=== PATIENT | male | born 1960 | race Caucasian/White ===

== ENCOUNTER 2018-09-12 11:56 | Outpatient (CLI) | payer MEDICAID, SELFPAY ==
[2018-09-12 13:13] LABS: Anion Gap 8.3 mmol/L (3-11); BUN 18 mg/dL (7-18); CO2 29.7 mmol/L (21.0-32.0); CREATININE 1.31 mg/dL (0.70-1.30); Chloride 105 mmol/L (98-107); Estimated GFR 56.81 (mL/min/1.73m2); Glucose 126 mg/dL (70-100); Sodium 143 mmol/L (136-145)
== END 2018-09-12 12:16 ==
PROVIDERS: PCP Family Medicine; Visit Provider Otolaryngology Otolaryngology/Facial Plastic Surgery
DX: H91.90 Unspecified hearing loss, unspecified ear (principal); H93.13 Tinnitus, bilateral; Z86.61 Personal history of infections of the central nervous system; R42 Dizziness and giddiness
CPT/HCPCS: 36415; 80048

== ENCOUNTER 2018-09-17 00:44 | Outpatient (CLI) | payer MEDICAID, SELFPAY ==
[2018-09-17] MEDS: Gadoterate meglumine 20 ML VIAL 19 ML IVP (15:01)
--- NOTE | 2018-09-17 15:15 | DI.MRI_ITS ---
SYMPTOM/DIAGNOSIS: UNILATERAL HEARING LOSS, I91.90, DIZZINESS, R42, TINNITUS OF BOTH EARS, H93, H/O NEUROSYPHILIS,Z86.61 IAC/BRAIN MRI: The study was carried out according to the usual protocol. There is no evidence of an intra/extra-axial hemorrhage, mass, edema or significant white matter disease. There is nothing to suggest an acoustic neuroma. The ventricles are normal. The bony structures and joints are intact. The soft tissues are normal. The sinuses are normal. The mastoid air cells are well visualized and appear unremarkable. The orbits are intact. IMPRESSION: No acute abnormality is demonstrated.
--- NOTE | 2018-09-18 17:47 | DI.VRAD_ITS ---
EXAM: MR Head Without and With Contrast EXAM DATE/TIME: 09/17/2018 3:14 PM CLINICAL HISTORY: 57 years old, male; Signs and symptoms; Other: Unilateral hearing loss, dizziness, tinnitus of both ears, h/o neurosyphillis TECHNIQUE: MR of the head without and with intravenous contrast. CONTRAST: 19 ml of Dotarem administered intravenously. COMPARISON: MRI - BRAIN WO CONTRAST 09/20/2017 4:38 PM FINDINGS: Brain: Normal. No hemorrhage. No significant white matter disease. No edema. No mass. No abnormal enhancement. No acoustic neuroma. Ventricles: Normal. No ventriculomegaly. Bones/joints: Unremarkable. Soft tissues: Normal. Sinuses: Normal as visualized. No acute sinusitis. Mastoid air cells: Normal as visualized. No mastoid effusion. Orbits: Unremarkable. IMPRESSION: No acute findings. Dictated and Authenticated by: Anson Dillon MD. Ordering:RANDY Soto MD
== END 2018-09-17 01:04 ==
PROVIDERS: PCP Family Medicine; Visit Provider Physician Assistant
DX: H93.13 Tinnitus, bilateral (principal); R42 Dizziness and giddiness; H93.01 Transient ischemic deafness; Z86.61 Personal history of infections of the central nervous system
CPT/HCPCS: 70553

== ENCOUNTER 2019-05-31 14:26 | Emergency (ER) | payer MEDICAID, SELFPAY ==
[2019-05-31 14:29] VITALS: BP 146/75; PULSE 92; RESP 16; TEMP 36.4; O2SAT 93
--- NOTE | 2019-05-31 14:58 | ED.GENADUL_ITS ---
Discharge Plan Disposition Patient Disposition: HOME Condition: Stable Discharge Details Chief Complaint: Cellulitis Clinical Impression: Cellulitis and abscess of right leg Primary Care Provider: Chele Becker ED Provider: Juan Carlos Avilez Home Meds and New Rx's Prescriptions: New sulfamethoxazole-trimethoprim [Bactrim DS] 800-160 mg tablet 1 tab PO Q12H Qty: 14 RF: 0 Continued Truvada 1 EACH tablet 1 ea PO DAILY RF: 0 ibuprofen 200 MG capsule 800 mg PO PRN RF: 0 Discharge Instructions Instructions: Cellulitis (ED) Additional Instructions: You may apply warm wet compresses 3-4 times daily for the next 3 days to aid in healing. Otherwise keep wound clean and dry. Return immediately to ED for any significant worsening of symptoms or if no improvement is seen in the next 48 hours otherwise follow-up with your primary care provider as needed for reassessment. Referrals: Chele Becker DO [Primary Care Provider] - Discharge Data Discharge Date/Time-TO BE ENTERED AT DEPARTURE: 05/31/19 17:47 Medical Decision Making <YUE Wise - Last Filed: 06/01/19 06:33> Patient is a 58-year-old male with c/c of erythema and pain to the right medial knee. States that this started proxy 4 days ago and is progressive and increasing. He denies any fevers or chills. Did note a small amount of discharge from it today. No known trauma. No inciting incident. On exam, patient has a 6 cm in circumference indurated area with erythema and a very small white area that appears to have some serosanguineous fluid draining from it centrally. Findings are most concerning for cellulitis and possible abscess. I evaluated this with an ultrasound and see scant amount of fluid. No large drainable collection. However, given patient's presentation I do feel that tryi ng to aspirate with an 18-gauge is appropriate. We will apply let and attempt aspiration. Plan to treat patient with antibiotics. At the end of my shift, care was transitioned to Juan Carlos Avilez NP. Patient is currently keeping left over the area. <Juan Carlos Avilez NP - Last Filed: 06/01/19 16:20> Patient signed out to me by YUE Wise. After topical anesthetic had set long enough for patient's area of concerning abscess wound area was assessed. Patient still felt significant amount of discomfort. Verbal consent was obtained from patient for further topical pain ease spray and needle aspiration. Needle aspiration was performed with 18-gauge needle after sterilization of field and minimal drainage was noted. Patient still had quite a bit of pressure remaining so discussed with patient incision. Patient agreed to this. 3 mL's of 1% lidocaine was injected locally and 1 appropriate level of anesthetic was achieved less than 1 cm incision was made into the central area. Small amount of purulent drainage and blood was expressed from the wound. Patient placed upon Bactrim. Return precautions discussed. After discussion of diagnosis and plan of care patient has no further needs, questions, or concerns and states clear understanding to return to the emergency department for any worsening symptoms. HPI <YUE Wise - Last Filed: 06/01/19 06:33> General Mode of arrival: ambulatory . Date/Time Provider Initiated Documentation: 05/31/19 14:57 . Limitations to Documentation: no limitations . Information obtained by: patient, family and RN notes reviewed . History of Present Illness 58 year old M presents to the emergency department with the chief complaint of right knee pain and redness, described as moderate, with intensity rated at 7. Quality is described as burning, and is localized to the right and lower extremity. Patient reports no radiation. Patient started experiencing this day(s) (4) and it has been constant. other things that improve symptom(s), (sitting with knee bent) Movement worsens symptoms (worse with ambulation) . Patient notes denies fever/chills, nausea/vomiting and weakness. Patient did receive the following treatments prior to arrival, none Related Data Home Medications Medication Instructions Recorded Confirmed Truvada 1 ea PO DAILY 02/01/16 05/31/19 ibuprofen 800 mg PO PRN tab-cap 02/05/17 05/31/19 sulfamethoxazole-trimethoprim 1 tab PO Q12H #14 tab 05/31/19 [Bactrim DS] Previous Rx's Medication Instructions Recorded sulfamethoxazole-trimethoprim 1 tab PO Q12H #14 tab 05/31/19 [Bactrim DS] Allergies Allergy/AdvReac Type Severity Reaction Status Date / Time No Known Allergies Allergy Unverified 05/31/19 14:32 General Stated Complaint: Cellulitis JOHNATHON: 4 Review of Systems <YUE Wise - Last Filed: 06/01/19 06:33> Constitutional Constitutional: Reports as per HPI, Denies chills and Denies fever(s) Musculoskeletal Musculoskeletal: Reports as per HPI Integumentary/Breasts Skin/Breast: Reports as per HPI Neurologic Neurologic: Reports as per HPI, Denies sensory deficit and Denies paresthesias PFSH <YUE Wise - Last Filed: 06/01/19 06:33> Medical History Arrhythmia (Acute) Depression (Chronic) Gout (Chronic) Surgical History Adenoidectomy Family History Mother Essential hypertension Father , [place] at age 50. Myocardial infarction Sister Heart disease Myocardial infarction Sister Heart disease Myocardial infarction Sister No problems noted. Brother Suicide Social History Smoking/Tobacco Use Status: Never Alcohol Intake: current Alcohol Intake frequency: 3 or more drinks per day Drug use: Occasionally Substance use type: does not use Adopted: No Housing: house current occupation: self employed realtor What type of physical activity do you participate in: walking and other Details: snoeshowing Frequency: 3-4 times per week Do you feel safe at home: Yes Do you feel safe in your relationship?: Yes Exam <YUE Wise - Last Filed: 06/01/19 06:33> Const General: cooperative, healthy appearing, comfortable, no acute distress and well developed Nutritional Appearance: average body habitus and well nourished Orientation: alert and awake Resp Effort & Inspection: normal respiratory effort, able to speak in complete sentences and no respiratory distress Cardio Rate: regular rate Rhythm: regular rhythm Skin General skin exam: erythema, no fluctuance and hypertrophy Neuro General: alert and awake Cognition: normal cognition Speech: speech normal Gait: normal gait Sensory Exam: no sensory deficits noted Extrem General: full ROM, normal capillary refill, no joint enlargement, no pedal edema, no calf tenderness and normal gait Psych Appearance: grossly normal and well kempt Mental Status: mental status grossly normal Speech and Movement: speech and movement normal Course <YUE Wise - Last Filed: 06/01/19 06:33> Vital Signs Vital signs: Vital Signs Temperature 36.4 C L 05/31/19 14:29 Pulse 92 H 05/31/19 14:29 Respiratory Rate 16 05/31/19 14:29 Blood Pressure 146/75 H 05/31/19 14:29 Pulse Oximetry 93 L 05/31/19 14:29 Temperature 36.4 C L 05/31/19 14:29 Pulse 92 H 05/31/19 14:29 Respiratory Rate 16 05/31/19 14:29 Respiratory Effort Non-Labored 05/31/19 14:33 Blood Pressure 146/75 H 05/31/19 14:29 Pulse Oximetry 93 L 05/31/19 14:29 Pain Level 7 05/31/19 14:29 Sign Out <YUE Wise - Last Filed: 06/01/19 06:33> Sign Out Data: Sign Out Comment: Care transitioned to Marshal Avilez NP. Patient has LET on, will need drainage of a small area of fluid collection of abscess right medial knee with surrounding cellulitis. Will need abx after. Last updated by Bessie Lopez PA at 05/31/19 16:59
[2019-05-31] MEDS: Acetaminophen 500 MG TAB (17:50)
[2019-05-31] MEDS: Sulfameth/Trimeth DS TAB 1 TAB PO (17:50)
[2019-05-31] MEDS: Lidocaine/Epinephri/Tetracaine Topical Gel 3 ML TP (17:50)
== END 2019-05-31 17:47 | disposition home or self-care (01) ==
PROVIDERS: Emergency Provider Nurse Practitioner Family; PCP Family Medicine
DX: L02.415 Cutaneous abscess of right lower limb (principal)
CPT/HCPCS: 10160; 99283

== ENCOUNTER 2019-06-03 09:54 | Outpatient (CLI) | payer MEDICAID, SELFPAY ==
--- NOTE | 2019-06-03 16:12 | DI.RAD_ITS ---
EXAM: XR KNEE RT 3V AP,LAT,JUAN ANTONIO INDICATION: Evaluate for septic joint, rt knee skin infection, L08.9. COMPARISON: LEFT KNEE LIMITED 1 OR 2 VIEWS from 07/04/2016 TECHNIQUE: 2D digital imaging was performed. FINDINGS: The bony structures are normally mineralized. Joint spaces intact. I could not entirely exclude a sm all joint effusion.
== END 2019-06-03 10:14 ==
PROVIDERS: PCP Family Medicine; Visit Provider Family Medicine
DX: L08.9 Local infection of the skin and subcutaneous tissue, unspecified (principal); M25.561 Pain in right knee
CPT/HCPCS: 73562

== ENCOUNTER 2019-06-03 16:05 | Outpatient (REF) | payer MEDICAID, SELFPAY | END 2019-06-03 16:25 | LOC: LBO 16:05 | PROVIDERS: PCP Family Medicine; Visit Provider Family Medicine | DX: L02.91 Cutaneous abscess, unspecified (principal) | CPT/HCPCS: 87077; 87070; 87186; 87205 ==

== ENCOUNTER 2019-06-09 02:09 | Outpatient (RCR) | payer MEDICAID, SELFPAY ==
[2019-06-06 09:03] LABS: BUN 18 mg/dL (7-18); CREATININE 1.58 mg/dL (0.70-1.30); Estimated GFR 45.59 (mL/min/1.73m2)
[2019-06-06] MEDS: Normal Saline Flush 10 ML SYR 20 ML IVP (10:18)
[2019-06-07] MEDS: Normal Saline Flush 10 ML SYR IVP ×4 (08:31→21:33)
[2019-06-08 08:27] LABS: Vancomycin, Trough 9.6 ug/mL (10.0-20.0)
[2019-06-08] MEDS: Normal Saline Flush 10 ML SYR IVP ×2 (09:31→22:18)
[2019-06-09] MEDS: Normal Saline Flush 10 ML SYR 20 ML IVP ×2 (08:19→20:14)
[2019-06-09 20:17] VITALS: RESP 16; TEMP 36.7; O2SAT 92
== END 2019-06-26 23:59 | disposition home or self-care (01) ==
LOC: INF 02:09
PROVIDERS: PCP Family Medicine; Visit Provider Family Medicine
DX: L02.415 Cutaneous abscess of right lower limb (principal); A49.02 Methicillin resistant Staphylococcus aureus infection, unspecified site
CPT/HCPCS: 36415; 84520; 96365; 96366; 80202; 82565; J3370

== ENCOUNTER 2019-06-09 11:12 | Outpatient (REF) | payer MEDICAID, SELFPAY | END 2019-06-09 11:32 | LOC: LBN 11:12 | PROVIDERS: PCP Family Medicine; Visit Provider Family Medicine | DX: Z22.322 Carrier or suspected carrier of Methicillin resistant Staphylococcus aureus (principal) | CPT/HCPCS: 87077; 87070; 87186; 87205 ==

== ENCOUNTER 2019-08-06 08:48 | Outpatient (CLI) | payer MEDICAID, SELFPAY ==
[2019-08-06 09:20] LABS: Abs Immature Grans 0.02 k/cumm (0.0-0.09); Absolute Basophil Count 0.04 k/cumm (0.0-0.2); Absolute Eosinophil Count 0.05 k/cumm (0.0-0.7); Absolute Lymphocyte Count 1.35 k/cumm (1.2-3.4); Absolute Monocyte Count 0.43 k/cumm (0.11-0.7); Absolute Neutrophil Count 2.85 k/cumm (1.2-6.7); Basophils % 0.8; Eosinophils % 1.1; HCT 38.3 % (40.0-50.0); HGB 12.5 g/dL (13.5-17.5); Immature Grans % 0.4; Lymphocytes % 28.5; Mean Corp. HGB Concentration 32.6 g/dL (32.0-36.0); Mean Corpuscular Hemoglobin 21.1 pg (27.0-33.0); Mean Corpuscular Volume 64.7 fL (80-95); Mean Platelet Volume 11.3 fL (8.0-11.0); Monocytes % 9.1; Neutrophils % 60.1; Platelet Count 198 x1000/uL (130-400); RBC 5.92 m/cumm (4.50-6.00); RBC Distribution Width 16.5 % (11.8-14.1); White Blood Cell Count 4.74 k/cumm (4.4-10.8)
[2019-08-06 10:06] LABS: ALT 48 U/L (16-63); AST 38 U/L (15-37); Albumin 4.2 g/dL (3.4-5.0); Alkaline Phosphatase 81 U/L (46-116); Anion Gap 11.3 mmol/L (3-11); BUN 14 mg/dL (7-18); CO2 25.7 mmol/L (21.0-32.0); CREATININE 1.33 mg/dL (0.70-1.30); Calcium 9.1 mg/dL (8.5-10.1); Calculated LDL 67 mg/dL; Chloride 105 mmol/L (98-107); Cholesterol 118 mg/dL (<200); Estimated GFR 55.62 (mL/min/1.73m2); Glucose 103 mg/dL (74-106); HDL Cholesterol 35 mg/dL (40-60); Potassium 4.4 mmol/L (3.5-5.1); Sodium 142 mmol/L (136-145); Total Protein 6.8 g/dL (6.4-8.2); Triglyceride 80 mg/dL (<150)
== END 2019-08-06 09:08 ==
PROVIDERS: PCP Family Medicine; Visit Provider Family Medicine
DX: D56.3 Thalassemia minor (principal); Z13.220 Encounter for screening for lipoid disorders
CPT/HCPCS: 36415; 80053; 80061; 85025

== ENCOUNTER → 2022-05-12 00:55 | Outpatient (CLI) | payer MEDICAID, SELFPAY ==
--- OUTSIDE RECORDS SUMMARY | 2022-05-12 00:56 | XMS_ITS | Encounter Summary ---
:1960 Author Organization [facility] [address] Care Team Providers Name Role Phone Chele Becker DO Primary Care Provider Encounter Details Date Type Department Care Team Description 11/29/2018 Office Visit [place]ology at [facility] [place] (aisha Reis MD keratosis) [address] Gabriel B DERMATOLOGY [place], [place] [id number] [phone] Social History Tobacco Use Types Packs/Day Years Used Date Never Smoker Smokeless Tobacco: Never Used Sex Assigned at Date Recorded Not on file documented as of this encounter Progress Notes [facility] MD - 11/29/2018 4:45 PM EDT Problem: 1. Follow-up status post 2-week course of facial 5-FU application Beth follows up and has had a brisk reaction to his 2-week course of 5-FU, excessively so in the central face. The scalp is responded only mildly to moderately, in contrast. Physical examination reveals a pleasant 58-year-old gentleman who has confluent erythema with edema of the central face over the entire bridge of the nose and medial cheeks with just erythematous macules of of reactive areas on the balding parietal scalp. Assessment plan: Actinic keratoses diffuse damage status post 2-week course of facial 5-FU application with excessively vigorous response and central face 1. Discontinue 5-FU; the patient did not apply it this morning 2. Continue triamcinolone 0.1% cream applying a thin layer twice daily for another 10 days to 2 weeks as necessary to help healing/deal with residual erythema 3. Recommend that I see the patient again in August 28, 2019 for his regular yearly skin checkup. CC: Chele Meredith DO documented in this encounter Plan of Treatment Not on filedocumented as of this encounter Visit Diagnoses Diagnosis [place] (actinic keratosis) Actinic keratosis documented in this encounter Care Teams Crane Service Technician Relationship Specialty Start Date End Date Chele Becker DO PCP - General Family Medicine 09/12/[address] [place] [address] documented as of this encounter
--- OUTSIDE RECORDS SUMMARY | 2022-05-12 00:56 | XMS_ITS | Encounter Summary ---
:1960 Author Organization [facility] [place] [address] Care Team Providers Name Role Phone Chele Kessler MD Primary Care Provider [phone] Reason for Visit Reason Comments Follow-up Encounter Details Date Type Department Care Team Description [facility]10[facility] [address] Gabriel B DERMATOLOGY [place], [place] [id number] [phone] Social History Tobacco Use Types Packs/Day Years Used Date Never Smoker Sex Assigned at Date Recorded Not on file documented as of this encounter Patient Instructions Patient InstructionsJuliana Guardado LPN - 06/10/2015 4:54 PM EDT [facility] Actinic Keratosis: After Your Visit Your Care Instructions Actinic keratosis is a skin growth caused by sun damage. It can turn into skin cancer, but this isn't common. Actinic keratoses, also called solar keratoses, are small red, brown, or skin-colored scalypatches. They are most common on the face, neck, hands, and forearms. Your doctor can remove these growths by freezing or scraping them off or by putting medicines on them. Follow-up care is a ortiz part of your treatment and safety. Be sure to make and go to all appointments, and call your doctor if you are having problems. It's also a good idea to know your test results and keep a list of the medicines you take. How can you care for yourself at home? ?? If your doctor removes the growth, clean the area with soap and water 2 times a day unless your doctor gives you different instructions. Don't use hydrogen peroxide or alcohol, which can slow healing. ?? You may cover the wound with a thin layer of petroleum jelly, such as Vaseline, and a nonstick bandage. To prevent actinic keratosis ?? Always wear sunscreen on exposed skin. Make sure the sunscreen blocks ultraviolet rays (both UVA and UVB) and has a sun protection factor (SPF) of at least 15. Use it every day, even when it is cloudy. Some doctors may recommend a higher SPF, such as 30. ?? Wear long sleeves, a hat, and pants if you are going to be outdoors for a long time. ?? Avoid the sun between 10 a.m. and 4 p.m., the peak time for UV rays. ?? Do not use tanning booths or sunlamps. When should you call for help? Watch closely for changes in your health, and be sure to contact your doctor if: ?? The areas that were treated are red, drain pus, or have red streaks leading from them. ?? You see other growths that do not go away. ?? You do not get better as expected. Where can you learn more? Visit our health information library at [email or web address] You can also view health information on [employer], your personal patient account. Log in or sign up today. Enter L364 in the search box to learn more about Actinic Keratosis: After Your Visit. ?? [id number] [employer]. Care instructions adapted under license by [facility]. This care instruction is for use with your licensed healthcare professional. If you have questionsabout a medical condition or this instruction, always ask your healthcare professional. [employer] disclaims any warranty or liability for your use of this information. Content Version: 10.4.188702; Current as of: March 26, 2014 documented in this encounter Progress Notes [facility] MD - 06/10/2015 5:02 PM EDT Problem: Followup status post two weeks of imiquimod cream application. Beth follows up and is doing well. He has been applying the imiquimod cream on Mondays, Wednesdays, and Fridays only, three nights a week. He uses two packets, one to the forehead area and one to the more frontal parietal scalp, for each application. Physical examination reveals a mild erythematous papule development at the treated site of the balding parietal scalp and upper forehead. There is no excessive reaction. They are only mildly sore. Assessment and Plan: Actinic keratoses, scalp. a. Continue therapy with imiquimod cream 5%, applying three days a week, Mondays, Wednesdays, and Fridays, for another six weeks, for a total of an eight-week course. b. Answered patient questions regarding expected erythema and irritation. Patient still has eight packets and three refills left. Return to clinic in another year for repeat check. COPY: Issa Temple M.D. documented in this encounter Plan of Treatment Not on filedocumented as of this encounter Visit Diagnoses Diagnosis AK (actinic keratosis) Actinic keratosis documented in this encounter Care Teams Boat Tester Relationship Specialty Start Date End Date Chele Kessler MD PCP - General 07/19/10 09/11/[address] [place] [address] documented as of this encounter
--- OUTSIDE RECORDS SUMMARY | 2022-05-12 00:56 | XMS_ITS | Encounter Summary ---
:1960 Author Organization [facility] Address [address] [place] [id number] Care Team Providers Name Role Phone LatiaChele da silva DO Primary Care Provider [phone] Reason for Visit Reason Onset Date Comments Medications Refill 12/21/2021 Encounter Details Date Type Department Care Team Description 12/21/2021 Refill [facility] Silvana Phelps MD Medications Refill Infectious Disease - [address] [place] [id number] [place] [phone] (Wo rk) Social History Tobacco Use Types Packs/Day Years Used Date Never Smoker Smokeless Tobacco: Never Used Alcohol Use Standard Drinks/Week Comments Yes 14 (1 standard drink = 0.6 oz pure alcoh ol) Sex Assigned at Date Recorded Not on file documented as of this encounter Ordered Prescriptions Prescription Sig Dispensed Refills Start Date End Date emtricitabine-tenofovir, Take 1 Tablet by 30 Tablet 2 12/2102/02/2022 TDF, (TRUVADA) 200-300 mg mouth daily. per tablet documented in this encounter Plan of Treatment Upcoming Encounters Date Type Specialty Care Team Description 05/30/2022 Nurse Only Infectious Disease Nurse, Id, RN 08/10/2022 Office Visit Infectious Disease Silvana Phelps MD [address] [phone] (Wo rk) documented as of this encounter Visit Diagnoses Not on filedocumented in this encounter Discontinued Medications Medication Sig Discontinue Reason Start Date End Date emtricitabine-tenofovir, Take 1 Tablet by Reorder 10/27/2021 12/21/2021 TDF, (TRUVADA) 200-300 mouth daily. mg per tablet emtricitabine-tenofovir, Take 1 Tablet by Reorder 09/14/2021 12/21/2021 TDF, (TRUVADA) 200-300 mouth daily. mg per tablet documented as of this encounter Care Teams Photo Producer Relationship Specialty Start Date End Date Chele Becker DO PCP - General 04/27/[address] [place] [id number] documented as of this encounter
--- OUTSIDE RECORDS SUMMARY | 2022-05-12 00:56 | XMS_ITS | Encounter Summary ---
:1960 Author Organization [facility] [place] [address] Care Team Providers Name Role Phone Chele Becker DO Primary Care Provider Encounter Details Date Type Department Care Team Description 09/07/2020 Refill Dermatology at [facility] Marivel Mccormick, DIRECTOR OF STRATEGIC COMMUNICATIONS [address] [place] [phone] Social History Tobacco Use Types Packs/Day Years Used Date Never Smoker Smokeless Tobacco: Never Used Sex Assigned at Date Recorded Not on file documented as of this encounter Plan of Treatment Not on filedocumented as of this encounter Visit Diagnoses Not on filedocumented in this encounter Care Teams Blast Furnace Supervisor Relationship Specialty Start Date End Date Chele Becker DO PCP - General Family Medicine 09/12/18 [address] [place] [address] documented as of this encounter
--- OUTSIDE RECORDS SUMMARY | 2022-05-12 00:56 | XMS_ITS | Clinical Summary ---
:1960 Author Organization [facility] Address [address] [place] [address] Care Team Providers Name Role Phone Chele Becker DO Primary Care Provider [phone] Allergies No known active allergies Medications Medication Sig Dispensed Refills Start Date End Date Status ALLOPURINOL ORAL Take by mouth. 0 Active Beginning in the next week emtricitabine-ten Take 1 Tablet 30 Tablet 2 05/11/2022 Active ofovir, TDF, by mouth (TRUVADA) 200-300 daily. mg per tablet emtricitabine-ten Take 1 Tablet 30 Tablet 2 02/02/2022 02 Discontinued ofovir, TDF, by mouth 2 (Reorde r) (TRUVADA) 200-300 daily. 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 Encounters Date Type Specialty Care Team Description 05/11/2022 Phlebotomy Only Clinical Laboratory Supervisor Dry Cleaning, Acc On p re-exposure prophylaxis for HIV; Phlebotomy History of syph ilis; Routine screeni ng for STI (sexually transmitted infection) 05/11/2022 Office Visit Infectious Disease Silvana Phelps, On pre-exposure prophylaxis for HIV (Primary Dx); MD History of syph ilis; Routine screeni ng for STI (sexually transmitted infection) 05/10/2022 Telephone Infectious Disease Silvana Phelps Imm unizations MD from Last 3 Months Immunizations Name Administration Dates Next Due Covid-19 mRNA Vaccine (PFIZER COVID-19) PF 0.3 ml IM 021, 11/16/2020 (12 yrs+) Tdap (BOOSTRIX) Vaccine =>7YO IM 04/25/2017 Medical History Medical History Date Comments Gout Social History Tobacco Use Types Packs/Day Years Used Date Never Smoker Smokeless Tobacco: Never Used Alcohol Use Standard Drinks/Week Comments Yes 14 (1 standard drink = 0.6 oz pure alcoh ol) Sex Assigned at Date Recorded Not on file Last Filed Vital Signs Vital Sign Reading Time Taken Comments Blood Pressure 141/90 02/02/2022 1025 EDT Pulse 61 02/02/2022 1025 EDT Temperature 36.6 ??C (97.8 ??F) 02/02/2022 1025 EDT Respiratory Rate 16 10/06/2016 0551 EST Oxygen Saturation 95% 10/06/2016 1037 EST Inhaled Oxygen Concentration - - Weight 93 kg (205 lb) 06/16/2021 1031 EDT pt reported Height 170.2 cm (5' 7.01) 05/21/2018 0848 EDT Body Mass Index 32.1 05/21/2018 0848 EDT Plan of Treatment Upcoming Encounters Date Type Specialty Care Team Description 05/30/2022 Nurse Only Infectious Disease Nurse, Id, RN 08/10/2022 Office Visit Infectious Disease Silvana Phelps MD [address] [facility], [address] [place], [place] [address] (Wo rk) Health Maintenance Due Date Last Done Comments COVID-19 Vaccine (3 - Booster for 05/11/2021 12/09/2020, Pfizer series) Hepatitis C Screen Completed 11/21/2019, 09/10/2019, 03/20/2019, Additional history exists Procedures Procedure Name Priority Date/Time Associated Comments Diagnosis RAPID HIV 1/2 ANTIGEN STAT 05/11/2022 10:46 On pre-exposure Results for this AND ANTIBODY, 4TH EDT prophylaxis fo r HIV procedure are in GENERATION History of syphi lis the results Routine screening section. for STI (sexually transmitted infection) COMPLETE BLOOD COUNT Routine 05/11/2022 10:46 On pre-exposure Results for this AND DIFFERENTIAL EDT prophylaxis for HIV proc edure are in the results section. COMPREHENSIVE Routine 05/11/2022 10:46 On pre-exposure Results for this METABOLIC PANEL (CMP) EDT prophylaxis for HIV procedure are in the results section. from Last 3 Months Results RAPID HIV 1/2 ANTIGEN AND ANTIBODY, 4TH GENERATION (05/11/2022 10:46 EDT) Rapid HIV 1 and 2 NegativeComment: If Negative [facility] ER Antibody/P24 acute HIV-1 LABORATORY Antigen, 4th infection is SERVICES Generation suspected in a high risk patient, submit plasma specimen for HIV-1 RNA quantitation test. Specimen Blood - Venous blood (substance) Narrative [facility] - 05/11/2022 12:07 EDT Fourth Generation assay performed on the Siemens Centaur XPT. Performing Organization Address City/State/ZIP Code Phon e Number [facility] [address] [place] [address] SERVICES (ABNORMAL) COMPLETE BLOOD COUNT AND DIFFERENTIAL (05/11/2022 10:46 EDT) WBC 6.44 4.00 - 10.40 [facility] LABORATORY SERVICES RBC 6.03 (H) 4.36 - 5.78 [facility] LABORATORY SERVICES Hemoglobin 12.8 (L) 13.8 - 17.3 [facility] gm/dL LABORATORY SERVICES HCT 41.2 39.5 - 50.2 % [facility] MCV 68 (L) 81 - 95 fl [facility] MCH 21.2 (L) 27.6 - 33.0 pg [facility] SERVICES Hypochromia 2+ [facility] MCHC 31.1 (L) 32.8 - 36.4 [facility] gm/dL LABORATORY SERVICES RDW-CV 16.3 (H) <14.2 % [facility] SERVICES RDW-SD 37.2 <46.0 fl [facility] SERVICES Anisocytosis [facility] PLT 196 141 - 377 K/[facility] LABORATORY SERVICES MPV 11.1 9.5 - 12.7 fl [facility] SERVICES Neutrophils 74.5 % [facility] Lymphocytes 17.2 % [facility] Monocytes 6.7 % [facility] Eosinophils 0.3 % [facility] Basophils 0.8 % [facility] Immature Grans 0.5 % [facility] Absolute Neutrophils 4.80 2.20 - 8.85 [facility] LABORATORY SERVICES Absolute Lymphocytes 1.11 1.09 - 3.30 [facility] K[facility] LABORATORY SERVICES Absolute Monocytes 0.43 0.10 - 0.80 [facility] LABORATORY SERVICES Absolute Eosinophils 0.02 (L) 0.03 - 0.61 [facility] LABORATORY SERVICES Absolute Basophils 0.05 0.01 - 0.11 [facility] LABORATORY SERVICES Absolute Immature 0.03 0.00 - 0.06 [facility] [place] [facility] LABORATORY SERVICES Type of Differential: Auto [facility] Specimen Blood - Venous blood (substance) Performing Organization Address City/[facility]/ZIP Code Phon e Number [facility] [address] [place] [address] SERVICES (ABNORMAL) COMPREHENSIVE METABOLIC PANEL (CMP) (05/11/2022 10:46 EDT) Pathologist Sig nature Sodium 145 136 - 145 [facility] mmol/L LABORATORY SERVICES Potassium 4.4 3.5 - 5.0 [facility] mmol/L LABORATORY SERVICES Chloride 104 96 - 110 mmol/L [facility] CO2 Total 27 22 - 32 mmol/L [facility] Glucose 113 (H) 70 - 100 mg/dL [facility] BUN 10 10 - 26 mg/dL [facility] Creatinine 1.15 0.66 - 1.25 [facility] mg/dL LABORATORY SERVICES eGFR 73 >60 [facility] mL/min/1.73m2 LABORATORY SERVICES Total Protein 6.8 6.3 - 8.2 g/dL [facility] SERVICES Albumin 4.6 3.4 - 4.9 g/dL [facility] Alkaline Phosphatase 70 38 - 126 U/L [facility] AST 32 15 - 46 U/L [facility] ALT 32 <50 U/L [facility] Bilirubin, Total 0.7 <1.4 mg/dL [facility] Calcium 9.4 8.5 - 10.5 [facility] mg/dL LABORATORY SERVICES Albumin/Globulin 2.1 1.0 - 2.5 [facility] Ratio LABORATORY SERVICES Anion Gap 14 5 - 14 [facility] SERVICES Specimen Blood - Venous blood (substance) Performing Organization Address City/State/ZIP Code Phon e Number [facility] [address] [place] [address] SERVICES from Last 3 Months Insurance Payer Benefit Plan Subscriber ID Effective Phone Address Typ e / Group Dates MEDICAID ACO MEDICAID ACO [id number] 2018-Pres [phone] [address] [place] [address], [facility] [address] Beth Hughes Personal/Family Self 1960 [address] (Home) [place] [address] Beth Hughes Personal/Family Self 1960 [address] (Home) [place] [address] Advance Directives For more information, please contact: [phone] Latest Code Status on File Code Status Date Activated Date Inactivated Comments Full Code 10/04/2016 23:58 10/06/2016 16:37 Reason for decision includes: Full code consistent with over all plan of care Who participated in the discussion? Not Discussed Care Teams Credit Analyst Relationship Specialty Start Date End Date Chele Becker DO PCP - General 04/27/[address] [place] [id number]
--- OUTSIDE RECORDS SUMMARY | 2022-05-12 00:56 | XMS_ITS | Encounter Summary ---
:1960 Author Organization [facility] [place] [address] Care Team Providers Name Role Phone Chele Becker DO Primary Care Provider Encounter Details Date Type Department Care Team Description 09/12/2018 Refill Dermatology at [facility] Marivel Mccormick, SPOT MAN [address] [place] [address] Social History Tobacco Use Types Packs/Day Years Used Date Never Smoker Smokeless Tobacco: Never Used Sex Assigned at Date Recorded Not on file documented as of this encounter Plan of Treatment Not on filedocumented as of this encounter Visit Diagnoses Not on filedocumented in this encounter Care Teams Overlock Elastic Attacher Relationship Specialty Start Date End Date Chele Becker DO PCP - General Family Medicine 09/12/18 [address] [place] [address] documented as of this encounter
--- OUTSIDE RECORDS SUMMARY | 2022-05-12 00:56 | XMS_ITS | Encounter Summary ---
:1960 Author Organization [facility] [address] Care Team Providers Name Role Phone Chele Kessler MD Primary Care Provider [phone] Encounter Details Date Type Department Care Team Description 09/06/2017 Office Visit Dermatology at [facility] [place] (aisha Reis MD keratosis) [address] [facility] Gabriel B DERMATOLOGY [place], [place] [id number] [phone] Social History Tobacco Use Types Packs/Day Years Used Date Never Smoker Smokeless Tobacco: Never Used Sex Assigned at Date Recorded Not on file documented as of this encounter Progress Notes [facility] Hernandez MD - 09/06/2017 2:15 PM EST PROBLEM: 1. Followup status post 10-1/2 days of Efudex cream applications. 2. Status post 2-month course of imiquimod cream to scalp 05/2015. 3. History of verruca vulgaris. Beth follows up and has done beautifully. He has been applying the 5-FU cream on a b.i.d. basis for the last 10-1/2 days and is pleased with his response. It has not been painful, not been sore. He has not even been using the triamcinolone cream that I gave him. Physical examination reveals a pleasant 56-year-old gentleman who has diffuse actinic keratosis lining up across his forehead, his cheeks, and bald parietal scalp. A/P: Actinic keratoses, diffuse damage. a. Apply the 5-FU once more tonight, then d/c. b. Then wait for 10-14 days for the erythema to fade and the skin to dry and peel and heal. c. Expect that he should have good response to therapy with prolonged resolution of his actinics. Recommend that I see him again in another year for a repeat check. cc: Chele Kessler MD documented in this encounter Plan of Treatment Not on filedocumented as of this encounter Visit Diagnoses Diagnosis AK (actinic keratosis) Actinic keratosis documented in this encounter Care Teams Medical Pathology Teacher Relationship Specialty Start Date End Date Chele Kessler MD PCP - General 07/19/10 09/11/[address] [place] [address] documented as of this encounter
--- OUTSIDE RECORDS SUMMARY | 2022-05-12 00:56 | XMS_ITS | Encounter Summary ---
:1960 Author Organization [facility] Address [address] [place] [address] Care Team Providers Name Role Phone Eugenio Chele Israel Primary Care Provider [phone] Encounter Details Date Type Department Care Team Description 10/27/2021 Phlebotomy Only [facility] 2 Math And Science Instructor, Acc Medica tion monitoring encounter; Phlebotomy Phlebotomy Routine screening for STI (s exually transmitted infection); [address] [facility] [place] [address] Social History Tobacco Use Types Packs/Day Years Used Date Never Smoker Smokeless Tobacco: Never Used Alcohol Use Standard Drinks/Week Comments Yes 14 (1 standard drink = 0.6 oz pure alcoh ol) Sex Assigned at Date Recorded Not on file documented as of this encounter Plan of Treatment Upcoming Encounters Date Type Specialty Care Team Description 05/30/2022 Nurse Only Infectious Disease Nurse, Elsa, RN 08/10/2022 Office Visit Infectious Disease Silvana Phelps MD [address] [facility], [address] [place], [place] [address] (Wo rk) documented as of this encounter Procedures Procedure Name Priority Date/Time Associated Comments Diagnosis MISCELLANEOUS TEST, Routine 10/27/2021 10:55 Medication Resu lts for this RAMAN EST monitoring procedure are i n encounter the results Routine screening section. for STI (sexually transmitted infection) History of syphilis COMPLETE BLOOD COUNT Routine 10/27/2021 10:55 Medication Res ults for this AND DIFFERENTIAL EST monitoring procedure a re in encounter the results Routine screening section. for STI (sexually transmitted infection) RAPID HIV 1/2 ANTIGEN STAT 10/27/2021 10:54 Medication Re sults for this AND ANTIBODY, 4TH EST monitoring procedure are in GENERATION encounter the results Routine screening section. for STI (sexually transmitted infection) COMPREHENSIVE Routine 10/27/2021 10:54 Medication Results fo r this METABOLIC PANEL (CMP) EST monitoring proced ure are in encounter the results Routine screening section. for STI (sexually transmitted infection) documented in this encounter Results MISCELLANEOUS TEST, [place] (10/27/2021 10:55 EST) [facility] Miscellaneous Test, SEE NOTE [facility] Comment: LABORATORIES Test ?Result ?Flag ??Unit ??RefValue RPR Screen w/ Reflex to Tite r,S ? TNP ?RPR Screen w/ Reflex to Titer,S was cancelled on 10/31/2021 ?at 15:22; Duplicate test request. ?Test Performed by: ?[facility] [address] [place] [address] ?Glue Mill Operator: Juan Daniel Tolentino M.D. Ph.D.; CLIA # [id number] Specimen Blood - Venous blood (substance) Narrative This result has an attachment that is no t available. Performing Organization Address City/State/ZIP Code Phon e Number [facility] [address] [place] [address] (ABNORMAL) COMPLETE BLOOD COUNT AND DIFFERENTIAL (10/27/2021 10:55 EST) [facility] WBC 5.96 4.00 - 10.40 [facility] K/cmm LABORATORY SERVICES RBC 6.04 (H) 4.36 - 5.78 [facility] LABORATORY SERVICES Hemoglobin 12.9 (L) 13.8 - 17.3 [facility] gm/dL LABORATORY SERVICES HCT 40.8 39.5 - 50.2 % [facility] SERVICES MCV 68 (L) 81 - 95 fl [facility] SERVICES MCH 21.4 (L) 27.6 - 33.0 pg [facility] SERVICES Hypochromia 2+ [facility] SERVICES MCHC 31.6 (L) 32.8 - 36.4 [facility] gm/dL LABORATORY SERVICES RDW-CV 16.5 (H) <14.2 % [facility]OR[facility] SERVICES RDW-SD 35.6 <46.0 fl [facility] SERVICES Anisocytosis 1+ [facility] SERVICES PLT 188 141 - 377 K/[facility] LABORATORY SERVICES MPV 10.5 9.5 - 12.7 fl [facility] SERVICES Neutrophils 66.7 % [facility] SERVICES Lymphocytes 23.5 % [facility] SERVICES Monocytes 8.1 % [facility] SERVICES Eosinophils 0.5 % [facility] SERVICES Basophils 0.7 % [facility] SERVICES Immature Grans 0.5 % [facility] SERVICES Absolute Neutrophils 3.98 2.20 - 8.85 [facility] LABORATORY SERVICES Absolute Lymphocytes 1.40 1.09 - 3.30 [facility] LABORATORY SERVICES Absolute Monocytes 0.48 0.10 - 0.80 [facility] LABORATORY SERVICES Absolute Eosinophils 0.03 0.03 - 0.61 [facility] LABORATORY SERVICES Absolute Basophils 0.04 0.01 - 0.11 [facility] LABORATORY SERVICES Absolute Immature 0.03 0.00 - 0.06 [facility] LABORATORY SERVICES Type of Differential: Auto [facility] SERVICES Specimen Blood - Venous blood (substance) Performing Organization Address City/State/ZIP Code Phon e Number [facility] [address] [place] [address] SERVICES (ABNORMAL) COMPREHENSIVE METABOLIC PANEL (CMP) (10/27/2021 10:54 EST) Pathologist Sig nature Sodium 139 136 - 145 [facility] mmol/L LABORATORY SERVICES Potassium 4.5 3.5 - 5.0 [facility] mmol/L LABORATORY SERVICES Chloride 103 96 - 110 mmol/L [facility] SERVICES CO2 Total 29 22 - 32 mmol/L [facility] SERVICES Glucose 121 (H) 70 - 100 mg/dL [facility] SERVICES BUN 18 10 - 26 mg/dL [facility] SERVICES Creatinine 1.18 0.66 - 1.25 [facility] mg/dL LABORATORY SERVICES eGFR 67 >60 [facility] mL/min/1.73m2 LABORATORY SERVICES Total Protein 7.0 6.3 - 8.2 g/dL [facility] SERVICES Albumin 4.8 3.4 - 4.9 g/dL [facility] SERVICES Alkaline Phosphatase 78 38 - 126 U/L [facility] SERVICES AST 35 15 - 46 U/L [facility] SERVICES ALT 37 <50 U/L [facility] SERVICES Bilirubin, Total 0.9 <1.4 mg/dL [facility] SERVICES Calcium 9.2 8.5 - 10.5 [facility] mg/dL LABORATORY SERVICES Albumin/Globulin 2.2 1.0 - 2.5 [facility] Ratio LABORATORY SERVICES Anion Gap 7 5 - 14 [facility]ORY SERVICES Specimen Blood - Venous blood (substance) Performing Organization Address City/State/ZIP Code Phon e Number [facility] [address] [place] [address] SERVICES RAPID HIV 1/2 ANTIGEN AND ANTIBODY, 4TH GENERATION (10/27/2021 10:54 EST) Pathologist [facility] Rapid HIV 1 and 2 NegativeComment: If Negative [facility] ER Antibody/P24 acute HIV-1 LABORATORY Antigen, 4th infection is SERVICES Generation suspected in a high risk patient, submit plasma specimen for HIV-1 RNA quantitation test. Specimen Blood - Venous blood (substance) Narrative [facility] SERVICES - 10/27/2021 12:37 EST Fourth Generation assay performed on the Siemens Anipipoaur XPT. Performing Organization Address City/State/ZIP Code Phon e Number [facility] [address] [place] [address] SERVICES documented in this encounter Visit Diagnoses Diagnosis Medication monitoring encounter Encounter for therapeutic drug monitorin g Routine screening for STI (sexually shaikh smitted infection) Screening examination for venereal disea se History of syphilis Personal history of other infectious and parasitic disease documented in this encounter Care Teams Traffic I Manager Relationship Specialty Start Date End Date Chele Becker DO PCP - General 04/27/[address] [place] [id number] documented as of this encounter
--- OUTSIDE RECORDS SUMMARY | 2022-05-12 00:56 | XMS_ITS | Encounter Summary ---
:1960 Author Organization [facility] [place] [address] Care Team Providers Name Role Phone Chele Kessler MD Primary Care Provider [phone] Reason for Visit Reason Comments Follow-up Encounter Details Date Type Department Care Team Description 02/20/2013 Office Visit Dermatology [facility], Verruca vulgaris [address] [facility] (Primary Dx) [address] [place], [place] DERMATOLOGY [address] [place] [address] [phone] (Wo rk) Social History Tobacco Use Types Packs/Day Years Used Date Never Smoker Sex Assigned at Date Recorded Not on file documented as of this encounter Plan of Treatment Not on filedocumented as of this encounter Visit Diagnoses Diagnosis Verruca vulgaris - Primary Viral warts, unspecified documented in this encounter Care Teams Printing Machine Operator Relationship Specialty Start Date End Date Chele Kessler MD PCP - General 07/19/10 09/11/18 [address] [place], [place] [address] documented as of this encounter
--- OUTSIDE RECORDS SUMMARY | 2022-05-12 00:56 | XMS_ITS | Clinical Summary ---
:1960 Author Organization [place] [address] Care Team Providers Name Role Phone LatiaChele da silva DO Primary Care Provider Allergies No known active allergies Medications Medication Sig Dispensed Refills Start Date End Date Status zolpidem (AMBIEN) 10 10mg, PO, QPM, prn 0 06/29/2006 Active mg tablet emtricitabine-tenofov Take 1 tablet by 0 08/29/2018 Active ir, TDF, (TRUVADA) mouth Daily. 200-300 mg Tablet allopurinol take 1 tablet by 0 08/07/2019 Active (ZYLOPRIM) 100 mg mouth once daily Tablet LORazepam (ATIVAN) take 1 tablet by 0 08/07/2019 Active 0.5 mg Tablet mouth every 6 hours if needed for anxiety fluorouraciL (EFUDEX) Apply twice daily 30 g 0 09/07/2020 Active 5 % Cream to scalp for 10-14 days as tolerated then D/C triamcinolone Apply twice daily 30 g 1 09/07/2020 Active (KENALOG) 0.1 % Cream 30 minutes after each 5-FU application for 10-14 days then use by Itself twice daily thereafter till redness resolves Active Problems Problem Noted Date AK (actinic keratosis) 05/17/2015 Dermatofibroma 05/17/2015 Verruca vulgaris 05/10/2011 Immunizations Name Administration Dates Next Due Enhanced Inactivated Polio 06/29/2006 Hepatitis A Vaccine, unspecified formulation 06/29/2006 Influenza Vaccine, Whole 06/29/2006 MMR Vaccine, Live 06/29/2006 Td, adult 06/29/2006 Typhoid Live, Oral 07/03/2006 Social History Tobacco Use Types Packs/Day Years Used Date Never Smoker Smokeless Tobacco: Never Used Sex Assigned at Date Recorded Not on file Plan of Treatment Health Maintenance Due Date Last Done Comments Covid-19 Vaccine (#1) 1967 HIV screen 1980 Hepatitis C Screening 1980 Lipid Screening 1980 Tdap adult 1981 Colonoscopy 2007 Zoster vaccine (1 of 2) 2012 Tetanus vaccine 06/29/2016 06/29/2006 Advance Directive 2017 Influenza (Flu) vaccine (1 of 1 - Influenza standard 04/27/2022 06/29/2006 series) Insurance Payer Benefit Plan / Subscriber ID Effective Dates Phone Addre ss Type Group [place] [id number] 2016-Jose [phone] [address] [facility] nt [address] [place], [place]US [address] Care Teams Sandblaster Stone Relationship Specialty Start Date End Date Chele Becker DO PCP - General Family Medicine 09/12/[address] [place], [place] [id number]
--- OUTSIDE RECORDS SUMMARY | 2022-05-12 00:56 | XMS_ITS | Encounter Summary ---
:1960 Author Organization [facility] [place] [address] Care Team Providers Name Role Phone Chele Kessler MD Primary Care Provider [phone] Reason for Visit Reason Comments Skin Check Encounter Details Date Type Department Care Team Description 08/06/2017 Office Visit Dermatology at [facility] [place] (aisha Reis MD keratosis) [address] [facility] Gabriel B DERMATOLOGY [place], [place] [id number] [phone] Social History Tobacco Use Types Packs/Day Years Used Date Never Smoker Smokeless Tobacco: Never Used Sex Assigned at Date Recorded Not on file documented as of this encounter Progress Notes Anson Hernandez MD - 08/06/2017 3:30 PM EST PROBLEM: 1. Followup 1-year skin checkup. 2. Status post 2-month course of imiquimod cream scalp, 05/2015. 3. History of verruca vulgaris. Beth follows up and has noted numerous new actinics again. These are present diffusely over the bald parietal scalp. He is wondering what else can be done for this. Physical examination reveals a pleasant 56-year-old gentleman who has diffuse actinic damage, early stage, small actinics evenly spaced over the bald parietal scalp. He has some on his forehead and down to the upper worship areas as well. He has one on the left frontal helical rim. There is no evidence of any malignant lesions. Examination of the chest and back, hands and forearms is otherwise benign. A/P: Actinic keratoses, diffuse damage. a. Really minimal response to imiquimod cream. b. Recommend that we instead begin a trial of 5-fluorouracil cream. Recommend that this be applied on a b.i.d. basis for 10 days and then return to clinic. Thirty minutes later after each b.i.d. of 5-FU application, apply triamcinolone 0.1% cream. He is given 40 gm of the former, 30 gm of the latter, zero refills of the 5-FU, 1 refill on the triamcinolone. He will start on August 27. Return to clinic to see me on September 05. c. Discussed at length expectations, reaction to expect with the 5-FU. d. Discussed the logic of doing a field therapy approach for better expected results. Return to clinic September 05 for repeat check. Note, could also consider if need be in the future PDT therapy (photodynamic) at [facility]. cc: Chele Kessler MD documented in this encounter Plan of Treatment Not on filedocumented as of this encounter Visit Diagnoses Diagnosis AK (actinic keratosis) Actinic keratosis documented in this encounter Care Teams Deckhand Maintenance Relationship Specialty Start Date End Date Chele Kessler MD PCP - General 07/19/10 09/11/[address] [place] [address] documented as of this encounter
--- OUTSIDE RECORDS SUMMARY | 2022-05-12 00:56 | XMS_ITS | Encounter Summary ---
:1960 Author Organization [facility] Address [address] [place] [address] Care Team Providers Name Role Phone EugenioChele DO Primary Care Provider [phone] Reason for Visit Reason Onset Date Comments Immunizations 05/10/2022 Encounter Details Date Type Department Care Team Description 05/10/2022 Telephone [facility] Silvana Phelps MD Immunizations Infectious Disease - [address], [address] [place] [address] [place] [address] (Wo rk) Social History Tobacco Use Types Packs/Day Years Used Date Never Smoker Smokeless Tobacco: Never Used Alcohol Use Standard Drinks/Week Comments Yes 14 (1 standard drink = 0.6 oz pure alcoh ol) Sex Assigned at Date Recorded Not on file documented as of this encounter Miscellaneous Notes Telephone Encounter - Roxanne Isidro RN - 05/10/2022 0819 EDT Added patient to our list of individuals to receive monkeypox vaccine. Will reach out to patient as soon as we are able to schedule him. ROXANNE ISIDRO RN elephone Encounter - Gloria Montejo - 05/10/2022 0810 EDT Patient would like to have the monkeypox vaccine. He received the first vaccination in [place] on March 20. documented in this encounter Plan of Treatment Upcoming Encounters Date Type Specialty Care Team Description 05/30/2022 Nurse Only Infectious Disease Nurse, Elsa, RN 08/10/2022 Office Visit Infectious Disease Silvana Phelps MD [address] [facility] [place], [place] [phone] (Wo rk) documented as of this encounter Visit Diagnoses Not on filedocumented in this encounter Care Teams Clinical Education Specialist Relationship Specialty Start Date End Date Chele Becker DO PCP - General 04/27/[address] [place] [id number] documented as of this encounter
--- OUTSIDE RECORDS SUMMARY | 2022-05-12 00:56 | XMS_ITS | Encounter Summary ---
:1960 Author Organization [facility] [place] [address] Care Team Providers Name Role Phone Chele Kessler MD Primary Care Provider [phone] Reason for Visit Reason Comments Follow-up Encounter Details Date Type Department Care Team Description 01/23/2013 Office Visit Dermatology [facility], Verruca vulgaris [address] [facility] (Primary Dx) [address] [place], [place] DERMATOLOGY [address] [place] [address] [phone] (Wo rk) Social History Tobacco Use Types Packs/Day Years Used Date Never Smoker Sex Assigned at Date Recorded Not on file documented as of this encounter Progress Notes Anson Hernandez MD - 01/23/2013 11:42 AM EDT Problem is followup verruca vulgaris. Beth follows up and still has a little bit of wart left, one on the right jawline and one on the right lateral neck. Physical examination confirms this. Assessment and Plan: Verruca vulgaris. a. LN2 times three applied to each of the remaining sites. b. Return to clinic in a month for repeat check. May cancel if doing well. documented in this encounter Plan of Treatment Not on filedocumented as of this encounter Visit Diagnoses Diagnosis Verruca vulgaris - Primary Viral warts, unspecified documented in this encounter Care Teams Business Solutions Analyst Relationship Specialty Start Date End Date Chele Kessler MD PCP - General 07/19/10 09/11/18 [address] [place], [place] [id number] documented as of this encounter
--- OUTSIDE RECORDS SUMMARY | 2022-05-12 00:56 | XMS_ITS | Encounter Summary ---
:1960 Author Organization [facility] [address] Care Team Providers Name Role Phone Chele Kessler MD Primary Care Provider [phone] Reason for Visit Reason Comments Skin Check Encounter Details Date Type Department Care Team Description 11/28/2012 Office Visit Dermatology Anson Hernandez, Verruca vulgaris [address] [facility] (Primary Dx) [address] [place], [place] DERMATOLOGY [address] [place] [address] (Wo rk) Social History Tobacco Use Types Packs/Day Years Used Date Never Smoker Sex Assigned at Date Recorded Not on file documented as of this encounter Progress Notes Anson Hernandez MD - 11/28/2012 5:21 PM EDT Problem: Followup verrucae vulgaris. Beth follows up and now has six verrucae that are present. They are new sites. Physical examination reveals three verrucae on the right jawline and right submandibular chin, one above the left angle of the mouth, and one on either dorsal hand. Assessment and Plan: Verruca vulgaris. a. LN2 times three applied aggressively to sites. b. I recommended return to the clinic in two weeks if these have not resolved, otherwise p.r.n. Note: The patient asks about the necessity of Efudex or LN2 therapy for early actinic damage on the balding parietal scalp. Physical examination today does not really support that aggressive an approach yet, but I did reinforce sun avoidance precautions with the patient who is indeed already following them. documented in this encounter Plan of Treatment Not on filedocumented as of this encounter Visit Diagnoses Diagnosis Verruca vulgaris - Primary Viral warts, unspecified documented in this encounter Care Teams Senior Applications Analyst Relationship Specialty Start Date End Date Chele Kessler MD PCP - General 07/19/10 09/11/[address] [place] [address] documented as of this encounter
--- OUTSIDE RECORDS SUMMARY | 2022-05-12 00:56 | XMS_ITS | Encounter Summary ---
:1960 Author Organization [facility] [address] Care Team Providers Name Role Phone Chele Kessler MD Primary Care Provider [phone] Reason for Visit Reason Comments Skin Lesion Encounter Details Date Type Department Care Team Description 05/09/2011 Office Visit Dermatology Anson Hernandez, Verruca vulgaris [address] [facility] (Primary Dx) [address] [place], [place] DERMATOLOGY [address] [place] [address] [phone] (Wo rk) Social History Tobacco Use Types Packs/Day Years Used Date Never Smoker Sex Assigned at Date Recorded Not on file documented as of this encounter Progress Notes Anson Hernandez MD - 05/09/2011 11:03 AM EDT Problem: Followup verruca vulgaris. Beth follows up and has new warts. It is on the left upper cutaneous lip. He also has one behind his right malleolus on his right ankle. There are of relatively recent new onset. Physical examination reveals a fairly classic verruca vulgaris on the left upper lip with a flat dome shaped appearance measuring some 4mm in diameter. On the right posterior malleolus he has a 1mm verrucous papule consistent with a verruca vulgaris versus stucco keratosis. Assessment & Plan: Verruca vulgaris, two sites. a. LN2 x3 applied to both sites. b. RTC in three weeks for repeat check. c. No evidence of recurrence at previously treated sites. documented in this encounter Plan of Treatment Not on filedocumented as of this encounter Visit Diagnoses Diagnosis Verruca vulgaris - Primary Viral warts, unspecified documented in this encounter Care Teams Hospital Admitting Clerk Relationship Specialty Start Date End Date Chele Kessler MD PCP - General 07/19/10 09/11/[address] [place] [address] documented as of this encounter
--- OUTSIDE RECORDS SUMMARY | 2022-05-12 00:56 | XMS_ITS | Encounter Summary ---
:1960 Author Organization [facility] Address [address] [address] Care Team Providers Name Role Phone Chele Kessler MD Primary Care Provider [phone] Reason for Visit Reason Comments Follow-up Encounter Details Date Type Department Care Team Description 12/17/2012 Office Visit Dermatology Anson Hernandez, Verruca vulgaris [address] [facility] (Primary Dx) [address] [place], [place] DERMATOLOGY [address] [place], [place] [phone] (Wo rk) Social History Tobacco Use Types Packs/Day Years Used Date Never Smoker Sex Assigned at Date Recorded Not on file documented as of this encounter Progress Notes Anson Hernandez MD - 12/17/2012 11:08 AM EDT Problem is followup verruca vulgaris. Beth follows up and still has some warts left, two on the right submandibular jaw line, one on the right lateral neck, and one just above the left angle of the jaw. However, he is heading on a trip leaving Sunday for about two weeks in [place], and they are going to be hiking up to 15,000 feet. He wonders whether he should actually go ahead and have these treated today or not. Physical examination confirms verruca present at the above-noted sites and as indicated on the accompanying flow sheet. Assessment and Plan: Verruca vulgaris. a. Would hold off on the LN2 today but return to clinic after his return from [place] after January 03, and at that time would then likely need to use liquid nitrogen for any remaining sites at that time. b. Encouraged sun avoidance precautions, as he will be getting lots of exposure. c. Return to clinic after January 03. documented in this encounter Plan of Treatment Not on filedocumented as of this encounter Visit Diagnoses Diagnosis Verruca vulgaris - Primary Viral warts, unspecified documented in this encounter Care Teams Ic Designer Standard Cells Relationship Specialty Start Date End Date Chele Kessler MD PCP - General 07/19/10 09/11/[address] [place] [address] documented as of this encounter
--- OUTSIDE RECORDS SUMMARY | 2022-05-12 00:56 | XMS_ITS | Encounter Summary ---
:1960 Author Organization [facility] Address [address] [place] [address] Care Team Providers Name Role Phone Chele Becker Primary Care Provider [phone] Encounter Details Date Type Department Care Team Description 02/02/2022 Phlebotomy Only [facility] ED Center 2 Oncology Radiation Physician, Acc Medica tion monitoring encounter; Phlebotomy Phlebotomy Routine screening for STI (s exually transmitted infection); [address] [facility] [place] [address] Social History Tobacco Use Types Packs/Day Years [...] Visit Infectious Disease Silvana Phelps MD [address] [facility], [address] [place], [place] [phone] (Wo rk) documented as of this encounter Procedures Procedure Name Priority Date/Time Associated Diagnosis Comme nts RPR SCREEN W/REFLEX Routine 02/02/2022 11:18 History of syphil is Results for this TO TITER, S EDT procedure are i n the results section. RAPID HIV 1/2 STAT 02/02/2022 11:18 Routine screening Resul ts for this ANTIGEN AND EDT for STI (sexually procedure are in ANTIBODY, 4TH transmitted the results GENERATION infection) section. BASIC METABOLIC Routine 02/02/2022 11:18 Medication Results for this PANEL (BMP) EDT monitoring encounter procedu re are in the results section. documented in this encounter Results RPR SCREEN W/REFLEX TO TITER, S (02/02/2022 11:18 EDT) Pathologist [facility] RPR SCREEN Negative Negative [facility] W/REFLEX TO Comment: LABORATORIES TITER, S Non-treponemal antibodies not detected. ? For additional information on interpretation of the syphilis reverse algorithm and results, see: [email or web address] Test Performed by: [facility] [address] [place] [address] Gate Manager: Juan Daniel Tolentino M.D. Ph.D.; CLIA# [id number] Specimen Blood - Venous blood (substance) Performing Organization Address City/[facility]/ZIP Code Phon e Number [facility] [address] [place] [address] RAPID HIV 1/2 ANTIGEN AND ANTIBODY, 4TH GENERATION (02/02/2022 11:18 EDT) [facility] Rapid HIV 1 and 2 NegativeComment: If Negative [facility] ER Antibody/P24 acute HIV-1 LABORATORY Antigen, 4th infection is SERVICES Generation suspected in a high risk patient, submit plasma specimen for HIV-1 RNA quantitation test. Specimen Blood - Venous blood (substance) Narrative [facility] - 02/02/2022 12:59 EDT Fourth Generation assay performed on the Siemens Centaur XPT. Performing Organization Address City/State/ZIP Code Phon e Number [facility] [address] [place] [address] SERVICES (ABNORMAL) BASIC METABOLIC PANEL (BMP) (02/02/2022 11:18 EDT) Pathologist Sig nature Sodium 142 136 - 145 mmol/L [facility] Potassium 4.2 3.5 - 5.0 mmol/L [facility] Chloride 105 96 - 110 mmol/L [facility] CO2 Total 26 22 - 32 mmol/L [facility] Anion Gap 11 5 - 14 [facility] Glucose 106 (H) 70 - 100 mg/dL [facility] Calcium 8.8 8.5 - 10.5 mg/dL [facility] BUN 13 10 - 26 mg/dL [facility] Creatinine 1.15 0.66 - 1.25 mg/dL [facility] eGFR 73 >60 mL/min/1.73m2 [facility] Specimen Blood - Venous blood (substance) Performing Organization Address City/State/ZIP Code Phon e Number [facility] [address] [place] [address] SERVICES documented in this encounter Visit Diagnoses Diagnosis Medication monitoring encounter Encounter for therapeutic drug monitorin g Routine screening for STI (sexually shaikh smitted infection) Screening examination for venereal disea se History of syphilis Personal history of other infectious and parasitic disease documented in this encounter Care Teams Director Of Events Relationship Specialty Start Date End Date Chele Becker DO PCP - General 04/27/[address] [place] [phone] documented as of this encounter
--- OUTSIDE RECORDS SUMMARY | 2022-05-12 00:56 | XMS_ITS | Encounter Summary ---
:1960 Author Organization [facility] Address [address] [place] [address] Care Team Providers Name Role Phone Eugenio Chele Israel DO Primary Care Provider [phone] Reason for Visit Reason Comments Pre-exposure Prophylaxis Follow-up Encounter Details Date Type Department Care Team Description 05/11/2022 Office Visit [facility] Silvana Phelps, On pre-exposure prophylaxis for HIV (Primary Dx); Infectious Disease - MD History of syphilis; [address] Routine screening for STI (s exually transmitted infection) [address] [place], [place] [id number] [place] [address] [place], [address] [place] [id number] (Wo rk) Social History Tobacco Use Types [...] Take 1 Tablet by 30 Tablet 2 05/11 TDF, (TRUVADA) 200-300 mg mouth daily. per tablet documented in this encounter Progress Notes Silvana Phelps MD - 05/11/2022 0932 EDT Division of Infectious Disease Follow up/Progress Note Date: 05/11/22 Chief Complaint: Occular syphilis, HIV prevention, unprotected sex History of present illness: 61 y/o male presents today for interval evaluation following episode of occular syphilis and ongoingmonitoring related to use of PrEP. Mr. Hughes is feeling well. Continues to take his Truvada without missing doses. Was seen in the post COVID clinic in his home area and found to be hypoxic. Is undergoing additional evaluation for this. No other illnesses. No dysuria. No rectal pain. Has had episodes of unprotected oral and genital intercourse. Had a partner tell him he was diagnosed with chlamydia, thus is eager for screening today. Received first MPX vaccine this summer (03/24/22). Would like to gethis second. PMHx: 1. Gout. 2. Occular syphilis. Panuveitis, retinitis. Dx'd 10/04/16. CSF eval negative. Treated with PCN G 4 mu Q 4 X 14 days. 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 HBV surf ab indeterminate; surface antigen and core ab negative. Sep 08, 2015 PSHx: has no past surgical history on file. Social History: Single. Lives alone. Works as a realtor. MSM. One consistent partner who is HIV positive though undetectable on ART. Has other partners intermittently outside of that relationship. Medications: Medications reconciled via PRISM. Current antimicrobials: Truvada, 1 PO daily. ROS: Vision seems stable, no ophtho appt in the last year. Remainder of 10 point ROS is negative. Objective: There were no vitals taken for this visit. In review of past oximetry from admission in 2016, he ranged from 90-95%. Pulse ox today ranged 93-94%. Gen: Alert, oriented. NAD. Looks well. HEENT: Anicteric. Oral mucosa moist. No thrush. No ulcerations. Neck: supple. Reg. No obvious murmer. Lungs are CTA. LABS: Due for labs today. Last labs from 02/02/22 RPR negativee HIV ab negative. Oropharyngeal GC and chlamydia negative Urine GC and chlamydia negative Cr 1.15 Prior labs: 10/02/16: Syphilis ab positive, RPR 1:256. HIV ab negative Lyme ab negative 10/05: CSF WBC 3, RBC 0, gluc 69, prot 46; VDRL negative 09/08/15 ([facility]) HIV ab negative Syphilis ab negative HAV ab positive. HBV ab indeterminate, surface antigen negative, core ab negative HCV ab negative Radiology: No interval imaging. Impression: 1. 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 No evidence of meningitis via LP though retinal disease required treatment for neurosyphilis. Had a subsequent exposure, though without increase in RPR to suggest re-inf ection and received 1 dose of IM PCN. Most recently with negative RPRs. No evidence today to suggestrelapse or new infection though given unprotected sex, plan to repeat RPR today to assure remains stable. Recommended resuming f/u with optometry. 2. High risk for HIV acquisition. Agree with continuing PrEP to minimize risk for acquisition. No interval signs or symptoms to suggest acute seroconversion. Due for Cr, HIV ab today. Site specific chlamydia and gonorrhea testing also performed, if positive will treat. Adherence reviewed. Rx renewed today forTruvada 1 PO daily X 3 months. 3. Elevated Cr. Though CrCl> 60. Will continue to monitor closely. 4. Vision changes. Stable at this time. No evidence to suggest new or relapsed occular syphilis. Would continue to monitor. Needs to re-establish with optometry. 5. Syphilis exposure. Treated X 1 07/26/17 and again 11/21/19. 6. Unprotected sex--OP and penile exposure. Screening performed today. Will treat if positive. 7. Recent MRSA infection. Treated. 8. HME. Up to date with vaccines. Could consider menactra. Will discuss at next visit. 9. Mild hypoxia, SOB. Could represent lung injury from COVID, though had low normal O2 sat in 2017. No tobacco or toxic exposures. Pulm eval ongoing. Plan: 1. Continue Truvada--1 PO daily--I re-ordered 3 months. 2. Labs today--HIV ab, HIV RNA quant, BMP, urine GC/chlam, OP GC and chlam; RPR. I will call him with results. 3. Continue to consider transition to Descovy--will hold for now. 4. If all stable, plan for f/u in 3 months. Silvana Phelps MD 05/11/2022 9:54 documented in this encounter Plan of Treatment Upcoming Encounters Date Type Specialty Care Team Description 05/30/2022 Nurse Only Infectious Disease Nurse, Id, RN 08/10/2022 Office Visit Infectious Disease Silvana Phelps MD [address] [facility], [facility], [address] [place], [place] [address] (Wo rk) Pending Results Name Type Priority Associated Diagnoses Date/Ti me HIV 1 RNA QUANTITATION Lab Routine On pre-exposure 10:46 prophylaxis for HIV EDT RESPONSE TO THERAPY RPR Lab Routine History of syphil is 05/11/2022 10:46 SCREEN W/REFLEX TO EDT TITER, S CHLAMYDIA/N. Microbiology Routine On pre-exposure 05/11/2022 1 0:06 GONORRHOEAE AMPLIFIED prophylaxi s for HIV EDT RNA History of syphi lis Routine screening for STI (sexually transmitted infection) CHLAMYDIA/N. Microbiology Routine On pre-exposure 05/11/2022 1 0:05 GONORRHOEAE AMPLIFIED prophylaxi s for HIV EDT RNA History of syphi lis Routine screening for STI (sexually transmitted infection) Scheduled Orders Name Type Priority Associated Diagnoses Order S chedule HIV 1 RNA QUANTITATION Lab Routine On pre-exposure Ex pected: 05/11/2022 prophylaxis for HIV (Approxi mate), Expires: 2022 RESPONSE TO THERAPY RPR Lab Routine History of syphil is Expected: 05/11/2022 SCREEN W/REFLEX TO TITER, (A pproximate), S Expires: 2022 documented as of this encounter Results RAPID HIV 1/2 ANTIGEN AND ANTIBODY, 4TH GENERATION (05/11/2022 10:46 EDT) [facility] Rapid HIV 1 and 2 NegativeComment: If Negative [facility] ER Antibody/P24 acute HIV-1 LABORATORY Antigen, 4th infection is SERVICES Generation suspected in a high risk patient, submit plasma specimen for HIV-1 RNA quantitation test. Specimen Blood - Venous blood (substance) Narrative [facility] SERVICES - 05/11/2022 12:07 EDT Fourth Generation assay performed on the Siemens Primedicaur XPT. Performing Organization Address City/State/ZIP Code Phon e Number [facility] [address] [place] [address] SERVICES (ABNORMAL) COMPLETE BLOOD COUNT AND DIFFERENTIAL (05/11/2022 10:46 EDT) WBC 6.44 4.00 - 10.40 [facility] LABORATORY SERVICES RBC 6.03 (H) 4.36 - 5.78 [facility] LABORATORY SERVICES Hemoglobin 12.8 (L) 13.8 - 17.3 [facility] gm/dL LABORATORY SERVICES HCT 41.2 39.5 - 50.2 % [facility] SERVICES MCV 68 (L) 81 - 95 fl [facility] SERVICES MCH 21.2 (L) 27.6 - 33.0 pg [facility] SERVICES Hypochromia 2+ [facility] SERVICES MCHC 31.1 (L) 32.8 - 36.4 [facility] gm/dL LABORATORY SERVICES RDW-CV 16.3 (H) <14.2 % [facility] SERVICES RDW-SD 37.2 <46.0 fl [facility] SERVICES Anisocytosis [facility] SERVICES PLT 196 141 - 377 K/[facility] LABORATORY SERVICES MPV 11.1 9.5 - 12.7 fl [facility] SERVICES Neutrophils 74.5 % [facility] SERVICES Lymphocytes 17.2 % [facility] SERVICES Monocytes 6.7 % [facility] SERVICES Eosinophils 0.3 % [facility] SERVICES Basophils 0.8 % [facility] SERVICES Immature Grans 0.5 % [facility] SERVICES Absolute Neutrophils 4.80 2.20 - 8.85 [facility] LABORATORY SERVICES Absolute Lymphocytes 1.11 1.09 - 3.30 [facility] LABORATORY SERVICES Absolute Monocytes 0.43 0.10 - 0.80 [facility] LABORATORY SERVICES Absolute Eosinophils 0.02 (L) 0.03 - 0.61 [facility] LABORATORY SERVICES Absolute Basophils 0.05 0.01 - 0.11 [facility] LABORATORY SERVICES Absolute Immature 0.03 0.00 - 0.06 [facility] LABORATORY SERVICES Type of Differential: Auto [facility] SERVICES Specimen Blood - Venous blood (substance) Performing Organization Address City/State/ZIP Code Phon e Number [facility] [address] [place] [address] SERVICES (ABNORMAL) COMPREHENSIVE METABOLIC PANEL (CMP) (05/11/2022 10:46 EDT) Pathologist Sig nature Sodium 145 136 - 145 [facility] mmol/L LABORATORY SERVICES Potassium 4.4 3.5 - 5.0 [facility] mmol/L LABORATORY SERVICES Chloride 104 96 - 110 mmol/L [facility] SERVICES CO2 Total 27 22 - 32 mmol/L [facility] SERVICES Glucose 113 (H) 70 - 100 mg/dL [facility] SERVICES BUN 10 10 - 26 mg/dL [facility] SERVICES Creatinine 1.15 0.66 - 1.25 [facility] mg/dL LABORATORY SERVICES eGFR 73 >60 [facility] mL/min/1.73m2 LABORATORY SERVICES Total Protein 6.8 6.3 - 8.2 g/dL [facility]ORATORY SERVICES Albumin 4.6 3.4 - 4.9 g/dL [facility] SERVICES Alkaline Phosphatase 70 38 - 126 U/L [facility] SERVICES AST 32 15 - 46 U/L [facility] SERVICES ALT 32 <50 U/L [facility] SERVICES Bilirubin, Total 0.7 <1.4 mg/dL [facility] SERVICES Calcium 9.4 8.5 - 10.5 [facility] mg/dL LABORATORY SERVICES Albumin/Globulin 2.1 1.0 - 2.5 [facility] Ratio LABORATORY SERVICES Anion Gap 14 5 - 14 [facility] SERVICES Specimen Blood - Venous blood (substance) Performing Organization Address City/State/ZIP Code Phon e Number [facility] [address] [place] [address] SERVICES documented in this encounter Visit Diagnoses Diagnosis On pre-exposure prophylaxis for HIV - Pr imary History of syphilis Personal history of other infectious and parasitic disease Routine screening for STI (sexually shaikh smitted infection) Screening examination for venereal disea se documented in this encounter Discontinued Medications Medication Sig Discontinue Reason Start Date End Date emtricitabine-tenofovir, Take 1 Tablet by Reorder 02/02/2022 05/11/2022 TDF, (TRUVADA) 200-300 mouth daily. mg per tablet documented as of this encounter Care Teams Material Mixer Relationship Specialty Start Date End Date Chele Becker DO PCP - General 04/27/[address] [place] [id number] documented as of this encounter
--- OUTSIDE RECORDS SUMMARY | 2022-05-12 00:56 | XMS_ITS | Encounter Summary ---
:1960 Author Organization [facility] [place] [address] Care Team Providers Name Role Phone Chele Becker DO Primary Care Provider Reason for Visit Reason Comments Skin Check Encounter Details Date Type Department Care Team Description 09/02/2019 Office Visit Dermatology at [facility] [place] (aisha Reis MD keratosis) [address] Gabriel B DERMATOLOGY [place], [place] [id number] [phone] Social History Tobacco Use Types Packs/Day Years Used Date Never Smoker Smokeless Tobacco: Never Used Sex Assigned at Date Recorded Not on file documented as of this encounter Progress Notes [facility] Hernandez MD - 09/02/2019 3:30 PM EST Problem: 1. 1 year follow-up, skin checkup 2. Status post 10-1/2-day course of Efudex cream JuneAugust 2017, 2-week course November 2018 3. Status post 2-month course of imiquimod cream therapy to scalp, May 2015 4. History of verruca vulgaris Beth follows up after his last visit in November 2018 at which time he was completing a two-week course of 5-FU. He had a very brisk reaction central face less of the scalp. He is here for general skin checkup. He shows me that he has some of both creams left over from that visit and that treatment course for his actinic keratoses. He wonders whether or not he should be using it now for his scalp whichhas some new actinic's. Physical examination reveals a pleasant 58-year-old gentleman who has diffuse actinic damage of the bald parietal scalp really nothing on the forehead nose ears or face. That he remains entirely clear.Examination of the chest the back the hands the arms forearms thighs and calves is otherwise benign.Patient has some stucco keratoses on his arms and legs. He has no warts present on hand examination today. Assessment and plan: Actinic keratoses diffusely bald parietal scalp 1. Recommend that we begin another course of 5-FU and triamcinolone cream applying twice daily for 2weeks together, then triamcinolone by itself twice daily until parietal scalp erythema resolves. 2. He has plenty of 5-FU left but I gave him today prescription for more of the triamcinolone 0.1% cream 15 g tube with 1 refill to fill if he needs it. He took a handwritten paper prescription with him. 3. Return to clinic in a year for repeat check. Seborrheic keratoses/stucco keratoses benign skin examination 1. Patient reassured 2. No treatment necessary Cc: Chele Becker DO documented in this encounter Plan of Treatment Not on filedocumented as of this encounter Visit Diagnoses Diagnosis AK (actinic keratosis) Actinic keratosis documented in this encounter Care Teams Parts Product Analyst Relationship Specialty Start Date End Date Chele Becker DO PCP - General Family Medicine 09/12/[address] [place] [address] documented as of this encounter
--- OUTSIDE RECORDS SUMMARY | 2022-05-12 00:56 | XMS_ITS | Encounter Summary ---
:1960 Author Organization [facility] [place] [address] Care Team Providers Name Role Phone Chele Kessler MD Primary Care Provider [phone] Reason for Visit Reason Comments Follow-up Encounter Details Date Type Department Care Team Description 05/29/2016 Office Visit Dermatology at [facility] [place] (act misha Reis MD keratosis) [address] [facility] Gabriel B DERMATOLOGY [place], [place] [id number] [phone] Social History Tobacco Use Types Packs/Day Years Used Date Never Smoker Sex Assigned at Date Recorded Not on file documented as of this encounter Progress Notes [facility] Hernandez MD - 05/29/2016 10:45 AM EDT PROBLEMS: 1. Followup one year skin checkup. 2. Status post 2 month course of imiquimod cream, scalp, 05/2015. 3. History of verruca vulgaris. Beth follows up today and points out that he still has rough spots on his scalp. Things have not totally cleared after the imiquimod as he might have hoped. PHYSICAL EXAMINATION: Reveals a pleasant 55-year-old who has mild diffuse actinic damage throughout the bald parietal scalp. He has an abrasion on the frontal part of the scalp from the block of wood that dropped on his head. There is no evidence of any malignant lesions. Examination of the hands and forearms is also benign. He has a single wart on his right second finger. ASSESSMENT AND PLAN: 1. Verruca vulgaris. A. LN times 3 applied to single wart right second finger. 2. Actinic keratoses of the scalp. A. Patient has been through LN2 and through imiquimod cream, with I think a reasonable response, but of course not a complete response. B. Explained this to patient. Explained the reasons why. C. I think he is improved enough at this point that we can just keep an eye on things for another year, but consider the option of PDT therapy, (photodynamic), at [facility] in a year's time if need be. Return in one year. CC: Issa Temple MD documented in this encounter Plan of Treatment Not on filedocumented as of this encounter Visit Diagnoses Diagnosis AK (actinic keratosis) Actinic keratosis documented in this encounter Care Teams Bartender Helper Relationship Specialty Start Date End Date Chele Kessler MD PCP - General 07/19/10 09/11/[address] [place] [address] documented as of this encounter
--- OUTSIDE RECORDS SUMMARY | 2022-05-12 00:56 | XMS_ITS | Encounter Summary ---
:[address] [facility] Address [address] [place] [address] Care Team Providers Name Role Phone Chele Becker Primary Care Provider [phone] Encounter Details Date Type Department Care Team Description 05/11/2022 Phlebotomy Only [facility] 2 Tar Pot Worker, Acc On pre -exposure prophylaxis for HIV; Phlebotomy Phlebotomy History of syphilis; [address] [facility] Routine screening for STI (s exually transmitted infection) [place], [place] [address] Social History Tobacco Use Types Packs/Day Years [...] Visit Infectious Disease Silvana Phelps MD [address] [facility], [address] [place], [place] [address] (Wo rk) Pending Results Name Type Priority Associated Diagnoses Date/Ti me HIV 1 RNA QUANTITATION Lab Routine On pre-exposure 10:46 EDT prophylaxis for HIV RESPONSE TO THERAPY RPR Lab Routine History of syphil is 05/11/2022 10:46 EDT SCREEN W/REFLEX TO TITER, S documented as of this encounter Procedures Procedure [...] HIV procedure are in the results section. documented in this encounter Results RAPID HIV 1/2 ANTIGEN AND ANTIBODY, 4TH GENERATION (05/11/2022 10:46 EDT) Pathologist [facility] Rapid HIV 1 and 2 NegativeComment: If Negative [facility] ER Antibody/P24 acute HIV-1 LABORATORY Antigen, 4th infection is SERVICES Generation suspected in a high risk patient, submit plasma specimen for HIV-1 RNA quantitation test. Specimen Blood - Venous blood (substance) Narrative [facility] SERVICES - 05/11/2022 12:07 EDT Fourth Generation assay performed on the Siemens bitHoundaur XPT. Performing Organization Address City/State/ZIP Code Phon e Number [facility] [address] [place] [address] SERVICES (ABNORMAL) COMPLETE BLOOD COUNT AND DIFFERENTIAL (05/11/2022 10:46 EDT) WBC 6.44 4.00 - 10.40 [facility]community health LABORATORY SERVICES RBC 6.03 (H) 4.36 - 5.78 [facility]community health LABORATORY SERVICES Hemoglobin 12.8 (L) 13.8 - 17.3 [facility] gm/dL LABORATORY SERVICES HCT 41.2 39.5 - 50.2 % [facility] SERVICES MCV 68 (L) 81 - 95 fl [facility] SERVICES MCH 21.2 (L) 27.6 - 33.0 pg [facility] SERVICES Hypochromia 2+ [facility] MCHC 31.1 (L) 32.8 - 36.4 [facility] gm/dL LABORATORY SERVICES RDW-CV 16.3 (H) <14.2 % [facility] SERVICES RDW-SD 37.2 <46.0 fl [facility] SERVICES Anisocytosis [facility] PLT 196 141 - 377 K/m [facility] MPV 11.1 9.5 - 12.7 fl [facility] SERVICES Neutrophils 74.5 % [facility] Lymphocytes 17.2 % [facility] Monocytes 6.7 % [facility] Eosinophils 0.3 % [facility] Basophils 0.8 % [facility] Immature Grans 0.5 % [facility] SERVICES Absolute Neutrophils 4.80 2.20 - 8.85 [facility] LABORATORY SERVICES Absolute Lymphocytes 1.11 1.09 - 3.30 [facility] LABORATORY SERVICES Absolute Monocytes 0.43 0.10 - 0.80 [facility] LABORATORY SERVICES Absolute Eosinophils 0.02 (L) 0.03 - 0.61 [facility] LABORATORY SERVICES Absolute Basophils 0.05 0.01 - 0.11 [facility] LABORATORY SERVICES Absolute Immature 0.03 0.00 - 0.06 [facility] LABORATORY SERVICES Type of Differential: Auto [facility] SERVICES Specimen Blood - Venous blood (substance) Performing Organization Address City/State/ZIP Code Phon e Number [facility] [address] [place] [address] SERVICES (ABNORMAL) COMPREHENSIVE METABOLIC PANEL (CMP) (05/11/2022 10:46 EDT) Pathologist Sig nature Sodium 145 136 - 145 [facility] mmol/L LABORATORY SERVICES Potassium 4.4 3.5 - 5.0 [facility] mmol/L LABORATORY SERVICES Chloride 104 96 - 110 mmol/L [facility] SERVICES CO2 Total 27 22 - 32 mmol/L [facility] SERVICES Glucose 113 (H) 70 - 100 mg/dL [facility] SERVICES BUN 10 10 - 26 mg/dL [facility] SERVICES Creatinine 1.15 0.66 - 1.25 [facility] mg/dL LABORATORY SERVICES eGFR 73 >60 [facility] mL/min/1.73m2 LABORATORY SERVICES Total Protein 6.8 6.3 - 8.2 g/dL [facility] SERVICES Albumin 4.6 3.4 - 4.9 g/dL [facility] SERVICES Alkaline Phosphatase 70 38 - 126 U/L [facility] SERVICES AST 32 15 - 46 U/L [facility] SERVICES ALT 32 <50 U/L [facility] SERVICES Bilirubin, Total 0.7 <1.4 mg/dL [facility] SERVICES Calcium 9.4 8.5 - 10.5 [facility] mg/dL LABORATORY SERVICES Albumin/Globulin 2.1 1.0 - 2.5 [facility] Ratio LABORATORY SERVICES Anion Gap 14 5 - 14 [facility] SERVICES Specimen Blood - Venous blood (substance) Performing Organization Address City/State/ZIP Code Phon e Number [facility] [address] [place] [address] SERVICES documented in this encounter Visit Diagnoses Diagnosis On pre-exposure prophylaxis for HIV History of syphilis Personal history of other infectious and parasitic disease Routine screening for STI (sexually shaikh smitted infection) Screening examination for venereal disea se documented in this encounter Care Teams Home Care Administrator Relationship Specialty Start Date End Date Chele Becker DO PCP - General 04/27/[address] [place] [id number] documented as of this encounter
--- OUTSIDE RECORDS SUMMARY | 2022-05-12 00:56 | XMS_ITS | Encounter Summary ---
:1960 Author Organization [facility] [place] [address] Care Team Providers Name Role Phone Chele Kessler MD Primary Care Provider [phone] Reason for Visit Reason Comments Verrucous Vulgaris Encounter Details Date Type Department Care Team Description 06/01/2011 Office Visit Dermatology Anson Hernandez, Verruca vulgaris [address] [facility] (Primary Dx) [address] [place], [place] DERMATOLOGY [address] [place] [address] [phone] (Wo rk) Social History Tobacco Use Types Packs/Day Years Used Date Never Smoker Sex Assigned at Date Recorded Not on file documented as of this encounter Progress Notes Anson Hernandez MD - 06/01/2011 9:55 AM EDT Problem: Followup verruca vulgaris. Beth follows up and the warts seem to have resolved. Physical examination confirms that the verruca vulgaris on the left upper lip has entirely cleared, as has the 1mm verrucous papule on the right posterior lateral malleolus. Assessment & Plan: Verruca vulgaris, two sites, resolved. a. Patient reassured. b. No treatment necessary. c. RTC p.r.n. documented in this encounter Plan of Treatment Not on filedocumented as of this encounter Visit Diagnoses Diagnosis Verruca vulgaris - Primary Viral warts, unspecified documented in this encounter Care Teams Rehabilitation Aide/Scheduler Relationship Specialty Start Date End Date Chele Kessler MD PCP - General 07/19/10 09/11/18 [address] [place] [place] [address] documented as of this encounter
--- OUTSIDE RECORDS SUMMARY | 2022-05-12 00:56 | XMS_ITS | Encounter Summary ---
:1960 Author Organization [facility] Address [address] [place] [address] Care Team Providers Name Role Phone Eugenio Chele Israel Primary Care Provider [phone] Reason for Visit Reason Comments Follow-up Encounter Details Date Type Department Care Team Description 02/02/2022 Office Visit [facility] Silvana Phelps Rou tine screening for STI (sexually transmitted infection) (Primary Dx); Infectious Disease - MD History of syphilis; [address] Medication monitoring encoun ter [address] [place] [id number] [place] [address] [facility] [address] [place] [phone] (Wo rk) Social History Tobacco Use Types Packs/Day Years Used Date Never Smoker Smokeless Tobacco: Never Used Alcohol Use Standard Drinks/Week Comments Yes 14 (1 standard drink = 0.6 oz pure alcoh ol) Sex Assigned at Date Recorded Not on file documented as of this encounter Last Filed Vital Signs Vital Sign Reading Time Taken Comments Blood Pressure 141/90 02/02/2022 1025 EDT Pulse 61 02/02/2022 1025 EDT Temperature 36.6 ??C (97.8 ??F) 02/02/2022 1025 EDT Respiratory Rate - - Oxygen Saturation - - Inhaled Oxygen Concentration - - Weight - - Height - - Body Mass Index - - documented in this encounter Ordered Prescriptions Prescription Sig Dispensed Refills Start Date End Date emtricitabine-tenofovir, Take 1 Tablet by 30 Tablet 2 02/0205/11/2022 TDF, (TRUVADA) 200-300 mg mouth daily. per tablet documented in this encounter Progress Notes Silvana Phelps MD - 02/02/2022 1030 EDT Division of Infectious Disease Follow up/Progress Note Date:02/02/22 Chief Complaint: Occular syphilis, HIV prevention, unprotected sex History of present illness: 61 y/o male presents today for interval evaluation following episode of occular syphilis and ongoingmonitoring related to use of PrEP. Mr. Hughes is feeling well. Continues to take his Truvada without missing doses. Did develop COVID in June. Had mild symptoms at the time. Still feels more SOB thanusual since the fall, not sure if related to COVID or some weight gain and inactivity. Has had the opportunity to try a pulse oximeter which usually measures approx 90- 91%. Was referred by PCP to pulmonary medicine for evaluation, this is scheduled for Apr. No other illnesses. No dysuria. No rectal pain. Has had episodes of unprotected oral and genital intercourse. PMHx: 1. Gout. 2. Occular syphilis. Panuveitis, [...] of 10 point ROS is negative. Objective: BP 141/90 (BP Cuff Location: Right arm, BP Patient Position: Sitting, BP Cuff Sizes: Adult, regular) Pulse 61 Temp 36.6 ??C (97.8 ??F) In review of past oximetry from admission in 2017, he ranged from 90-95%. Pulse ox today ranged 93-94%. Gen: Alert, oriented. NAD. Looks well. HEENT: Anicteric. Oral mucosa moist. No thrush. No ulcerations. Neck: supple. Reg. No obvious murmer. Lungs are CTA. ABd soft, NT, ND. No LE edema. No rash. LABS: Due for labs today. Last labs from 10/27/21 RPR unable to be performed HIV ab negative. Oropharyngeal GC and chlamydia negative Urine GC and chlamydia negative Cr 1.18 Prior labs: 10/02/16: Syphilis ab positive, RPR 1:256. HIV ab negative Lyme ab negative 10/05: CSF WBC 3, RBC 0, gluc 69, prot 46; VDRL negative 09/08/15 ([facility]) HIV ab negative Syphilis ab negative HAV [...] in 2017. No tobacco or toxic exposures. Agree with plan for pulm eval. Plan: 1. Continue Truvada--1 PO daily--I re-ordered 3 months. 2. Labs today--HIV ab, BMP, urine GC/chlam, OP GC and chlam; RPR. I will call him with results. 3. Continue to consider transition to Descovy--will hold for now. 4. If all stable, plan for f/u in 3 months. Silvana Phelps MD 02/02/2022 10:48 documented in this encounter Plan of Treatment Upcoming Encounters Date Type Specialty Care Team Description 05/30/2022 Nurse Only Infectious Disease Nurse, Id, RN 08/10/2022 Office Visit Infectious Disease Silvana Phelps MD [address] [facility], [facility] [address] [place], [place] [address] (Wo rk) documented as of this encounter Procedures Procedure Name Priority Date/Time Associated Diagnosis Comme nts CHLAMYDIA/N. Routine 02/02/2022 11:05 Routine screening Result s for this GONORRHOEAE EDT for STI (sexually procedure are in AMPLIFIED RNA transmitted the results infection) section. CHLAMYDIA/N. Routine 02/02/2022 11:05 Routine screening Result s for this GONORRHOEAE EDT for STI (sexually procedure are in AMPLIFIED RNA transmitted the results infection) section. documented in this encounter Results RPR SCREEN W/REFLEX TO TITER, S (02/02/2022 11:18 EDT) RPR SCREEN Negative Negative [facility] W/REFLEX TO Comment: LABORATORIES TITER, S Non-treponemal antibodies not detected. ? For additional information on interpretation of the syphilis reverse algorithm and results, see: [email or web address] Test Performed by: [facility]! - [facility] [address] [place] [address] Laborer Powerhouse: Juan Daniel Tolentino M.D. Ph.D.; CLIA# [id number] Specimen Blood - Venous blood (substance) Performing Organization Address City/State/ZIP Code Phon e Number [facility] beModel [address] [place] [address] RAPID HIV 1/2 ANTIGEN AND ANTIBODY, 4TH GENERATION (02/02/2022 11:18 EDT) Rapid HIV 1 and 2 NegativeComment: If Negative [facility] ER Antibody/P24 acute HIV-1 LABORATORY Antigen, 4th infection is SERVICES Generation suspected in a high risk patient, submit plasma specimen for HIV-1 RNA quantitation test. Specimen Blood - Venous blood (substance) Narrative [facility] SERVICES - 02/02/2022 12:59 EDT Fourth Generation assay performed on the Siemens Centaur XPT. Performing Organization Address City/[facility]/ZIP Code Phon e Number [facility] [address] [place] [address] SERVICES (ABNORMAL) BASIC METABOLIC PANEL (BMP) (02/02/2022 11:18 EDT) Pathologist [facility] rigo Sodium 142 136 - 145 mmol/L [facility] Potassium 4.2 3.5 - 5.0 mmol/L [facility] Chloride 105 96 - 110 mmol/L [facility] CO2 Total 26 22 - 32 mmol/L [facility] Anion Gap 11 5 - 14 [facility] Glucose 106 (H) 70 - 100 mg/dL [facility] Calcium 8.8 8.5 - 10.5 mg/dL [facility] BUN 13 10 - 26 mg/dL [facility] Creatinine 1.15 0.66 - 1.25 mg/dL [facility] eGFR 73 >60 mL/min/1.73m2 [facility] Specimen Blood - Venous blood (substance) Performing Organization Address City/[facility]/ZIP Code Phon e Number [facility] [address] [place] [address] SERVICES CHLAMYDIA/N. GONORRHOEAE AMPLIFIED RNA (02/02/2022 11:05 EDT) Pathologist Sig nature Gonococcus Result Negative Negative [facility] Chlamydia Result Negative Negative [facility] Specimen Swab - Oral/Throat (pharynx or pharyngea l) Performing Organization Address City/[facility]/ZIP Code Phon e Number [facility] [address] [place] [address] SERVICES CHLAMYDIA/N. GONORRHOEAE AMPLIFIED RNA (02/02/2022 11:05 EDT) Pathologist Sig nature Gonococcus Result Negative Negative [facility] Chlamydia Result Negative Negative [facility] Specimen Urine - Urine, Initial Void Performing Organization Address City/State/ZIP Code Phon e Number [facility] [address] [place] [address] SERVICES documented in this encounter Visit Diagnoses Diagnosis Routine screening for STI (sexually shaikh smitted infection) - Primary Screening examination for venereal disea se History of syphilis Personal history of other infectious and parasitic disease Medication monitoring encounter Encounter for therapeutic drug monitorin g documented in this encounter Discontinued Medications Medication Sig Discontinue Reason Start Date End Date emtricitabine-tenofovir, Take 1 Tablet by Reorder 12/21/2021 02/02/2022 TDF, (TRUVADA) 200-300 mouth daily. mg per tablet documented as of this encounter Care Teams Box Toe Stitcher Relationship Specialty Start Date End Date Chele Becker DO PCP - General 04/27/[address] [place] [phone] documented as of this encounter
--- OUTSIDE RECORDS SUMMARY | 2022-05-12 00:57 | XMS_ITS | Encounter Summary ---
:1960 Author Organization [facility] Address [address] [place] [address] Care Team Providers Name Role Phone Chele Becker DO Primary Care Provider [phone] Reason for Visit Reason Onset Date Comments Medications Refill 11/08/2020 Encounter Details Date Type Department Care Team Description 11/08/2020 Refill [facility] Silvana Phelps MD Medications Refill Infectious Disease - [address] [place] [address], [address], [address] [place], [place] [phone] [place] [phone] (Wo rk) Social History Tobacco Use Types Packs/Day Years Used Date Never Smoker Smokeless Tobacco: Never Used Alcohol Use Standard Drinks/Week Comments Yes 14 (1 standard drink = 0.6 oz pure alcoh ol) Sex Assigned at Date Recorded Not on file documented as of this encounter Ordered Prescriptions Prescription Sig Dispensed Refills Start Date End Date emtricitabine-tenofovir, Take 1 Tab by mouth 30 Tab 2 11/25/2020 TDF, (TRUVADA) 200-300 mg daily. per tablet documented in this encounter Miscellaneous Notes Telephone Encounter - Alena Sesay RN - 11/09/2020 1256 EDT Sent in refill of Truvada to [facility] in [place] for his PrEp. Follow up with Dr. Phelps 11/25. ALENA SESAY RN elephone Encounter - Lindsay Sanchez - 11/08/2020 0814 EDT Donnell rescheduled appt with Dr Phelps to 11/25 as he was in contact with person who has COVID. He will be out of Truvada on 11/23. Pharmacy is [facility] in [place]. documented in this encounter Plan of Treatment Upcoming Encounters Date Type Specialty Care Team Description 05/30/2022 Nurse Only Infectious Disease Nurse, Id, RN 08/10/2022 Office Visit Infectious Disease Silvana Phelps MD [address] [facility], [address] [place], [place] [phone] (Wo rk) documented as of this encounter Visit Diagnoses Not on filedocumented in this encounter Discontinued Medications Medication Sig Discontinue Reason Start Date End Date emtricitabine-tenofovir, Take 1 Tab by mouth Reorder 0 11/08/2020 TDF, (TRUVADA) 200-300 mg daily. per tablet documented as of this encounter Care Teams Oyster Bed Worker Relationship Specialty Start Date End Date Chele Becker DO PCP - General 04/27/[address] [place] [phone] documented as of this encounter
--- OUTSIDE RECORDS SUMMARY | 2022-05-12 00:57 | XMS_ITS | Encounter Summary ---
:1960 Author Organization [facility] Address [address] [place] [address] Care Team Providers Name Role Phone Chele Becker DO Primary Care Provider [phone] Encounter Details Date Type Department Care Team Description 04/28/2020 Phlebotomy Only [facility] - Hist ory of recent travel [facility] (Primary Dx) [address] [place] [address] Social History Tobacco Use Types Packs/Day Years Used Date Never Smoker Smokeless Tobacco: Never Used Alcohol Use Standard Drinks/Week Comments Yes 14 (1 standard drink = 0.6 oz pure alcoh ol) Sex Assigned at Date Recorded Not on file COVID-19 Exposure Response Date Recorded In the last month, have you been in contact with No / Unsure 05/11/2020 10:36 EDT someone who was confirmed or suspected to have Coronavirus / COVID-19? documented as of this encounter Plan of Treatment Upcoming Encounters Date Type Specialty Care Team Description 05/30/2022 Nurse Only Infectious Disease Nurse, Id, RN 08/10/2022 Office Visit Infectious Disease Silvana Phelps MD [address] [facility], [address] [place], [place] [phone] (Wo rk) documented as of this encounter Procedures Procedure Name Priority Date/Time Associated Comments Diagnosis DO NOT ORDER Today 04/28/2020 10:21 History of recent Result s for this STANDALONE - BROAD EDT travel procedure are in COVID TEST the results section. COVID-19 TESTING Routine 04/28/2020 10:21 History of recent Re sults for this EDT travel procedure are i n the results section. documented in this encounter Results DO NOT ORDER STANDALONE - BROAD COVID TEST (04/28/2020 10:21 EDT) COVID-19 rt-PCR NEGATIVE Negative [facility] Result Comment: LABORATORY 2019-novel Coronavirus (2019 -nCoV) not detected by the qRT-PCR assay. Consider testing for other respiratory viruses or re-collecting for 2019-nCoV testing. Note: Optimum timing for peak viral levels du ring infections caused by 20 -nCoV have not been determined. Collection of multiple specimens from the same patient may be necessary to detect the virus. Limitations Positive results are indicat carlin of active infection with SARS-CoV-2 but do not rule out bacterial infection or co-infection with other viruses. The agent detected may not be the definite cause of diseas e. In addition, detection of viral RNA may not indicate the presence of infectious virus or that SARS-CoV-2 is the causative agent for clinical symptoms. Negative results do not prec lude SARS-CoV-2 infection and should not be used as the sole basis for patient management decisions. Negative results must be combined with clinical observations, patient his tory, and epidemiological in formation. False negative results may also occur if amplification inhibitors are present in the specimen or if inadequate numbers of organisms are present in the specimen. Op timum specimen types and shamar ing for peak viral levels during infections caused by SARS-CoV-2 have not been fully determined. Collection of multiple specimens (types and time points) from the same patient may be necessary to detect the virus. The test was validated for [facility] with upper respiratory specimens obtained via nasopharyngeal or oropharyngeal swabs in VTM, UTM, M4, M5, M6, saline, and MTM media. The performance of this test has not be en established for other [facility] cimens. Specimens collected using other FDA recommended Specimen Collection Materials listed in the FDA COVID-19 [employer] communication (November 20, 2019) are pr ocessed with the caveat that they were not all validated for use with this test and the result must be interpreted in this context. Furthermore, a false negative results may occur if a specimen is improperly collected, transported or handled. If the virus mutates in the RT-PCR target region, SARS-CoV-2 may not be detected or may be detected less predictably. Inhibitors or other types of interference may produce a false negative result. An interference study evaluating the effect of common cold medications was not performed. This test is not FDA-cleared but its performance characteristics were established by our CLIA-certified, CAP-accredited, high complexity laboratory in accordance with CLIA regulations, [employer] (CAP) guidel racquel (Nov 13, 2019), and FDA guidance (Oct 25, 2019). This test is only for use un brandie the Food and Drug Administration's Emergency Use Authorization. Specimen Swab - Entire nasopharynx (body structur e) Performing Organization Address City/State/ZIP Code Phon e Number [facility] LAB[place]ATORY [place], [place] COVID-19 TESTING (04/28/2020 10:21 EDT) COVID-19 rt-PCR NEGATIVE Negative [facility] Result Comment: LABORATORY 2019-novel Coronavirus (2019 -nCoV) not detected by the qRT-PCR assay. Consider testing for other respiratory viruses or re-collecting for 2019-nCoV testing. Note: Optimum timing for peak viral levels du ring infections caused by 20 -nCoV have not been determined. Collection of multiple specimens from the same patient may be necessary to detect the virus. Limitations Positive results are indicat carlin of active infection with SARS-CoV-2 but do not rule out bacterial infection or co-infection with other viruses. The agent detected may not be the definite cause of diseas e. In addition, detection of viral RNA may not indicate the presence of infectious virus or that SARS-CoV-2 is the causative agent for clinical symptoms. Negative results do not prec lude SARS-CoV-2 infection and should not be used as the sole basis for patient management decisions. Negative results must be combined with clinical observations, patient his tory, and epidemiological in formation. False negative results may also occur if amplification inhibitors are present in the specimen or if inadequate numbers of organisms are present in the specimen. Op timum specimen types and shamar ing for peak viral levels during infections caused by SARS-CoV-2 have not been fully determined. Collection of multiple specimens (types and time points) from the same patient may be necessary to detect the virus. The test was validated for u se with upper respiratory specimens obtained via nasopharyngeal or oropharyngeal swabs in VTM, UTM, M4, M5, M6, saline, and MTM media. The performance of this test has not be en established for other spe cimens. Specimens collected using other FDA recommended Specimen Collection Materials listed in the FDA COVID-19 [employer] communication (November 20, 2019) are pr ocessed with the caveat that they were not all validated for use with this test and the result must be interpreted in this context. Furthermore, a false negative results may occur if a specimen is improperly collected, transported or handled. If the virus mutates in the RT-PCR target region, SARS-CoV-2 may not be detected or may be detected less predictably. Inhibitors or other types of interference may produce a false negative result. An interference study evaluating the effect of common cold medications was not performed. This test is not FDA-cleared but its performance characteristics were established by our CLIA-certified, CAP-accredited, high complexity laboratory in accordance with CLIA regulations, [employer]ologists (CAP) guidel racquel (Nov 13, 2019), and FDA guidance (Oct 25, 2019). This test is only for use un brandie the Food and Drug Administration's Emergency Use Authorization. Performing Lab [facility] LABORATORY SERVICES Specimen Swab - Entire nasopharynx (body structur e) Performing Organization Address City/State/[facility] Code Phon e Number [facility] LABORATORY [address] [place] [address] SERVICES [facility] LABORATORY [place], [place] documented in this encounter Visit Diagnoses Diagnosis History of recent travel - Primary documented in this encounter Care Teams Top Distribution Executive Relationship Specialty Start Date End Date Chele Becker DO PCP - General 04/27/[address] [place] [phone] documented as of this encounter
--- OUTSIDE RECORDS SUMMARY | 2022-05-12 00:57 | XMS_ITS | Encounter Summary ---
:1960 Author Organization [facility] Address [address] [place] [address] Care Team Providers Name Role Phone Chele Becker DO Primary Care Provider [phone] Encounter Details Date Type Department Care Team Description 11/25/2020 Travel Social History Tobacco Use Types Packs/Day Years Used Date Never Smoker Smokeless Tobacco: Never Used Alcohol Use Standard Drinks/Week Comments Yes 14 (1 standard drink = 0.6 oz pure alcoh ol) Sex Assigned at Date Recorded Not on file COVID-19 Exposure Response Date Recorded In the last month, have you been in contact with someone Yes 11/25/2020 13:28 EDT who was confirmed or suspected to have Coronavirus / COVID-19? documented as of this encounter Plan of Treatment Upcoming Encounters Date Type Specialty Care Team Description 05/30/2022 Nurse Only Infectious Disease Nurse, Elsa, RN 08/10/2022 Office Visit Infectious Disease Silvana Phelps MD 111 [facility], [facility] [address] [place], [place] [phone] (Wo rk) documented as of this encounter Visit Diagnoses Not on filedocumented in this encounter Care Teams Accounting Director Relationship Specialty Start Date End Date Chele Becker DO PCP - General 04/27/[address] [place] [phone] documented as of this encounter
--- OUTSIDE RECORDS SUMMARY | 2022-05-12 00:57 | XMS_ITS | Encounter Summary ---
:1960 Author Organization [facility] Address [address] [place] [address] Care Team Providers Name Role Phone Chele Becker DO Primary Care Provider [phone] Reason for Visit Reason Comments Other Encounter Details Date Type Department Care Team Description 08/10/2020 [facility] Silvana Phelps MD Other Infectious Disease - [id number] [place] [phone] (Wo rk) Social History Tobacco Use Types [...] Visit Infectious Disease Silvana Phelps MD 111 [facility], [facility] [address] [place], [place] [phone] (Wo rk) documented as of this encounter Visit Diagnoses Not on filedocumented in this encounter Care Teams Alteration Workroom Supervisor Relationship Specialty Start Date End Date Chele Becker DO PCP - General 04/27/[address] [place] [address] [phone] documented as of this encounter
--- OUTSIDE RECORDS SUMMARY | 2022-05-12 00:57 | XMS_ITS | Encounter Summary ---
:1960 Author Organization [facility] Address [address] [place] [address] Care Team Providers Name Role Phone EugenioChele Israel Primary Care Provider [phone] Encounter Details Date Type Department Care Team Description 05/11/2020 Phlebotomy Only [facility] ED Center 2 Ice Sculptor, Acc Medica tion monitoring encounter; Phlebotomy Phlebotomy Routine screening for STI (s exually transmitted infection); [address] [facility] History of syphilis [place], [place] [address] Social History Tobacco Use Types Packs/Day Years [...] Visit Infectious Disease Silvana Phelps MD [address] [facility], Level [address] [place], [place] [address] (Wo rk) documented as of this encounter Procedures Procedure Name Priority Date/Time Associated Diagnosis Comme nts RPR SCREEN, RESPONSE Routine 05/11/2020 10:44 History of syphi lis Results for this TO THERAPY, S EDT procedure are in the results section. RAPID HIV 1/2 STAT 05/11/2020 10:44 Routine screening Resul ts for this ANTIGEN AND EDT for STI (sexually procedure are in ANTIBODY, 4TH transmitted the results GENERATION infection) section. CREATININE Routine 05/11/2020 10:44 Medication Results for this EDT monitoring encounter procedu re are in the results section. documented in this encounter Results RPR SCREEN, RESPONSE TO THERAPY, S (05/11/2020 10:44 EDT) RPR RESPONSE Nonreactive Nonreactive [facility] Comment: LABORATORIES Test Performed by: [facility] [address] [place] [address] Community Action Worker: Juan Daniel Tolentino M.D. Ph.D.; CLIA# [id number] Specimen Blood - Venous blood (substance) Performing Organization Address [facility] Code Phon e Number [facility] LABORATORIES [address] [place] [address] RAPID HIV 1/2 ANTIGEN AND ANTIBODY, 4TH GENERATION (05/11/2020 10:44 EDT) Rapid HIV 1 and 2 Negative Negative [facility] Antibody/P24 Comment: LABORATORY Antigen, 4th If acute HIV-1 infection is suspected in a high risk ??patient, submit plasma specimen for HIV-1 RNA quantitation test. SERV ICES Generation Fourth Generation assay performed on the Siemens GlySurea ur Specimen Blood - Venous blood (substance) Performing Organization Address City/[facility] Code Phon e Number [facility]OR[facility]ORY [address] [place] [address] SERVICES CREATININE (05/11/2020 10:44 EDT) Creatinine 1.08 0.66 - 1.25 [facility] mg/dL LABORATORY SERVICES eGFR 76Comment: eGFR >60 [facility] calculated using mL/min/1.73m2 LABORATORY SERVICES CKD-EPI equation for non- Americans. Multiply eGFR by 1.16 for patients. Specimen Blood - Venous blood (substance) Performing Organization Address City/[facility]/ZIP Code Phon e Number [facility] [address] [place] [address] SERVICES documented in this encounter Visit Diagnoses Diagnosis Medication monitoring encounter Encounter for therapeutic drug monitorin g Routine screening for STI (sexually shaikh smitted infection) Screening examination for venereal disea se History of syphilis Personal history of other infectious and parasitic disease documented in this encounter Care Teams Surveying Crew Stake Runner Relationship Specialty Start Date End Date Chele Becker DO PCP - General 04/27/[address] [place] [address] documented as of this encounter
--- OUTSIDE RECORDS SUMMARY | 2022-05-12 00:57 | XMS_ITS | Encounter Summary ---
:1960 Author Organization [facility] Address [address] [place] [address] Care Team Providers Name Role Phone Chele Becker DO Primary Care Provider [phone] Encounter Details Date Type Department Care Team Description 08/12/2020 Travel Social History Tobacco Use Types Packs/Day Years Used Date Never Smoker Smokeless Tobacco: Never Used Alcohol Use Standard Drinks/Week Comments Yes 14 (1 standard drink = 0.6 oz pure alcoh ol) Sex Assigned at Date Recorded Not on file COVID-19 Exposure Response Date Recorded In the last month, have you been in contact with No / Unsure 08/12/2020 12:33 EST someone who was confirmed or suspected to have Coronavirus / COVID-19? documented as of this encounter Plan of Treatment Upcoming Encounters Date Type Specialty Care Team Description 05/30/2022 Nurse Only Infectious Disease Nurse, Id, RN 08/10/2022 Office Visit Infectious Disease Silvana Phelps MD 111 [facility], [facility] [address] [place], [place] [address] (Wo rk) documented as of this encounter Visit Diagnoses Not on filedocumented in this encounter Care Teams Curb Hop Relationship Specialty Start Date End Date Chele Becker DO PCP - General 04/27/[address] [place] [id number] documented as of this encounter
--- OUTSIDE RECORDS SUMMARY | 2022-05-12 00:57 | XMS_ITS | Encounter Summary ---
:1960 Author Organization [facility] Address [address] [place] [address] Care Team Providers Name Role Phone Chele Becker DO Primary Care Provider [phone] Encounter Details Date Type Department Care Team Description 05/11/2020 Travel Social History Tobacco Use Types Packs/Day [...] Visit Infectious Disease Silvana Phelps MD 111 [facility], [facility] 5 [place], [place] [address] (Wo rk) documented as of this encounter Visit Diagnoses Not on filedocumented in this encounter Care Teams Crime Specialist Relationship Specialty Start Date End Date Chele Becker DO PCP - General 04/27/[address] [place] [address] [id number] documented as of this encounter
--- OUTSIDE RECORDS SUMMARY | 2022-05-12 00:57 | XMS_ITS | Encounter Summary ---
:1960 Author Organization [facility] Address [address] [place] [address] Care Team Providers Name Role Phone LatiaChele da silva DO Primary Care Provider [phone] Reason for Visit Reason Comments Follow-up Encounter Details Date Type Department Care Team Description 02/17/2021 Office Visit [facility] Silvana Phelps Med ication monitoring encounter (Primary Dx); Infectious Disease - MD Routine screening for STI (sexually shaikh smitted infection); [address] History of syphilis [address] [place] [address] [facility] [phone] [facility] [address] [place] [phone] (Wo rk) Social History Tobacco Use Types Packs/Day Years Used Date Never Smoker Smokeless Tobacco: Never Used Alcohol Use Standard Drinks/Week Comments Yes 14 (1 standard drink = 0.6 oz pure alcoh ol) Sex Assigned at Date Recorded Not on file documented as of this encounter Last Filed Vital Signs Vital Sign Reading Time Taken Comments Blood Pressure 124/79 02/17/2021 1419 EDT Pulse 88 02/17/2021 1419 EDT Temperature 36.1 ??C (97 ??F) 02/17/2021 1419 EDT Respiratory Rate - - Oxygen Saturation - - Inhaled Oxygen Concentration - - Weight - - Height - - Body Mass Index - - documented in this encounter Ordered Prescriptions Prescription Sig Dispensed Refills Start Date End Date emtricitabine-tenofovir, Take 1 Tablet by 30 Tablet 2 02/1706/09/2021 TDF, (TRUVADA) 200-300 mg mouth daily. per tablet documented in this encounter Progress Notes Silvana Phelps MD - 02/17/2021 1430 EDT Division of Infectious Disease Follow up/Progress Note Date: 02/17/21 Chief Complaint: Occular syphilis, HIV prevention, unprotected sex History of present illness: 60 y/o male presents today for interval evaluation following episode of occular syphilis and ongoingmonitoring related to use of PrEP. Mr. Hughes is feeling well. Continues to take his Truvada without missing doses. Vision has been stable. No intercurrent febrile illnesses. No dysuria. No rectal pain. Had a sore throat about one month ago. ? URI vs allergies. Completely resolved. Has had unprotected oral and genital intercourse. Received first dose of Pfizer vaccine 11/15, second dose on 12/09. PMHx: 1. Gout. 2. Occular syphilis. Panuveitis, [...] Current antimicrobials: Truvada, 1 PO daily. ROS: No intercurrent illnesses. Remainder of 10 point ROS is negative. Objective: BP 124/79 (BP Cuff Location: Left arm, BP Patient Position: Sitting, BP Cuff Sizes: Adult, regular) Pulse 88 Temp 36.1 ??C (97 ??F) (Tympanic) Gen: Alert, oriented. NAD. Looks well. HEENT: Anicteric. Oral mucosa moist. No thrush. No ulcerations. Neck: supple. RRR, nl S1S2. Lungs CTA. LABS: Due for labs today. Labs from 11/25/20 RPR negative (down from peak of 1:256 and stable). HIV ab negative. Oropharyngeal GC and chlamydia negative Urine GC and chlamydia negative. Cr 1.11 Prior labs: 10/02/16: Syphilis ab positive, RPR 1:256. HIV ab negative Lyme ab negative 10/05: CSF WBC 3, RBC 0, gluc 69, prot 46; VDRL negative 09/08/15 ([facility]) HIV ab negative Syphilis ab negative HAV [...] today to suggestrelapse or new infection though plan to repeat RPR today to assure remains stable. 2. High risk for HIV acquisition. Agree [...] relapsed occular syphilis. Would continue to monitor. 5. Syphilis exposure. Treated X 1 07/26/17 and again 11/21/19. 6. Unprotected sex--OP and penile exposure. Screening performed today. Will treat if positive. 7. Recent MRSA infection. Treated. 8. HME. Complete COVID vaccination as planned. Plan: 1. Continue Truvada--1 PO daily--I re-ordered 3 months. 2. Labs today--HIV ab, Cr, urine GC/chlam, OP GC and chlam; RPR. I will call him with results. 3. Continue to consider transition to Descovy. 4. If all stable, plan for f/u in 3 months. Silvana Phelps MD 02/17/2021 14:32 documented in this encounter Plan of Treatment Upcoming Encounters Date Type Specialty Care Team Description 05/30/2022 Nurse Only Infectious Disease Nurse, Id, RN 08/10/2022 Office Visit Infectious Disease Silvana Phelps MD 111 [facility], [facility], [address] [place], [place] [address] (Wo rk) documented as of this encounter Procedures Procedure Name Priority Date/Time Associated Diagnosis Comme nts N. GONORRHOEAE AND Routine 02/17/2021 14:47 Routine screening Results for this CHLAMYDIA EDT for STI (sexually procedure are in TRACHOMATIS, MISC transmitted the result s SITES, AMPLIFIED RNA infection) section . CHLAMYDIA/N. Routine 02/17/2021 14:47 Routine screening Result s for this GONORRHOEAE EDT for STI (sexually procedure are in AMPLIFIED RNA transmitted the results infection) section. documented in this encounter Results RPR SCREEN, RESPONSE TO THERAPY, S (02/17/2021 15:08 EDT) Pathologist [facility] RPR RESPONSE Nonreactive Nonreactive [facility] Comment: LABORATORIES Test Performed by: [facility] [address] [place] [id number] Soils Analyst: Juan Daniel Tolentino M.D. Ph.D.; CLIA# [id number] Specimen Blood - Venous blood (substance) Performing Organization Address City/[facility] Code Phon e Number [facility] LABORATORIES [address] [place] [address] RAPID HIV 1/2 ANTIGEN AND ANTIBODY, 4TH GENERATION (02/17/2021 15:08 EDT) Pathologist [facility] Rapid HIV 1 and 2 Negative Negative [facility] Antibody/P24 Comment: LABORATORY Antigen, 4th If acute HIV-1 infection is suspected in a high risk ??patient, submit plasma specimen for HIV-1 RNA quantitation test. SERV ICES Generation Fourth Generation assay performed on the Siemens ScentAira ur Specimen Blood - Venous blood (substance) Performing Organization Address City/State/ZIP Code Phon e Number [facility] [address] [place] [address] SERVICES (ABNORMAL) CREATININE (02/17/2021 15:08 EDT) Creatinine 1.26 (H) 0.66 - 1.25 [facility] mg/dL LABORATORY SERVICES eGFR 62Comment: eGFR >60 [facility] calculated using mL/min/1.73m2 LABORATORY SERVICES CKD-EPI equation for non- Americans. Multiply eGFR by 1.16 for patients. Specimen Blood - Venous blood (substance) Performing Organization Address [facility]/ZIP Code Phon e Number [facility] [address] [place] [address] SERVICES N. GONORRHOEAE AND CHLAMYDIA TRACHOMATIS, [facility] SITES, AMPLIFIED RNA (02/17/2021 14:47 EDT) Source [id number] Not Reported [facility] LABORATORIES N. Gonorr, Misc TNP [facility] Amplified RNA Comment: LABORATORIES [facility] C trach/N gonor Amplified RNA was cancelled on 02/19/2021 at 14:03; Reason: Test MCTGC was cancelled and replaced with Test CGRNA due to specimen source. Test Performed by: [address] [address] Soils Analyst: Juan Daniel Tolentino M.D. Ph.D.; CLIA# [id number] Source [id number] Not Reported [facility]ORATORIES C. Trach, Misc, TNP [facility] Amplified RNA Comment: LABORATORIES [facility] C trach/N gonor Amplified RNA was cancelled on 02/19/2021 at 14:03; Reason: Test MCTGC was cancelled and replaced with Test CGRNA due to specimen source. Specimen Swab - Oral/Throat (pharynx or pharyngea l) Performing Organization Address [facility] Phon e Number [facility]ORATORIES [address] [place] [id number] CHLAMYDIA/N. GONORRHOEAE AMPLIFIED RNA (02/17/2021 14:47 EDT) Pathologist Sig nature Gonococcus Result Negative Negative [facility] SERVICES Chlamydia Result Negative Negative [facility] SERVICES Specimen Urine - Urine, Initial Void Performing Organization Address City/[facility]/ZIP [facility] Phon e Number [facility] [address] [place] [address] SERVICES documented in this encounter Visit Diagnoses Diagnosis Medication monitoring encounter - Primar y Encounter for therapeutic drug monitorin g Routine screening for STI (sexually shaikh smitted infection) Screening examination for venereal disea se History of syphilis Personal history of other infectious and parasitic disease documented in this encounter Discontinued Medications Medication Sig Discontinue Reason Start Date End Date emtricitabine-tenofovir, Take 1 Tab by mouth Reorder 1 02/17/2021 TDF, (TRUVADA) 200-300 mg daily. per tablet documented as of this encounter Care Teams Retouching Operator Relationship Specialty Start Date End Date Chele Becker DO PCP - General 04/27/[address] [place] [id number] documented as of this encounter
--- OUTSIDE RECORDS SUMMARY | 2022-05-12 00:57 | XMS_ITS | Encounter Summary ---
:1960 Author Organization [facility] Address [address] [place] [address] Care Team Providers Name Role Phone Chele Becker Primary Care Provider [phone] Encounter Details Date Type Department Care Team Description 02/17/2021 Phlebotomy Only [facility] ED Center 2 Manager Transplant, Acc Medica tion monitoring encounter; Phlebotomy Phlebotomy Routine screening for STI (s exually transmitted infection); [address] [facility] History of syphilis [place], [place] [address] Social History Tobacco Use Types Packs/Day Years [...] Visit Infectious Disease Silvana Phelps MD 111 [facility], [address] [place], [place] [address] (Wo rk) documented as of this encounter Procedures Procedure Name Priority Date/Time Associated Diagnosis Comme nts RPR SCREEN, RESPONSE Routine 02/17/2021 15:08 Medication Res ults for this TO THERAPY, S EDT monitoring encou nter procedure are in Routine screening the result s for STI (sexually section. transmitted infection) History of syphilis RAPID HIV 1/2 STAT 02/17/2021 15:08 Medication Results fo r this ANTIGEN AND EDT monitoring encou nter procedure are in ANTIBODY, 4TH Routine screening the resul ts GENERATION for STI (sexually section. transmitted infection) CREATININE Routine 02/17/2021 15:08 Medication Results for this EDT monitoring encounter procedu re are in the results section. documented in this encounter Results RPR SCREEN, RESPONSE TO THERAPY, S (02/17/2021 15:08 EDT) RPR RESPONSE Nonreactive Nonreactive [facility] Comment: LABORATORIES Test Performed by: [facility] [address] [place] [address] Spanish Instructor: Juan Daniel Tolentino M.D. Ph.D.; CLIA# [id number] Specimen Blood - Venous blood (substance) Performing Organization Address City/[facility] Code Phon e Number [facility] LABORATORIES [address] [place] [address] RAPID HIV 1/2 ANTIGEN AND ANTIBODY, 4TH GENERATION (02/17/2021 15:08 EDT) Rapid HIV 1 and 2 Negative Negative [facility] Antibody/P24 Comment: LABORATORY Antigen, 4th If acute HIV-1 infection is suspected in a high risk ??patient, submit plasma specimen for HIV-1 RNA quantitation test. SERV ICES Generation Fourth Generation assay performed on the TellFia ur Specimen Blood - Venous blood (substance) Performing Organization Address City/[facility] Phon e Number [facility]OR[facility] [address] [place] [address] SERVICES (ABNORMAL) CREATININE (02/17/2021 15:08 EDT) Creatinine 1.26 (H) 0.66 - 1.25 [facility] mg/dL LABORATORY SERVICES eGFR 62Comment: eGFR >60 [facility] calculated using mL/min/1.73m2 LABORATORY SERVICES CKD-EPI equation for non- Americans. Multiply eGFR by 1.16 for patients. Specimen Blood - Venous blood (substance) Performing Organization Address [facility] Phon e Number [facility] [address] [place] [address] SERVICES documented in this encounter Visit Diagnoses Diagnosis Medication monitoring encounter Encounter for therapeutic drug monitorin g Routine screening for STI (sexually shaikh smitted infection) Screening examination for venereal disea se History of syphilis Personal history of other infectious and parasitic disease documented in this encounter Care Teams Chalk Cutter Relationship Specialty Start Date End Date Chele Becker DO PCP - General 04/27/20 [address] [place] [address] documented as of this encounter
--- OUTSIDE RECORDS SUMMARY | 2022-05-12 00:57 | XMS_ITS | Encounter Summary ---
:1960 Author Organization [facility] Address [address] [place] [address] Care Team Providers Name Role Phone Chele Becker DO Primary Care Provider [phone] Reason for Visit Reason Onset Date Comments Follow-up 06/17/2021 Encounter Details Date Type Department Care Team Description 06/17/2021 Telephone [facility] Infectious Serge Ratliff RN Follow-up Disease - [place] [address] [place], [place] [id number] Social History Tobacco Use Types Packs/Day Years Used Date Never Smoker Smokeless Tobacco: Never Used Alcohol Use Standard Drinks/Week Comments Yes 14 (1 standard drink = 0.6 oz pure alcoh ol) Sex Assigned at Date Recorded Not on file documented as of this encounter Miscellaneous Notes Telephone Encounter - Stefanie Ratliff RN - 06/17/[address] Phelps Pt contacted - advised negative urine and throat cx documented in this encounter Plan of Treatment Upcoming Encounters Date Type Specialty Care Team Description 05/30/2022 Nurse Only Infectious Disease Nurse, Elsa, RN 08/10/2022 Office Visit Infectious Disease Silvana Phelps MD [address] [facility], [address] [place], [place] [address] (Wo rk) documented as of this encounter Visit Diagnoses Not on filedocumented in this encounter Care Teams [employer] Relationship Specialty Start Date End Date Chele Becker DO PCP - General 04/27/[address] [place] [address] documented as of this encounter
--- OUTSIDE RECORDS SUMMARY | 2022-05-12 00:57 | XMS_ITS | Encounter Summary ---
:1960 Author Organization [facility] Address [address] [place] [address] Care Team Providers Name Role Phone Chele Becker Primary Care Provider Reason for Visit Reason Onset Date Comments Other 06/12/2019 Encounter Details Date Type Department Care Team Description 06/12/2019 Telephone [facility] Silvana Phelps MD Other Infectious Disease - [address], [address], [address] [place], [place] [address] [place] [phone] (Wo rk) Social History Tobacco Use [...] 1 Tab by mouth 30 Tab 2 08/08/2019 TDF, (TRUVADA) 200-300 mg daily. per tablet documented in this encounter Miscellaneous Notes Telephone Encounter - Stefanie Ratliff V RN - 06/13/[address] Phelps placed - pt will get drawn today Truvada refill sent to pharmacy elephone Encounter - Gloria Montejo - 06/12/2019 1314 EDT Patient calling to cancel his visit with Dr Phelps for tomorrow , 06/13. He says he cannot come to the appointment, as he has a closing. 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 He is asking to have his medications refilled, and has rescheduled Dr Phelps appointment for 07/11. Asking if Dr Phelps would like him to get labs done. He says he can do that tomorrow late in the day. Asking for a call back to confirm at [phone]. documented in this encounter Plan of Treatment Upcoming Encounters Date Type Specialty Care Team Description 05/30/2022 Nurse Only Infectious Disease Nurse, Elsa, RN 08/10/2022 Office Visit Infectious Disease Silvana Phelps MD [address] [facility], [address] 5 [place], [place] [phone] (Wo rk) documented as of this encounter Results CHLAMYDIA/N. GONORRHOEAE AMPLIFIED RNA, URINE (06/13/2019 17:48 EDT) Pathologist Sig nature Chlamydia Result Negative [facility] GC Result Negative [facility] Specimen Other (qualifier value) - Urine Performing Organization Address [facility] Phon e Number [facility] [address] [place] [address] SERVICES HIV 1/2 ANTIGEN AND ANTIBODY, 4TH GENERATION (06/13/2019 17:45 EDT) HIV 1/2 Antibody Negative Negative [facility] Comment: LABORATORY SERVICES Fourth generation assay performed on the Siemens Centaur. If acute HIV-1 infection is suspected in a high risk patient, submit plasma specimen for HIV-1 RNA quantification test. Specimen Blood specimen (specimen) - Blood Performing Organization Address [facility]/ZIP Code Phon e Number [facility] [address] [place] [address] SERVICES PHOSPHORUS (06/13/2019 17:45 EDT) Pathologist Sig nature Phosphorus 3.1 2.5 - 4.5 mg/dl [facility] Specimen Blood specimen (specimen) - Blood Performing Organization Address City/[facility]/ZIP Code Phon e Number [facility] [address] [place] [address] SERVICES BASIC METABOLIC PANEL (BMP) (06/13/2019 17:45 EDT) Sodium 140 136 - 145 [facility] mEq/L LABORATORY SERVICES Potassium 4.1 3.5 - 5.0 [facility] mEq/L LABORATORY SERVICES Chloride 104 96 - 110 [facility] mEq/L LABORATORY SERVICES CO2 28 22 - 32 mEq/L [facility] BUN 14 10 - 26 mg/dl [facility] Creatinine 1.20 0.66 - 1.25 [facility] mg/dl LABORATORY SERVICES GFR, Calculated 67 >60 [facility] Comment: ml/min/1.73m2 LABORATORY eGFR calculated using CKD-EPI equation for SERVICES non Americans. Multiply eGFR by 1.16 for Americans. Calcium 9.7 8.5 - 10.5 [facility] mg/dl LABORATORY SERVICES Calculated Calcium 9.2 8.5 - 10.5 [facility] mg/dl LABORATORY SERVICES Glucose, Serum 77 70 - 100 [facility] mg/dl LABORATORY SERVICES Fasting? No [facility] Specimen Blood specimen (specimen) - Blood Performing Organization Address City/[facility]/ZIP Code Phon e Number [facility] [address] [place] [address] SERVICES RPR SCREEN, RESPONSE TO THERAPY, S (06/13/2019 17:45 EDT) RPR Screen, NonreactiveComment Nonreactive [facility] Response to : Performed by: LABORATORY Therapy, S [facility] Labs: SERVICES [employer] [address], [place] [address] Specimen Blood Performing Organization Address City/[facility]/ZIP Code Phon e Number [facility] [address] [place] [address] SERVICES documented in this encounter Visit Diagnoses Diagnosis Exposure to sexually transmitted disease (STD) - Primary Contact with or exposure to other commun icable diseases documented in this encounter Discontinued Medications Medication Sig Discontinue Reason Start Date End Date emtricitabine-tenofovir, Take 1 Tab by mouth Reorder 9 06/13/2019 TDF, (TRUVADA) 200-300 mg daily. per tablet documented as of this encounter Care Teams Casino Porter Relationship Specialty Start Date End Date Chele Becker DO PCP - General 11/22/17 04/26/20 documented as of this encounter
--- OUTSIDE RECORDS SUMMARY | 2022-05-12 00:57 | XMS_ITS | Encounter Summary ---
:1960 Author Organization [facility] Address [address] [place] [address] Care Team Providers Name Role Phone Chele Becker Primary Care Provider Reason for Visit Reason Onset Date Comments Results 09/18/2019 Encounter Details Date Type Department Care Team Description 09/18/2019 Telephone [facility] Silvana Phelps MD Results Infectious Disease - [address], [address], [address] [place], [place] [id number] [place] [phone] (Wo rk) Social History Tobacco Use Types Packs/Day Years Used Date Never Smoker Smokeless Tobacco: Never Used Alcohol Use Standard Drinks/Week Comments Yes 14 (1 standard drink = 0.6 oz pure alcoh ol) Sex Assigned at Date Recorded Not on file documented as of this encounter Miscellaneous Notes Telephone Encounter - Nathalie Moran RN - 09/18/2019 1433 EST Informed Beth that GC testing was negative, Hep C negative, and RPR negative elephone Encounter - Lindsay Sanchez - 09/18/2019 0959 EST Beth calling for lab results from 09/10/19. He would like a call back at [phone]. documented in this encounter Plan of Treatment Upcoming Encounters Date Type Specialty Care Team Description 05/30/2022 Nurse Only Infectious Disease Nurse, Id, RN 08/10/2022 Office Visit Infectious Disease Silvana Phelps MD [address] [facility], [address] [place], [place] [phone] (Wo rk) documented as of this encounter Visit Diagnoses Not on filedocumented in this encounter Care Teams Coverstitch Elastic Attacher Relationship Specialty Start Date End Date Chele Becker DO PCP - General 11/22/17 04/26/20 documented as of this encounter
--- OUTSIDE RECORDS SUMMARY | 2022-05-12 00:57 | XMS_ITS | Encounter Summary ---
:1960 Author Organization [facility] Address [address] [place] [address] Care Team Providers Name Role Phone Chele Becker Primary Care Provider Encounter Details Date Type Department Care Team Description 06/13/2019 Hospital Encounter [facility] - Abdoulaye Phelps MD [id number] [place] [address] [place] [phone] (Wo rk) Social History Tobacco Use Types Packs/Day Years Used Date Never Smoker Smokeless Tobacco: Never Used Alcohol Use Standard Drinks/Week Comments Yes 14 (1 standard drink = 0.6 oz pure alcoh ol) Sex Assigned at Date Recorded Not on file documented as of this encounter Discharge Diagnoses Diagnosis Z20.2 Contact with and (suspected) expos ure to infections with a predominantly sexual mode of transmission-Z20.2[ICD-10-CM] documented in this encounter Medications at Time of Discharge Medication Sig Dispensed Refills Start Date End Date emtricitabine-tenofovir, Take 1 Tab by mouth 30 Tab 2 08/08/2019 TDF, (TRUVADA) 200-300 mg daily. per tablet documented as of this encounter Discharge Disposition Disposition Code Departure Means Destination Home or Self Residential documented in this encounter Plan of Treatment Upcoming Encounters Date Type Specialty Care Team Description 05/30/2022 Nurse Only Infectious Disease Nurse, Id, RN 08/10/2022 Office Visit Infectious Disease Silvana Phelps MD [address] [facility] 5 [place], [place] [phone] (Wo rk) documented as of this encounter Visit Diagnoses Not on filedocumented in this encounter Care Teams Rotary Drill Operator Relationship Specialty Start Date End Date Chele Becker DO PCP - General 11/22/17 04/26/20 documented as of this encounter
--- OUTSIDE RECORDS SUMMARY | 2022-05-12 00:57 | XMS_ITS | Encounter Summary ---
:1960 Author Organization [facility] Address [address] [place] [address] Care Team Providers Name Role Phone Chele Becker Primary Care Provider Reason for Visit Reason Comments Follow-up Encounter Details Date Type Department Care Team Description 09/10/2019 Office Visit [facility] Ayesha Jeffries, CANDELARIA HIV exposure (Primary Infectious Disease - [address] [facility]) [facility] [address] [place] [address] Pav[address], [place] [phone] (Wo rk) Social History Tobacco Use Types Packs/Day Years Used Date Never Smoker Smokeless Tobacco: Never Used Alcohol Use Standard Drinks/Week Comments Yes 14 (1 standard drink = 0.6 oz pure alcoh ol) Sex Assigned at Date Recorded Not on file documented as of this encounter Last Filed Vital Signs Vital Sign Reading Time Taken Comments Blood Pressure 144/88 09/10/2019 1048 EST Pulse 64 09/10/2019 1048 EST Temperature 35.5 ??C (95.9 ??F) 09/10/2019 1048 EST Respiratory Rate - - Oxygen Saturation - - Inhaled Oxygen Concentration - - Weight - - Height - - Body Mass Index - - documented in this encounter Progress Notes Ayesha Jeffries APRN - 09/10/2019 1100 EST INFECTIOUS DISEASES FOLLOW UP: HPI: Beth presents today after he was told by a sexual contact that they were recently diagnosed with Chlamydia. He believes he may have been infected and would like testing today. 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 He has a history of having unprotected intercourse with men- he is always the top. He has no other medical concerns at today's visit. ROS: a 10 point ROS is otherwise negative PMH- gout, Occular Syphilis, Thallasemia trait Social History: Single, lives alone in [place] MEDICATIONS: Truvada daily PHYSICAL EXAMINATION: BP (!) 144/88 (BP Cuff Location: Left arm, BP Patient Position: Sitting, BP Cuff Sizes: Adult, regular) Pulse 64 Temp (!) 35.5 ??C (95.9 ??F) (Tympanic) Gen a x 3 LABORATORIES: 09/10/19 Chlamydia/[place] urine negative Chlamydia/ Ghon throat pending RPR pending 08/08/19 RPR negative HIV Antibody negative Urine GC/chlam negative OP GC/chalm negative 01/18/17 RPR 1:8, HIV antibody negative Urine GC/Chlam negative OP GC/Chlam negative 10/02/16 RPR 1:256 IMPRESSION: STI- will check Syphilis RPR, Chlamydia/Ghon urine/throat, Hep C antibody. Will call if any results are positive. PLAN: 1. STI testing completed today which includes RPR, Chlamydia/Ghon of throat, urine, , Hep C 2. Continue on PrEP 3. F/u with Dr. Phelps 11/17/19 Ayesha Jeffries APRN documented in this encounter Plan of Treatment Upcoming Encounters Date Type Specialty Care Team Description 05/30/2022 Nurse Only Infectious Disease Nurse, Elsa, RN 08/10/2022 Office Visit Infectious Disease Silvana Phelps MD [address] [facility], [address] [place], [place] [phone] (Wo rk) documented as of this encounter Procedures Procedure Name Priority Date/Time Associated Comments Diagnosis N. GONORRHOEAE AND Routine 09/10/2019 11:17 HIV exposure Resul ts for this CHLAMYDIA EST procedure are i n TRACHOMATIS, MISC the result s SITES, AMPLIFIED RNA section . CHLAMYDIA/N. Routine 09/10/2019 11:17 HIV exposure Results for this GONORRHOEAE AMPLIFIED EST proced ure are in RNA the results section. documented in this encounter Results CHLAMYDIA/N. GONORRHOEAE AMPLIFIED RNA (09/10/2019 11:17 EST) Pathologist Sig nature Gonococcus Result Negative Negative [facility] Chlamydia Result Negative Negative [facility] Specimen Urine - Urine (substance) Performing Organization Address [facility] Code Phon e Number [facility] [address] [place] [address] SERVICES N. GONORRHOEAE AND CHLAMYDIA TRACHOMATIS, [facility] SITES, AMPLIFIED RNA (09/10/2019 11:17 EST) Source SRC22 oral [facility] NBrett Montillaorr, [facility] Negative Negative [facility] Amplified RNA Comment: LABORATORIES ADDITIONAL INFORMATION ------ This report is intended for use in clinical monitoring and management of patients. ??It is not intended for use i n medical-legal applications. This test has been modified from the customer success associate's instructions. ??Its performance characteristics were determined by [facility] in a manner consistent with CLIA requirements. ??This test has not been cleared or appr reina by the U.S. Food and Drug Administration. Test Performed by: [facility] [place] [place] [address] Ug Designer: Juan Daniel Tolentino M.D. Ph.D.; CLIA# [id number] Source SRC11 [address] [facility] CBrett Trach, [facility], Negative Negative [facility] Amplified RNA Comment: LABORATORIES ADDITIONAL INFORMATION ------ This report is intended for use in clinical monitoring and management of patients. ??It is not intended for use i n medical-legal applications. This test has been modified from the customer success associate's instructions. ??Its performance characteristics were determined by [facility] in a manner consistent with CLIA requirements. ??This test has not been cleared or appr reina by the U.S. Food and Drug Administration. Specimen Swab - Oral/Throat (pharynx or pharyngea l) Performing Organization Address City/State/ZIP Code Phon e Number [facility] [address] [place] [address] (ABNORMAL) RPR SCREEN, RESPONSE TO THERAPY, S (09/10/2019 11:15 EST) RPR RESPONSE Reactive (A) Nonreactive [facility] Comment: LABORATORIES Specimen reflexed to determine RPR titer. For additional information on interpretation of the syphilis reverse algorithm and results, see: [email or web address] Test Performed by: [facility] - [facility] [address] [place] [address] Ug Designer: Juan Daniel Tolentino M.D. Ph.D.; CLIA# [id number] Specimen Blood - Venous blood (substance) Performing Organization Address City/State/ZIP Code Phon e Number [facility] [address] [place] [address] HEPATITIS C AB W REFLEX TO HCV RNA BY PCR (09/10/2019 11:15 EST) Pathologist Sig nature Hep C Antibody Negative Negative [facility] Specimen Blood - Venous blood (substance) Performing Organization Address City/State/ZIP Code Phon e Number [facility] [address] [place] [address] SERVICES documented in this encounter Visit Diagnoses Diagnosis HIV exposure - Primary Contact with or exposure to other viral diseases documented in this encounter Care Teams Kiln Packer Relationship Specialty Start Date End Date Chele Becker DO PCP - General 11/22/17 04/26/20 documented as of this encounter
--- OUTSIDE RECORDS SUMMARY | 2022-05-12 00:57 | XMS_ITS | Encounter Summary ---
:1960 Author Organization [facility] Address [address] [place] [address] Care Team Providers Name Role Phone LatiaChele da silva DO Primary Care Provider [phone] Reason for Visit Reason Comments Follow-up Encounter Details Date Type Department Care Team Description 11/25/2020 Office Visit [facility] Silvana Phelps Med ication monitoring encounter (Primary Dx); Infectious Disease - MD History of syphilis; [address] Routine screening for STI (s exually transmitted infection) [address] [place] [address] [facility] [phone] [facility] [address] [place] [id number] (Wo rk) Social History Tobacco Use Types [...] / COVID-19? documented as of this encounter Last Filed Vital Signs Vital Sign Reading Time Taken Comments Blood Pressure 140/90 11/25/2020 1300 EDT Pulse 103 11/25/2020 1300 EDT Temperature 35.9 ??C (96.7 ??F) 11/25/2020 1300 EDT Respiratory Rate - - Oxygen Saturation - - Inhaled Oxygen Concentration - - Weight 101.2 kg (223 lb) 11/25/2020 1300 EDT pt reporte d Height - - Body Mass Index 34.92 05/21/2018 0848 EDT documented in this encounter Ordered Prescriptions Prescription Sig Dispensed Refills Start Date End Date emtricitabine-tenofovir, Take 1 Tab by mouth 30 Tab 2 02/17/2021 TDF, (TRUVADA) 200-300 mg daily. 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 Mr. Hughes is feeling well. Continues to take his Truvada without missing doses. Vision has been stable. No intercurrent febrile illnesses. No dysuria. No rectal pain. Mild throat discomfort today. Has had unprotected oral and genital intercourse. Received first dose of Pfizer vaccine 11/15. Due for second dose on 12/09. PMHx: 1. Gout. [...] 10 point ROS is negative. Objective: BP 140/90 (BP Cuff Location: Left arm, BP Patient Position: Sitting, BP Cuff Sizes: Adult, regular) Pulse 103 Temp 35.9 ??C (96.7 ??F) (Tympanic) Wt (!) 101.2 kg (223 lb) Comment: pt reported BMI 34.92 kg/m?? Gen: Alert, oriented. NAD. Looks well. HEENT: Anicteric. Oral mucosa moist. No thrush. No ulcerations. Neck: supple. RRR, nl S1S2. Lungs CTA. LABS: Due for labs today. Labs from 08/12/20 RPR negative (down from peak of 1:256 and stable). HIV ab negative. Oropharyngeal GC and chlamydia negative Urine GC and chlamydia negative. Cr 1.21 Prior labs: 10/02/16: Syphilis ab positive, RPR 1:256. HIV ab negative Lyme ab negative 10/05: CSF WBC 3, RBC 0, gluc 69, prot 46; VDRL negative 09/08/15 ([facility]) HIV ab negative Syphilis ab negative HAV [...] forTruvada 1 PO daily X 3 months. Will continue to discuss transition to Descovy (to minimize risk of kidney dysfunction). 3. Elevated Cr. Though CrCl> 60. Will [...] f/u in 3 months. Silvana Phelps MD 11/25/2020 13:05 documented in this encounter Plan of Treatment Upcoming Encounters Date Type Specialty Care Team Description 05/30/2022 Nurse Only Infectious Disease Nurse, Id, RN 08/10/2022 Office Visit Infectious Disease Silvana Phelps MD [address] [facility], [address] [place], [place] [address] (Wo rk) Pending Results Name Type Priority Associated Diagnoses Date/Ti me MISCELLANEOUS TEST, KINNEAR Lab Today Routine screenin g for STI 11/25/2020 13:20 EDT (sexually transmitted infection) documented as of this encounter Procedures Procedure Name Priority Date/Time Associated Diagnosis Comme nts N. GONORRHOEAE AND Routine 11/25/2020 13:20 Routine screening Results for this CHLAMYDIA EDT for STI (sexually procedure are in TRACHOMATIS, MISC transmitted the result s SITES, AMPLIFIED RNA infection) section . CHLAMYDIA/N. Routine 11/25/2020 13:20 Routine screening Result s for this GONORRHOEAE EDT for STI (sexually procedure are in AMPLIFIED RNA transmitted the results infection) section. documented in this encounter Results (ABNORMAL) BASIC METABOLIC PANEL (BMP) (11/25/2020 13:39 EDT) Sodium 139 136 - 145 [facility] mEq/L LABORATORY SERVICES Potassium 4.3 3.5 - 5.0 [facility] mEq/L LABORATORY SERVICES Chloride 99 96 - 110 [facility] mEq/L LABORATORY SERVICES CO2 Total 25 22 - 32 mEq/L [facility] LABORATORY SERVICES Glucose 187 (H) 70 - 100 [facility] mg/dL LABORATORY SERVICES Calcium 9.3 8.5 - 10.5 [facility] mg/dL LABORATORY SERVICES Calculated Calcium 8.8 8.5 - 10.5 [facility] mg/dL LABORATORY SERVICES BUN 16 10 - 26 mg/dL [facility] LABORATORY SERVICES Creatinine 1.11 0.66 - 1.25 [facility] mg/dL LABORATORY SERVICES eGFR 73Comment: eGFR >60 [facility] calculated using mL/min/1.73m2 LABORATORY CKD-EPI equation SERVICES for non- Americans. Multiply eGFR by 1.16 for patients. Specimen Blood - Venous blood (substance) Performing Organization Address City/[facility]/ZIP Code Phon e Number [facility] LABORATORY [address] [place] [address] SERVICES RPR SCREEN, RESPONSE TO THERAPY, S (11/25/2020 13:39 EDT) Pathologist [facility] RPR RESPONSE Nonreactive Nonreactive [facility] Comment: LABORATORIES Test Performed by: [facility] Laboratories - [facility] [address] [place] [address] Sea Captain: Juan Daniel Tolentino M.D. Ph.D.; CLIA# [id number] Specimen Blood - Venous blood (substance) Performing Organization Address City/[facility]/ZIP Code Phon e Number [facility] LABORATORIES [address] [place] [address] PHOSPHORUS (11/25/2020 13:39 EDT) Pathologist [facility] nature Phosphorus 3.1 2.5 - 4.5 mg/dL [facility] LABORA TORY SERVICES Specimen Blood - Venous blood (substance) Performing Organization Address City/[facility]/ZIP Code Phon e Number [facility] LABORATORY [address] [place] [address] SERVICES HIV 1/2 ANTIGEN AND ANTIBODY, 4TH GENERATION (11/25/2020 13:39 EDT) Pathologist [facility] HIV 1 and 2 Negative Negative [facility] Antibody/p24 Comment: LABORATORY Antigen, 4th If acute HIV-1 infection is suspected in a high risk ??patient, submit plasma specimen for HIV-1 RNA quantitation test. SERV ICES Generation Fourth Generation assay performed on the SmartMovea ur. Specimen Blood - Venous blood (substance) Performing Organization Address City/[facility]/ZIP Code Phon e Number [facility] LABORATORY [address] [place] [address] SERVICES (ABNORMAL) COMPLETE BLOOD COUNT AND DIFFERENTIAL (11/25/2020 13:39 EDT) Pathologist [facility] WBC 6.98 4.00 - 10.40 [facility] K/[facility] LABORATORY SERVICES RBC 5.89 (H) 4.36 - 5.78 [facility] M/[facility] LABORATORY SERVICES Hemoglobin 12.6 (L) 13.8 - 17.3 [facility] gm/dL LABORATORY SERVICES HCT 39.2 (L) 39.5 - 50.2 % [facility] LABORATORY SERVICES MCV 67 (L) 81 - 95 fl [facility] LABORATORY SERVICES MCH 21.4 (L) 27.6 - 33.0 pg [facility] LABORATORY SERVICES Hypochromia 2+ [facility] LABORATORY SERVICES MCHC 32.1 (L) 32.8 - 36.4 [facility] gm/dL LABORATORY SERVICES RDW-CV 16.4 (H) <14.2 % [facility] LABORATORY SERVICES RDW-SD 35.8 <46.0 fl [facility] LABORATORY SERVICES Anisocytosis [facility] LABORATORY SERVICES PLT 223 141 - 377 K/[facility] LABORATORY SERVICES MPV 10.6 9.5 - 12.7 fl [facility] LABORATORY SERVICES Neutrophils 55.6 % [facility] LABORATORY SERVICES Lymphocytes 35.8 % [facility] LABORATORY SERVICES Monocytes 6.3 % [facility] LABORATORY SERVICES Eosinophils 0.7 % [facility] LABORATORY SERVICES Basophils 0.6 % [facility] LABORATORY SERVICES Immature Grans 1.0 % [facility] LABORATORY SERVICES Absolute Neutrophils 3.88 2.20 - 8.85 [facility] K/[facility] LABORATORY SERVICES Absolute Lymphocytes 2.50 1.09 - 3.30 [facility] LABORATORY SERVICES Absolute Monocytes 0.44 0.10 - 0.80 [facility] LABORATORY SERVICES Absolute Eosinophils 0.05 0.03 - 0.61 [facility] LABORATORY SERVICES Absolute Basophils 0.04 0.01 - 0.11 [facility] LABORATORY SERVICES Absolute Immature 0.07 (H) 0.00 - 0.06 [facility] Grans /[facility] LABORATORY SERVICES Type of Differential: Auto [facility] LABORATORY SERVICES Specimen Blood - Venous blood (substance) Performing Organization Address City/State/ZIP Code Phon e Number [facility] LABORATORY [address] [place] [address] SERVICES N. GONORRHOEAE AND CHLAMYDIA TRACHOMATIS, [facility] SITES, AMPLIFIED RNA (11/25/2020 13:20 EDT) Source SRC22 Not Reported [facility] LABORATORIES N. Gonorr, [facility] TNP [facility] Amplified RNA Comment: LABORATORIES Misc C trach/N gonor Amplified RNA was cancelled on 11/26/2020 at 09:01; Reason: Test MCTGC was cancelled and replaced with Test CGRNA due to specimen source. Test Performed by: [facility] - [address] [address] Sea Captain: Juan Daniel Tolentino M.D. Ph.D.; CLIA# [id number] Source SRC11 Not Reported [facility] LABORATORIES C. Trach, Misc, TNP [facility] Amplified RNA Comment: LABORATORIES Misc C trach/N gonor Amplified RNA was cancelled on 11/26/2020 at 09:01; Reason: Test MCTGC was cancelled and replaced with Test CGRNA due to specimen source. Specimen Swab - Entire oropharynx and/or hypophar ynx and/or larynx (body structure) Performing Organization Address City/State/ZIP Code Phon e Number [address] [address] CHLAMYDIA/N. GONORRHOEAE AMPLIFIED RNA (11/25/2020 13:20 EDT) Pathologist Sig nature Gonococcus Result Negative Negative [facility] LABORATORY SERVICES Chlamydia Result Negative Negative [facility] LABORATORY SERVICES Specimen Urine - Urine, Initial Void Performing Organization Address City/[facility]/ZIP Code Phon e Number [facility] LABORATORY [address] [place] [address] SERVICES documented in this encounter Visit Diagnoses Diagnosis Medication monitoring encounter - Primar y Encounter for therapeutic drug monitorin g History of syphilis Personal history of other infectious and parasitic disease Routine screening for STI (sexually shaikh smitted infection) Screening examination for venereal disea se documented in this encounter Discontinued Medications Medication Sig Discontinue Reason Start Date End Date emtricitabine-tenofovir, Take 1 Tab by mouth Reorder 1 11/25/2020 TDF, (TRUVADA) 200-300 mg daily. per tablet documented as of this encounter Care Teams Release Specialist Relationship Specialty Start Date End Date Chele Becker DO PCP - General 04/27/[address] [place] [id number] documented as of this encounter
--- OUTSIDE RECORDS SUMMARY | 2022-05-12 00:57 | XMS_ITS | Encounter Summary ---
:1960 Author Organization [facility] Address [address] [place] [address] Care Team Providers Name Role Phone Chele Becker Primary Care Provider Encounter Details Date Type Department Care Team Description 06/13/2019 Phlebotomy Only [facility] Windows Software Developer, Expos ure to [facility] Outpatient transmitted disease [address] [facility] (STD) (Primary Dx) [place], [place] [id number] Social History Tobacco Use Types Packs/Day Years Used Date Never Smoker Smokeless Tobacco: Never Used Alcohol Use Standard Drinks/Week Comments Yes 14 (1 standard drink = 0.6 oz pure alcoh ol) Sex Assigned at Date Recorded Not on file documented as of this encounter Miscellaneous Notes Result QuickNote - Silvana Phelps MD - 06/13/2019 1740 EDT Called patient to discuss results. Had to leave a message. Blood work stable. HIV negative. Awaitingurine GC/chlam. If negative, no change. If positive will call back with recommendations for antibiotics. I asked that he phone me back with questions. Otherwise will see him at his f/u. CNoyes documented in this encounter Plan of Treatment Upcoming Encounters Date Type Specialty Care Team Description 05/30/2022 Nurse Only Infectious Disease Nurse, Id, RN 08/10/2022 Office Visit Infectious Disease Silvana Phelps MD [address] [facility], [address] [place], [place] [address] (Wo rk) documented as of this encounter Procedures Procedure Name Priority Date/Time Associated Diagnosis Comme nts CHLAMYDIA/N. Routine 06/13/2019 17:48 Exposure to sexually Res ults for this GONORRHOEAE EDT transmitted disease procedur e are in AMPLIFIED RNA, URINE (STD) the res ults section. RPR SCREEN, RESPONSE Routine 06/13/2019 17:45 Exposure to sexu ally Results for this TO THERAPY, S EDT transmitted disease procedu re are in (STD) the results section. HIV 1/2 ANTIGEN AND Routine 06/13/2019 17:45 Exposure to sexua lly Results for this ANTIBODY, 4TH EDT transmitted disease procedu re are in GENERATION (STD) the results section. PHOSPHORUS Routine 06/13/2019 17:45 Exposure to sexually Res ults for this EDT transmitted disease procedur e are in (STD) the results section. BASIC METABOLIC Routine 06/13/2019 17:45 Exposure to sexually Results for this PANEL (BMP) EDT transmitted disease procedur e are in (STD) the results section. documented in this encounter Results CHLAMYDIA/N. GONORRHOEAE AMPLIFIED RNA, URINE (06/13/2019 17:48 EDT) Pathologist Sig nature Chlamydia Result Negative [facility] LABORATORY SERVICES GC Result Negative [facility] LABORATORY SERVICES Specimen Other (qualifier value) - Urine Performing Organization Address City/State/ZIP Code Phon e Number [facility] LABORATORY [address] [place] [address] SERVICES RPR SCREEN, RESPONSE TO THERAPY, S (06/13/2019 17:45 EDT) RPR Screen, NonreactiveComment Nonreactive [facility] Response to : Performed by: LABORATORY Therapy, [facility] Labs: SERVICES [employer] [address], [place] [address] Specimen Blood Performing Organization Address City/[facility]/ZIP Code Phon e Number [facility] LABORATORY [address] [place] [address] SERVICES BASIC METABOLIC PANEL (BMP) (06/13/2019 17:45 EDT) Sodium 140 136 - 145 [facility] mEq/L LABORATORY SERVICES Potassium 4.1 3.5 - 5.0 [facility] mEq/L LABORATORY SERVICES Chloride 104 96 - 110 [facility] mEq/L LABORATORY SERVICES CO2 28 22 - 32 mEq/L [facility] LABORATORY SERVICES BUN 14 10 - 26 mg/dl [facility] LABORATORY SERVICES Creatinine 1.20 0.66 - 1.25 [facility] mg/dl LABORATORY SERVICES GFR, Calculated 67 >60 [facility] Comment: ml/min/1.73m2 LABORATORY eGFR calculated using CKD-EPI equation for SERVICES non Americans. Multiply eGFR by 1.16 for Americans. Calcium 9.7 8.5 - 10.5 [facility] mg/dl LABORATORY SERVICES Calculated Calcium 9.2 8.5 - 10.5 [facility] mg/dl LABORATORY SERVICES Glucose, Serum 77 70 - 100 [facility] mg/dl LABORATORY SERVICES Fasting? No [facility] LABORATORY SERVICES Specimen Blood specimen (specimen) - Blood Performing Organization Address City/[facility]/ZIP Code Phon e Number [facility] LABORATORY [address] [place] [address] SERVICES PHOSPHORUS (06/13/2019 17:45 EDT) Pathologist Sig nature Phosphorus 3.1 2.5 - 4.5 mg/dl [facility] LABORA TORY SERVICES Specimen Blood specimen (specimen) - Blood Performing Organization Address City/[facility]/ZIP Code Phon e Number [facility] LABORATORY [address] [place] [address] SERVICES HIV 1/2 ANTIGEN AND ANTIBODY, 4TH GENERATION (06/13/2019 17:45 EDT) HIV 1/2 Antibody Negative Negative [facility] Comment: LABORATORY SERVICES Fourth generation assay performed on the Siemens Centaur. If acute HIV-1 infection is suspected in a high risk patient, submit plasma specimen for HIV-1 RNA quantification test. Specimen Blood specimen (specimen) - Blood Performing Organization Address City/State/ZIP Code Phon e Number [facility] LABORATORY [address] [place] [address] SERVICES documented in this encounter Visit Diagnoses Diagnosis Exposure to sexually transmitted disease (STD) - Primary Contact with or exposure to other commun icable diseases documented in this encounter Care Teams Brass Chaser Relationship Specialty Start Date End Date Chele Becker DO PCP - General 11/22/17 04/26/20 documented as of this encounter
--- OUTSIDE RECORDS SUMMARY | 2022-05-12 00:57 | XMS_ITS | Encounter Summary ---
:1960 Author Organization [facility] Address [address] [place] [address] Care Team Providers Name Role Phone Chele Becker Primary Care Provider [phone] Encounter Details Date Type Department Care Team Description 11/25/2020 Phlebotomy Only [facility] 2 Security Team Lead, Acc Medica tion monitoring encounter; Phlebotomy Phlebotomy History of syphilis [address] [place], [place] [address] Social History Tobacco Use Types Packs/Day Years [...] MD 111 [facility], [address] [place], [place] [address] (Wo rk) documented as of this encounter Procedures Procedure Name Priority Date/Time Associated Comments Diagnosis RPR SCREEN, RESPONSE Routine 11/25/2020 13:39 History of syphi lis Results for this TO THERAPY, S EDT procedure are in the results section. COMPLETE BLOOD COUNT Routine 11/25/2020 13:39 Medication Res ults for this AND DIFFERENTIAL EDT monitoring procedure a re in encounter the results section. HIV 2 ANTIGEN AND Routine 11/25/2020 13:39 Medication Resu lts for this ANTIBODY, 4TH EDT monitoring procedure are in GENERATION encounter the results section. PHOSPHORUS Routine 11/25/2020 13:39 Medication Results for this EDT monitoring procedure are i n encounter the results section. BASIC METABOLIC PANEL Routine 11/25/2020 13:39 Medication Re sults for this (BMP) EDT monitoring procedure are i n encounter the results section. documented in this encounter Results (ABNORMAL) BASIC METABOLIC PANEL (BMP) (11/25/2020 13:39 EDT) Sodium 139 136 - 145 [facility] mEq/L LABORATORY SERVICES Potassium 4.3 3.5 - 5.0 [facility] mEq/L LABORATORY SERVICES Chloride 99 96 - 110 [facility] mEq/L LABORATORY SERVICES CO2 Total 25 22 - 32 mEq/L [facility] LABORATORY SERVICES Glucose 187 (H) 70 - 100 [facility] mg/dL LABORATORY SERVICES Calcium 9.3 8.5 - 10.5 [facility] mg/dL LABORATORY SERVICES Calculated Calcium 8.8 8.5 - 10.5 [facility] mg/dL LABORATORY SERVICES BUN 16 10 - 26 mg/dL [facility] LABORATORY SERVICES Creatinine 1.11 0.66 - 1.25 [facility] mg/dL LABORATORY SERVICES eGFR 73Comment: eGFR >60 [facility] calculated using mL/min/1.73m2 LABORATORY CKD-EPI equation SERVICES for non- Americans. Multiply eGFR by 1.16 for patients. Specimen Blood - Venous blood (substance) Performing Organization Address City/[facility]/ZIP Code Phon e Number [facility] LABORATORY [address] [place] [address] SERVICES RPR SCREEN, RESPONSE TO THERAPY, S (11/25/2020 13:39 EDT) RPR RESPONSE Nonreactive Nonreactive [facility] Comment: LABORATORIES Test Performed by: [facility] - [facility] [address] [place] [address] [place]: Juan Daniel Tolentino M.D. Ph.D.; CLIA# [id number] Specimen Blood - Venous blood (substance) Performing Organization Address City/[facility]/ZIP Code Phon e Number [facility] LABORATORIES [address] [place] [address] PHOSPHORUS (11/25/2020 13:39 EDT) Pathologist Sig nature Phosphorus 3.1 2.5 - 4.5 mg/dL [facility] LABORA TORY SERVICES Specimen Blood - Venous blood (substance) Performing Organization Address [facility] LABORATORY [address] [place] [address] SERVICES HIV 1/2 ANTIGEN AND ANTIBODY, 4TH GENERATION (11/25/2020 13:39 EDT) HIV 1 and 2 Negative Negative [facility] Antibody/p24 Comment: LABORATORY Antigen, 4th If acute HIV-1 infection is suspected in a high risk ??patient, submit plasma specimen for HIV-1 RNA quantitation test. SERV ICES Generation Fourth Generation assay performed on the M.Seteka ur. Specimen Blood - Venous blood (substance) Performing Organization Address [facility] e Number [facility] LABORATORY [address] [place] [phone] SERVICES (ABNORMAL) COMPLETE BLOOD COUNT AND DIFFERENTIAL (11/25/2020 13:39 EDT) WBC 6.98 4.00 - 10.[address] [facility] LABORATORY SERVICES RBC 5.89 (H) 4.36 - 5.78 [facility] LABORATORY SERVICES Hemoglobin 12.6 (L) 13.8 - 17.3 [facility] gm/dL LABORATORY SERVICES HCT 39.2 (L) 39.5 - 50.2 % [facility] LABORATORY SERVICES MCV 67 (L) 81 - 95 fl [facility]ORATORY SERVICES MCH 21.4 (L) 27.6 - 33.0 pg [facility] LABORATORY SERVICES Hypochromia 2+ [facility] LABORATORY SERVICES MCHC 32.1 (L) 32.8 - 36.4 [facility] gm/dL LABORATORY SERVICES RDW-CV 16.4 (H) <14.2 % [facility] LABORATORY SERVICES RDW-SD 35.8 <46.0 fl [facility] LABORATORY SERVICES Anisocytosis [facility] LABORATORY SERVICES PLT 223 141 - 377 K/cmm [facility] LABORATORY SERVICES MPV 10.6 9.5 - 12.7 fl [facility] LABORATORY SERVICES Neutrophils 55.6 % [facility]ORY SERVICES Lymphocytes 35.8 % [facility] SERVICES Monocytes 6.3 % [facility] SERVICES Eosinophils 0.7 % [facility]ORY SERVICES Basophils 0.6 % [facility] LABORATORY SERVICES Immature Grans 1.0 % [facility] LABORATORY SERVICES Absolute Neutrophils 3.88 2.20 - 8.85 [facility] LABORATORY SERVICES Absolute Lymphocytes 2.50 1.09 - 3.30 [facility] LABORATORY SERVICES Absolute Monocytes 0.44 0.10 - 0.80 [facility] LABORATORY SERVICES Absolute Eosinophils 0.05 0.03 - 0.61 [facility] LABORATORY SERVICES Absolute Basophils 0.04 0.01 - 0.11 [facility] LABORATORY SERVICES Absolute Immature 0.07 (H) 0.00 - 0.06 [facility] Grans [facility] LABORATORY SERVICES Type of Differential: Auto [facility] LABORATORY SERVICES Specimen Blood - Venous blood (substance) Performing Organization Address City/State/ZIP Code Phon e Number [facility]ORATORY [address] [place] [address] SERVICES documented in this encounter Visit Diagnoses Diagnosis Medication monitoring encounter Encounter for therapeutic drug monitorin g History of syphilis Personal history of other infectious and parasitic disease documented in this encounter Care Teams Anodic Treater Relationship Specialty Start Date End Date Chele Becker DO PCP - General 04/27/[address] [place] [address] documented as of this encounter
--- OUTSIDE RECORDS SUMMARY | 2022-05-12 00:57 | XMS_ITS | Encounter Summary ---
:1960 Author Organization [facility] Address [address] [place] [address] Care Team Providers Name Role Phone Chele Becker Primary Care Provider Encounter Details Date Type Department Care Team Description 09/10/2019 Phlebotomy Only [facility] ED Center 2 Correctional Probation Officer, [facility] HIV ex posure Phlebotomy Phlebotomy (Primary Dx) [address] [place], [place] [phone] Social History Tobacco Use Types Packs/Day Years [...] Visit Infectious Disease Silvana Phelps MD 111 [facility], [address] [place], [place] [phone] (Wo rk) documented as of this encounter Procedures Procedure Name Priority Date/Time Associated Diagnosis Comme nts RPR TITER, S REFLEX Today 09/10/2019 11:15 HIV exposure Resu lts for this ORDER ONLY EST procedure are i n the results section. RPR SCREEN, Routine 09/10/2019 11:15 HIV exposure Results for this RESPONSE TO EST procedure are i n THERAPY, S the results section. HEPATITIS C AB W Routine 09/10/2019 11:15 HIV exposure Results for this REFLEX TO HCV RNA EST procedure are in BY PCR the results section. documented in this encounter Results RPR TITER, S REFLEX ORDER ONLY (09/10/2019 11:15 EST) RPR Titer, S Negative Negative [facility] Comment: LABORATORIES Discrepant RPR results may be due to the different met hods used for the RPR screen (multiplex flow immunoassay) a nd RPR titer (agglutination) tests. ??Repeat testing on a new specimen in 1-2 weeks is recommended. Test Performed by: [place] [address] Inside Sales Director: Juan Daniel Tolentino M.D. Ph.D.; CLIA# [id number] Specimen Blood - Venous blood (substance) Performing Organization Address [facility] Phon e Number [facility] LABORATORIES [address] [place] [address] (ABNORMAL) RPR SCREEN, RESPONSE TO THERAPY, S (09/10/2019 11:15 EST) RPR RESPONSE Reactive (A) Nonreactive [facility] Comment: LABORATORIES Specimen reflexed to determine RPR titer. For additional information on interpretation of the syphilis reverse algorithm and results, see: [email or web address] Test Performed by: [facility] [place] [address] Inside Sales Director: Juan Daniel Tolentino M.D. Ph.D.; CLIA# [id number] Specimen Blood - Venous blood (substance) Performing Organization Address [facility] Code Phon e Number [facility] LABORATORIES [address] [place] [address] HEPATITIS C AB W REFLEX TO HCV RNA BY PCR (09/10/2019 11:15 EST) Pathologist Sig nature Hep C Antibody Negative Negative [facility] LABORAT ORY SERVICES Specimen Blood - Venous blood (substance) Performing Organization Address City/[facility]/ZIP Code Phon e Number [facility]OR[facility] [address] [place] [address] SERVICES documented in this encounter Visit Diagnoses Diagnosis HIV exposure - Primary Contact with or exposure to other viral diseases documented in this encounter Care Teams Transferrer Relationship Specialty Start Date End Date Chele Becker DO PCP - General 11/22/17 04/26/20 documented as of this encounter
--- OUTSIDE RECORDS SUMMARY | 2022-05-12 00:57 | XMS_ITS | Encounter Summary ---
:1960 Author Organization [facility] Address [address] [place] [address] Care Team Providers Name Role Phone Chele Becker Primary Care Provider Reason for Visit Reason Comments Other Encounter Details Date Type Department Care Team Description 11/16/2019 Refill [facility] Silvana Phelps MD Other Infectious Disease - Main [address] [place] [address] [address] [place], [place] [phone] [place] [phone] (Wo rk) Social History Tobacco Use Types Packs/Day Years Used Date Never Smoker Smokeless Tobacco: Never Used Alcohol Use Standard Drinks/Week Comments Yes 14 (1 standard drink = 0.6 oz pure alcoh ol) Sex Assigned at Date Recorded Not on file documented as of this encounter Ordered Prescriptions Prescription Sig Dispensed Refills Start Date End Date TRUVADA 200-300 mg per TAKE 1 TABLET BY 30 Tab 2 020 02/12/2020 tablet MOUTH ONCE DAILY. documented in this encounter Miscellaneous Notes Telephone Encounter - Roxanne Isidro RN - 11/19/2019 1430 EDT Electronic prescription for Truvada sent to pharmacy. ROXANNE ISIDRO RN documented in this encounter Plan of Treatment Upcoming Encounters Date Type Specialty Care Team Description 05/30/2022 Nurse Only Infectious Disease Nurse, Elsa, RN 08/10/2022 Office Visit Infectious Disease Silvana Phelps MD [address] [facility], [address] [place], [place] [phone] (Wo rk) documented as of this encounter Visit Diagnoses Not on filedocumented in this encounter Discontinued Medications Medication Sig Discontinue Reason Start Date End Date emtricitabine-tenofovir, Take 1 Tab by mouth 9 11/19/2019 TDF, (TRUVADA) 200-300 mg daily. per tablet documented as of this encounter Care Teams Wildlife Veterinarian Relationship Specialty Start Date End Date Chele Becker DO PCP - General 11/22/17 documented as of this encounter
--- OUTSIDE RECORDS SUMMARY | 2022-05-12 00:57 | XMS_ITS | Encounter Summary ---
:1960 Author Organization [facility] Address [address] [place] [address] Care Team Providers Name Role Phone Chele Becker DO Primary Care Provider Encounter Details Date Type Department Care Team Description 02/12/2020 Travel Social History Tobacco Use Types Packs/Day Years Used Date Never Smoker Smokeless Tobacco: Never Used Alcohol Use Standard Drinks/Week Comments Yes 14 (1 standard drink = 0.6 oz pure alcoh ol) Sex Assigned at Date Recorded Not on file COVID-19 Exposure Response Date Recorded In the last month, have you been in contact with No / Unsure 02/12/2020 10:45 EDT someone who was confirmed or suspected to have Coronavirus / COVID-19? documented as of this encounter Plan of Treatment Upcoming Encounters Date Type Specialty Care Team Description 05/30/2022 Nurse Only Infectious Disease Nurse, Id, RN 08/10/2022 Office Visit Infectious Disease Silvana Phelps MD 111 [facility], [facility] [address] [place], [place] [phone] (Wo rk) documented as of this encounter Visit Diagnoses Not on filedocumented in this encounter Care Teams Dental Assistant Medical Assistant Relationship Specialty Start Date End Date Chele Becker DO PCP - General 11/22/17 04/26/20 documented as of this encounter
--- OUTSIDE RECORDS SUMMARY | 2022-05-12 00:57 | XMS_ITS | Encounter Summary ---
:1960 Author Organization [facility] Address [address] [place] [address] Care Team Providers Name Role Phone Chele Becker Primary Care Provider Reason for Visit Reason Onset Date Comments Other 09/08/2019 Encounter Details Date Type Department Care Team Description 09/08/2019 Telephone [facility] Silvana Phelps MD Other Infectious Disease - [address], [address], [address] [place], [place] [phone] [place] [phone] (Wo rk) Social History Tobacco Use Types Packs/Day Years Used Date Never Smoker Smokeless Tobacco: Never Used Alcohol Use Standard Drinks/Week Comments Yes 14 (1 standard drink = 0.6 oz pure alcoh ol) Sex Assigned at Date Recorded Not on file documented as of this encounter Miscellaneous Notes Telephone Encounter - Lindsay Sanchez - 09/09/2019 0829 EST L/M for pt with appt to see Ayesha Jeffries on 09/10 at 11am. elephone Encounter - Gloria Montejo - 09/08/2019 0915 EST Patient states that a recent partner has been diagnosed with Chlamydia. Asking if he should be tested. Would like a call back at [phone]. documented in this encounter Plan of Treatment Upcoming Encounters Date Type Specialty Care Team Description 05/30/2022 Nurse Only Infectious Disease Nurse, Id, RN 08/10/2022 Office Visit Infectious Disease Silvana Phelps MD [address] [facility], [address] [place], [place] [phone] (Wo rk) documented as of this encounter Visit Diagnoses Not on filedocumented in this encounter Care Teams Carbonizer Tester Relationship Specialty Start Date End Date Chele Becker DO PCP - General 11/22/17 04/26/20 documented as of this encounter
--- OUTSIDE RECORDS SUMMARY | 2022-05-12 00:57 | XMS_ITS | Encounter Summary ---
:1960 Author Organization [facility] Address [address] [place] [address] Care Team Providers Name Role Phone Chele Becker Primary Care Provider Reason for Visit Reason Onset Date Comments Results 11/25/2019 Encounter Details Date Type Department Care Team Description 11/25/2019 Telephone [facility] Silvana Phelps MD Results Infectious Disease - [address], [address], [address] [place], [place] [phone] [place] [phone] (Wo rk) Social History Tobacco Use Types Packs/Day Years Used Date Never Smoker Smokeless Tobacco: Never Used Alcohol Use Standard Drinks/Week Comments Yes 14 (1 standard drink = 0.6 oz pure alcoh ol) Sex Assigned at Date Recorded Not on file documented as of this encounter Miscellaneous Notes Telephone Encounter - Roxanne Isidro RN - 11/25/2019 1352 EDT Notified patient of lab results, negative for STIs, kidney function stable. Patient verbalizes understanding. Patient will call with questions or concerns. Sent message to Dr. Barry. ROXANNE ISIDRO RN elephone Encounter - Gloria Montejo - 11/25/2019 1339 EDT Patient asking for recent lab results. Would like a call back at [phone]. documented in this encounter Plan of Treatment Upcoming Encounters Date Type Specialty Care Team Description 05/30/2022 Nurse Only Infectious Disease Nurse, Id, RN 08/10/2022 Office Visit Infectious Disease Silvana Phelps MD 111 [facility], [facility] 5 [place], [place] [phone] (Wo rk) documented as of this encounter Visit Diagnoses Not on filedocumented in this encounter Care Teams Lead Software Test Engineer Relationship Specialty Start Date End Date Chele Becker DO PCP - General 11/22/17 04/26/20 documented as of this encounter
--- OUTSIDE RECORDS SUMMARY | 2022-05-12 00:57 | XMS_ITS | Encounter Summary ---
:1960 Author Organization [facility] Address [address] [place] [id number] Care Team Providers Name Role Phone Chele Becker Primary Care Provider Reason for Visit Reason Comments Follow-up Encounter Details Date Type Department Care Team Description 02/12/2020 Office Visit [facility] Silvana Phelps Med ication monitoring encounter (Primary Dx); Infectious Disease - MD Routine screening for STI (sexually shaikh smitted infection) [id number] [place] [address] [facility] [address] [place] [address] (Wo rk) Social History Tobacco [...] Sign Reading Time Taken Comments Blood Pressure 127/73 02/12/2020 0949 EDT Pulse 58 02/12/2020 0949 EDT Temperature 35.6 ??C (96.1 ??F) 02/12/2020 0949 EDT Respiratory Rate - - Oxygen Saturation - - Inhaled Oxygen Concentration - - Weight - - Height - - Body Mass Index - - documented in this encounter Ordered Prescriptions Prescription Sig Dispensed Refills Start Date End Date emtricitabine-tenofovir, Take 1 Tab by mouth 30 Tab 2 06 / 05/11/2020 TDF, (TRUVADA) 200-300 mg daily. per tablet documented in this encounter Progress Notes Silvana Phelps MD - 02/12/2020 1000 EDT Division of Infectious Disease Follow up/Progress Note Date: 02/12/20 Chief Complaint: Occular syphilis, HIV prevention, unprotected sex History of present illness: 59 y/o male presents today for interval evaluation following episode of occular syphilis and ongoingmonitoring related to use of PrEP. Mr. Hughes is feeling well. Continues to take his Truvada faithfully and doesn't think he's missed any doses since his last visit. Vision has been stable. No fevers or sweats. Appetite is good. No ulcers. Has had unprotected oral and genital intercourse. Willing to consider transition to [facility], perhaps next visit. Is planning on traveling to [place] in March--returning 04/20. Will be quarantining with his partner. Interested in COVID swab at 7 days. PMHx: 1. Gout. 2. Occular syphilis. Panuveitis, [...] Current antimicrobials: Truvada, 1 PO daily. ROS: Remainder of 10 point ROS is negative. Objective: BP 127/73 (BP Cuff Location: Left arm, BP Patient Position: Sitting, BP Cuff Sizes: Adult, regular) Pulse 58 Temp 35.6 ??C (96.1 ??F) (Tympanic) Gen: Alert, oriented. NAD. Looks well. HEENT: Anicteric. Oral mucosa moist. No thrush. No ulcerations. Neck: supple. LABS: Due for labs today. Labs from 11/21/19 RPR negative (down from 1:256 and stable from 10/2017). HIV ab negative. Oropharyngeal GC and chlamydia negative Urine GC and chlamydia negative. Cr 1.22(GFR >60) Prior labs: 10/02/16: Syphilis ab positive, RPR 1:256. HIV ab negative Lyme ab negative 10/05: CSF WBC 3, RBC 0, gluc 69, prot 46; VDRL negative 09/08/15 ([facility]) HIV ab negative Syphilis ab negative HAV [...] to suggest acute seroconversion. Due for Cr, electrolytes and HIV ab today. Site specific chlamydia and gonorrhea testing also performed, if positive will treat. Adherence reviewed. Rx renewed today forTruvada 1 PO daily X 3 months though patient considering transition to Descovy (to minimize risk of kidney dysfunction). 3. Elevated Cr. Though CrCl> 60. Will continue to monitor closely. Could consider transition to [place]cov[place]. 4. Vision changes. Stable at this time. No evidence to suggest new or relapsed occular syphilis. Would continue to monitor. 5. Syphilis exposure. Treated X 1 07/26/17 and again 11/21/19. 6. Unprotected sex--OP and penile exposure. Screening performed today. Will treat if positive. 7. Recent MRSA infection. Treated. 8. Planned travel in March. Returns Apr 20. If remains asx would plan on COVID swab day 7 after hisreturn to allow for shortening of quarantine. He will call at that time for us to arrange testing. Plan: 1. Continue Truvada--1 PO daily--I re-ordered 3 months. 2. Labs today--HIV ab, Cr, urine GC/chlam, OP GC and chlam; RPR. I will call him with results. 3. Consider transition to Descovy with next Rx. 4. If all stable, plan for f/u in 3 months. Silvana Phelps MD 02/12/2020 10:12 documented in this encounter Plan of Treatment Upcoming Encounters Date Type Specialty Care Team Description 05/30/2022 Nurse Only Infectious Disease Nurse, Elsa, RN 08/10/2022 Office Visit Infectious Disease Silvana Phelps MD [address] [facility], [address] [place], [place] [address] (Wo rk) documented as of this encounter Procedures Procedure Name Priority Date/Time Associated Diagnosis Comme nts N. GONORRHOEAE AND Routine 02/12/2020 10:28 Routine screening Results for this CHLAMYDIA EDT for STI (sexually procedure are in TRACHOMATIS, MISC transmitted the result s SITES, AMPLIFIED RNA infection) section . CHLAMYDIA/N. Routine 02/12/2020 10:27 Routine screening Result s for this GONORRHOEAE EDT for STI (sexually procedure are in AMPLIFIED RNA transmitted the results infection) section. documented in this encounter Results RPR SCREEN, RESPONSE TO THERAPY, S (02/12/2020 11:01 EDT) Pathologist [facility] RPR RESPONSE Nonreactive Nonreactive [facility] Comment: LABORATORIES Test Performed by: [facility] - [facility] [address] [place] [address] Fitness Trainer: Juan Daniel Tolentino M.D. Ph.D.; CLIA# [id number] Specimen Blood - Venous blood (substance) Performing Organization Address City/State/ZIP Code Phon e Number [facility] LABORATORIES [address] [place] [address] RAPID HIV 1/2 ANTIGEN AND ANTIBODY, 4TH GENERATION (02/12/2020 11:01 EDT) Rapid HIV 1 and 2 Negative Negative [facility] Antibody/P24 Comment: LABORATORY Antigen, 4th SERVICES Generation If acute HIV-1 infection is suspected in a high risk ??patient, submit plasma specimen for HIV-1 RNA quantitation test. Fourth Generation assay performed on the Red[employer]tera ur Specimen Blood - Venous blood (substance) Performing Organization Address [facility]/ZIP Code Phon e Number [facility]ORATORY [address] [place] [address] SERVICES CREATININE (02/12/2020 11:01 EDT) Creatinine 1.07 0.66 - 1.25 [facility] mg/dL LABORATORY SERVICES eGFR 77Comment: eGFR >60 [facility] calculated using mL/min/1.73m2 LABORATORY SERVICES CKD-EPI equation for non- Americans. Multiply eGFR by 1.16 for patients. Specimen Blood - Venous blood (substance) Performing Organization Address City/[facility] Phon e Number [facility] [address] [place] [address] SERVICES N. GONORRHOEAE AND CHLAMYDIA TRACHOMATIS, [facility] SITES, AMPLIFIED RNA (02/12/2020 10:28 EDT) Source SRC22 THROAT [facility]ORATORIES [facility] Negative Negative [facility] Amplified RNA Comment: LABORATORIES ADDITIONAL INFORMATION ------ This report is intended for use in clinical monitoring and management of patients. ??It is not intended for use i n medical-legal applications. This test has been modified from the physical therapy teacher's instructions. ??Its performance characteristics were determined by [facility] in a manner consistent with CLIA requirements. ??This test has not been cleared or appr reina by the U.S. Food and Drug Administration. Test Performed by: [facility] - [address] [address] Fitness Trainer: Juan Daniel Tolentino M.D. Ph.D.; CLIA# [id number] Source SRC11 THROAT [facility]ORATORIES Paul Shultz [facility], Negative Negative [facility] Amplified RNA Comment: LABORATORIES ADDITIONAL INFORMATION ------ This report is intended for use in clinical monitoring and management of patients. ??It is not intended for use i n medical-legal applications. This test has been modified from the physical therapy teacher's instructions. ??Its performance characteristics were determined by [facility] in a manner consistent with CLIA requirements. ??This test has not been cleared or appr reina by the U.S. Food and Drug Administration. Specimen Swab - Entire oropharynx and/or hypophar ynx and/or larynx (body structure) Performing Organization Address City/State/ZIP Code Phon e Number [facility] LABORATORIES [address] [place] [address] CHLAMYDIA/N. GONORRHOEAE AMPLIFIED RNA (02/12/2020 10:27 EDT) Pathologist Sig nature Gonococcus Result Negative Negative [facility] LABORATORY SERVICES Chlamydia Result Negative Negative [facility] LABORATORY SERVICES Specimen Urine - Urine, Initial Void Performing Organization Address City/[facility]/ZIP Code Phon e Number [facility] [address] [place] [address] SERVICES documented in this encounter Visit Diagnoses Diagnosis Medication monitoring encounter - Primar y Encounter for therapeutic drug monitorin g Routine screening for STI (sexually shaikh smitted infection) Screening examination for venereal disea se documented in this encounter Discontinued Medications Medication Sig Discontinue Reason Start Date End Date TRUVADA 200-300 mg per TAKE 1 TABLET BY Reorder 11/19/2019 0 02/12/2020 tablet MOUTH ONCE DAILY. documented as of this encounter Care Teams Veterinary Microbiologist Relationship Specialty Start Date End Date Chele Becker DO PCP - General 11/22/17 04/26/20 documented as of this encounter
--- OUTSIDE RECORDS SUMMARY | 2022-05-12 00:57 | XMS_ITS | Encounter Summary ---
:1960 Author Organization [facility] Address [address] [place] [address] Care Team Providers Name Role Phone Eugenio Chele Israel Primary Care Provider [phone] Reason for Visit Reason Comments Follow-up Encounter Details Date Type Department Care Team Description 08/12/2020 Office Visit [facility] Silvana Phelps Rou tine screening for STI (sexually transmitted infection) (Primary Dx); Infectious Disease - MD STI (sexually transmitted infection); [address] High risk medication use [address] [place], [place] [id number] [place] [address] [facility] [address] [place] [phone] (Wo rk) Social History Tobacco Use Types [...] Sign Reading Time Taken Comments Blood Pressure 138/88 08/12/2020 1151 EST Pulse 71 08/12/2020 1151 EST Temperature 36.6 ??C (97.9 ??F) 08/12/2020 1151 EST Respiratory Rate - - Oxygen Saturation - - Inhaled Oxygen Concentration - - Weight - - Height - - Body Mass Index - - documented in this encounter Ordered Prescriptions Prescription Sig Dispensed Refills Start Date End Date emtricitabine-tenofovir, Take 1 Tab by mouth 30 Tab 2 11/08/2020 TDF, (TRUVADA) 200-300 mg daily. 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 Mr. Hughes is feeling well. Continues to take his Truvada faithfully and doesn't think he's missed any doses since his last visit. Vision has been stable. No intercurrent febrile illnesses. No dysuria. No rectal pain. No throat pain. Has had unprotected oral and genital intercourse. PMHx: 1. [...] 10 point ROS is negative. Objective: BP 138/88 (BP Cuff Location: Left arm, BP Patient Position: Sitting, BP Cuff Sizes: Adult, regular) Pulse 71 Temp 36.6 ??C (97.9 ??F) (Tympanic) Gen: Alert, oriented. NAD. Looks well. HEENT: Anicteric. Oral mucosa moist. No thrush. No ulcerations. Neck: supple. RRR, nl S1S2. Lungs CTA. LABS: Due for labs today. Labs from 05/19/20 RPR negative (down from peak of 1:256 and stable). HIV ab negative. Oropharyngeal GC and chlamydia negative Urine GC and chlamydia negative. Cr 1.08 (GFR >60) Prior labs: 10/02/16: Syphilis ab positive, [...] if positive. 7. Recent MRSA infection. Treated. Plan: 1. Continue Truvada--1 PO daily--I re-ordered 3 months. 2. Labs today--HIV ab, Cr, urine GC/chlam, OP GC and chlam; RPR. I will call him with results. 3. Continue to consider transition to Descovy. 4. If all stable, plan for f/u in 3 months. Silvana Phelps MD 08/12/2020 12:02 documented in this encounter Plan of Treatment Upcoming Encounters Date Type Specialty Care Team Description 05/30/2022 Nurse Only Infectious Disease Nurse, Elsa, RN 08/10/2022 Office Visit Infectious Disease Silvana Phelps MD [address] [facility], [address] [place] [address] (Wo rk) documented as of this encounter Procedures Procedure Name Priority Date/Time Associated Diagnosis Comme nts CHLAMYDIA/N. Routine 08/12/2020 12:27 Routine screening Result s for this GONORRHOEAE EST for STI (sexually procedure are in AMPLIFIED RNA transmitted the results infection) section. N. GONORRHOEAE AND Routine 08/12/2020 12:26 Routine screening Results for this CHLAMYDIA EST for STI (sexually procedure are in TRACHOMATIS, MISC transmitted the result s SITES, AMPLIFIED RNA infection) section . documented in this encounter Results CREATININE (08/12/2020 12:39 EST) Creatinine 1.21 0.66 - 1.25 [facility] mg/dL LABORATORY SERVICES eGFR 66Comment: eGFR >60 [facility] calculated using mL/min/1.73m2 LABORATORY SERVICES CKD-EPI equation for non- Americans. Multiply eGFR by 1.16 for patients. Specimen Blood - Venous blood (substance) Performing Organization Address City/[facility] Code Phon e Number [facility]ORATORY [address] [place] [address] SERVICES RPR SCREEN, RESPONSE TO THERAPY, S (08/12/2020 12:39 EST) RPR RESPONSE Nonreactive Nonreactive [facility] Comment: LABORATORIES Test Performed by: [facility] - [facility] [address] [place] [id number] Reference Archivist: Juan Daniel Tolentino M.D. Ph.D.; CLIA# [id number] Specimen Blood - Venous blood (substance) Performing Organization Address City/[facility]/ZIP Code Phon e Number [facility]OR[facility]IES [address] [place] [address] HIV 1/2 ANTIGEN AND ANTIBODY, 4TH GENERATION (08/12/2020 12:39 EST) HIV 1 and 2 Negative Negative [facility] Antibody/p24 Comment: LABORATORY Antigen, 4th If acute HIV-1 infection is suspected in a high risk ??patient, submit plasma specimen for HIV-1 RNA quantitation test. SERV ICES Generation Fourth Generation assay performed on the Siem[employer] Cent[employer] ur. Specimen Blood - Venous blood (substance) Performing Organization Address City/[facility] Code Phon e Number [facility]OR[facility]ORY [address] [place] [address] SERVICES CHLAMYDIA/N. GONORRHOEAE AMPLIFIED RNA (08/12/2020 12:27 EST) Pathologist Sig nature Gonococcus Result Negative Negative [facility] LABORATORY SERVICES Chlamydia Result Negative Negative [facility] LABORATORY SERVICES Specimen Urine - Urine, Initial Void Performing Organization Address City/[facility] Code Phon e Number [facility]ORY [address] [place] [address] SERVICES N. GONORRHOEAE AND CHLAMYDIA TRACHOMATIS, MISC SITES, AMPLIFIED RNA (08/12/2020 12:26 EST) Source SRC22 throat [facility], [facility] Negative Negative [facility] Amplified RNA Comment: LABORATORIES ADDITIONAL INFORMATION ------ This report is intended for use in clinical monitoring and management of patients. ??It is not intended for use i n medical-legal applications. This test has been modified from the golf cart assembler's instructions. ??Its performance characteristics were determined by [facility] in a manner consistent with CLIA requirements. ??This test has not been cleared or appr reina by the U.S. Food and Drug Administration. Test Performed by: [facility] - [address] [address] Reference Archivist: Juan Daniel Tolentino M.D. Ph.D.; CLIA# [id number] Source SRC11 throat [facility], Negative Negative [facility] Amplified RNA Comment: LABORATORIES ADDITIONAL INFORMATION ------ This report is intended for use in clinical monitoring and management of patients. ??It is not intended for use i n medical-legal applications. This test has been modified from the golf cart assembler's instructions. ??Its performance characteristics were determined by [facility] in a manner consistent with CLIA requirements. ??This test has not been cleared or appr reina by the U.S. Food and Drug Administration. Specimen Swab - Entire oropharynx and/or hypophar ynx and/or larynx (body structure) Performing Organization Address City/State/ZIP Code Phon e Number [facility] [address] [place] [address] documented in this encounter Visit Diagnoses Diagnosis Routine screening for STI (sexually shaikh smitted infection) - Primary Screening examination for venereal disea se STI (sexually transmitted infection) Venereal disease, unspecified High risk medication use Encounter for long-term (current) use of other medications documented in this encounter Discontinued Medications Medication Sig Discontinue Reason Start Date End Date emtricitabine-tenofovir, Take 1 Tab by mouth Reorder 0 08/12/2020 TDF, (TRUVADA) 200-300 mg daily. per tablet documented as of this encounter Care Teams Convertible Sofa Bedspring Tester Relationship Specialty Start Date End Date Chele Becker DO PCP - General 04/27/[address] [place] [id number] documented as of this encounter
--- OUTSIDE RECORDS SUMMARY | 2022-05-12 00:57 | XMS_ITS | Encounter Summary ---
:1960 Author Organization [facility] Address [address] [place] [address] Care Team Providers Name Role Phone LatiaChele da silva Israel DO Primary Care Provider [phone] Reason for Visit Reason Comments Follow-up Encounter Details Date Type Department Care Team Description 10/27/2021 Office Visit [facility] Silvana Phelps Med ication monitoring encounter (Primary Dx); Infectious Disease - MD Routine screening for STI (sexually shaikh smitted infection); [address] History of syphilis [address] [place] [address] [facility] [phone] [facility] [address] [place] [phone] (Wo rk) Social History Tobacco Use Types Packs/Day Years Used Date Never Smoker Smokeless Tobacco: Never Used Alcohol Use Standard Drinks/Week Comments Yes 14 (1 standard drink = 0.6 oz pure alcoh ol) Sex Assigned at Date Recorded Not on file documented as of this encounter Last Filed Vital Signs Vital Sign Reading Time Taken Comments Blood Pressure 130/81 10/27/2021 0946 EST Pulse 99 10/27/2021 0946 EST Temperature 35.7 ??C (96.2 ??F) 10/27/2021 0946 EST Respiratory Rate - - Oxygen Saturation - - Inhaled Oxygen Concentration - - Weight - - Height - - Body Mass Index - - documented in this encounter Ordered Prescriptions Prescription Sig Dispensed Refills Start Date End Date emtricitabine-tenofovir, Take 1 Tablet by 30 Tablet 3 10/2712/21/2021 TDF, (TRUVADA) 200-300 mg mouth daily. per tablet documented in this encounter Progress Notes Silvana Phelps MD - 10/27/2021 1000 EST Division of Infectious Disease Follow up/Progress Note Date: 10/27/21 Chief Complaint: Occular syphilis, HIV prevention, unprotected sex History of present illness: 61 y/o male presents today for interval evaluation following episode of occular syphilis and ongoingmonitoring related to use of PrEP. Mr. Hughes is feeling well. Continues to take his Truvada without missing doses. Did develop COVID in June. Had mild symptoms at the time. Does feel more SOB than usual since the fall, not sure if related to COVID or some weight gain and inactivity. Planning to increase activity level and thinking about incorporating exercise. No other illnesses. No dysuria. No rectal [...] 10 point ROS is negative. Objective: BP 130/81 (BP Cuff Location: Left arm, BP Patient Position: Sitting, BP Cuff Sizes: Adult, regular) Pulse 99 Temp 35.7 ??C (96.2 ??F) (Tympanic) Gen: Alert, oriented. NAD. Looks well. HEENT: Anicteric. Oral mucosa moist. No thrush. No ulcerations. Neck: supple. Reg. No obvious murmer. Lungs are CTA. ABd soft, NT, ND. No LE edema. No rash. LABS: Due for labs today. Last labs from 06/16/21 RPR negative (down from peak of 1:256 and stable). HIV ab negative. Oropharyngeal GC and chlamydia negative Urine GC and chlamydia negative Cr 1.16 Prior labs: 10/02/16: Syphilis ab positive, RPR 1:256. HIV ab negative Lyme ab negative 10/05: CSF WBC 3, RBC 0, gluc 69, prot 46; VDRL negative 09/08/15 ([facility]) HIV ab negative Syphilis ab negative HAV [...] re-ordered 3 months. 2. Labs today--HIV ab, CBC with diff, CMP, urine GC/chlam, OP GC and chlam; RPR. I will call him with results. 3. Continue to consider transition to Descovy--will hold for now. 4. If all stable, plan for f/u in 3 months. Silvana Phelps MD 10/27/2021 10:03 documented in this encounter Plan of Treatment Upcoming Encounters Date Type Specialty Care Team Description 05/30/2022 Nurse Only Infectious Disease Nurse, Id, RN 08/10/2022 Office Visit Infectious Disease Silvana Phelps MD [address] [facility], [address] [place], [place] [address] (Wo rk) documented as of this encounter Procedures Procedure Name Priority Date/Time Associated Diagnosis Comme nts CHLAMYDIA/N. Routine 10/27/2021 10:29 Medication Results for this GONORRHOEAE EST monitoring encou nter procedure are in AMPLIFIED RNA Routine screening the resul ts for STI (sexually section. transmitted infection) CHLAMYDIA/N. Routine 10/27/2021 10:29 Medication Results for this GONORRHOEAE EST monitoring encou nter procedure are in AMPLIFIED RNA Routine screening the resul ts for STI (sexually section. transmitted infection) documented in this encounter Results (ABNORMAL) COMPLETE BLOOD COUNT AND DIFFERENTIAL (10/27/2021 10:55 EST) WBC 5.96 4.00 - 10.40 [facility]ORATORY SERVICES RBC 6.04 (H) 4.36 - 5.78 [facility] SERVICES Hemoglobin 12.9 (L) 13.8 - 17.3 [facility] gm/dL LABORATORY SERVICES HCT 40.8 39.5 - 50.2 % [facility] SERVICES MCV 68 (L) 81 - 95 fl [facility] MCH 21.4 (L) 27.6 - 33.0 pg [facility] Hypochromia 2+ [facility] MCHC 31.6 (L) 32.8 - 36.4 [facility] gm/dL LABORATORY SERVICES RDW-CV 16.5 (H) <14.2 % [facility] SERVICES RDW-SD 35.6 <46.0 fl [facility] Anisocytosis 1+ [facility] PLT 188 141 - 377 K/m [facility] MPV 10.5 9.5 - 12.7 fl [facility] Neutrophils 66.7 % [facility] Lymphocytes 23.5 % [facility] Monocytes 8.1 % [facility] Eosinophils 0.5 % [facility] Basophils 0.7 % [facility] Immature Grans 0.5 % [facility] Absolute Neutrophils 3.98 2.20 - 8.85 [facility] LABORATORY SERVICES Absolute Lymphocytes 1.40 1.09 - 3.30 [facility] LABORATORY SERVICES Absolute Monocytes 0.48 0.10 - 0.80 [facility] LABORATORY SERVICES Absolute Eosinophils 0.03 0.03 - 0.61 [facility] LABORATORY SERVICES Absolute Basophils 0.04 0.01 - 0.11 [facility] LABORATORY SERVICES Absolute Immature 0.03 0.00 - 0.06 [facility] Grans [facility] LABORATORY SERVICES Type of Differential: Auto [facility] Specimen Blood - Venous blood (substance) Performing Organization Address City/State/ZIP Code Phon e Number [facility] [address] [place] [address] SERVICES (ABNORMAL) COMPREHENSIVE METABOLIC PANEL (CMP) (10/27/2021 10:54 EST) Pathologist Sig nature Sodium 139 136 - 145 [facility] mmol/L LABORATORY SERVICES Potassium 4.5 3.5 - 5.0 [facility] mmol/L LABORATORY SERVICES Chloride 103 96 - 110 mmol/L [facility] CO2 Total 29 22 - 32 mmol/L [facility] Glucose 121 (H) 70 - 100 mg/dL [facility] BUN 18 10 - 26 mg/dL [facility] Creatinine 1.18 0.66 - 1.25 [facility] mg/dL LABORATORY SERVICES eGFR 67 >60 [facility] mL/min/1.73m2 LABORATORY SERVICES Total Protein 7.0 6.3 - 8.2 g/dL [facility] Albumin 4.8 3.4 - 4.9 g/dL [facility] SERVICES Alkaline Phosphatase 78 38 - 126 U/L [facility] AST 35 15 - 46 U/L [facility] ALT 37 <50 U/L [facility] Bilirubin, Total 0.9 <1.4 mg/dL [facility] Calcium 9.2 8.5 - 10.5 [facility] mg/dL LABORATORY SERVICES Albumin/Globulin 2.2 1.0 - 2.5 [facility] Ratio LABORATORY SERVICES Anion Gap 7 5 - 14 [facility] SERVICES Specimen Blood - Venous blood (substance) Performing Organization Address City/[facility]/ZIP Code Phon e Number [facility] [address] [place] [address] SERVICES RAPID HIV 1/2 ANTIGEN AND ANTIBODY, 4TH GENERATION (10/27/2021 10:54 EST) Rapid HIV 1 and 2 NegativeComment: If Negative [facility] ER Antibody/P24 acute HIV-1 LABORATORY Antigen, 4th infection is SERVICES Generation suspected in a high risk patient, submit plasma specimen for HIV-1 RNA quantitation test. Specimen Blood - Venous blood (substance) Narrative [facility] SERVICES - 10/27/2021 12:37 EST Fourth Generation assay performed on the Siemens Centaur XPT. Performing Organization Address City/[facility]/ZIP Code Phon e Number [facility] [address] [place] [address] SERVICES CHLAMYDIA/N. GONORRHOEAE AMPLIFIED RNA (10/27/2021 10:29 EST) Pathologist Sig nature Gonococcus Result Negative Negative [facility] SERVICES Chlamydia Result Negative Negative [facility] SERVICES Specimen Swab - Oral/Throat (pharynx or pharyngea l) Performing Organization Address City/[facility]/ZIP Code Phon e Number [facility] [address] [place] [address] SERVICES CHLAMYDIA/N. GONORRHOEAE AMPLIFIED RNA (10/27/2021 10:29 EST) Pathologist Sig nature Gonococcus Result Negative Negative [facility] SERVICES Chlamydia Result Negative Negative [facility] SERVICES Specimen Urine - Urine, Initial Void Performing Organization Address [facility]/ZIP [facility] Phon e Number [facility] [address] [place] [address] SERVICES documented in this encounter Visit Diagnoses Diagnosis Medication monitoring encounter - Primar y Encounter for therapeutic drug monitorin g Routine screening for STI (sexually shaikh smitted infection) Screening examination for venereal disea se History of syphilis Personal history of other infectious and parasitic disease documented in this encounter Orders Lab Orders Without Results Count Last Ordered Date Fir st Ordered Date RPR SCREEN, RESPONSE TO THERAPY, S 1 10/27/2021 documented in this encounter Care Teams Strategy Specialist Relationship Specialty Start Date End Date Chele Becker DO PCP - General 04/27/[address] [place] [id number] documented as of this encounter
--- OUTSIDE RECORDS SUMMARY | 2022-05-12 00:57 | XMS_ITS | Encounter Summary ---
:1960 Author Organization [facility] Address [address] [place] [address] Care Team Providers Name Role Phone Chele Becker Primary Care Provider Encounter Details Date Type Department Care Team Description 02/12/2020 Phlebotomy Only [facility] 2 Cake Inspector, Acc Medica tion monitoring encounter; Phlebotomy Phlebotomy Routine screening for STI (s exually transmitted infection) [address] [place], [place] [id number] Social History Tobacco Use Types Packs/Day Years [...] Visit Infectious Disease Silvana Phelps MD [address] [facility], [address] [place], [place] [address] (Wo rk) documented as of this encounter Procedures Procedure Name Priority Date/Time Associated Diagnosis Comme nts RPR SCREEN, RESPONSE Routine 02/12/2020 11:01 Routine screenin g Results for this TO THERAPY, S EDT for STI (sexually procedure are in transmitted the results infection) section. RAPID HIV 1/2 STAT 02/12/2020 11:01 Medication Results fo r this ANTIGEN AND EDT monitoring encounter procedu re are in ANTIBODY, 4TH the results GENERATION section. CREATININE Routine 02/12/2020 11:01 Medication Results for this EDT monitoring encounter procedu re are in the results section. documented in this encounter Results RPR SCREEN, RESPONSE TO THERAPY, S (02/12/2020 11:01 EDT) RPR RESPONSE Nonreactive Nonreactive [facility] Comment: LABORATORIES Test Performed by: [facility] [address] [place] [address] Executive Producer Promos: Juan Daniel Tolentino M.D. Ph.D.; CLIA# [id number] Specimen Blood - Venous blood (substance) Performing Organization Address City/[facility]/ZIP Code Phon e Number [facility] [address] [place] [address] RAPID HIV 1/2 ANTIGEN AND ANTIBODY, 4TH GENERATION (02/12/2020 11:01 EDT) Rapid HIV 1 and 2 Negative Negative [facility] Antibody/P24 Comment: LABORATORY Antigen, 4th SERVICES Generation If acute HIV-1 infection is suspected in a high risk ??patient, submit plasma specimen for HIV-1 RNA quantitation test. Fourth Generation assay performed on the Siemens Spectral Diagnosticsa ur Specimen Blood - Venous blood (substance) Performing Organization Address City/[facility]/ZIP Code Phon e Number [facility] [address] [place] [address] SERVICES CREATININE (02/12/2020 11:01 EDT) Creatinine 1.07 0.66 - 1.25 [facility] mg/dL LABORATORY SERVICES eGFR 77Comment: eGFR >60 [facility] calculated using mL/min/1.73m2 LABORATORY SERVICES CKD-EPI equation for non- Americans. Multiply eGFR by 1.16 for patients. Specimen Blood - Venous blood (substance) Performing Organization Address City/[facility]/ZIP Code Phon e Number [facility] [address] [place] [address] SERVICES documented in this encounter Visit Diagnoses Diagnosis Medication monitoring encounter Encounter for therapeutic drug monitorin g Routine screening for STI (sexually shaikh smitted infection) Screening examination for venereal disea se documented in this encounter Care Teams Housing Quality Standard Inspector Relationship Specialty Start Date End Date Chele Becker DO PCP - General 11/22/17 04/26/20 documented as of this encounter
--- OUTSIDE RECORDS SUMMARY | 2022-05-12 00:57 | XMS_ITS | Encounter Summary ---
:1960 Author Organization [facility] Address [address] [place] [id number] Care Team Providers Name Role Phone Chele Becker Primary Care Provider Reason for Visit Reason Comments Follow-up Encounter Details Date Type Department Care Team Description 08/08/2019 Office Visit [facility] Silvana Phelps Rou tine screening for STI (sexually transmitted infection) (Primary Dx); Infectious Disease - MD Medication monitoring encounter [id number] [place] [address] [facility] Level 5 [place] [address] (Wo rk) Social History Tobacco Use Types Packs/Day Years Used Date Never Smoker Smokeless Tobacco: Never Used Alcohol Use Standard Drinks/Week Comments Yes 14 (1 standard drink = 0.6 oz pure alcoh ol) Sex Assigned at Date Recorded Not on file documented as of this encounter Last Filed Vital Signs Vital Sign Reading Time Taken Comments Blood Pressure 131/82 08/08/2019 1614 EST Pulse 67 08/08/2019 1614 EST Temperature 35.7 ??C (96.2 ??F) 08/08/2019 1614 EST Respiratory Rate - - Oxygen Saturation - - Inhaled Oxygen Concentration - - Weight 97.5 kg (215 lb) 08/08/2019 1614 EST Pt reported Height - - Body Mass Index 33.67 05/21/2018 0848 EDT documented in this encounter Ordered Prescriptions Prescription Sig Dispensed Refills Start Date End Date emtricitabine-tenofovir, Take 1 Tab by mouth 30 Tab 2 11/19/2019 TDF, (TRUVADA) 200-300 mg daily. 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 Mr. Hughes is feeling well. Continues to take his Truvada faithfully and doesn't think he's missed any doses since I've seen him last. Has occasional abdominal cramps, but otherwise no side effects. Vision has been stable. No fevers or sweats. Appetite is good. No ulcer s. Has had unprotected oral and genital intercourse. [...] Current antimicrobials: Truvada, 1 PO daily. ROS: Did have a skin and soft tissue infection right leg with MRSA. Resolved with antibiotics. Neverinvolved the knee joint. Remainder of 10 point ROS is negative. Objective: BP 131/82 (BP Cuff Location: Left arm, BP Patient Position: Sitting, BP Cuff Sizes: Adult, large) Pulse 67 Temp 35.7 ??C (96.2 ??F) (Tympanic) Wt 97.5 kg (215 lb) Comment: Pt reported BMI 33.67kg/m?? Gen: Alert, oriented. NAD. Looks well. HEENT: Anicteric. PERRL. EOMI and pain-free. Oral mucosa moist. No thrush. No ulcerations. Neck: supple. COR: RRR. No murmer. Lungs: CTA. Abd soft, NT, ND. No hepatosplenomegaly. Mssk: No obvious joint effusions or warmth. ROM appears pain-free. Integ: No rash. Hyperpigmented indurated region medial knee on left. No drainage. Not tender. No warmth. Former MRSA abscess. No LE edema. No cervical, supraclavicular adenopathy. LABS: Due for labs today. Labs from 06/13/19 RPR negative (down from 1:256 and stable from 10/2017). HIV ab negative. Oropharyngeal GC and chlamydia negative Urine GC and chlamydia negative. Cr 1.20(GFR >60) Phos 3.1 Prior labs: 10/02/16: Syphilis ab positive, RPR 1:256. HIV ab negative Lyme ab negative 10/05: CSF WBC 3, RBC 0, gluc 69, prot 46; VDRL negative [place]08[place] ab negative Syphilis ab negative HAV [...] X 3 months. 3. Elevated Cr. Though CrCl recently > 60. Will continue to monitor closely. Could consider transition to Descovy. 4. Vision changes. Stable at this time. No evidence to suggest new or relapsed occular syphilis. Would continue to monitor. 5. Syphilis exposure. Treated X 1 07/26/17. 6. Unprotected sex--OP and penile exposure. Screening performed today. Will treat if positive. 7. Recent MRSA infection. Treated. No evidence today to suggest active infection. Plan: 1. Continue Truvada--1 PO daily--I re-ordered 3 months. 2. Labs today--HIV ab, CMP, urine GC/chlam, OP GC and chlam; RPR. I will call him with results. 3. If all stable, plan for f/u in 3 months. Silvana Phelps MD 08/08/2019 16:32 documented in this encounter Plan of Treatment Upcoming Encounters Date Type Specialty Care Team Description 05/30/2022 Nurse Only Infectious Disease Nurse, Elsa, RN 08/10/2022 Office Visit Infectious Disease Silvana Phelps MD [address] [facility], [facility] 5 [place] [address] (Wo rk) documented as of this encounter Procedures Procedure Name Priority Date/Time Associated Diagnosis Comme nts N. GONORRHOEAE AND Routine 08/08/2019 16:56 Routine screening Results for this CHLAMYDIA EST for STI (sexually procedure are in TRACHOMATIS, MISC transmitted the result s SITES, AMPLIFIED RNA infection) section. Medication monitoring encounter CHLAMYDIA/N. Routine 08/08/2019 16:56 Routine screening Result s for this GONORRHOEAE EST for STI (sexually procedure are in AMPLIFIED RNA transmitted the results infection) section. Medication monitoring encounter documented in this encounter Results PHOSPHORUS (08/08/2019 17:13 EST) Pathologist Sig nature Phosphorus 3.1 2.5 - 4.5 mg/dL [facility] LABORA TORY SERVICES Specimen Blood - Venous blood (substance) Performing Organization Address City/[facility] Code Phon e Number [facility] [address] [place] [address] SERVICES (ABNORMAL) RPR SCREEN, RESPONSE TO THERAPY, S (08/08/2019 17:13 EST) RPR RESPONSE Reactive (A) Nonreactive [facility] Comment: LABORATORIES Specimen reflexed to determine RPR titer. Test Performed by: [facility] [address] [place] [address] Fishing Line Winding Machine Operator: Juan Daniel Tolentino M.D. Ph.D.; CLIA# [id number] Specimen Blood - Venous blood (substance) Performing Organization Address City/State/ZIP Code Phon e Number [facility] [address] [place] [address] (ABNORMAL) BASIC METABOLIC PANEL (BMP) (08/08/2019 17:13 EST) Sodium 140 136 - 145 [facility] mEq/L LABORATORY SERVICES Potassium 4.0 3.5 - 5.0 [facility] mEq/L LABORATORY SERVICES Chloride 104 96 - 110 [facility] mEq/L LABORATORY SERVICES CO2 Total 28 22 - 32 mEq/L [facility]OR[facility]ORY SERVICES Glucose 107 (H) 70 - 100 [facility] mg/dL LABORATORY SERVICES Calcium 9.6 8.5 - 10.5 [facility] mg/dL LABORATORY SERVICES Calculated Calcium 9.0 8.5 - 10.5 [facility] mg/dL LABORATORY SERVICES BUN 14 10 - 26 mg/dL [facility] SERVICES Creatinine 1.18 0.66 - 1.25 [facility] mg/dL LABORATORY SERVICES eGFR 69Comment: eGFR >60 [facility] calculated using mL/min/1.73m2 LABORATORY CKD-EPI equation SERVICES for non- Americans. Multiply eGFR by 1.16 for patients. Specimen Blood - Venous blood (substance) Narrative [facility] SERVICES - 08/08/2019 17:50 EST 2 Performing Organization Address City/State/ZIP Code Phon e Number [facility] [address] [place] [address] SERVICES (ABNORMAL) COMPLETE BLOOD COUNT AND DIFFERENTIAL (08/08/2019 17:13 EST) WBC 6.31 4.00 - 10.40 [facility] K/[facility] LABORATORY SERVICES RBC 5.98 (H) 4.36 - 5.78 [facility] LAB[facility]ATORY SERVICES Hemoglobin 12.6 (L) 13.8 - 17.3 [facility] gm/dL [facility] LAB[facility]ATORY SERVICES HCT 39.9 39.5 - 50.2 % [facility] SERVICES MCV 67 (L) 81 - 95 fl [facility] SERVICES MCH 21.1 (L) 27.6 - 33.0 [facility] LABORATORY SERVICES Hypochromia 2+ [facility]ORATORY SERVICES MCHC 31.6 (L) 32.8 - 36.4 [facility] gm/dL [facility] LAB[facility]ATORY SERVICES RDW-CV 15.9 (H) <14.2 % [facility] SERVICES RDW-SD 35.1 <46.0 fl [facility]ORY SERVICES Anisocytosis [facility] LABORATORY SERVICES PLT 164 141 - 377 [facility] LABORATORY SERVICES MPV 10.7Comment: Not 9.5 - 12.7 fl [facility] LABORATORY SERVICES Neutrophils 61.3 % [facility]ATORY SERVICES Lymphocytes 27.4 % [facility] SERVICES Monocytes 9.2 % [facility] SERVICES Eosinophils 1.0 % [facility] SERVICES Basophils 0.6 % [facility] SERVICES Immature Grans 0.5 % [facility]ORY SERVICES Absolute Neutrophils 3.87 2.20 - 8.85 [facility] LABORATORY SERVICES Absolute Lymphocytes 1.73 1.09 - 3.30 [facility] LABORATORY SERVICES Absolute Monocytes 0.58 0.10 - 0.80 [facility] LABORATORY SERVICES Absolute Eosinophils 0.06 0.03 - 0.61 [facility] LABORATORY SERVICES Absolute Basophils 0.04 0.01 - 0.11 [facility] LABORATORY SERVICES Absolute Immature 0.03 0.00 - 0.06 [facility] Grans [facility] LABORATORY SERVICES Type of Auto [facility] Differential: CENTER LABORATORY SERVICES Specimen Blood - Venous blood (substance) Performing Organization Address [facility] e [facility] LABORATORY [address] [place] [address] SERVICES RAPID HIV 1/2 ANTIGEN AND ANTIBODY, 4TH GENERATION (08/08/2019 17:13 EST) Rapid HIV 1 and 2 Negative Negative [facility] Antibody/P24 Comment: LABORATORY Antigen, 4th SERVICES Generation If acute HIV-1 infection is suspected in a high risk ??patient, submit plasma specimen for HIV-1 RNA quantitation test. Fourth Generation assay performed on the Siemens [employer] ur Specimen Blood - Venous blood (substance) Performing Organization Address [facility]/ZIP [facility] Phon e Number [facility] [address] [place] [address] SERVICES CHLAMYDIA/N. GONORRHOEAE AMPLIFIED RNA (08/08/2019 16:56 EST) Pathologist Sig nature Gonococcus Result Negative Negative [facility] SERVICES Chlamydia Result Negative Negative [facility] SERVICES Specimen Urine - Urine (substance) Performing Organization Address City/[facility]/ZIP Code Phon e Number [facility] [address] [place] [address] SERVICES N. GONORRHOEAE AND CHLAMYDIA TRACHOMATIS, [facility] SITES, AMPLIFIED RNA (08/08/2019 16:56 EST) Source [id number] ORAL / THROAT [facility] NBrett Miguel, [facility] Negative Negative [facility] Amplified RNA Comment: LABORATORIES ADDITIONAL INFORMATION ------ This report is intended for use in clinical monitoring and management of patients. ??It is not intended for use i n medical-legal applications. This test has been modified from the drawer maker's instructions. ??Its performance characteristics were determined by [facility] in a manner consistent with CLIA requirements. ??This test has not been cleared or appr reina by the U.S. Food and Drug Administration. Test Performed by: [facility] - [address] [address] Fishing Line Winding Machine Operator: Juan Daniel Tolentino M.D. Ph.D.; CLIA# [id number] Source [id number] ORAL / THROAT [facility] LABORATORIES CMercy Sr, Negative Negative [facility] Amplified RNA Comment: LABORATORIES ADDITIONAL INFORMATION ------ This report is intended for use in clinical monitoring and management of patients. ??It is not intended for use i n medical-legal applications. This test has been modified from the drawer maker's instructions. ??Its performance characteristics were determined by [facility] in a manner consistent with CLIA requirements. ??This test has not been cleared or appr reina by the U.S. Food and Drug Administration. Specimen Swab - Oral cavity specimen (specimen) Performing Organization Address City/[facility]/ZIP Code Phon e Number [address] [address] documented in this encounter Visit Diagnoses Diagnosis Routine screening for STI (sexually shaikh smitted infection) - Primary Screening examination for venereal disea se Medication monitoring encounter Encounter for therapeutic drug monitorin g documented in this encounter Discontinued Medications Medication Sig Discontinue Reason Start Date End Date emtricitabine-tenofovir, Take 1 Tab by mouth Reorder 9 08/08/2019 TDF, (TRUVADA) 200-300 mg daily. per tablet documented as of this encounter Historical Medications This list may reflect changes made after this encounter. Medication Sig Dispensed Refills Start Date End Date ALLOPURINOL ORAL Take by mouth. Beginning in 0 the next week added in this encounter Care Teams Rn Postpartum Relationship Specialty Start Date End Date Chele Becker DO PCP - General 11/22/17 04/26/20 documented as of this encounter
--- OUTSIDE RECORDS SUMMARY | 2022-05-12 00:57 | XMS_ITS | Encounter Summary ---
:1960 Author Organization [facility] Address [address] [place] [address] Care Team Providers Name Role Phone Chele Becker Primary Care Provider Encounter Details Date Type Department Care Team Description 08/08/2019 Phlebotomy Only [facility] ED Center 2 Construction Electrician, Acc Routin e screening for STI (sexually transmitted infection); Phlebotomy Phlebotomy Medication monitoring encoun ter [address] [place] [address] Social History Tobacco Use Types Packs/Day Years Used Date Never Smoker Smokeless Tobacco: Never Used Alcohol Use Standard Drinks/Week Comments Yes 14 (1 standard drink = 0.6 oz pure alcoh ol) Sex Assigned at Date Recorded Not on file documented as of this encounter Miscellaneous Notes Result QuickNote - Silvana Phelps MD - 08/08/2019 1715 EST Called patient to discuss results. Screening negative and labs normal. No change in plan. F/u as previously scheduled. CNoyes documented in this encounter Plan of Treatment Upcoming Encounters Date Type Specialty Care Team Description 05/30/2022 Nurse Only Infectious Disease Nurse, Id, RN 08/10/2022 Office Visit Infectious Disease Silvana Phelps MD [address] [facility], Level [address] [place], [place] [address] (Wo rk) documented as of this encounter Procedures Procedure Name Priority Date/Time Associated Diagnosis Comme nts RPR TITER, S REFLEX Today 08/08/2019 17:13 Routine screening Results for this ORDER ONLY EST for STI (sexually procedure are in transmitted the results infection) section. Medication monitoring encounter RPR SCREEN, RESPONSE Routine 08/08/2019 17:13 Routine screenin g Results for this TO THERAPY, S EST for STI (sexually procedure are in transmitted the results infection) section. Medication monitoring encounter RAPID HIV 1/2 ANTIGEN STAT 08/08/2019 17:13 Routine screeni ng Results for this AND ANTIBODY, 4TH EST for STI (sexually proce dure are in GENERATION transmitted the results infection) section. COMPLETE BLOOD COUNT Routine 08/08/2019 17:13 Routine screenin g Results for this AND DIFFERENTIAL EST for STI (sexually proced ure are in transmitted the results infection) section. Medication monitoring encounter PHOSPHORUS Routine 08/08/2019 17:13 Routine screening Result s for this EST for STI (sexually procedure are in transmitted the results infection) section. Medication monitoring encounter BASIC METABOLIC PANEL Routine 08/08/2019 17:13 Routine screeni ng Results for this (BMP) EST for STI (sexually procedure are in transmitted the results infection) section. Medication monitoring encounter documented in this encounter Results RPR TITER, S REFLEX ORDER ONLY (08/08/2019 17:13 EST) RPR Titer, S Negative Negative [facility] Comment: LABORATORIES Discrepant RPR results may be due to the different met hods used for the RPR screen (multiplex flow immunoassay) a nd RPR titer (agglutination) tests. ??Repeat testing on a new specimen in 1-2 weeks is recommended. Test Performed by: [facility] [address] [place] [address] Steward/Stewardess Chief Cargo Vessel: Juan Daniel Tolentino M.D. Ph.D.; CLIA# [id number] Specimen Blood - Venous blood (substance) Performing Organization Address City/State/ZIP Code Phon e Number [facility] LABORATORIES [address] [place] [address] PHOSPHORUS (08/08/2019 17:13 EST) Pathologist Sig nature Phosphorus 3.1 2.5 - 4.5 mg/dL [facility] LABORA TORY SERVICES Specimen Blood - Venous blood (substance) Performing Organization Address City/[facility]/ZIP Code Phon e Number [facility] [address] [place] [address] SERVICES (ABNORMAL) RPR SCREEN, RESPONSE TO THERAPY, S (08/08/2019 17:13 EST) Pathologist [facility] RPR RESPONSE Reactive (A) Nonreactive [facility] Comment: LABORATORIES Specimen reflexed to determine RPR titer. Test Performed by: [facility] - [facility] [address] [place] [address] Steward/Stewardess Chief Cargo Vessel: Juan Daniel Tolentino M.D. Ph.D.; CLIA# [id number] Specimen Blood - Venous blood (substance) Performing Organization Address [facility] Phon e Number [facility]ORATORIES [address] [place] [address] (ABNORMAL) BASIC METABOLIC PANEL (BMP) (08/08/2019 17:13 EST) Pathologist [facility] Sodium 140 136 - 145 [facility] mEq/L LABORATORY SERVICES Potassium 4.0 3.5 - 5.0 [facility] mEq/L LABORATORY SERVICES Chloride 104 96 - 110 [facility] mEq/L LABORATORY SERVICES CO2 Total 28 22 - 32 mEq/L [facility] LABORATORY SERVICES Glucose 107 (H) 70 - 100 [facility] mg/dL LABORATORY SERVICES Calcium 9.6 8.5 - 10.5 [facility] mg/dL LABORATORY SERVICES Calculated Calcium 9.0 8.5 - 10.5 [facility] mg/dL LABORATORY SERVICES BUN 14 10 - 26 mg/dL [facility] LABORATORY SERVICES Creatinine 1.18 0.66 - 1.25 [facility] mg/dL LABORATORY SERVICES eGFR 69Comment: eGFR >60 [facility] calculated using mL/min/1.73m2 LABORATORY CKD-EPI equation SERVICES for non- Americans. Multiply eGFR by 1.16 for patients. Specimen Blood - Venous blood (substance) Narrative [facility] LABORATORY SERVICES - 08/08/2019 17:50 EST 2 Performing Organization Address City/State/ZIP Code Phon e Number [facility] LABOR[facility]ORY [address] [place] [address] SERVICES (ABNORMAL) COMPLETE BLOOD COUNT AND DIFFERENTIAL (08/08/2019 17:13 EST) Pathologist [facility] WBC 6.31 4.00 - 10.40 [facility] K/[facility] LABORATORY SERVICES RBC 5.98 (H) 4.36 - 5.78 [facility] M/[facility] CENTER LABORATORY SERVICES Hemoglobin 12.6 (L) 13.8 - 17.3 [facility] gm/dL [facility]ENTER LABORATORY SERVICES HCT 39.9 39.5 - 50.2 % [facility] LABORATORY SERVICES MCV 67 (L) 81 - 95 fl [facility] LABORATORY SERVICES MCH 21.1 (L) 27.6 - 33.0 [facility] LABORATORY SERVICES Hypochromia 2+ [facility] LABORATORY SERVICES MCHC 31.6 (L) 32.8 - 36.4 [facility] gm/dL [place] LABORATORY SERVICES RDW-CV 15.9 (H) <14.2 % [facility] LABORATORY SERVICES RDW-SD 35.1 <46.0 fl [facility] LABORATORY SERVICES Anisocytosis [facility] LABORATORY SERVICES PLT 164 141 - 377 [facility] LABORATORY SERVICES MPV 10.7Comment: Not 9.5 - 12.7 fl [facility] LABORATORY SERVICES Neutrophils 61.3 % [facility] LABORATORY SERVICES Lymphocytes 27.4 % [facility] LABORATORY SERVICES Monocytes 9.2 % [facility] LABORATORY SERVICES Eosinophils 1.0 % [facility] LABORATORY SERVICES Basophils 0.6 % [facility] LABORATORY SERVICES Immature Grans 0.5 % [facility] LABORATORY SERVICES Absolute Neutrophils 3.87 2.20 - 8.85 [facility] LABORATORY SERVICES Absolute Lymphocytes 1.73 1.09 - 3.30 [facility] LABORATORY SERVICES Absolute Monocytes 0.58 0.10 - 0.80 [facility] LABORATORY SERVICES Absolute Eosinophils 0.06 0.03 - 0.61 [facility] LABORATORY SERVICES Absolute Basophils 0.04 0.01 - 0.11 [facility] LABORATORY SERVICES Absolute Immature 0.03 0.00 - 0.06 [facility] Grans [facility] LABORATORY SERVICES Type of Auto [facility] MEDICAL Differential: CENTER LABORATORY SERVICES Specimen Blood - Venous blood (substance) Performing Organization Address City/State/ZIP Code Phon e Number [facility] LABORATORY [address] [place] [address] SERVICES RAPID HIV 1/2 ANTIGEN AND ANTIBODY, 4TH GENERATION (08/08/2019 17:13 EST) Rapid HIV 1 and 2 Negative Negative [facility] Antibody/P24 Comment: LABORATORY Antigen, 4th SERVICES Generation If acute HIV-1 infection is suspected in a high risk ??patient, submit plasma specimen for HIV-1 RNA quantitation test. Fourth Generation assay performed on the Siemens Green[employer] ur Specimen Blood - Venous blood (substance) Performing Organization Address City/State/ZIP Code Phon e Number [facility] LABORATORY [address] [place] [phone] SERVICES documented in this encounter Visit Diagnoses Diagnosis Routine screening for STI (sexually shaikh smitted infection) Screening examination for venereal disea se Medication monitoring encounter Encounter for therapeutic drug monitorin g documented in this encounter Care Teams Clinical Appeals Auditor Relationship Specialty Start Date End Date Chele Becker DO PCP - General 11/22/17 04/26/20 documented as of this encounter
--- OUTSIDE RECORDS SUMMARY | 2022-05-12 00:57 | XMS_ITS | Encounter Summary ---
:1960 Author Organization [facility] Address [address] [place] [address] Care Team Providers Name Role Phone LatiaChele da silva DO Primary Care Provider [phone] Reason for Visit Reason Comments Follow-up Encounter Details Date Type Department Care Team Description 06/16/2021 Office Visit [facility] Silvana Phelps Hig h risk medication use (Primary Dx); Infectious Disease - MD Routine screening for STI (sexually shaikh smitted infection) [address] [phone] [facility] [address] [place] [phone] (Wo rk) Social History Tobacco Use Types Packs/Day Years Used Date Never Smoker Smokeless Tobacco: Never Used Alcohol Use Standard Drinks/Week Comments Yes 14 (1 standard drink = 0.6 oz pure alcoh ol) Sex Assigned at Date Recorded Not on file documented as of this encounter Last Filed Vital Signs Vital Sign Reading Time Taken Comments Blood Pressure 135/82 06/16/2021 1031 EDT Pulse 58 06/16/2021 1031 EDT Temperature 36.1 ??C (96.9 ??F) 06/16/2021 1031 EDT Respiratory Rate - - Oxygen Saturation - - Inhaled Oxygen Concentration - - Weight 93 kg (205 lb) 06/16/2021 1031 EDT pt reported Height - - Body Mass Index 32.1 05/21/2018 0848 EDT documented in this encounter Ordered Prescriptions Prescription Sig Dispensed Refills Start Date End Date emtricitabine-tenofovir, Take 1 Tablet by 30 Tablet 2 06/1609/09/2021 TDF, (TRUVADA) 200-300 mg mouth daily. 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 Mr. Hughes is feeling well. Continues to take his Truvada without missing doses. Vision is stable. No intercurrent febrile illnesses. No dysuria. No rectal pain. Mild sore throat since return from his vacation from [place]. Traveled with his partner. Multiple episodes of unprotected oral and genital intercourse. [...] 10 point ROS is negative. Objective: BP 135/82 (BP Cuff Location: Right arm, BP Patient Position: Sitting, BP Cuff Sizes: Adult, regular) Pulse 58 Temp 36.1 ??C (96.9 ??F) (Tympanic) Wt 93 kg (205 lb) Comment: pt reported BMI 32.10 kg/m?? Gen: Alert, oriented. NAD. Looks well. HEENT: Anicteric. Oral mucosa moist. No thrush. No ulcerations. Neck: supple. LABS: Due for labs today. Labs from 02/17/21 RPR negative (down from peak of 1:256 and stable). HIV ab negative. Oropharyngeal GC and chlamydia unable to be performed Urine GC and chlamydia negative. Cr 1.26 Prior labs: 10/02/16: Syphilis ab positive, RPR 1:256. HIV ab negative Lyme ab negative 10/05: CSF WBC 3, RBC 0, gluc 69, prot 46; [place] ab negative Syphilis ab negative HAV [...] f/u in 3 months. Silvana Phelps MD 06/16/2021 10:53 documented in this encounter Plan of Treatment Upcoming Encounters Date Type Specialty Care Team Description 05/30/2022 Nurse Only Infectious Disease Nurse, Elsa, RN 08/10/2022 Office Visit Infectious Disease Silvana Phelps MD [address] [facility], [address] [place], [place] [address] (Wo rk) documented as of this encounter Procedures Procedure Name Priority Date/Time Associated Diagnosis Comme nts CHLAMYDIA/N. Routine 06/16/2021 11:11 Routine screening Result s for this GONORRHOEAE EDT for STI (sexually procedure are in AMPLIFIED RNA transmitted the results infection) section. CHLAMYDIA/N. Routine 06/16/2021 11:11 Routine screening Result s for this GONORRHOEAE EDT for STI (sexually procedure are in AMPLIFIED RNA transmitted the results infection) section. documented in this encounter Results RAPID HIV 1/2 ANTIGEN AND ANTIBODY, 4TH GENERATION (06/16/2021 11:28 EDT) Pathologist [facility] Rapid HIV 1 and 2 Negative Negative [facility] Antibody/P24 Comment: LABORATORY Antigen, 4th If acute HIV-1 infection is suspected in a high risk ??patient, submit plasma specimen for HIV-1 RNA quantitation test. SERV ICES Generation Fourth Generation assay performed on the Siemens Factorlia ur Specimen Blood - Venous blood (substance) Performing Organization Address City/[facility]/ZIP Code Phon e Number [facility]OR[facility]ORY [address] [place] [address] SERVICES RPR SCREEN, RESPONSE TO THERAPY, S (06/16/2021 11:28 EDT) Pathologist [facility] RPR RESPONSE Nonreactive Nonreactive [facility] Comment: LABORATORIES Test Performed by: [facility] - [facility] [address] [place] [address] Appliance Line Assembler: Juan Daniel Tolentino M.D. Ph.D.; CLIA# [id number] Specimen Blood - Venous blood (substance) Performing Organization Address City/[facility]/ZIP Code Phon e Number [facility] [address] [place] [address] (ABNORMAL) COMPREHENSIVE METABOLIC PANEL (CMP) (06/16/2021 11:28 EDT) Sodium 141 136 - 145 [facility] mmol/L [facility] Potassium 4.5 3.5 - 5.0 [facility] mEq/L [facility] Chloride 105 96 - 110 [facility] mEq/L [facility] CO2 Total 26 22 - 32 mEq/L [facility] SERVICES Glucose 104 (H) 70 - 100 [facility] mg/dL [facility] BUN 13 10 - 26 mg/dL [facility] SERVICES Creatinine 1.16 0.66 - 1.25 [facility] mg/dL [facility] eGFR 69Comment: eGFR >60 [facility] calculated using mL/min/1.73m2 CENTER LABORATORY CKD-EPI equation SERVICES for non- Americans. Multiply eGFR by 1.16 for patients. Total Protein 7.4 6.3 - 8.2 [facility] g/dL [facility] Albumin 4.9 3.4 - 4.9 [facility] g/dL [facility] Alkaline 68 38 - 126 U/L [facility] Phosphatase [facility] AST 37 15 - 46 U/L [facility] SERVICES ALT 36 <50 U/L [facility] SERVICES Bilirubin, Total 0.8 <1.4 mg/dL [facility] SERVICES Calcium 9.7 8.5 - 10.5 [facility] mg/dL [facility] Calculated Calcium 9.0 8.5 - 10.5 [facility] mg/dL [facility] Specimen Blood - Venous blood (substance) Performing Organization Address [facility] Phon e Number [facility] [address] [place] [address] SERVICES CHLAMYDIA/N. GONORRHOEAE AMPLIFIED RNA (06/16/2021 11:11 EDT) Pathologist Sig nature Gonococcus Result Negative Negative [facility] SERVICES Chlamydia Result Negative Negative [facility] SERVICES Specimen Swab - Oral/Throat (pharynx or pharyngea l) Performing Organization Address City/[facility]/[place]IP [facility] [place] Number [facility] [address] [place] [address] SERVICES CHLAMYDIA/N. GONORRHOEAE AMPLIFIED RNA (06/16/2021 11:11 EDT) Pathologist Sig nature Gonococcus Result Negative Negative [facility] SERVICES Chlamydia Result Negative Negative [facility] SERVICES Specimen Urine - Urine, Initial Void Performing Organization Address [facility] Phon e Number [facility] [address] [place] [address] SERVICES documented in this encounter Visit Diagnoses Diagnosis High risk medication use - Primary Encounter for long-term (current) use of other medications Routine screening for STI (sexually shaikh smitted infection) Screening examination for venereal disea se documented in this encounter Discontinued Medications Medication Sig Discontinue Reason Start Date End Date emtricitabine/tenofovir, Take by mouth Duplicate order 06/16/2021 TDF, (TRUVADA ORAL) daily. documented as of this encounter Historical Medications This list may reflect changes made after this encounter. Medication Sig Dispensed Refills Start Date End Date emtricitabine/tenofovir, Take by mouth daily. 0 06/16/2021 TDF, (TRUVADA ORAL) added in this encounter Care Teams Marketing Senior Recruiter Relationship Specialty Start Date End Date Chele Becker DO PCP - General 04/27/[address] [place] [address] documented as of this encounter
--- OUTSIDE RECORDS SUMMARY | 2022-05-12 00:57 | XMS_ITS | Encounter Summary ---
:1960 Author Organization [facility] Address [address] [place] [address] Care Team Providers Name Role Phone Chele Becker Primary Care Provider Reason for Visit Reason Comments Follow-up Encounter Details Date Type Department Care Team Description 11/21/2019 Office Visit [facility] Jackie Barry [facility] homosexual Infectious Disease - MD Reece behavior (Primary Dx) [phone] [place] [address] [address], [address] [place] [address] (Wo rk) Social History Tobacco Use Types Packs/Day Years Used Date Never Smoker Smokeless Tobacco: Never Used Alcohol Use Standard Drinks/Week Comments Yes 14 (1 standard drink = 0.6 oz pure alcoh ol) Sex Assigned at Date Recorded Not on file documented as of this encounter Last Filed Vital Signs Vital Sign Reading Time Taken Comments Blood Pressure 138/84 11/21/2019 1517 EDT Pulse 71 11/21/2019 1517 EDT Temperature 36.4 ??C (97.6 ??F) 11/21/2019 1517 EDT Respiratory Rate - - Oxygen Saturation - - Inhaled Oxygen Concentration - - Weight - - Height - - Body Mass Index - - documented in this encounter Progress Notes Jackie [place] MD - 11/21/2019 1530 EDT CC: HIV PReP S: Mr. Hughes returns to ID clinic for HIV PReP visit. Reports that his boyfriend was diagnosed with syphilis about a month ago. Boyfriend treated with 2 shots of penicillin. Mr. Hughes denies as ulcerative lesions or urethral discharge. Does have mild sore throat. +oral sex. He is insertive partner for analsex. No side effects from Truvada. Taking faithfully. O: Appears well Mild erythema to posterior oropharynx. No lesions Reviewed labs in Epic. A/P: 1. Exposure to syphilis: Will give Penicillin 2.4 million units IM x1 today. Will order RPR. 2. STI testing: OP GC/chlamydia ordered, HIV Ab ordered, RPR as above, and Hep C Ab ordered. 3. Hx of occular syphilis treated with 2 weeks of penicillin G 4. HIV Prep - continue truvada daily (has 2 refills left on current Rx). Emphasized importance of safer sex. Offered condoms from clinic supply. I will call Mr. Hughes next week with lab results. Provided handout for him to sign up for [employer] online. Follow up in ID clinic in [address] Phelps. Jackie [place] MD 11/21/2019 16:24 Roxanne Liu RN - 11/21/2019 9140 EDT Labs drawn from right arm antecubital vein as ordered without incident. Bicillin L-A (penicilin G benthazine injectable suspension) 2,400,000 units per 4 mL total of 4 mL injected deep IM via left dorso gluteal muscle. Lot number [id number], expiration date 05/26/21, [facility] [id number], distributed by [employer] [place], [place]. [facility] supply. I was supervised by Jackie [place] who was present and immediately available in the office suite. ROXANNE ISDIRO RN 11/21/2019 16:05 documented in this encounter Plan of Treatment Upcoming Encounters Date Type Specialty Care Team Description 05/30/2022 Nurse Only Infectious Disease Nurse, Elsa, RN 08/10/2022 Office Visit Infectious Disease Silvana Phelps MD [address] [facility], [address] [place] [address] (Wo rk) documented as of this encounter Procedures Procedure Name Priority Date/Time Associated Comments Diagnosis N. GONORRHOEAE AND Routine 11/21/2019 16:02 High risk Resul ts for this CHLAMYDIA EDT homosexual behavior procedur e are in TRACHOMATIS, MISC the result s SITES, AMPLIFIED RNA section . CHLAMYDIA/N. Routine 11/21/2019 16:02 High risk Results for this GONORRHOEAE AMPLIFIED EDT homosexual behavior procedure are in RNA the results section. RPR SCREEN, RESPONSE Routine 11/21/2019 15:58 High risk Res ults for this TO THERAPY, S EDT homosexual behavior procedu re are in the results section. HEPATITIS C AB W Routine 11/21/2019 15:58 High risk Results for this REFLEX TO HCV RNA BY EDT homosexual behavior procedure are in PCR the results section. HIV 1/2 ANTIGEN AND Routine 11/21/2019 15:58 High risk Resu lts for this ANTIBODY, 4TH EDT homosexual behavior procedu re are in GENERATION the results section. CREATININE Routine 11/21/2019 15:58 High risk Results for this EDT homosexual behavior procedur e are in the results section. documented in this encounter Results N. GONORRHOEAE AND CHLAMYDIA TRACHOMATIS, MISC SITES, AMPLIFIED RNA (11/21/2019 16:02 EDT) Source SRC22 throat [facility] N. Gonorr, Misc Negative Negative [facility] Amplified RNA Comment: LABORATORIES ADDITIONAL INFORMATION ------ This report is intended for use in clinical monitoring and management of patients. ??It is not intended for use i n medical-legal applications. This test has been modified from the reading professor's instructions. ??Its performance characteristics were determined by [facility] in a manner consistent with CLIA requirements. ??This test has not been cleared or appr reina by the U.S. Food and Drug Administration. Test Performed by: [address] [address] Roof Technician: Juan Daniel Tolentino M.D. Ph.D.; CLIA# [id number] Source SRC11 throat [facility] AbdoulayeTyree Sr, Negative Negative [facility] Amplified RNA Comment: LABORATORIES ADDITIONAL INFORMATION ------ This report is intended for use in clinical monitoring and management of patients. ??It is not intended for use i n medical-legal applications. This test has been modified from the reading professor's instructions. ??Its performance characteristics were determined by [facility] in a manner consistent with CLIA requirements. ??This test has not been cleared or appr reina by the U.S. Food and Drug Administration. Specimen Swab - Entire oropharynx and/or hypophar ynx and/or larynx (body structure) Performing Organization Address [facility] Phon e Number [facility] [address] [place] [address] CHLAMYDIA/N. GONORRHOEAE AMPLIFIED RNA (11/21/2019 16:02 EDT) Pathologist Sig nature Gonococcus Result Negative Negative [facility] Chlamydia Result Negative Negative [facility] Specimen Urine - Urine, Initial Void Performing Organization Address [facility] Phon e Number [facility] [address] [place] [address] SERVICES CREATININE (11/21/2019 15:58 EDT) Creatinine 1.22 0.66 - 1.25 [facility] mg/dL LABORATORY SERVICES eGFR 65Comment: eGFR >60 [facility] calculated using mL/min/1.73m2 LABORATORY SERVICES CKD-EPI equation for non- Americans. Multiply eGFR by 1.16 for patients. Specimen Blood - Venous blood (substance) Performing Organization Address [facility]/ZIP [facility] Phon e Number [facility] [address] [place] [address] SERVICES HEPATITIS C AB W REFLEX TO HCV RNA BY PCR (11/21/2019 15:58 EDT) Pathologist Sig nature Hep C Antibody Negative Negative [facility] ORY SERVICES Specimen Blood - Venous blood (substance) Performing Organization Address [facility] Phon e Number [facility] [address] [place] [address] SERVICES RPR SCREEN, RESPONSE TO THERAPY, S (11/21/2019 15:58 EDT) RPR RESPONSE Nonreactive Nonreactive [facility] Comment: LABORATORIES Test Performed by: [facility] - [facility] [address] [place] [address] Roof Technician: Juan Daniel Tolentino M.D. Ph.D.; CLIA# [id number] Specimen Blood - Venous blood (substance) Performing Organization Address City/[facility]/ZIP Code Phon e Number [facility] [address] [place] [address] HIV 1/2 ANTIGEN AND ANTIBODY, 4TH GENERATION (11/21/2019 15:58 EDT) HIV 1 and 2 Negative Negative [facility] Antibody/p24 Comment: LABORATORY Antigen, 4th SERVICES Generation If acute HIV-1 infection is suspected in a high risk ??patient, submit plasma specimen for HIV-1 RNA quantitation test. Fourth Generation assay performed on the Fast Asseta ur. Specimen Blood - Venous blood (substance) Performing Organization Address [facility] Phon e Number [facility] [address] [place] [address] SERVICES documented in this encounter Visit Diagnoses Diagnosis High risk homosexual behavior - Primary Problems related to high-risk sexual beh avior documented in this encounter Orders Medications Ordered That Might Not Have Count Last Ord ered Date First Ordered Date Been Administered penicillin G Benzathine injection 2.4 1 11/21/2019 Million Units documented in this encounter Care Teams Microcomputer Technician Relationship Specialty Start Date End Date Chele Becker DO PCP - General 11/22/17 04/26/20 documented as of this encounter
--- OUTSIDE RECORDS SUMMARY | 2022-05-12 00:57 | XMS_ITS | Encounter Summary ---
:1960 Author Organization [facility] Address [address] [place] [address] Care Team Providers Name Role Phone EugenioChele Israel Primary Care Provider [phone] Reason for Visit Reason Onset Date Comments Other Medications Refill 06/09/2021 Encounter Details Date Type Department Care Team Description 06/09/2021 Refill [facility] Silvana Phelps MD Other; Medications Infectious Disease - [address] [place] [address], [address] [place], [place] [phone] [place] [phone] (Wo rk) Social History Tobacco Use Types Packs/Day Years Used Date Never Smoker Smokeless Tobacco: Never Used Alcohol Use Standard Drinks/Week Comments Yes 14 (1 standard drink = 0.6 oz pure alcoh ol) Sex Assigned at Date Recorded Not on file documented as of this encounter Ordered Prescriptions Prescription Sig Dispensed Refills Start Date End Date emtricitabine-tenofovir, TAKE 1 TABLET BY 30 Tablet 2 06/0906/09/2021 TDF, (TRUVADA) 200-300 mg MOUTH DAILY per tablet documented in this encounter Miscellaneous Notes Telephone Encounter - Roxanne Isidro RN - 06/09/2021 0909 EDT Cancelled Rx for Truvada. Patient has enough through appointment date 06/[address] Phelps. May switch to Descovy. ROXANNE ISIDRO RN documented in this encounter Plan of Treatment Upcoming Encounters Date Type Specialty Care Team Description 05/30/2022 Nurse Only Infectious Disease Nurse, Id, RN 08/10/2022 Office Visit Infectious Disease Silvana Phelps MD [address] [facility], [address] [place] [phone] (Wo rk) documented as of this encounter Visit Diagnoses Not on filedocumented in this encounter Discontinued Medications Medication Sig Discontinue Reason Start Date End Date emtricitabine-tenofovir, Take 1 Tablet by 02/17/2021 06/09/2021 TDF, (TRUVADA) 200-300 mouth daily. mg per tablet emtricitabine-tenofovir, TAKE 1 TABLET BY Alternate therapy 021 06/09/2021 TDF, (TRUVADA) 200-300 MOUTH DAILY mg per tablet documented as of this encounter Care Teams Stereotype Molder Relationship Specialty Start Date End Date Chele Becker DO PCP - General 04/27/[address] [place] [address] documented as of this encounter
--- OUTSIDE RECORDS SUMMARY | 2022-05-12 00:57 | XMS_ITS | Encounter Summary ---
:1960 Author Organization [facility] Address [address] [place] [address] Care Team Providers Name Role Phone Eugenio Chele Israel Primary Care Provider [phone] Reason for Visit Reason Comments Other Encounter Details Date Type Department Care Team Description 09/09/2021 Refill [facility] Silvana Phelps MD Other Infectious Disease - [address] [place], [place] [phone] [place] [phone] (Wo rk) Social History Tobacco Use [...] TAKE 1 TABLET BY 30 Tablet 2 09/0909/14/2021 TDF, (TRUVADA) 200-300 mg MOUTH DAILY per tablet documented in this encounter Miscellaneous Notes Telephone Encounter - Iván Piedra RN - 09/09/2021 0841 EST Refill requested for Truvada. Patient last seen by Dr. Phelps on 06/16/21. Patient's next scheduled appointment is 09/15/21. Ok to refill medication. documented in this encounter Plan of Treatment Upcoming Encounters Date Type Specialty Care Team Description 05/30/2022 Nurse Only Infectious Disease Nurse, Id, RN 08/10/2022 Office Visit Infectious Disease Silvana Phelps MD [address] [facility], [address] [place], [place] [phone] (Wo rk) documented as of this encounter Visit Diagnoses Not on filedocumented in this encounter Discontinued Medications Medication Sig Discontinue Reason Start Date End Date emtricitabine-tenofovir, Take 1 Tablet by 06/16/2021 09/09/2021 TDF, (TRUVADA) 200-300 mouth daily. mg per tablet documented as of this encounter Care Teams Decision Analyst Relationship Specialty Start Date End Date Chele Becker DO PCP - General 04/27/[address] [place] [address] documented as of this encounter
--- OUTSIDE RECORDS SUMMARY | 2022-05-12 00:57 | XMS_ITS | Encounter Summary ---
:1960 Author Organization [facility] Address [address] [place] [address] Care Team Providers Name Role Phone Chele Becker Primary Care Provider Encounter Details Date Type Department Care Team Description 03/20/2019 Phlebotomy Only [facility] screening for STI (sexually transmitted infection); - [facility] Outpatient History of syphilis [address], [place] [address] Social History Tobacco Use Types Packs/Day Years Used Date Never Smoker Smokeless Tobacco: Never Used Alcohol Use Standard Drinks/Week Comments Yes 14 (1 standard drink = 0.6 oz pure alcoh ol) Sex Assigned at Date Recorded Not on file documented as of this encounter Miscellaneous Notes Result QuickNote - Silvana Phelps MD, MD - 03/20/2019 0947 EDT Called patient to discuss results. HIV and HCV testing negative. CMP and CBC are stable. Await outstanding STI tests--will likely return next week. Will call with results as they return. No change in plan. CNoyes documented in this encounter Plan of Treatment Upcoming Encounters Date Type Specialty Care Team Description 05/30/2022 Nurse Only Infectious Disease Nurse, Id, RN 08/10/2022 Office Visit Infectious Disease Silvana Phelps MD [address] [facility], [address] [place], [place] [address] (Wo rk) documented as of this encounter Procedures Procedure Name Priority Date/Time Associated Comments Diagnosis RPR SCREEN, RESPONSE Routine 03/20/2019 9:53 History of syphilis Results for this TO THERAPY, S EDT Routine screening procedure are in for STI (sexually the result s transmitted section. infection) HEPATITIS C AB W Routine 03/20/2019 9:53 Routine screening Res ults for this REFLEX TO HCV RNA BY EDT for STI (sexually pr ocedure are in PCR transmitted the results infection) section. RAPID HIV 1/2 ANTIGEN Routine 03/20/2019 9:53 History of syphilis Results for this AND ANTIBODY, 4TH EDT Routine screening proce dure are in GENERATION for STI (sexually the result s transmitted section. infection) COMPLETE BLOOD COUNT Routine 03/20/2019 9:53 History of syphilis Results for this AND DIFFERENTIAL EDT Routine screening proced ure are in for STI (sexually the result s transmitted section. infection) PHOSPHORUS Routine 03/20/2019 9:53 History of syphi lis Results for this EDT Routine screening procedure are in for STI (sexually the result s transmitted section. infection) COMPREHENSIVE Routine 03/20/2019 9:53 History of syphi lis Results for this METABOLIC PANEL (CMP) EDT Routine screening p rocedure are in for STI (sexually the result s transmitted section. infection) documented in this encounter Results (ABNORMAL) COMPREHENSIVE METABOLIC PANEL (CMP) (03/20/2019 9:53 EDT) Potassium 4.3 3.5 - 5.0 [facility] mEq/L [facility] Sodium 140 136 - 145 [facility] Chloride 104 96 - 110 [facility] mEq/[facility] CO2 27 22 - 32 mEq/L [facility] Total Alkaline 64 38 - 126 U/L [facility] Phosphatase [facility] Bilirubin, Total 0.8 <1.4 mg/dl [facility] AST 31 15 - 46 U/L [facility] ALT 32 21 - 72 U/L [facility] Albumin 4.6 3.4 - 4.9 [facility] g/dl [facility] Total Protein 6.7 6.3 - 8.2 [facility] g/dl [facility] Creatinine 1.23 0.66 - 1.25 [facility] mg/dl [facility] GFR, Calculated 65 >60 [facility] Comment: ml/min/1.73m2 [facility] eGFR calculated using CKD-EPI equation for SERVICES non Americans. Multiply eGFR by 1.16 for Americans. BUN 16 10 - 26 mg/dl [facility] Calcium 9.5 8.5 - 10.5 [facility] mg/dl [facility] Calculated Calcium 9.0 8.5 - 10.5 [facility] mg/dl [facility] Glucose, Serum 113 (H) 70 - 100 [facility] mg/dl [facility] Fasting? No [facility] Specimen Blood specimen (specimen) - Blood Performing Organization Address City/State/ZIP Code Phon e Number [facility] [address] [place] [address] SERVICES PHOSPHORUS (03/20/2019 9:53 EDT) Pathologist Sig nature Phosphorus 2.9 2.5 - 4.5 mg/dl [facility] Specimen Blood specimen (specimen) - Blood Performing Organization Address City/[facility]/ZIP Code Phon e Number [facility] [address] [place] [address] SERVICES (ABNORMAL) COMPLETE BLOOD COUNT AND DIFFERENTIAL (03/20/2019 9:53 EDT) Pathologist Sig nature WBC 5.41 4.0 - 10.4 [facility] K/[facility] LABORATORY SERVICES RBC 5.73 4.36 - 5.78 [facility] M/[facility] LABORATORY SERVICES Hemoglobin 12.3 (L) 13.8 - 17.3 [facility] gm/dl LABORATORY SERVICES HCT 38.9 (L) 39.5 - 50.2 % [facility] MCV 68 (L) 81 - 95 fl [facility] MCH 21.5 (L) 27.6 - 33.0 pg [facility] Hypochromia 2+ [facility] MCHC 31.6 (L) 32.8 - 36.4 [facility] gm/dl LABORATORY SERVICES RDW-CV 15.2 (H) <14.2 % [facility] RDW-SD 35.3 <46.0 fl [facility] PLT 155 141 - 377 K/m [facility] MPV 11.1 9.5 - 12.7 fl [facility] Neutrophils 66.3 % [facility] Lymphocytes 24.6 % [facility] Monocytes 7.4 % [facility] Eosinophils 0.7 % [facility] Basophils 0.6 % [facility] SERVICES Immature Grans 0.4 % [facility] ABS Neutrophils 3.59 2.20 - 8.85 [facility] K/[facility] LABORATORY SERVICES ABS Lymphs 1.33 1.09 - 3.30 [facility] LABORATORY SERVICES ABS Monocytes 0.40 0.1 - 0.8 [facility] LABORATORY SERVICES ABS Eosinophils 0.04 0.03 - 0.61 [facility] LABORATORY SERVICES ABS Basophils 0.03 0.01 - 0.11 [facility]ORATORY SERVICES ABS Immature Grans 0.02 0 - 0.06 [facility] LABORATORY SERVICES Type of Diff: Automated [facility] Specimen Blood specimen (specimen) - Blood Performing Organization Address [facility] Phon e Number [facility] [address] [place] [address] SERVICES RAPID HIV 1/2 ANTIGEN AND ANTIBODY, 4TH GENERATION (03/20/2019 9:53 EDT) Rapid HIV 1/2 Ab Negative Negative [facility] Comment: LABORATORY SERVICES Fourth generation assay performed on the [employer]. If acute HIV-1 infection is suspected in a high risk patient, submit plasma specimen for HIV-1 RNA quantification test. Specimen Blood specimen (specimen) - Blood Performing Organization Address [facility]/ZIP [facility] Phon e Number [facility] [address] [place] [address] SERVICES RPR SCREEN, RESPONSE TO THERAPY, S (03/20/2019 9:53 EDT) RPR Screen, NonreactiveComment Nonreactive [facility] Response to : Performed by: LABORATORY Therapy, [facility] Labs: SERVICES [employer], [place] [address] Specimen Blood Performing Organization Address [facility]/ZIP [facility] Phon e Number [facility]ORY [address] [place] [address] SERVICES HEPATITIS C AB W REFLEX TO HCV RNA BY PCR (03/20/2019 9:53 EDT) Pathologist Sig nature Hep C Ab w Rfx PCR Negative Negative [facility] HCSCR2 LABORATORY SERVICES Specimen Blood specimen (specimen) - Blood Performing Organization Address City/State/ZIP Code Phon e Number [facility] [address] [place] [address] SERVICES documented in this encounter Visit Diagnoses Diagnosis Routine screening for STI (sexually shaikh smitted infection) Screening examination for venereal disea se History of syphilis Personal history of other infectious and parasitic disease documented in this encounter Care Teams Floor Finisher Relationship Specialty Start Date End Date Chele Becker DO PCP - General 11/22/17 04/26/20 documented as of this encounter
--- OUTSIDE RECORDS SUMMARY | 2022-05-12 00:57 | XMS_ITS | Encounter Summary ---
:1960 Author Organization [facility] Address [address] [place] [address] Care Team Providers Name Role Phone EugenioChele Israel Primary Care Provider [phone] Reason for Visit Reason Comments Follow-up Encounter Details Date Type Department Care Team Description 05/11/2020 Office Visit [facility] Silvana Phelps Med ication monitoring encounter (Primary Dx); Infectious Disease - MD Routine screening for STI (sexually shaikh smitted infection); [address] History of syphilis [address] [place] [address] [facility] [phone] [facility] [address] [place] [phone] (Wo rk) Social History Tobacco Use Types [...] Sign Reading Time Taken Comments Blood Pressure 137/74 05/11/2020 1001 EDT Pulse 61 05/11/2020 1001 EDT Temperature 36.3 ??C (97.3 ??F) 05/11/2020 1001 EDT Respiratory Rate - - Oxygen Saturation - - Inhaled Oxygen Concentration - - Weight 93 kg (205 lb) 05/11/2020 1001 EDT pt reported Height - - Body Mass Index 32.1 05/21/2018 0848 EDT documented in this encounter Ordered Prescriptions Prescription Sig Dispensed Refills Start Date End Date emtricitabine-tenofovir, Take 1 Tab by mouth 30 Tab 2 08/12/2020 TDF, (TRUVADA) 200-300 mg daily. per tablet documented in this encounter Progress Notes Silvana Phelps MD - 05/11/2020 1000 EDT Division of Infectious Disease Follow up/Progress Note Date: 05/11/20 Chief Complaint: Occular syphilis, HIV prevention, unprotected [...] genital intercourse. Willing to consider transition to [facility] if necessary but concerned about the additional cost to his insurance company. We will continue to discuss. Had a great time in [place]. Did have unprotected sex. No known COVID exposures and after his 7 days quarantine was tested and negative. PMHx: 1. Gout. 2. Occular syphilis. Panuveitis, [...] 10 point ROS is negative. Objective: BP 137/74 (BP Cuff Location: Right arm, BP Patient Position: Sitting, BP Cuff Sizes: Adult, large) Pulse 61 Temp 36.3 ??C (97.3 ??F) (Tympanic) Wt 93 kg (205 lb) Comment: pt reported BMI 32.10 kg/m?? Gen: Alert, oriented. NAD. Looks well. HEENT: Anicteric. Oral mucosa moist. No thrush. No ulcerations. Neck: supple. LABS: Due for labs today. Labs from 02/12/20 RPR negative (down from 1:256 and stable from 10/2017). HIV ab negative. Oropharyngeal GC and chlamydia negative Urine GC and chlamydia negative. Cr 1.07(GFR >60) Prior labs: 10/02/16: Syphilis ab positive, RPR 1:256. HIV ab negative Lyme ab negative 10/05: CSF WBC 3, RBC 0, gluc 69, prot 46; VDRL negative 09/08/15 ([facility]) HIV ab negative Syphilis ab [...] call him with results. 3. Continue to discuss transition to [place]. 4. If all stable, plan for f/u in 3 months. Silvana Phelps MD 05/11/2020 10:06 documented in this encounter Plan of Treatment Upcoming Encounters Date Type Specialty Care Team Description 05/30/2022 Nurse Only Infectious Disease Nurse, Elsa, RN 08/10/2022 Office Visit Infectious Disease Silvana Phelps MD [address] [facility] [address] [place] [phone] (Wo rk) documented as of this encounter Procedures Procedure Name Priority Date/Time Associated Diagnosis Comme nts N. GONORRHOEAE AND Routine 05/11/2020 10:20 Routine screening Results for this CHLAMYDIA EDT for STI (sexually procedure are in TRACHOMATIS, MISC transmitted the result s SITES, AMPLIFIED RNA infection) section . CHLAMYDIA/N. Routine 05/11/2020 10:20 Routine screening Result s for this GONORRHOEAE EDT for STI (sexually procedure are in AMPLIFIED RNA transmitted the results infection) section. documented in this encounter Results RPR SCREEN, RESPONSE TO THERAPY, S (05/11/2020 10:44 EDT) Pathologist [facility] RPR RESPONSE Nonreactive Nonreactive [facility] Comment: LABORATORIES Test Performed by: [facility] - [facility] [address] [place] [address] Concrete Form Setter And Finisher: Juan Daniel Tolentino M.D. Ph.D.; CLIA# [id number] Specimen Blood - Venous blood (substance) Performing Organization Address City/State/ZIP Code Phon e Number [facility] LABORATORIES [address] [place] [address] RAPID HIV 1/2 ANTIGEN AND ANTIBODY, 4TH GENERATION (05/11/2020 10:44 EDT) Pathologist [facility] Rapid HIV 1 and 2 Negative Negative [facility] Antibody/P24 Comment: LABORATORY Antigen, 4th If acute HIV-1 infection is suspected in a high risk ??patient, submit plasma specimen for HIV-1 RNA quantitation test. SERV ICES Generation Fourth Generation assay performed on the [employer] Specimen Blood - Venous blood (substance) Performing Organization Address [facility]/ZIP Code Phon e Number [facility] LABORATORY [address] [place] [address] SERVICES CREATININE (05/11/2020 10:44 EDT) Creatinine 1.08 0.66 - 1.25 [facility] mg/dL LABORATORY SERVICES eGFR 76Comment: eGFR >60 [facility] calculated using mL/min/1.73m2 LABORATORY SERVICES CKD-EPI equation for non- Americans. Multiply eGFR by 1.16 for patients. Specimen Blood - Venous blood (substance) Performing Organization Address [facility]/ZIP Code Phon e Number [facility] LABORATORY [address] [place] [address] SERVICES CHLAMYDIA/N. GONORRHOEAE AMPLIFIED RNA (05/11/2020 10:20 EDT) Pathologist Sig nature Gonococcus Result Negative Negative [facility] LABORATORY SERVICES Chlamydia Result Negative Negative [facility] LABORATORY SERVICES Specimen Urine - Entire urethra (body structure) Performing Organization Address [facility] Phon e Number [facility] LABORATORY [address] [place] [address] SERVICES N. GONORRHOEAE AND CHLAMYDIA TRACHOMATIS, MISC SITES, AMPLIFIED RNA (05/11/2020 10:20 EDT) Source SRC22 throat [facility] LABORATORIES Enma Montillaorr, Misc Negative Negative [facility] Amplified RNA Comment: LABORATORIES ADDITIONAL INFORMATION ------ This report is intended for use in clinical monitoring and management of patients. ??It is not intended for use i n medical-legal applications. This test has been modified from the quality control's instructions. ??Its performance characteristics were determined by [facility] in a manner consistent with CLIA requirements. ??This test has not been cleared or appr reina by the U.S. Food and Drug Administration. Test Performed by: [address] [address] Concrete Form Setter And Finisher: Juan Daniel Tolentino M.D. Ph.D.; CLIA# [id number] Source SRC11 throat [facility]ORATORIES C. Trach, Misc, Negative Negative [facility] Amplified RNA Comment: LABORATORIES ADDITIONAL INFORMATION ------ This report is intended for use in clinical monitoring and management of patients. ??It is not intended for use i n medical-legal applications. This test has been modified from the quality control's instructions. ??Its performance characteristics were determined by [facility] in a manner consistent with CLIA requirements. ??This test has not been cleared or appr reina by the U.S. Food and Drug Administration. Specimen Swab - Entire oropharynx and/or hypophar ynx and/or larynx (body structure) Performing Organization Address City/State/ZIP Code Phon e Number [facility]ORATORIES [address] [place] [address] documented in this encounter Visit Diagnoses Diagnosis [...] Take 1 Tab by mouth Reorder 0 05/11/2020 TDF, (TRUVADA) 200-300 mg daily. per tablet documented as of this encounter Care Teams Director Data Processing Relationship Specialty Start Date End Date Chele Becker DO PCP - General 04/27/[address] [place] [phone] documented as of this encounter
--- OUTSIDE RECORDS SUMMARY | 2022-05-12 00:57 | XMS_ITS | Encounter Summary ---
:1960 Author Organization [facility] Address [address] [place] [address] Care Team Providers Name Role Phone Chele Becker DO Primary Care Provider [phone] Reason for Visit Reason Onset Date Comments Follow-up 08/16/2020 Encounter Details Date Type Department Care Team Description 08/16/2020 Telephone [facility] Infectious Alena Sesay RN Follow-up Disease - Main [place] [address] [place] [address] Social History Tobacco Use Types [...] / COVID-19? documented as of this encounter Miscellaneous Notes Telephone Encounter - Alena Sesay RN - 08/16/2020 2294 EST Called patient and reviewed Dr. Phelps message, his STI testing is negative, RPR is non reactive, no changes necessary and she will see him in 3 months. That appointment is already scheduled. Patient verbalized understanding, no barriers to learning. ALENA SESAY RN elephone Encounter - Alena Sesay RN - 08/16/2020 3432 EST ----- Message from Silvana Phelps MD sent at 08/16/2020 14:39 EST ----- Hi All, can someone phone Mr. Hughes and let him know STI testing negative, RPR is non reactive. No changes necessary. Will see him in 3 months. C ----- Message ----- From: Lab, Background Sent: 08/13/2020 14:55 EST To: Silvana Phelps MD documented in this encounter Plan of Treatment Upcoming Encounters Date Type Specialty Care Team Description 05/30/2022 Nurse Only Infectious Disease Nurse, Elsa, RN 08/10/2022 Office Visit Infectious Disease Silvana Phelps MD [address] [facility], [address] [place], [place] [phone] (Wo rk) documented as of this encounter Visit Diagnoses Not on filedocumented in this encounter Care Teams Sample Patternmaker Relationship Specialty Start Date End Date Chele Becker DO PCP - General 04/27/[address] [place] [id number] documented as of this encounter
--- OUTSIDE RECORDS SUMMARY | 2022-05-12 00:57 | XMS_ITS | Encounter Summary ---
:1960 Author Organization [facility] Address [address] [place] [address] Care Team Providers Name Role Phone Chele Becker Primary Care Provider [phone] Reason for Visit Reason Comments Other Encounter Details Date Type Department Care Team Description 02/27/2021 Refill [facility] Silvana Phelps MD Other Infectious Disease - Main [address] [place] [id number] [place] [phone] (Wo rk) Social History Tobacco Use Types Packs/Day Years Used Date Never Smoker Smokeless Tobacco: Never Used Alcohol Use Standard Drinks/Week Comments Yes 14 (1 standard drink = 0.6 oz pure alcoh ol) Sex Assigned at Date Recorded Not on file documented as of this encounter Miscellaneous Notes Telephone Encounter - Iván Piedra RN - 03/02/2021 0849 EDT Refill requested for Truvada. Patient last seen by Dr. Phelps on 02/17/21. Dr. [facility] No need to send refill. documented in this encounter Plan of Treatment Upcoming Encounters Date Type Specialty Care Team Description 05/30/2022 Nurse Only Infectious Disease Nurse, Elsa, RN 08/10/2022 Office Visit Infectious Disease Silvana Phelps MD [address] [facility], [address] [place], [place] [phone] (Wo rk) documented as of this encounter Visit Diagnoses Not on filedocumented in this encounter Care Teams Transport Engineer Relationship Specialty Start Date End Date Chele Becker DO PCP - General 04/27/[address] [place] [phone] documented as of this encounter
--- OUTSIDE RECORDS SUMMARY | 2022-05-12 00:57 | XMS_ITS | Encounter Summary ---
:1960 Author Organization [facility] Address [address] [place] [address] Care Team Providers Name Role Phone Chele Becker Primary Care Provider [phone] Encounter Details Date Type Department Care Team Description 06/16/2021 Phlebotomy Only [facility] ED Center 2 Band Instrument Maker, Acc High r isk medication use; Phlebotomy Phlebotomy Routine screening for STI (s exually transmitted infection) [address] [place], [place] [address] Social History Tobacco Use Types Packs/Day Years [...] [facility], Level [address] [place], [place] [address] (Wo rk) documented as of this encounter Procedures Procedure Name Priority Date/Time Associated Comments Diagnosis RPR SCREEN, RESPONSE Routine 06/16/2021 11:28 Routine screenin g Results for this TO THERAPY, S EDT for STI (sexually procedure are in transmitted the results infection) section. RAPID HIV 1/2 ANTIGEN STAT 06/16/2021 11:28 Routine screeni ng Results for this AND ANTIBODY, 4TH EDT for STI (sexually proce dure are in GENERATION transmitted the results infection) section. COMPREHENSIVE Routine 06/16/2021 11:28 High risk Results fo r this METABOLIC PANEL (CMP) EDT medication use proc edure are in the results section. documented in this encounter Results RAPID HIV 1/2 ANTIGEN AND ANTIBODY, 4TH GENERATION (06/16/2021 11:28 EDT) Pathologist [facility] Rapid HIV 1 and 2 Negative Negative [facility] Antibody/P24 Comment: LABORATORY Antigen, 4th If acute HIV-1 infection is suspected in a high risk ??patient, submit plasma specimen for HIV-1 RNA quantitation test. SERV ICES Generation Fourth Generation assay performed on the [employer] Specimen Blood - Venous blood (substance) Performing Organization Address City/State/[facility] [place] Phon e Number [facility] LABORATORY [address] [place] [address] SERVICES RPR SCREEN, RESPONSE TO THERAPY, S (06/16/2021 11:28 EDT) Pathologist [facility] RPR RESPONSE Nonreactive Nonreactive [facility] Comment: LABORATORIES Test Performed by: [facility] - [facility] [address] [place] [address] Teacher Education Instructor: Juan Daniel Tolentino M.D. Ph.D.; CLIA# [id number] Specimen Blood - Venous blood (substance) Performing Organization Address City/[facility] [place] Phon e Number [facility] LABORATORIES [address] [place] [address] (ABNORMAL) COMPREHENSIVE METABOLIC PANEL (CMP) (06/16/2021 11:28 EDT) Pathologist [facility] Sodium 141 136 - 145 [email or web address] MEDICAL mmol/L [facility] LAB[facility]ORY SERVICES Potassium 4.5 3.5 - 5.0 [facility] [[email or web address] MEDICAL mEq/L [facility] Chloride 105 96 - 110 [email or web address] MEDICAL mEq/L [facility] CO2 Total 26 22 - 32 mEq/L [facility] LABORATORY SERVICES Glucose 104 (H) 70 - 100 [facility] mg/dL [facility] BUN 13 10 - 26 mg/dL [facility] LABORATORY SERVICES Creatinine 1.16 0.66 - 1.25 [facility] mg/dL [facility] SERVICES eGFR 69Comment: eGFR >60 [facility] calculated using mL/min/1.73m2 [facility]ENTER LABORATORY CKD-EPI equation SERVICES for non- Americans. Multiply eGFR by 1.16 for patients. Total Protein 7.4 6.3 - 8.2 [facility] g/dL [facility] Albumin 4.9 3.4 - 4.9 [facility] g/dL [facility] Alkaline 68 38 - 126 U/L [facility] Phosphatase [facility] SERVICES AST 37 15 - 46 U/L [facility] LABORATORY SERVICES ALT 36 <50 U/L [facility] LABORATORY SERVICES Bilirubin, Total 0.8 <1.4 mg/dL [facility] LABORATORY SERVICES Calcium 9.7 8.5 - 10.5 [facility] [[email or web address] MEDICAL mg/dL [place] SERVICES Calculated Calcium 9.0 8.5 - 10.5 [facility] [[email or web address] MEDICAL mg/dL [facility] SERVICES Specimen Blood - Venous blood (substance) Performing Organization Address City/State/ZIP Code Phon e Number [facility] LABORATORY [address] [place] [address] SERVICES documented in this encounter Visit Diagnoses Diagnosis High risk medication use Encounter for long-term (current) use of other medications Routine screening for STI (sexually shaikh smitted infection) Screening examination for venereal disea se documented in this encounter Care Teams [employer] [place] Relationship Specialty Start Date End Date Chele Becker DO PCP - General 04/27/[address] [place] [id number] documented as of this encounter
--- OUTSIDE RECORDS SUMMARY | 2022-05-12 00:57 | XMS_ITS | Encounter Summary ---
:1960 Author Organization [facility] Address [address] [place] [address] Care Team Providers Name Role Phone Chele Becker Primary Care Provider [phone] Encounter Details Date Type Department Care Team Description 08/12/2020 Phlebotomy Only [facility] ED Center 2 Director Of Operations, Acc Routin e screening for STI (sexually transmitted infection); Phlebotomy Phlebotomy High risk medication use [address] [place], [place] [address] Social History Tobacco Use Types Packs/Day Years [...] Phelps MD [address] [facility] [address], [place] [address] (Wo rk) documented as of this encounter Procedures Procedure Name Priority Date/Time Associated Diagnosis Comme nts RPR SCREEN, RESPONSE Routine 08/12/2020 12:39 Routine screenin g Results for this TO THERAPY, S EST for STI (sexually procedure are in transmitted the results infection) section. HIV 1/2 ANTIGEN AND Routine 08/12/2020 12:39 Routine screening Results for this ANTIBODY, 4TH EST for STI (sexually procedure are in GENERATION transmitted the results infection) section. CREATININE Routine 08/12/2020 12:39 Routine screening Result s for this EST for STI (sexually procedure are in transmitted the results infection) section. High risk medication use documented in this encounter Results CREATININE (08/12/2020 12:39 EST) Creatinine 1.21 0.66 - 1.25 [facility] mg/dL LABORATORY SERVICES eGFR 66Comment: eGFR >60 [facility] calculated using mL/min/1.73m2 LABORATORY SERVICES CKD-EPI equation for non- Americans. Multiply eGFR by 1.16 for patients. Specimen Blood - Venous blood (substance) Performing Organization Address City/[facility] Phon e Number [facility] LABORATORY [address] [place] [address] SERVICES RPR SCREEN, RESPONSE TO THERAPY, S (08/12/2020 12:39 EST) RPR RESPONSE Nonreactive Nonreactive [facility] Comment: LABORATORIES Test Performed by: [facility] [address] [place] [address] Admitting Counselor: Juan Daniel Tolentino M.D. Ph.D.; CLIA# [id number] Specimen Blood - Venous blood (substance) Performing Organization Address City/[facility] Phon e Number [facility] LABORATORIES [address] [place] [address] HIV 1/2 ANTIGEN AND ANTIBODY, 4TH GENERATION (08/12/2020 12:39 EST) HIV 1 and 2 Negative Negative [facility] Antibody/p24 Comment: LABORATORY Antigen, 4th If acute HIV-1 infection is suspected in a high risk ??patient, submit plasma specimen for HIV-1 RNA quantitation test. SERV ICES Generation Fourth Generation assay performed on the [employer]. Specimen Blood - Venous blood (substance) Performing Organization Address City/[facility] Phon e Number [facility] LABORATORY [address] [place] [address] SERVICES documented in this encounter Visit Diagnoses Diagnosis Routine screening for STI (sexually shaikh smitted infection) Screening examination for venereal disea se High risk medication use Encounter for long-term (current) use of other medications documented in this encounter Care Teams Manager Of Drilling Relationship Specialty Start Date End Date Chele Becker DO PCP - General 04/27/20 [address] [place] [address] documented as of this encounter
--- OUTSIDE RECORDS SUMMARY | 2022-05-12 00:57 | XMS_ITS | Encounter Summary ---
:1960 Author Organization [facility] Address [address] [place] [address] Care Team Providers Name Role Phone Chele Becker DO Primary Care Provider [phone] Reason for Visit Reason Onset Date Comments Medications Refill 09/14/2021 Encounter Details Date Type Department Care Team Description 09/14/2021 Telephone [facility] Silvana Phelps MD Medications Refill Infectious Disease - [address] [place] [address], [address] [place], [place] [address] [place] [address] [phone] (Wo rk) Social History Tobacco Use [...] emtricitabine-tenofovir, Take 1 Tablet by 30 Tablet 0 09/1412/21/2021 TDF, (TRUVADA) 200-300 mg mouth daily. per tablet documented in this encounter Miscellaneous Notes Telephone Encounter - Roxanne Isidro RN - 09/14/2021 1020 EST Electronic prescription for 1 month supply of Truvada sent to patient preferred pharmacy. ROXANNE ISIDRO RN elephone Encounter - Gloria Montejo - 09/14/2021 0823 EST Patient cancelled and rescheduled his appointment with Dr. Phelps from 09/15/21 to 10/27/21. He says he just picked up his September refill of Truvada, but will run out before his 10/27 visit. Asking for an order to be sent in to the [facility] in [place]. documented in this encounter Plan of Treatment Upcoming Encounters Date Type Specialty Care Team Description 05/30/2022 Nurse Only Infectious Disease Nurse, Id, RN 08/10/2022 Office Visit Infectious Disease Silvana Phelps MD [address] [facility] [address] [place], [place] [address] (Wo rk) documented as of this encounter Visit Diagnoses Not on filedocumented in this encounter Discontinued Medications Medication Sig Discontinue Reason Start Date End Date emtricitabine-tenofovir, TAKE 1 TABLET BY Reorder 09/09/2021 09/14/2021 TDF, (TRUVADA) 200-300 MOUTH DAILY mg per tablet documented as of this encounter Care Teams Physiotherapy Practice Manager Relationship Specialty Start Date End Date Chele Becker DO PCP - General 04/27/[address] [place] [id number] documented as of this encounter
--- OUTSIDE RECORDS SUMMARY | 2022-05-12 00:57 | XMS_ITS | Encounter Summary ---
:1960 Author Organization [facility] Address [address] [place] [address] Care Team Providers Name Role Phone Chele Becker DO Primary Care Provider [phone] Encounter Details Date Type Department Care Team Description 04/27/2020 Transcribe Orders [facility] Chele Becker Hi story of recent [facility], DO travel (Primary Dx) Center - [facility] [address] [place] [address] [facility] [phone] Social History Tobacco Use Types Packs/Day Years [...] Visit Infectious Disease Silvana Phelps MD [address] [facility], [address] [place], [place] [address] (Wo rk) documented as of this encounter Results COVID-19 TESTING (04/28/2020 10:21 EDT) COVID-19 rt-PCR NEGATIVE Negative [facility] Result Comment: LABORATORY 2019-novel Coronavirus (2019 -nCoV) not detected by the qRT-PCR assay. Consider testing for other respiratory viruses or re-collecting for 2019-nCoV testing. Note: Optimum timing for peak viral levels du ring infections caused by 20 19-nCoV have not been determined. Collection of multiple [...] Administration's Emergency Use Authorization. Performing Lab [facility] LABORATORY SERVICES Specimen Swab - Entire nasopharynx (body structur e) Performing Organization Address City/State/ZIP Code Phon e Number [facility] LABORATORY [address] [place] [address] SERVICES [facility] [place] documented in this encounter Visit Diagnoses Diagnosis History of recent travel - Primary documented in this encounter Care Teams Trench Digging Machine Operator Relationship Specialty Start Date End Date Chele Becker DO PCP - General 04/27/[address] [place] [address] documented as of this encounter
--- OUTSIDE RECORDS SUMMARY | 2022-05-12 00:58 | XMS_ITS | Encounter Summary ---
:1960 Author Organization [facility] Address [address] [place] [address] Care Team Providers Name Role Phone Chele Becker Primary Care Provider Reason for Visit Reason Comments Follow-up Encounter Details Date Type Department Care Team Description 05/21/2018 Office Visit [facility] Silvana Phelps Med icaeryn monitoring encounter (Primary Dx); Infectious Disease - MD History of syphilis; [address] Routine screening for STI (s exually transmitted infection) [address] [place], [place] [id number] [place] [address] [facility] [address] [place] [address] (Wo rk) Social History Tobacco Use Types Packs/Day Years Used Date Never Smoker Smokeless Tobacco: Never Used Alcohol Use Standard Drinks/Week Comments Yes 14 (1 standard drink = 0.6 oz pure alcoh ol) Sex Assigned at Date Recorded Not on file documented as of this encounter Last Filed Vital Signs Vital Sign Reading Time Taken Comments Blood Pressure 117/71 05/21/2018 0848 EDT Pulse - - Temperature 34.1 ??C (93.4 ??F) 05/21/2018 0848 EDT Respiratory Rate - - Oxygen Saturation - - Inhaled Oxygen Concentration - - Weight 88.5 kg (195 lb) 05/21/2018 0848 EDT Height 170.2 cm (5' 7.01) 05/21/2018 0848 EDT Body Mass Index 30.53 05/21/2018 0848 EDT documented in this encounter Discharge Diagnoses Diagnosis Z51.81 Encounter for therapeutic drug le wes monitoring-Z51.81[ICD-10-CM] Z86.19 Personal history of other infecti ous and parasitic diseases-Z86.19[ICD-10-CM] Z11.3 Encounter for screening for infect ions with a predominantly sexual mode of transmission-Z11.3[ICD-10-CM] documented in this encounter Ordered Prescriptions Prescription Sig Dispensed Refills Start Date End Date emtricitabine-tenofovir, Take 1 Tab by mouth 30 Tab 2 08/22/2018 TDF, (TRUVADA) 200-300 mg daily. 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 Mr. Hughes is feeling well. Continues to take his Truvada faithfully. No missed doses since our last visit. Wonders about transitioning to evening administration given occasional mild nausea. Otherwise, has not had any side effects. Vision has been stable. Still sees asmudge or film when looking through his right eye but is not different. No HAs. No fevers or sweats. Appetite is good. Has had unprotected oral and genital intercourse. [...] 10 point ROS is negative. Objective: BP 117/71 Temp (!) 34.1 ??C (93.4 ??F) (Tympanic) Ht 170.2 cm (67.01) Wt 88.5 kg (195 lb) BMI 30.53 kg/m2 Gen: Alert, oriented. NAD. Looks well. HEENT: Anicteric. PERRL. EOMI and pain-free. Oral mucosa moist. No thrush. No ulcerations. Neck: supple. COR: RRR. No murmer. Lungs: CTA. Mssk: No obvious joint effusions or warmth. ROM appears pain-free. Integ: No rash. No LE edema. LABS: Due for labs today. Labs from 02/18/18 RPR negative (down from 1:256 and stable from 10/2017). HIV ab negative. Oropharyngeal GC and chlamydia negative Urine GC and chlamydia negative. Cr 1.14 (GFR >70) HCV ab negative. Prior labs: 10/02/16: Syphilis ab positive, RPR 1:256. HIV ab negative Lyme ab negative 10/05: CSF WBC 3, RBC 0, gluc 69, prot 46; VDRL negative 09/08/15 ([facility]) HIV ab negative Syphilis ab negative HAV [...] also performed, if positive will treat. Adherence reviewed and discussed importance of stable drug levels in serum to maximize prevention measures with PrEP. Rx renewed today forTruvada 1 PO daily X 3 months. 3. Elevated Cr. Though CrCl recently > 70. Will continue to monitor closely. 4. Vision changes. Stable at this time. No evidence to suggest new or relapsed occular syphilis. Would continue to monitor. 5. Syphilis exposure. Treated X 1 07/26/17. 6. Unprotected sex--OP and penile exposure. Screening performed today. Will treat if positive. Plan: 1. Continue Truvada--1 PO daily--I re-ordered 3 months. 2. Labs today--HIV ab, CMP, urine GC/chlam, OP GC and chlam; RPR. I will call him with results. 3. If all stable, plan for f/u in 3 months. Silvana Phelps MD 05/21/2018 8:57 documented in this encounter Plan of Treatment Upcoming Encounters Date Type Specialty Care Team Description 05/30/2022 Nurse Only Infectious Disease Nurse, Id, RN 08/10/2022 Office Visit Infectious Disease Silvana Phelps MD [address] [facility], [facility] [address] [place], [place] [address] (Wo rk) documented as of this encounter Procedures Procedure Name Priority Date/Time Associated Comments Diagnosis RPR SCREEN, RESPONSE Routine 05/21/2018 9:28 Medication Resu lts for this TO THERAPY, S EDT monitoring procedure are in encounter the results History of syphi lis section. Routine screening for STI (sexually transmitted infection) COMPLETE BLOOD COUNT Routine 05/21/2018 9:28 Medication Resu lts for this AND DIFFERENTIAL EDT monitoring procedure a re in encounter the results History of syphi lis section. Routine screening for STI (sexually transmitted infection) HIV 1/2 ANTIGEN AND Routine 05/21/2018 9:28 Medication Resul ts for this ANTIBODY, 4TH EDT monitoring procedure are in GENERATION encounter the results History of syphi lis section. Routine screening for STI (sexually transmitted infection) COMPREHENSIVE Routine 05/21/2018 9:28 Medication Results for this METABOLIC PANEL (CMP) EDT monitoring proced ure are in encounter the results History of syphi lis section. Routine screening for STI (sexually transmitted infection) N. GONORRHOEAE AND Routine 05/21/2018 9:06 History of sy philis Results for this CHLAMYDIA TRACHOMATIS, EDT Routine screening procedure are in [facility] SITES, AMPLIFIED for STI (sexually t he results RNA transmitted section. infection) CHLAMYDIA/N. Routine 05/21/2018 9:06 History of syphi lis Results for this GONORRHOEAE AMPLIFIED EDT Routine screening p rocedure are in RNA, URINE for STI (sexually the result s transmitted section. infection) Medication monitoring encounter documented in this encounter Results RPR, RESPONSE - ID USE ONLY (05/21/2018 9:28 EDT) Pathologist [facility] [place] [place] nature RPR, Response Negative Negative [facility] Comment: LABORATORY SERVICES (Note) . ADDITIONAL INFORMATION ------ This test is intended for monitoring response to thera py in patients that have been previously diagnosed with Syph ilis. This test should not be used to screen Syphilis. Performed by: [facility] Labs: [address], [place] [address] Specimen Blood Performing Organization Address [facility] e [facility] LABORATORY [address] [place] [address] SERVICES HIV 1/2 ANTIGEN AND ANTIBODY, 4TH GENERATION (05/21/2018 9:28 EDT) Pathologist [facility] HIV 1/2 Antibody Negative Negative [facility] Comment: LABORATORY SERVICES Fourth generation assay performed on the [employer]. If acute HIV-1 infection is suspected in a high risk patient, submit plasma specimen for HIV-1 RNA quantification test. The results of this assay can be falsely lowered due to the consumption of Biotin. Specimen Blood specimen (specimen) - Blood Performing Organization Address [facility] e [facility] LABORATORY [address] [place] [address] SERVICES (ABNORMAL) COMPLETE BLOOD COUNT AND DIFFERENTIAL (05/21/2018 9:28 EDT) Pathologist [facility] WBC 5.06 4.0 - 10.4 [facility] K/m LABORATORY SERVICES RBC 5.75 4.36 - 5.78 [facility] M/[facility] LABORATORY SERVICES Hemoglobin 11.9 (L) 13.8 - 17.3 [facility] gm/dl LABORATORY SERVICES HCT 37.8 (L) 39.5 - 50.2 % [facility] LABORATORY SERVICES MCV 66 (L) 81 - 95 fl [facility] LABORATORY SERVICES MCH 20.7 (L) 27.6 - 33.0 pg [facility] LABORATORY SERVICES Hypochromia 2+ [facility] LABORATORY SERVICES MCHC 31.5 (L) 32.8 - 36.4 [facility] gm/dl LABORATORY SERVICES RDW-CV 15.9 (H) <14.2 % [facility] LABORATORY SERVICES RDW-SD 34.9 <46.0 fl [facility] LABORATORY SERVICES PLT 184 141 - 377 [facility] MPV 11.3 9.5 - 12.7 fl [facility] LABORATORY SERVICES Neutrophils 63.4 % [facility] LABORATORY SERVICES Lymphocytes 26.3 % [facility] LABORATORY SERVICES Monocytes 7.5 % [facility] LABORATORY SERVICES Eosinophils 1.6 % [facility] LABORATORY SERVICES Basophils 0.8 % [facility] LABORATORY SERVICES Immature Grans 0.4 % [facility] LABORATORY SERVICES ABS Neutrophils 3.21 2.20 - 8.85 [facility] K/[facility] LABORATORY SERVICES ABS Lymphs 1.33 1.09 - 3.30 [facility] LABORATORY SERVICES ABS Monocytes 0.38 0.1 - 0.8 K/[facility] LABORATORY SERVICES ABS Eosinophils 0.08 0.03 - 0.61 [facility] LABORATORY SERVICES ABS Basophils 0.04 0.01 - 0.11 [facility] LABORATORY SERVICES ABS Immature Grans 0.02 0 - 0.06 K/[facility] LABORATORY SERVICES Type of Diff: Automated [facility] LABORATORY SERVICES Specimen Blood specimen (specimen) - Blood Performing Organization Address City/State/ZIP Code Phon e Number [facility] LABORATORY [address] [place] [address] SERVICES COMPREHENSIVE METABOLIC PANEL (CMP) (05/21/2018 9:28 EDT) Potassium 4.6 3.5 - 5.0 [facility] mEq/L [facility] Sodium 140 136 - 145 [facility] mEq/L [facility] Chloride 106 96 - 110 [facility] mEq/L [facility] CO2 25 22 - 32 mEq/L [facility] LABORATORY SERVICES Total Alkaline 55 38 - 126 U/L [facility] Phosphatase [facility] Bilirubin, Total 0.9 <1.4 mg/dl [facility] LABORATORY SERVICES AST 33 15 - 46 U/L [facility] LABORATORY SERVICES ALT 38 21 - 72 U/L [facility] LABORATORY SERVICES Albumin 4.6 3.4 - 4.9 [facility] g/dl [facility] LAB[facility] SERVICES Total Protein 6.7 6.3 - 8.2 [facility] g/dl [facility] LAB[facility] SERVICES Creatinine 1.15 0.66 - 1.25 [facility] mg/dl [facility] LAB[facility] SERVICES GFR, Calculated 71 >60 [facility] Comment: ml/min/1.73m2 [facility] LABORATORY eGFR calculated using CKD-EPI equation for SERVICES non Americans. Multiply eGFR by 1.16 for Americans. BUN 15 10 - 26 mg/dl [facility] LABORATORY SERVICES Calcium 9.5 8.5 - 10.5 [facility] mg/dl [facility] Calculated Calcium 9.0 8.5 - 10.5 [facility] mg/dl [facility] SERVICES Glucose, Serum 98 70 - 100 [facility] mg/dl [facility] SERVICES Fasting? Unknown [facility] LABORATORY SERVICES Specimen Blood specimen (specimen) - Blood Performing Organization Address City/State/ZIP Code Phon e Number [facility] LABORATORY [address] [place] [address] SERVICES N. GONORRHOEAE AND CHLAMYDIA TRACHOMATIS, [facility] SITES, AMPLIFIED RNA (05/21/2018 9:06 EDT) Source ORAL/THROAT (PHARYNX OR [facility] PHARYNGEAL) [facility] C.trachomatis, Negative Negative [facility] MED[facility] Comment: [facility] (Note) SERVICES . ADDITIONAL INFORMATION ------ This report is intended for use in clinical monitoring and management of patients. ??It is not intended for use i n medical-legal applications. . This test has been modified from the cardiovascular technologist's instructions. ??Its performance characteristics were determined by [facility] in a manner consistent with CLIA requirements. ??This test has not been cleared or appr reina by the U.S. Food and Drug Administration. Source ORAL/THROAT (PHARYNX OR [facility] PHARYNGEAL) [facility] SERVICES N.gonorrhoeae, Negative Negative [facility] MED[facility] Comment: [facility] (Note) SERVICES . ADDITIONAL INFORMATION ------ This report is intended for use in clinical monitoring and management of patients. ??It is not intended for use i n medical-legal applications. . This test has been modified from the cardiovascular technologist's instructions. ??Its performance characteristics were determined by [facility] in a manner consistent with CLIA requirements. ??This test has not been cleared or appr reina by the U.S. Food and Drug Administration. Performed or Referred by: [facility] Labs [facility], [address] [place] [address] Specimen Other (qualifier value) - Other Performing Organization Address City/State/ZIP Code Phon e Number [facility] LABORATORY [address] [place] [address] SERVICES CHLAMYDIA/N. GONORRHOEAE AMPLIFIED RNA, URINE (05/21/2018 9:06 EDT) Pathologist Sig nature Chlamydia Result Negative [facility] LABORATORY SERVICES GC Result Negative [facility] LABORATORY SERVICES Specimen Other (qualifier value) - Urine Performing Organization Address [facility] Phon e Number [facility] LABORATORY [address] [place] [address] SERVICES documented in this encounter Visit Diagnoses [...] emtricitabine-tenofovir, Take 1 Tab by mouth Reorder 8 05/21/2018 TDF, (TRUVADA) 200-300 mg daily for 30 days. per tablet documented as of this encounter Care Teams Concession Manager Relationship Specialty Start Date End Date Chele Becker DO PCP - General 11/22/17 documented as of this encounter
--- OUTSIDE RECORDS SUMMARY | 2022-05-12 00:58 | XMS_ITS | Encounter Summary ---
:1960 Author Organization [facility] Address [address] [place] [address] Care Team Providers Name Role Phone Chele Kessler MD Primary Care Provider Encounter Details Date Type Department Care Team Description 10/06/2016 Orders Only [facility] Infectious IsidroKaruna RN Disease - [facility] [address] [place], [place] [id number] Social History Tobacco Use Types Packs/Day Years Used Date Never Smoker Alcohol Use Standard Drinks/Week Comments Yes 14 (1 standard drink = 0.6 oz pure alcoh ol) Sex Assigned at Date Recorded Not on file documented as of this encounter Plan of Treatment Upcoming Encounters Date Type Specialty Care Team Description 05/30/2022 Nurse Only Infectious Disease Nurse, Elsa, RN 08/10/2022 Office Visit Infectious Disease Silvana Phelps MD [address] [facility] [address] [place], [place] [address] (Wo rk) documented as of this encounter Visit Diagnoses Not on filedocumented in this encounter Care Teams Buckle Gluer Relationship Specialty Start Date End Date Chele Kessler MD PCP - General 09/07/15 11/21/[address] [place] [id number] documented as of this encounter
--- OUTSIDE RECORDS SUMMARY | 2022-05-12 00:58 | XMS_ITS | Encounter Summary ---
:1960 Author Organization [facility] Address [address] [place] [address] Care Team Providers Name Role Phone Chele Kessler MD Primary Care Provider Encounter Details Date Type Department Care Team Description 10/18/2016 Documentation Visit [facility] Michelle Smith, Home house visitor Pharmacy [facility] [address] [place] [address] [place] [address] Social History Tobacco Use Types Packs/Day Years Used Date Never Smoker Alcohol Use Standard Drinks/Week Comments Yes 14 (1 standard drink = 0.6 oz pure alcoh ol) Sex Assigned at Date Recorded Not on file documented as of this encounter Progress Notes Inés Smith RN - 10/18/2016 1121 EST Patient: Beth Hughes is a 56 y.o. male. Allergies: Review of patient's allergies indicates no known allergies. LDA: PICC Single Lumen 10/06/16 Basilic CAJ with 3CG Valved Power Inject (Active) Assessment: Discharge Date: 10/18/16 Admission date: 10/06/16 Reason for transfer or discharge: Therapy complete and met goals of treatment plan Provider aware and agrees to discharge/transfer (send summary upon request): Yes Patient aware and agrees to discharge/transfer : Yes Discharge/transfer needs shared with patient/caregiver(s), reason for discharge/transfer, alternatives to transfer, how to obtain continuing care, discharge instructions provided: Yes Medication Order Review Plan: Dc from infusion service Inés Smith RN 10/18/2016 11:23 documented in this encounter Plan of Treatment Upcoming Encounters Date Type Specialty Care Team Description 05/30/2022 Nurse Only Infectious Disease Nurse, Id, RN 08/10/2022 Office Visit Infectious Disease Silvana Phelps MD [address] [facility], Level [address] [place] [address] (Wo rk) documented as of this encounter Visit Diagnoses Not on filedocumented in this encounter Care Teams Electronic Publications Specialist Relationship Specialty Start Date End Date Chele Kessler MD PCP - General 09/07/15 11/21/17 [address] [place] [address] documented as of this encounter
--- OUTSIDE RECORDS SUMMARY | 2022-05-12 00:58 | XMS_ITS | Encounter Summary ---
:[address] [facility] Address [address] [place] [address] Care Team Providers Name Role Phone Chele Kessler MD Primary Care Provider Encounter Details Date Type Department Care Team Description 10/06/2016 Documentation Visit [facility] Michelle Smith, Home civil rights investigator Pharmacy - [address] [place] [address] [place] [address] Social History Tobacco Use Types Packs/Day Years Used Date Never Smoker Alcohol Use Standard Drinks/Week Comments Yes 14 (1 standard drink = 0.6 oz pure alcoh ol) Sex Assigned at Date Recorded Not on file documented as of this encounter Progress Notes Lizet Melton, [facility] - 10/06/2016 1106 EST Patient: Beth Hughes is a 55 y.o. male. Allergies: Review of patient's allergies indicates no known allergies. Care Plan: Penicillin G Agent Dosing Range CrCl 30-50ml/min CrCl 10-30ml/min CrCl <10ml/min Ampicillin / Sulbactam 1.5???3g q6 100% q6-8 100 % q12 100% q24 Penicillin G 1???2 million units q4-6 100% q6 100% q6-8 100% q8-12 Nafcillin 1???2g q4-6 100% 100% 100% Piperacillin 3-4g 100% q8 100% q8-12 100% q12 Piperacillin/Tazobactam 3.375g q6 3.375g q6 2.25g q6 2.25g q8 Therapy Related Problem List Goals of therapy Initial 7 - 14 Days Monitoring/Interventions Potential for failure to respond to therapy Eradicate / Suppress Infection Appropriate Dose X X Dose / frequency checked based on CrCl X S&S of infection: fever, pain, redness, swelling X X Assess compliance. Re-assess as needed. X X WBC, CRP, CRPP, sed rate, per ID X Wound healing, if applicable Potential for Adverse Reaction Hypersensitivity Nephrotoxicity Hyperkalemia (penicillin) Drug / food, drug / drug, drug / disease interactions Reduce potential for possible allergic reaction. Avoid elevated potassium levels Avoid renal toxic effects Minimize potential interactions X Obtain allergy history. Review for history of penicllin or aminoglycoside reaction. Assess for rash. Provide anaphylaxis kit. Instruct patient to seek medical attention if necessary, and/or notify MD office & HI staff X Monitor potassium, when available. Contact MD for elevated potassium. X X Contact MD for significant changes in serum creatinine and aminoglycoside levels X X CBC w/differential. Contact MD if abnormal X X Liver function tests, protracted therapy. Assess signs of liver toxicity (jaundice). Contact MD. X X Drug interactions: probenecid, tetracycline, warfarin, contraceptives, methotrexate, vaccines (live), nephrotoxic medications Other: Potential for catheter related events Phlebitis, loss of patency, injection site reaction, line sepsis Minimize catheter related events for duration of therapy X Monitor for signs of catheter problems (sluggishness, migration, redness, itching, inflammation, pain, fever). Instruct patient to concat nurse and/or MD. Contact MD. LDA: PICC Single Lumen 10/06/16 Basilic CAJ with 3CG Valved Power Inject (Active) Site Assessment Clean/Dry/Intact 10/06/2016 12:00 Primary Lumen Status Blood returned;Flushed 10/06/2016 12:00 Dressing Status/Care Clean/Dry/Intact;Changed/New 10/06/2016 12:00 Dressing Type Antimicrobial Disk;Sorbaview 10/06/2016 12:00 Dressing Change Due 10/13/16 10/06/2016 12:00 Exposed Catheter (cm) 0 cm 10/06/2016 12:00 Subjective: Objective: Labs: Creatinine Date Value Ref Range Status 10/05/2016 1.12 0.66 - 1.25 mg/dl Final Potassium Date Value Ref Range Status 10/05/2016 4.2 3.5 - 5.0 mEq/L Final WBC Date Value Ref Range Status 10/05/2016 6.70 4.0 - 10.4 K/cmm Final 10/02/2016 5.94 4.0 - 10.4 K/cmm Final Eosinophils Date Value Ref Range Status 10/05/2016 0.6 % Final 10/02/2016 0.7 % Final PLT Date Value Ref Range Status 10/05/2016 170 141 - 377 K/cmm Final 10/02/2016 205 141 - 377 K/cmm Final Microbiology: Other: Assessment: Medication Order Review Allergies/Sensitivities Reviewed: Yes Appropriateness of Med, Dose, Frequency, Route of Admin Reviewed: Yes Relevant Labs Reviewed: Yes Therapeutic Duplication Review: Yes Drug-Drug Interaction Review: Yes Drug/Food Interaction Review: No Contraindication Review: Yes Admitted to home infusion treated with penicillin 4 Munits every 4 hours x 14 days. Plan: Begin home infusion therapy. FACILITIES MAINTENANCE SUPERVISOR nurse to see patient for administration of first home dose. Mixed and sent enough drug and supplies through 10/10/16. Delivery to patient's home. Anticipated end date 10/19/16. Follow up with patient via telephone within first week of therapy. Monitor labs per care plan weekly. Lizet Melton RPH 10/06/2016 16:42 Inés Manzo RN - 10/06/2016 1106 EST Patient: Beth Hughes is a 55 y.o. male. Allergies: Review of patient's allergies indicates no known allergies. LDA: Peripheral IV 10/04/16 1941 Left Antecubital (Active) Site Assessment Clean/Dry/Intact 10/06/2016 2:24 Line Status Flushed;Infusing 10/06/2016 2:24 Dressing Status/Care Clean/Dry/Intact 10/06/2016 2:24 Dressing Type Transparent 10/06/2016 2:24 Assessment: Beth Hughes is a new patient coming on home infusion service. Medication Order Review Admission Criteria: Cultural/baptist barriers to home infusion therapy: No Language other than Puerto Rican: No Vision, speech, hearing, or cognitive impairment: No Clinically unstable and difficult to manage or not safe in the home setting: No History of drug abuse : No History of noncompliance with home infusion therapies: No Dwelling/living situation unsuitable for home infusion (e.g. unsanitary, lacks electricity or refrigeration): No Declined home health services: No Declined regular follow up visit with physician provider: No Home infusion service provided will meet patient's needs: Yes Rights & Responsibilities: Patient Information & Assignment Agreement: Yes Rent versus Purchase Agreement: Yes Pharmacy/providers contact information including assistance when organization is closed: Yes Scope of Services/Hours of Operation: Yes Product Administration Education: Education tailored to meet needs of patients language and learning preferences: Yes Written information provided: Yes Verbal instructions provided: Yes Review of care plan: Yes Administration method and medical equipment : Yes Drug education: Yes Parenteral access device care and maintenance: Yes Aseptic Technique: Yes Hand Hygiene: Yes Pain Control: Yes Natural Disaster: Yes Medication management/reconciliation/MyHealth Online: Yes Home Infusion Education and Evaluation: Fall risk screening was completed during this visit.The patient is considered to be at high risk forfalls for the reasons listed below. - patient has IV access - patient uses durable medical equipment - DME currently being used: pump Follow-up actions discussed with the patient are listed below. - Discussed fall risk. Education provided on fall risk awareness. - Discussed with patient/family fall risks associated with use of durable medical equipment. - Patient/Family verbalized understanding if fall risk education. Home infusion education provided: Yes Home infusion education recipient: Patient Home Infusion Education: Verbal - talking points;Material provided Home infusion education evaluation: Potential to become independent - FACILITIES MAINTENANCE SUPERVISOR follow up / instruction General Information: Home Health Contacted?: Yes Delivery process: Yes Home Health Agency Contact Info: ELIZABETH Alexandra ([phone]) Laboratory Contacts: [facility]) [phone] Referral Source: Clinic/Office Plan: Dc home with [facility]NA to meet pt for first dose at home Inés Smith RN 10/06/2016 11:13 documented in this encounter Plan of Treatment Upcoming Encounters Date Type Specialty Care Team Description 05/30/2022 Nurse Only Infectious Disease Nurse, Elsa, RN 08/10/2022 Office Visit Infectious Disease Silvana Phelps MD [address] [facility], [facility] [address] [place], [place] [address] (Wo rk) documented as of this encounter Visit Diagnoses Not on filedocumented in this encounter Care Teams Fish Drier Relationship Specialty Start Date End Date Chele Kessler MD PCP - General 09/07/15 11/21/17 [address] [place] [address] documented as of this encounter
--- OUTSIDE RECORDS SUMMARY | 2022-05-12 00:58 | XMS_ITS | Encounter Summary ---
:1960 Author Organization [facility] Address [address] [place] [address] Care Team Providers Name Role Phone Chele Becker Primary Care Provider Reason for Visit Reason Comments Follow-up Encounter Details Date Type Department Care Team Description 11/25/2018 Office Visit [facility] Silvana Phelps Med icaeryn monitoring encounter (Primary Dx); Infectious Disease - MD Routine screening for STI (sexually shaikh smitted infection); [address] History of syphilis [address] [place], [place] [id number] [place] [address] [facility] [address] [place] [address] (Wo rk) Social History Tobacco Use Types Packs/Day Years Used Date Never Smoker Smokeless Tobacco: Never Used Alcohol Use Standard Drinks/Week Comments Yes 14 (1 standard drink = 0.6 oz pure alcoh ol) Sex Assigned at Date Recorded Not on file documented as of this encounter Last Filed Vital Signs Vital Sign Reading Time Taken Comments Blood Pressure 129/78 11/25/2018 0921 EDT Pulse 81 11/25/2018 0921 EDT Temperature 36.5 ??C (97.7 ??F) 11/25/2018 0921 EDT Respiratory Rate - - Oxygen Saturation - - Inhaled Oxygen Concentration - - Weight 96.2 kg (212 lb) 11/25/2018 0921 EDT Height - - Body Mass Index 33.2 05/21/2018 0848 EDT documented in this encounter Discharge Diagnoses Diagnosis Z51.81 Encounter for therapeutic drug le wes monitoring-Z51.81[ICD-10-CM] Z11.3 Encounter for screening for infect ions with a predominantly sexual mode of transmission-Z11.3[ICD-10-CM] Z86.19 Personal history of other infecti ous and parasitic diseases-Z86.19[ICD-10-CM] documented in this encounter Ordered Prescriptions Prescription Sig Dispensed Refills Start Date End Date emtricitabine-tenofovir, Take 1 tablet by 30 tablet 2 11/2503/20/2019 TDF, (TRUVADA) 200-300 mg mouth daily. 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 Mr. Hughes is feeling well. Continues to take his Truvada faithfully and doesn't think he's missed any doses since I've seen him last. Has occasional cramps, but otherwise no side effects. Vision has been stable. Still sees a smudge or film when looking through his right eye but is not different and has returned to his usual eye MD closer to home. No fevers or sweats. Appetite is good. [...] 10 point ROS is negative. Objective: BP 129/78 (BP Cuff Location: Right arm, Patient Position: Sitting, BP Cuff Sizes: Adult, large) Pulse 81 Temp 36.5 ??C (97.7 ??F) (Tympanic) Wt 96.2 kg (212 lb) BMI 33.20 kg/m?? Gen: Alert, oriented. NAD. Looks well. HEENT: Anicteric. PERRL. EOMI and pain-free. Oral mucosa moist. No thrush. No ulcerations. Neck: supple. COR: RRR. No murmer. Lungs: CTA. Mssk: No obvious joint effusions or warmth. ROM appears pain-free. Integ: No rash. No LE edema. LABS: Due for labs today. Labs from08/29/18 RPR negative (down from 1:256 and stable from 10/2017). HIV ab negative. Oropharyngeal GC and chlamydia negative Urine GC and chlamydia negative. Cr 1.13 (GFR >70) Phos 2.6 Prior labs: 10/02/16: Syphilis ab positive, RPR [...] f/u in 3 months. Silvana Phelps MD 11/25/2018 9:32 documented in this encounter Plan of Treatment Upcoming Encounters Date Type Specialty Care Team Description 05/30/2022 Nurse Only Infectious Disease Nurse, Elsa, RN 08/10/2022 Office Visit Infectious Disease Silvana Phelps MD [address] [facility], [facility] [address] [place], [place] [address] (Wo rk) documented as of this encounter Procedures Procedure Name Priority Date/Time Associated Diagnosis Comme nts N. GONORRHOEAE AND Routine 11/25/2018 9:52 Routine screening R esults for this CHLAMYDIA EDT for STI (sexually procedure are in TRACHOMATIS, MISC transmitted the result s SITES, AMPLIFIED RNA infection) section . CHLAMYDIA/N. Routine 11/25/2018 9:52 Routine screening Results for this GONORRHOEAE EDT for STI (sexually procedure are in AMPLIFIED RNA, URINE transmitted the res ults infection) section. documented in this encounter Results PHOSPHORUS (11/25/2018 10:17 EDT) Pathologist Sig nature Phosphorus 2.9 2.5 - 4.5 mg/dl [facility] Specimen Blood specimen (specimen) - Blood Performing Organization Address City/State/ZIP Code Phon e Number [facility] [address] [place] [address] SERVICES RPR, RESPONSE - ID USE ONLY (11/25/2018 10:17 EDT) Pathologist Sig nature RPR, Response Negative Negative [facility] Comment: LABORATORY SERVICES (Note) . ADDITIONAL INFORMATION ------ This test is intended for monitoring response to thera py in patients that have been previously diagnosed with Syph ilis. This test should not be used to screen Syphilis. Performed by: [facility] Labs: [employer], [place] [address] Specimen Blood Performing Organization Address City/State/ZIP Code Phon e Number [facility] [address] [place] [address] SERVICES (ABNORMAL) COMPLETE BLOOD COUNT AND DIFFERENTIAL (11/25/2018 10:17 EDT) WBC 6.23 4.0 - 10.4 [facility] LABORATORY SERVICES RBC 6.09 (H)Comment: 4.36 - 5.78 [facility] Rev'd by [facility] LABORATORY Pathologist SERVICES Hemoglobin 12.9 (L) 13.8 - 17.3 [facility] gm/dl [facility] HCT 41.0 39.5 - 50.2 [facility] MCV 67 (L) 81 - 95 fl [facility] MCH 21.2 (L) 27.6 - 33.0 [facility] LABORATORY SERVICES Hypochromia 2+ [facility] MCHC 31.5 (L) 32.8 - 36.4 [facility] gm/dl [facility] RDW-CV 15.7 (H) <14.2 % [facility] RDW-SD 35.0 <46.0 fl [facility] PLT 161 141 - 377 [facility] LABORATORY SERVICES MPV Not Available 9.5 - 12.7 [facility] LABORATORY SERVICES Neutrophils 64.7 % [facility] Lymphocytes 24.4 % [facility] Monocytes 8.8 % [facility] Eosinophils 1.3 % [facility] Basophils 0.6 % [facility] Immature Grans 0.2 % [facility] ABS Neutrophils 4.03 2.20 - 8.85 [facility]ATORY SERVICES ABS Lymphs 1.52 1.09 - 3.30 [facility]ORATORY SERVICES ABS Monocytes 0.55 0.1 - 0.8 [facility]ORATORY SERVICES ABS Eosinophils 0.08 0.03 - 0.61 [facility]ORATORY SERVICES ABS Basophils 0.04 0.01 - 0.11 [facility]ORATORY SERVICES ABS Immature Grans 0.01 0 - 0.06 [facility]ORATORY SERVICES Type of Diff: Automated [facility] Specimen Blood specimen (specimen) - Blood Performing Organization Address [facility]/ZIP Code Phon e Number [facility] [address] [place] [phone] SERVICES HIV 1/2 ANTIGEN AND ANTIBODY, 4TH GENERATION (11/25/2018 10:17 EDT) HIV 1/2 Antibody Negative Negative [facility] Comment: LABORATORY SERVICES Fourth generation assay performed on the Siemens Centaur. If acute HIV-1 infection is suspected in a high risk patient, submit plasma specimen for HIV-1 RNA quantification test. Specimen Blood specimen (specimen) - Blood Performing Organization Address [facility] Phon e Number [facility] [address] [place] [address] SERVICES (ABNORMAL) BASIC METABOLIC PANEL (BMP) (11/25/2018 10:17 EDT) Sodium 141 136 - 145 [facility] mEq/L LABORATORY SERVICES Potassium 4.2 3.5 - 5.0 [facility] mEq/L LABORATORY SERVICES Chloride 105 96 - 110 [facility] mEq/L LABORATORY SERVICES CO2 28 22 - 32 mEq/L [facility] BUN 17 10 - 26 mg/dl [facility] Creatinine 1.30 (H) 0.66 - 1.25 [facility] mg/dl LABORATORY SERVICES GFR, Calculated 61 >60 [facility] Comment: ml/min/1.73m2 LABORATORY eGFR calculated using CKD-EPI equation for SERVICES non Americans. Multiply eGFR by 1.16 for Americans. Calcium 9.8 8.5 - 10.5 [facility] mg/dl LABORATORY SERVICES Calculated Calcium 9.1 8.5 - 10.5 [facility] mg/dl LABORATORY SERVICES Glucose, Serum 98 70 - 100 [facility] mg/dl LABORATORY SERVICES Fasting? No [facility] Specimen Blood specimen (specimen) - Blood Performing Organization Address City/[facility]/ZIP [facility] Phon e Number [facility] [address] [place] [address] SERVICES N. GONORRHOEAE AND CHLAMYDIA TRACHOMATIS, [facility] SITES, AMPLIFIED RNA (11/25/2018 9:52 EDT) Source ORAL/THROAT [facility] C.trachomatis, Negative Negative [facility] Site Comment: [facility] (Note) SERVICES . ADDITIONAL INFORMATION ------ This report is intended for use in clinical monitoring and management of patients. ??It is not intended for use i n medical-legal applications. . This test has been modified from the endorsement clerk's instructions. ??Its performance characteristics were determined by [facility] in a manner consistent with CLIA requirements. ??This test has not been cleared or appr reina by the U.S. Food and Drug Administration. Source ORAL/THROAT (PHARYNX OR [facility] MEDICAL PHARYNGEAL) [facility] N.gonorrhoeae, Negative Negative [facility] Site Comment: [facility] (Note) SERVICES . ADDITIONAL INFORMATION ------ This report is intended for use in clinical monitoring and management of patients. ??It is not intended for use i n medical-legal applications. . This test has been modified from the endorsement clerk's instructions. ??Its performance characteristics were determined by [facility] in a manner consistent with CLIA requirements. ??This test has not been cleared or appr reina by the U.S. Food and Drug Administration. Performed or Referred by: [facility], [address] [place] [id number] Specimen Other (qualifier value) - Other Performing Organization Address City/[facility]/ZIP Code Phon e Number [facility] [address] [place] [address] SERVICES CHLAMYDIA/N. GONORRHOEAE AMPLIFIED RNA, URINE (11/25/2018 9:52 EDT) Pathologist Sig nature Chlamydia Result Negative [facility] GC Result Negative [facility] Specimen Other (qualifier value) - Urine Performing Organization Address City/[facility] Code Phon e Number [facility] [address] [place] [address] SERVICES documented in this encounter Visit Diagnoses [...] Take 1 Tab by mouth Reorder 9 11/25/2018 TDF, (TRUVADA) 200-300 mg daily. per tablet documented as of this encounter Care Teams Filler Shredder Helper Relationship Specialty Start Date End Date Chele Becker DO PCP - General 11/22/17 04/26/20 documented as of this encounter
--- OUTSIDE RECORDS SUMMARY | 2022-05-12 00:58 | XMS_ITS | Encounter Summary ---
:1960 Author Organization [facility] Address [address] [place] [address] Care Team Providers Name Role Phone Chele Kessler MD Primary Care Provider Encounter Details Date Type Department Care Team Description 10/13/2016 Orders Only [facility] Infectious Tamra Roger MD Disease - [facility] [address] [place], [place] [id number] Social History Tobacco Use Types Packs/Day Years [...] [address] [facility], [address] [place], [place] [address] (Wo rk) documented as of this encounter Procedures Procedure Name Priority Date/Time Associated Comments Diagnosis COMPLETE BLOOD COUNT Routine 10/09/2016 16:20 Res ults for this AND DIFFERENTIAL EST procedure a re in the results section. BUN Routine 10/09/2016 16:20 Results for this EST procedure are i n the results section. CREATININE Routine 10/09/2016 16:20 Results for this EST procedure are i n the results section. documented in this encounter Results (ABNORMAL) HEMAGRAM AND DIFFERENTIAL (10/09/2016 16:20 EST) WBC, External 5.7 5.0 - 10.0 [facility] 10*3/uL HOSPITAL LAB RBC, External 6.00 4.60 - 6.00 [facility] 10*6/uL HOSPITAL LAB Hemoglobin, 12.2 (A) 14.0 - 18.0 [facility] External g/dl HOSPITAL LAB HCT, External 38.4 (A) 41.0 - 51.0 % [facility] MCV, External 64.0 (A) 80.0 - 96.0 fl [facility] MCH, External 20.3 (A) 26.0 - 32.0 pg [facility] MCHC, External 31.8 31.0 - 35.0 [facility] g/dl HOSPITAL LAB PLT, External 247 130 - 450 [facility] 10*3/uL HOSPITAL LAB RDW-CV, External 17.2 (A) 11.5 - 14.5 % [facility] Neutrophils, 58.7 40.0 - 75.0 % [facility] Lymphocytes, 31.0 20.0 - 50.0 % [facility] Monocytes, 8.7 2.0 - 10.0 % [facility] Eosinophils, 0.9 (A) 1.0 - 6.0 % [facility] Basophils, 0.5 0.0 - 1.0 % [facility] ABS Neutrophils, 3.37 10*3/uL [facility] ABS Lymphs, Not given [facility] ABS Monocytes, Not given [facility] ABS Eosinophils, Not given [facility] ABS Basophils, Not [facility] External givenComment: HOSPITAL LAB Please see the scanned report in PRISM for further interpretation. Specimen Blood specimen (specimen) Performing Organization Address City/State/ZIP Code Phon e Number [facility] (ABNORMAL) CREATININE (10/09/2016 16:20 EST) Pathologist Sig nature Creatinine, External 1.30 (A) 0.66 - 1.25 [facility] mg/dL HOSPITAL LAB GFR, Calculated, Not given [facility] Specimen Blood specimen (specimen) Performing Organization Address City/State/ZIP Code Phon e Number [facility] BUN (10/09/2016 16:20 EST) Pathologist Sig nature BUN, External 14 9 - 20 mg/dL [facility] Specimen Blood specimen (specimen) Performing Organization Address City/State/ZIP Code Phon e Number [facility] documented in this encounter Visit Diagnoses Not on filedocumented in this encounter Care Teams Custom Leather Products Maker Relationship Specialty Start Date End Date Chele Kessler MD PCP - General 09/07/15 11/21/[address] [place] [address] documented as of this encounter
--- OUTSIDE RECORDS SUMMARY | 2022-05-12 00:58 | XMS_ITS | Encounter Summary ---
:1960 Author Organization [facility] Address [address] [place] [id number] Care Team Providers Name Role Phone Chele Becker Primary Care Provider Reason for Visit Reason Comments Other Encounter Details Date Type Department Care Team Description 08/22/2018 Refill [facility] Silvana Phelps MD Other Infectious Disease - Main [address] [place] [address] [address] [place], [place] [id number] [place] [phone] (Wo rk) Social History Tobacco Use Types Packs/Day Years Used Date Never Smoker Smokeless Tobacco: Never Used Alcohol Use Standard Drinks/Week Comments Yes 14 (1 standard drink = 0.6 oz pure alcoh ol) Sex Assigned at Date Recorded Not on file documented as of this encounter Ordered Prescriptions Prescription Sig Dispensed Refills Start Date End Date TRUVADA 200-300 mg per take 1 tablet by 30 Tab 2 018 08/29/2018 tablet mouth once daily documented in this encounter Miscellaneous Notes Telephone Encounter - Deyanira Isidro RN - 08/22/2018 1032 EST Electronic prescription for Truvada sent to pharmacy. Deyanira Isidro RN documented in this encounter Plan of Treatment Upcoming Encounters Date Type Specialty Care Team Description 05/30/2022 Nurse Only Infectious Disease Nurse, Elsa, RN 08/10/2022 Office Visit Infectious Disease Silvana Phelps MD [address] [facility], [address] [place], [place] [phone] (Wo rk) documented as of this encounter Visit Diagnoses Not on filedocumented in this encounter Discontinued Medications Medication Sig Discontinue Reason Start Date End Date emtricitabine-tenofovir, Take 1 Tab by mouth Reorder 8 08/22/2018 TDF, (TRUVADA) 200-300 mg daily. per tablet documented as of this encounter Care Teams Hat Ironer Relationship Specialty Start Date End Date Chele Becker DO PCP - General 11/22/17 documented as of this encounter
--- OUTSIDE RECORDS SUMMARY | 2022-05-12 00:58 | XMS_ITS | Encounter Summary ---
:1960 Author Organization [facility] Address [address] [place] [address] Care Team Providers Name Role Phone Cehle Kessler MD Primary Care Provider Reason for Visit Reason Comments Follow-up Encounter Details Date Type Department Care Team Description 01/18/2017 [facility] Visit [facility] Silvana Phelps Rou tine screening for STI (sexually transmitted infection) (Primary Dx); Infectious Disease - Neurosyphilis in adult; [address] High risk sexual behavior; [address] [place] [address] High risk medication use [place], [place] [id number] [place] [address] [facility], [address] [place] [address] (Wo rk) Social History Tobacco Use Types Packs/Day Years Used Date Never Smoker Alcohol Use Standard Drinks/Week Comments Yes 14 (1 standard drink = 0.6 oz pure alcoh ol) Sex Assigned at Date Recorded Not on file documented as of this encounter Last Filed Vital Signs Vital Sign Reading Time Taken Comments Blood Pressure 125/80 01/18/2017 1054 EDT Pulse 60 01/18/2017 1054 EDT Temperature 35.7 ??C (96.2 ??F) 01/18/2017 1054 EDT Respiratory Rate - - Oxygen Saturation - - Inhaled Oxygen Concentration - - Weight 86.2 kg (190 lb) 01/18/2017 1054 EDT pt reported Height - - Body Mass Index 29.76 10/05/2016 0000 EST documented in this encounter Discharge Diagnoses Diagnosis Z11.3 Encounter for screening for infect ions with a predominantly sexual mode of transmission-Z11.3[ICD-10-CM] A52.3 Neurosyphilis, unspecified-A52.3[I CD-10-CM] Z72.51 High risk heterosexual behavior-Z 72.51[ICD-10-CM] Z79.899 Other alf (current) drug t herapy-Z79.899[ICD-10-CM] documented in this encounter Ordered Prescriptions Prescription Sig Dispensed Refills Start Date End Date emtricitabine-tenofovir, Take 1 Tab by mouth 30 Tab 3 02/17/2017 TDF, (TRUVADA) 200-300 mg daily for 30 days. per tablet documented in this encounter Progress Notes Alena Sesay RN - 01/18/2017 1100 EDT Labs drawn from right anticubital without incident. I was supervised by Dr. Phelps who was present and immediately available in the office suite. ALENA SESAY RN 01/18/2017 11:47 Silvana Portillo MD - 01/18/2017 1100 EDT Division of Infectious Disease Follow up/Progress Note Date: 01/18/17 Chief Complaint: Occular syphilis, HIV prevention History of present illness: 56 y/o male presents today for interval evaluation s/p occular syphilis and ongoing monitoring related to use of PrEP. Patient is generally healthy. Has a history of Thallasemia trait and gout. Is a MSM and was evaluated at the [facility] for consideration of PrEP in Aug 2015. At that time, syphilis ab was negative. Was started on Truvada for PrEP. Reportedly adherent with daily administration with possiblyone missed dose every other month. Has had multiple sexual partners, both HIV positive as well as HIV negative, most times unprotected intercourse. No prior history of STI. Doing generally well until on 09/25/16 noted right eye irritation. Eventually saw his building attendant on 09/29. Referred to retinal Dr. He bishop. She saw him on 10/02. Concern raised for ARN and multiple labs obtained, including syphilis ab. Was treated empirically with valacyclovir though had progression of retinal lesion on re-eval 10/04. Syphilis ab returned positive and patient referred to the ED for additional evaluation thatsame day. He was started on high dose PCN G 4 million units Q 4. By the time I saw him on 10/05, his RPR had returned at 1:256. LP performed which revealed normal chemistries and 3 WBC. VDRL eventually negative. HIV ab negative. A PICC was placed and he was d/c'd home on high dose IV PCN G, which he received X 14 days. Therapy d/c'd on 10/18. Returns today for re-eval. Overall, Mr Hughes reports he's feeling well. Right eye vision is back to almost 20:20 though he feelslike there is still a film he's looking through. He's not noted any fevers, sweats or chills. Deniesnausea, vomiting, diarrhea. No MÁRQUEZ. Skin on lower abdomen felt sensitive though no rash. No new genital lesions. Weight and appetite are stable. Energy is good, back to his usual work, gardening activities. Has had unprotected sex, including receptive oral (but not anal). Continues with daily Truvada with excellent adherence. PMHx: 1. Gout. 2. Occular syphilis. Panuveitis, retinitis. Dx'd 10/04. CSF eval negative. Treated with PCN G 4 mu Q 4X 14 days. 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 HBV surf ab indeterminate; surface antigen and core ab negative. Sep 08, 2015 PSHx: has no past surgical history on file. Social History: Single. Lives alone. Works as a realtor. MSM. Medications: Medications reconciled via PRISM. Current antimicrobials: Truvada, 1 PO daily. ROS: Remainder of 10 point ROS is negative. Objective: BP 125/80 (BP Cuff Location: Left arm, Patient Position: Sitting, BP Cuff Sizes: Adult, large) Pulse 60 Temp 35.7 ??C (96.2 ??F) (Tympanic) Wt 86.2 kg (190 lb) Comment: pt reported BMI 29.76 kg/m2 Gen: Alert, oriented. NAD. Looks well. HEENT: Anicteric. PERRL. EOMI and pain-free. Oral mucosa moist. No thrush. Cryptic tonsils pink though no exudate or ulcers. Neck: supple. COR: RRR nl S1S2. No murmer. Lungs: CTA. Mssk: No obvious joint effusions or warmth. ROM appears pain-free. Integ: No rash. Scattered abrasions and ecchymoses on hands, healing. From gardening, rototilling. No LE edema. LABS: No interval labs--due today. Prior labs: 10/02/16: Syphilis ab positive, RPR 1:256. HIV ab negative Lyme ab negative 10/05: CSF WBC 3, RBC 0, gluc 69, prot 46; VDRL negative 09/08/15 ([facility] HIV ab negative Syphilis ab negative HAV ab positive. HBV ab indeterminate, surface antigen negative, core ab negative HCV ab negative Radiology: No interval imaging. Impression: 1. Occular syphilis. Uveitis/retinitis in setting of positive ab and significantly elevated RPR are consistent with occular syphilis. No evidence of meningitis via LP though retinal disease required treatment for neurosyphilis. Clinically improved with normalizing visual acuity, resolution of eye painand scleral injection. Plan to monitor serial RPR in additional to clinical exam/symptoms to monitorresponse to treatment--due today. Reviewed testing characteristics and need for reliance on RPR to monitor response to treatment as well as for new infections or relapse given the syphilis ab will remain positive for life. 2. High risk for HIV acquisition. Agree with continuing PrEP to minimize risk for acquisition. Discussed plan to monitor Cr, electrolytes, proteinuria Q3-4 months moving forward--due today. Also discussed importance of routine STI screening including site specific GC/chlamydia testing as well as regular RPR--we obtained urine and OP swab as site specific testing. HIV ab also performed today. Adherence reviewed and discussed importance of stable drug levels in serum to maximize prevention measures with PrEP. Will plan on prescribing when he needs new refills--Truvada 1 PO daily. Discussed safer sex, use of condoms, regular screening for STI, including HIV with unprotected sex. 3. Elevated Cr. Though CrCl today is 72. Will continue to monitor closely. Plan: 1. Continue Truvada--1 PO daily. I re-ordered his Rx. 2. Repeat labs today, including CMP, phos, CBC with diff, RPR, HIV Ab, UA to eval for proteinuria. 3. Urine and OP chlamydia and gonorrhea screen. 4. I will call him with labs. 5. F/u in 3 months--though he knows to phone sooner should status change, questions arise. Silvana Phelps MD 01/18/2017 11:43 documented in this encounter Miscellaneous Notes Addendum Note - Alena Sesay RN - 01/18/2017 1238 EDT Addended by: ALENA SESAY on: 01/18/2017 12:38 Modules accepted: Orders documented in this encounter Plan of Treatment Upcoming Encounters Date Type Specialty Care Team Description 05/30/2022 Nurse Only Infectious Disease Nurse, Elsa, RN 08/10/2022 Office Visit Infectious Disease Silvana Phelps MD [address] [facility], [address] [place], [place] [phone] (Wo rk) documented as of this encounter Procedures Procedure Name Priority Date/Time Associated Diagnosis Comme nts OUTPATIENT ADD-ON Routine 01/18/2017 12:38 High risk medicatio n Results for this EDT use procedure are in High risk sexual the results behavior section. Neurosyphilis in adult Routine screening for STI (sexually transmitted infection) RPR SCREEN, RESPONSE Routine 01/18/2017 11:36 Routine screenin g for Results for this TO THERAPY, S EDT STI (sexually procedure are in transmitted the results infection) section. Neurosyphilis in adult CHLAMYDIA/N. Routine 01/18/2017 11:36 Routine screening for Re sults for this GONORRHOEAE AMPLIFIED EDT STI (sexually proce dure are in RNA, URINE transmitted the results infection) section. RAPID HIV 1/2 ANTIGEN Routine 01/18/2017 11:36 Routine screeni ng for Results for this AND ANTIBODY, 4TH EDT STI (sexually procedure are in GENERATION transmitted the results infection) section. COMPLETE BLOOD COUNT Routine 01/18/2017 11:36 Neurosyphilis in Results for this AND DIFFERENTIAL EDT adult procedure a re in the results section. PHOSPHORUS Routine 01/18/2017 11:36 Routine screening for Re sults for this EDT STI (sexually procedure are in transmitted the results infection) section. Neurosyphilis in adult COMPREHENSIVE Routine 01/18/2017 11:36 Neurosyphilis in Result s for this METABOLIC PANEL (CMP) EDT adult proced ure are in the results section. N. GONORRHOEAE AND Routine 01/18/2017 11:31 Routine screening for Results for this CHLAMYDIA EDT STI (sexually procedure are in TRACHOMATIS, MISC transmitted the result s SITES, AMPLIFIED RNA infection) section . documented in this encounter Results OUTPATIENT ADD-ON (01/18/2017 12:38 EDT) Pathologist Sig nature Tests to be added UA [facility] Diagnosis Code SEE PRISM [facility] Number for problems [phone] [facility] Accession number [id number] [facility] Acknowledge ABP Done [facility] Specimen Blood Performing Organization Address [facility] Phon e Number [facility] [address] [place] [address] SERVICES (ABNORMAL) RPR, RESPONSE - ID USE ONLY (01/18/2017 11:36 EDT) Pathologist Sig nature RPR, Response Positive (A) Negative [facility] Comment: LABORATORY SERVICES (Note) Specimen reflexed to determine RPR titer value. . ADDITIONAL INFORMATION ------ This test is intended for monitoring response to thera py in patients that have been previously diagnosed with Syph ilis. This test should not be used to screen Syphilis. Performed by: [facility]: [facility], [place] [address], Lab Dir: Juan Daniel Tolentino II, M.D., Ph.D. Specimen Blood Performing Organization Address City/[facility]/ZIP Code Phon e Number [facility] [address] [place] [address] SERVICES CHLAMYDIA/N. GONORRHOEAE AMPLIFIED RNA, URINE (01/18/2017 11:36 EDT) Pathologist Sig nature Chlamydia Result Negative [facility] GC Result Negative [facility] Specimen Other (qualifier value) - Urine Performing Organization Address [facility] Phon e Number [facility] [address] [place] [address] SERVICES RAPID HIV 1/2 AB (01/18/2017 11:36 EDT) Rapid HIV 1/2 Ab Negative Negative [facility] Comment: LABORATORY New methodology in use 12/12/16. SERVICES Fourth generation assay performed on the Siemens Moneeroaur. If acute HIV-1 infection is suspected in a high risk patient, submit plasma specimen for HIV-1 RNA quantification test. Specimen Blood specimen (specimen) - Blood Performing Organization Address City/State/ZIP Code Phon e Number [facility] [address] [place] [address] SERVICES (ABNORMAL) HEMAGRAM AND DIFFERENTIAL (01/18/2017 11:36 EDT) Pathologist Sig nature WBC 5.14 4.0 - 10.4 [facility] LABORATORY SERVICES RBC 5.70 4.36 - 5.78 [facility] LABORATORY SERVICES Hemoglobin 12.0 (L) 13.8 - 17.3 [facility] gm/dl LABORATORY SERVICES HCT 37.1 (L) 39.5 - 50.2 % [facility] MCV 65 (L) 81 - 95 fl [facility] MCH 21.1 (L) 27.6 - 33.0 pg [facility] Hypochromia 2+ [facility] MCHC 32.3 (L) 32.8 - 36.4 [facility] gm/dl LABORATORY SERVICES RDW-CV 16.5 (H) <14.2 % [facility] RDW-SD 35.3 <46.0 fl [facility] Anisocytosis 1+ [facility] PLT 169 141 - 377 K/[facility] LABORATORY SERVICES MPV 11.6 9.5 - 12.7 fl [facility] Neutrophils 60.4 % [facility] Lymphocytes 28.8 % [facility] Monocytes 8.2 % [facility] Eosinophils 1.4 % [facility] Basophils 0.6 % [facility] Immature Grans 0.6 % [facility] ABS Neutrophils 3.11 2.20 - 8.85 [facility] K/[facility] LABORATORY SERVICES ABS Lymphs 1.48 1.09 - 3.30 [facility] LABORATORY SERVICES ABS Monocytes 0.42 0.1 - 0.8 K/[facility] LABORATORY SERVICES ABS Eosinophils 0.07 0.03 - 0.61 [facility] K/[facility] LABORATORY SERVICES ABS Basophils 0.03 0.01 - 0.11 [facility] K/[facility] LABORATORY SERVICES ABS Immature Grans 0.03 0 - 0.06 /[facility] LABORATORY SERVICES Type of Diff: Automated [facility] Specimen Blood specimen (specimen) - Blood Performing Organization Address City/State/ZIP Code Phon e Number [facility] [address] [place] [address] SERVICES PHOSPHORUS (01/18/2017 11:36 EDT) Pathologist Sig nature Phosphorus 3.2 2.5 - 4.5 mg/dl [facility]A T[facility] SERVICES Specimen Blood specimen (specimen) - Blood Performing Organization Address City/[facility]/ZIP Code Phon e Number [facility] [address] [place] [address] SERVICES COMPREHENSIVE METABOLIC PANEL (CMP) (01/18/2017 11:36 EDT) Potassium 4.3 3.5 - 5.0 [facility] mEq/L [place] [facility] Sodium 142 136 - 145 [facility] mEq/L [place] [facility] Chloride 105 96 - 110 [facility] mEq/L [place] [facility] CO2 25 22 - 32 mEq/L [facility] Total Alkaline 65 38 - 126 U/L [facility] Phosphatase [facility] [facility] Bilirubin, Total 1.1 <1.4 mg/dl [facility] AST 32 15 - 46 U/L [facility] ALT 34 21 - 72 U/L [facility] Albumin 4.8 3.4 - 4.9 [facility] g/dl [place] [facility] Total Protein 7.4 6.3 - 8.2 [facility] g/dl [facility] [facility] Creatinine 1.13 0.66 - 1.25 [facility] mg/dl [facility] GFR, Calculated 73 >60 [facility] Comment: ml/min/1.73m2 [facility] eGFR calculated using CKD-EPI equation for SERVICES non Americans. Multiply eGFR by 1.16 for Americans. BUN 15 10 - 26 mg/dl [facility] Calcium 9.4 8.5 - 10.5 [facility] mg/dl [facility] [facility] Calculated Calcium 8.8 8.5 - 10.5 [facility] mg/dl [facility] Glucose, Serum 91 70 - 100 [facility] mg/dl [facility] Fasting? Unknown [facility] Specimen Blood specimen (specimen) - Blood Performing Organization Address [facility] Phon e Number [facility] [address] [place] [address] SERVICES [facility] SITES, CHLAMYDIA TRACHOMATIS AND NEISSERIA GONORRHA, AMPLIFIED RNA (01/18/2017 11:31 EDT) Source Oral cavity [facility] C.trachomatis, Negative Negative [facility] Comment: [facility] (Note) SERVICES . ADDITIONAL INFORMATION ------ This report is intended for use in clinical monitoring and management of patients. ??It is not intended for use i n medical-legal applications. . This test has been modified from the workday senior associate's instructions. ??Its performance characteristics were determined by [facility] in a manner consistent with CLIA requirements. ??This test has not been cleared or appr reina by the U.S. Food and Drug Administration. Source ORAL/THROAT (PHARYNX OR [facility] PHARYNGEAL) [facility] N.gonorrhoeae, Negative Negative [facility] Site Comment: [facility] (Note) SERVICES . ADDITIONAL INFORMATION ------ This report is intended for use in clinical monitoring and management of patients. ??It is not intended for use i n medical-legal applications. . This test has been modified from the workday senior associate's instructions. ??Its performance characteristics were determined by [facility] in a manner consistent with CLIA requirements. ??This test has not been cleared or appr reina by the U.S. Food and Drug Administration. Performed or Referred by: [facility], [address] [place] [address], Lab Dir: Juan Daniel kenny II, M.D., Ph.D. Specimen Other (qualifier value) - Other Performing Organization Address City/[facility] Phon e Number [facility] [address] [place] [address] SERVICES documented in this encounter Visit Diagnoses Diagnosis Routine screening for STI (sexually shaikh smitted infection) - Primary Screening examination for venereal disea se Neurosyphilis in adult High risk sexual behavior Problems related to high-risk sexual beh avior High risk medication use Encounter for long-term (current) use of other medications documented in this encounter Discontinued Medications Medication Sig Discontinue Reason Start Date End Date prednisoLONE (PRED Reported on Patient Stopped 10/06/20162016 FORTE) 1 % ophthalmic 01/18/2017 Taking suspension emtricitabine-tenofovir Take 1 Tab by mouth Reorder 01/18/2017 , TDF, (TRUVADA) daily. 200-300 mg per tablet documented as of this encounter Care Teams Yarn Weight And Strength Tester Relationship Specialty Start Date End Date Chele Kessler MD PCP - General 09/07/15 11/21/[address] [place] [address] documented as of this encounter
--- OUTSIDE RECORDS SUMMARY | 2022-05-12 00:58 | XMS_ITS | Encounter Summary ---
:1960 Author Organization [facility] Address [address] [place] [id number] Care Team Providers Name Role Phone Chele Kessler MD Primary Care Provider Encounter Details Date Type Department Care Team Description 01/18/2017 Results Only [facility] Silvana Phelps MD Infectious Disease - [id number] [place] [phone] (Wo rk) Social History Tobacco Use Types [...] Office Visit Infectious Disease Silvana Phelps MD [address] [place] [phone] (Wo rk) documented as of this encounter Procedures Procedure Name Priority Date/Time Associated Comments Diagnosis RPR TITER, S REFLEX Routine 01/18/2017 11:36 Resu lts for this ORDER ONLY EDT procedure are i n the results section. URINALYSIS WITH Routine 01/18/2017 11:36 Results for this MICROSCOPIC IF EDT procedure are in POSITIVE the results section. UA REFLEX Routine 01/18/2017 11:36 Results for this EDT procedure are i n the results section. documented in this encounter Results RPR TITER, S REFLEX ORDER ONLY (01/18/2017 11:36 EDT) Pathologist Sig nature RPR Titer, S 1:[address] [facility] Comment: LABORATORY SERVICES (Note) Response to therapy is indicated by a > or =4-fold dec rease in titer between pre and post treatment samples. Howev er, a significant decrease in RPR titers may not occur for m onths to years following treatment, some patients may show persistent, low-level titers (e.g. serofast) despite adequate therapy. Performed by: [facility]: [facility] [address], [place] [address], Lab Dir: Juan Daniel Tolentino II, M.D., Ph.D. Specimen Blood Performing Organization Address City/[facility] Phon e Number [facility] LABORATORY [address] [place] [address] SERVICES UA REFLEX (01/18/2017 11:36 EDT) Pathologist Sig nature UA Billing Microscopic not [facility] indicated. LABORATORY SERVICES Specimen Urine Performing Organization Address [facility] Phon e Number [facility]ORY [address] [place] [address] SERVICES URINALYSIS WITH MICROSCOPIC IF POSITIVE (01/18/2017 11:36 EDT) Pathologist Sig nature Color, UA Yellow [facility] LABORATORY SERVICES Clarity, UA Hazy [facility] LABORATORY SERVICES Glucose, UA Neg Neg [facility] LABORATORY SERVICES Bilirubin, UA Neg [facility] LABORATORY SERVICES Ketones, UA Neg [facility] LABORATORY SERVICES Specific [place], <1.005 1.001 - 1.035 [facility] Urine LABORATORY SERVICES Blood, UA Neg [facility] LABORATORY SERVICES pH, UA 5.5 4.6 - 8.0 [facility] LABORATORY SERVICES Protein, UA Neg [facility] LABORATORY SERVICES Urobilinogen, UA 0.2 0.2 - 1.0 [facility] E.U./dl LABORATORY SERVICES Nitrite, [facility] LABORATORY SERVICES Leuk Esterase Neg [facility] LABORATORY SERVICES Specimen Urine Performing Organization Address [facility] Phon e Number [facility]ATORY [address] [place] [address] SERVICES documented in this encounter Visit Diagnoses Not on filedocumented in this encounter Care Teams Repair Operator Relationship Specialty Start Date End Date Chele Kessler MD PCP - General 09/07/15 11/21/[address] [place] [address] documented as of this encounter
--- OUTSIDE RECORDS SUMMARY | 2022-05-12 00:58 | XMS_ITS | Encounter Summary ---
:[address] [facility] Address [address] [place] [address] Care Team Providers Name Role Phone Chele Becker Primary Care Provider Reason for Visit Reason Comments Follow-up Encounter Details Date Type Department Care Team Description 02/18/2018 Office Visit [facility] Silvana Phelps Med icaeryn monitoring encounter (Primary Dx); Infectious Disease - MD Routine screening for STI (sexually shaikh smitted infection); [address] History of syphilis [address] [place], [place] [phone] [place] [address] [facility] [address] [place] [phone] (Wo rk) Social History Tobacco Use Types Packs/Day Years Used Date Never Smoker Alcohol Use Standard Drinks/Week Comments Yes 14 (1 standard drink = 0.6 oz pure alcoh ol) Sex Assigned at Date Recorded Not on file documented as of this encounter Last Filed Vital Signs Vital Sign Reading Time Taken Comments Blood Pressure 116/74 02/18/2018 1150 EDT Pulse 54 02/18/2018 1150 EDT Temperature 36.4 ??C (97.6 ??F) 02/18/2018 1150 EDT Respiratory Rate - - Oxygen Saturation - - Inhaled Oxygen Concentration - - Weight - - Height - - Body Mass Index - - documented in this encounter Discharge Diagnoses Diagnosis Z51.81 Encounter for therapeutic drug le wes monitoring-Z51.81[ICD-10-CM] Z11.3 Encounter for screening for infect ions with a predominantly sexual mode of transmission-Z11.3[ICD-10-CM] Z86.19 Personal history of other infecti ous and parasitic diseases-Z86.19[ICD-10-CM] documented in this encounter Ordered Prescriptions Prescription Sig Dispensed Refills Start Date End Date emtricitabine-tenofovir, Take 1 Tab by mouth 30 Tab 2 05/21/2018 TDF, (TRUVADA) 200-300 mg daily for 30 days. per tablet documented in this encounter Progress Notes Alena Sesay RN - 02/18/2018 1200 EDT Labs drawn from right anticubital without incident. I was supervised by Dr. Phelps who was present and immediately available in the office suite. ALENA SESAY RN 02/18/2018 12:40 Silvana Portillo MD - 02/18/2018 1200 EDT Division of Infectious Disease Follow up/Progress Note Date: 02/18/18 Chief Complaint: Occular syphilis, HIV prevention, unprotected sex History of present illness: 57 y/o male presents today for interval evaluation following episode of occular syphilis and ongoingmonitoring related to use of PrEP. Mr. Hughes reports he's feeling well. Continues to take his Truvadafaithfully. Rarely will miss one dose Has not had any side effects. Vision has been stable. Still sees a smudge or film when looking through his right eye but is not different. No HAs. Has had some episodes of feeling lightheaded if he bends over though unchanged. Is doing a lot of gardening which he's enjoying. Gout is bothering him this week so he's wondering if the ibuprofen he's taking will have any impact on his kidneys. Overall feels well. Has had unprotected oral and genital intercourse. Interested in HCV screening as well. PMHx: 1. Gout. 2. Occular syphilis. Panuveitis, [...] 10 point ROS is negative. Objective: BP 116/74 (BP Cuff Location: Left arm, Patient Position: Sitting, BP Cuff Sizes: Adult, large) Pulse 54 Temp 36.4 ??C (97.6 ??F) (Tympanic) Gen: Alert, oriented. NAD. Looks well. HEENT: Anicteric. PERRL. EOMI and pain-free. Oral mucosa moist. No thrush. No ulcerations. Neck: supple. COR: RRR. No murmer. Lungs: CTA. Mssk: No obvious joint effusions or warmth. ROM appears pain-free. Integ: No rash. No LE edema. LABS: Due for labs today. Labs from 11/21/17 RPR negative (down from 1:256 and stable from 07/26/17). HIV ab negative. Oropharyngeal GC and chlamydia negative Urine GC and chlamydia negative. Cr 1.16 AST 29 ALT 37 Alk phos59 TB 0.6 Prior labs: 10/02/16: Syphilis ab positive, RPR [...] of IM PCN. Most recently with negative RPR. No evidence today to suggest relapse. Plan to repeat lab RPR today to assure remains stable. 2. High risk for HIV acquisition. Agree with continuing PrEP to minimize risk for acquisition. Due for Cr, electrolytes and HIV ab today. Site specific chlamydia and gonorrhea testing also performed, if positive will treat. Adherence reviewed and discussed importance of stable drug levels in serum to m aximize prevention measures with PrEP. Rx renewed today forTruvada 1 PO daily X 3 months. 3. Elevated Cr. Though CrCl recently > 70. Will continue to monitor closely. 4. Vision changes. Stable at this time. No evidence to suggest new or relapsed occular syphilis. Would continue to monitor. 5. Syphilis exposure. Treated X 1 06/3017. 6. Unprotected sex--OP and penile exposure. Screening performed today. Will treat if positive. 7. Irreg HR. Reportedly cardiac eval has been unrevealing. Plan: 1. Continue Truvada--1 PO daily--I re-ordered 3 months. 2. Labs today--HIV ab, CMP, phos, urine GC/chlam, OP GC and chlam; RPR, HCV ab. I will call him with results. 3. If all stable, plan for f/u in 3 months. Silvana Phelps MD 02/18/2018 11:55 documented in this encounter Plan of Treatment Upcoming Encounters Date Type Specialty Care Team Description 05/30/2022 Nurse Only Infectious Disease Nurse, Elsa, RN 08/10/2022 Office Visit Infectious Disease Silvana Phelps MD [address] [facility] [address] [place] [phone] (Wo rk) documented as of this encounter Procedures Procedure Name Priority Date/Time Associated Diagnosis Comme nts RPR SCREEN, RESPONSE Routine 02/18/2018 12:26 History of syphi lis Results for this TO THERAPY, S EDT procedure are in the results section. HEPATITIS C AB W Routine 02/18/2018 12:26 Routine screening Re sults for this REFLEX TO HCV RNA BY EDT for STI (sexually pr ocedure are in PCR transmitted the results infection) section. HIV 1/2 ANTIGEN AND Routine 02/18/2018 12:26 Routine screening Results for this ANTIBODY, 4TH EDT for STI (sexually procedure are in GENERATION transmitted the results infection) section. BASIC METABOLIC Routine 02/18/2018 12:26 Medication Results for this PANEL (BMP) EDT monitoring encounter procedu re are in the results section. N. GONORRHOEAE AND Routine 02/18/2018 12:13 Routine screening Results for this CHLAMYDIA EDT for STI (sexually procedure are in TRACHOMATIS, MISC transmitted the result s SITES, AMPLIFIED RNA infection) section . CHLAMYDIA/N. Routine 02/18/2018 12:13 Routine screening Result s for this GONORRHOEAE EDT for STI (sexually procedure are in AMPLIFIED RNA, URINE transmitted the res ults infection) section. documented in this encounter Results RPR, RESPONSE - ID USE ONLY (02/18/2018 12:26 EDT) Pathologist Sig nature RPR, Response Negative Negative [facility] Comment: LABORATORY SERVICES (Note) . ADDITIONAL INFORMATION ------ This test is intended for monitoring response to thera py in patients that have been previously diagnosed with Syph ilis. This test should not be used to screen Syphilis. Performed by: [facility]: [facility] [address], [place] [address], Lab Dir: Juan Daniel Tolentino II, M.D., Ph.D. Specimen Blood Performing Organization Address [facility] Phon e Number [facility]ORATORY [address] [place] [address] SERVICES HIV 1/2 ANTIGEN AND ANTIBODY, 4TH GENERATION (02/18/2018 12:26 EDT) HIV 1/2 Antibody Negative Negative [facility] Comment: LABORATORY SERVICES Fourth generation assay performed on the Siemens HungerTimeaur. If acute HIV-1 infection is suspected in a high risk patient, submit plasma specimen for HIV-1 RNA quantification test. The results of this assay can be falsely lowered due to the consumption of Biotin. Specimen Blood specimen (specimen) - Blood Performing Organization Address City/[facility]/ZIP Code Phon e Number [facility]ORY [address] [place] [address] SERVICES HEPATITIS C AB W REFLEX TO HCV RNA BY PCR (02/18/2018 12:26 EDT) Hep C Ab w Rfx PCR Negative Negative [facility]CS[facility] Comment: LABORATORY The results of this assay can be falsely SERVICES lowered due to the consumption of Biotin. Specimen Blood specimen (specimen) - Blood Performing Organization Address [facility]/ZIP [facility] Phon e Number [facility]ORY [address] [place] [address] SERVICES BASIC METABOLIC PANEL (BMP) (02/18/2018 12:26 EDT) Sodium 141 136 - 145 [facility] mEq/L LABORATORY SERVICES Potassium 4.3 3.5 - 5.0 [facility] mEq/L LABORATORY SERVICES Chloride 107 96 - 110 [facility] mEq/L LABORATORY SERVICES CO2 24 22 - 32 mEq/L [facility] LABORATORY SERVICES BUN 12 10 - 26 mg/dl [facility] LABORATORY SERVICES Creatinine 1.14 0.66 - 1.25 [facility] mg/dl LABORATORY SERVICES GFR, Calculated 72 >60 [facility] Comment: ml/min/1.73m2 LABORATORY eGFR calculated using CKD-EPI equation for SERVICES non Americans. Multiply eGFR by 1.16 for Americans. Calcium 9.5 8.5 - 10.5 [facility] mg/dl LABORATORY SERVICES Calculated Calcium 9.1 8.5 - 10.5 [facility] mg/dl LABORATORY SERVICES Glucose, Serum 94 70 - 100 [facility] mg/dl LABORATORY SERVICES Fasting? Unknown [facility] LABORATORY SERVICES Specimen Blood specimen (specimen) - Blood Performing Organization Address City/State/ZIP Code Phon e Number [facility]ORY [address] [place] [address] SERVICES N. GONORRHOEAE AND CHLAMYDIA TRACHOMATIS, [employer] [facility] [employer] SITES, AMPLIFIED RNA (02/18/2018 12:13 EDT) Source Oral cavity [facility] LABORATORY SERVICES C.trachomatis, Negative Negative [facility] Comment: [facility] (Note) SERVICES . ADDITIONAL INFORMATION ------ This report is intended for use in clinical monitoring and management of patients. ??It is not intended for use i n medical-legal applications. . This test has been modified from the air vice marshal's instructions. ??Its performance characteristics were determined by [facility] in a manner consistent with CLIA requirements. ??This test has not been cleared or appr reina by the U.S. Food and Drug Administration. Source ORAL/THROAT (PHARYNX OR [facility] PHARYNGEAL) CENTER LABORATORY SERVICES N.gonorrhoeae, Negative Negative [facility] M[facility] Comment: [facility] (Note) SERVICES . ADDITIONAL INFORMATION ------ This report is intended for use in clinical monitoring and management of patients. ??It is not intended for use i n medical-legal applications. . This test has been modified from the air vice marshal's instructions. ??Its performance characteristics were determined by [facility] in a manner consistent with CLIA requirements. ??This test has not been cleared or appr reina by the U.S. Food and Drug Administration. Performed or Referred by: [facility], [address] [place] [address], Lab Dir: Juan Daniel kenny II, M.D., Ph.D. Specimen Other (qualifier value) - Other Performing Organization Address City/[facility]/ZIP Code Phon e Number [facility] [address] [place] [address] SERVICES CHLAMYDIA/N. GONORRHOEAE AMPLIFIED RNA, URINE (02/18/2018 12:13 EDT) Pathologist Sig nature Chlamydia Result Negative [facility] LABORATORY SERVICES GC Result Negative [facility] LABORATORY SERVICES Specimen Other (qualifier value) - Urine Performing Organization Address City/[facility] Phon e Number [facility] [address] [place] [address] SERVICES documented in this encounter Visit Diagnoses [...] Take 1 Tab by mouth Reorder 8 02/18/2018 TDF, (TRUVADA) 200-300 mg daily for 30 days. per tablet documented as of this encounter Care Teams Pressurised Container Filler Relationship Specialty Start Date End Date Chele Becker DO PCP - General 11/22/17 04/26/20 documented as of this encounter
--- OUTSIDE RECORDS SUMMARY | 2022-05-12 00:58 | XMS_ITS | Encounter Summary ---
:1960 Author Organization [facility] Address [address] [place] [address] Care Team Providers Name Role Phone Chele Kessler MD Primary Care Provider Reason for Visit Reason Comments Follow-up Encounter Details Date Type Department Care Team Description 08/15/2017 Office Visit [facility] Silvana Phelps Rou tine screening for STI (sexually transmitted infection) (Primary Dx); Infectious Disease - MD High risk medication use; [address] History of syphilis [address] [place], [place] [id number] [place] [address] [facility] [address] [place] [address] (Wo rk) Social History Tobacco Use Types Packs/Day Years Used Date Never Smoker Alcohol Use Standard Drinks/Week Comments Yes 14 (1 standard drink = 0.6 oz pure alcoh ol) Sex Assigned at Date Recorded Not on file documented as of this encounter Last Filed Vital Signs Vital Sign Reading Time Taken Comments Blood Pressure 133/78 08/15/2017 1055 EST Pulse 59 08/15/2017 1055 EST Temperature 35.6 ??C (96 ??F) 08/15/2017 1055 EST Respiratory Rate - - Oxygen Saturation - - Inhaled Oxygen Concentration - - Weight 90.7 kg (200 lb) 08/15/2017 1055 EST Pt Reported Height - - Body Mass Index 31.32 10/05/2016 0000 EST documented in this encounter Discharge Diagnoses Diagnosis Z11.3 Encounter for screening for infect ions with a predominantly sexual mode of transmission-Z11.3[ICD-10-CM] Z79.899 Other superintendent container terminal (current) drug t herapy-Z79.899[ICD-10-CM] Z86.19 Personal history of other infecti ous and parasitic diseases-Z86.19[ICD-10-CM] documented in this encounter Ordered Prescriptions Prescription Sig Dispensed Refills Start Date End Date emtricitabine-tenofovir, Take 1 Tab by mouth 30 Tab 3 09/14/2017 TDF, (TRUVADA) 200-300 mg daily for 30 days. per tablet documented in this encounter Progress Notes Deyanira Isidro RN - 08/15/2017 1100 EST Labs drawn from right arm antecubital vein as ordered without incident. I was supervised by Dr. Phelps who was present and immediately available in the office suite. Deyanira Isidro RN 08/15/2017 11:40 Silvana Castro MD - 08/15/2017 1100 EST Division of Infectious Disease Follow up/Progress Note Date: 08/15/17 Chief Complaint: Occular syphilis, HIV prevention, unprotected sex, vision changes History of present illness: 56 y/o male presents today for interval evaluation s/p recent vision changes and syphilis exposure, in setting of prior episode of occular syphilis and ongoing monitoring related to use of PrEP. Patient is generally healthy. Has a history of Thallasemia trait and gout. Is a MSM and was evaluated at the [facility] for consideration of PrEP in Aug 2015. At that time, syphilis ab was negative. Was started on Truvada for PrEP. Reportedly adherent with daily administration with possibly one missed dose every other month. Has had multiple sexual partners, both HIV positive as well as HIV negative, most times unprotected intercourse. No prior history of STI. Doing generally well until on 09/25/16 noted right eye irritation. Eventually saw his core maker helper on 09/29. Referred to retinal specialist, Dr. Cutler. She saw him on 10/02/16. Concern raised for ARN and multiple labs obtained, including syphilis ab. Was treated empirically with valacyclovir though had progression of retinal lesion on re-eval 10/04. Syphilis ab returned positive and patient referred to the ED for additional evaluation that same day. He was started on high dose PCN G 4 million units Q 4. By the time I saw him on 10/05, his RPR had returned at 1:256. LP performed which revealed normal chemistries and 3 WBC. VDRL eventually negative. HIV ab negativ e. A PICC was placed and he was d/c'd home on high dose IV PCN G, which he received X 14 days. Therapy d/c'd on 10/18. He's had decreasing RPR titers since completing treatment. On 07/26, presented for acute evaluation given vision changes and exposure to partner who had just tested positive for syphilis. He had repeat lab screening that day (07/26) and re-evaluation with Dr. Cutler to reassess his retina. He also received a dose of IM PCN. His ophtho eval was stable. Additional STI screening negative, including HIV ab, site specific GC/chlamydia. He presents today for re-eval. Mr. Hughes reports he's feeling well. Vision remains abnormal but unchanged from what it's been. He's not felt ill. He is planning to undergo additional cardiac testing for irregular heart rate noted while in clinic last--plans for Holter, stress test in the next few weeks. He continues to have 100% adherence with his Truvada. Takes his pill in the am. Has had unprotected sex, usually OP and insertive penile. Agrees to repeat screening today. PMHx: 1. Gout. 2. Occular syphilis. Panuveitis, [...] 10 point ROS is negative. Objective: BP 133/78 Pulse 59 Temp (!) 35.6 ??C (96 ??F) (Tympanic) Wt 90.7 kg (200 lb) Comment: Pt Reported BMI 31.32 kg/m2 Gen: Alert, oriented. NAD. Looks well. HEENT: Anicteric. PERRL. EOMI and pain-free. Oral mucosa moist. No thrush. Cryptic tonsils pink though no exudate or ulcers. Does have mucous coating his posterior oropharynx. Neck: supple. COR: Regular.. No murmer noted today. Lungs: CTA. Mssk: No obvious joint effusions or warmth. ROM appears pain-free. Integ: No rash. No LE edema. LABS: Labs from 07/26: RPR 1:1 (down from 1:256). HIV ab negative. HCV ab negative. Oropharyngeal GC and chlamydia negative Urine GC and chlamydia negative. Prior labs: 10/02/16: Syphilis ab positive, RPR 1:256. HIV ab negative Lyme ab negative 10/05: CSF WBC 3, RBC 0, gluc 69, prot 46; VDRL negative 09/08/15 ([facility]) HIV ab negative Syphilis ab negative HAV ab positive. HBV ab indeterminate, surface antigen negative, core ab negative HCV ab negative Radiology: No interval imaging. Impression: 1. 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 No evidence of meningitis via LP though retinal disease required treatment for neurosyphilis. Although with recent new syphilis exposure, repeat RPR improved, no evidence of retinitis via ophtho exam to suggest recurrence. Received one dose of IM PCN given sexual exposure. No indication today to suggest need for repeat LP or additional PCN treatment. Plan to repeat lab RPR today to assure remains stable. 2. High risk for HIV acquisition. Agree with continuing PrEP to minimize risk for acquisition. Discussed plan to monitor Cr, electrolytes, proteinuria Q3-4 months moving forward--due today.. Recent site specific chlamydia and gonorrhea testing negative--though have repeated today given recent unprotected exposure. Adherence reviewed and discussed importance of stable drug levels in serum to maximize prevention measures with PrEP. Rx renewed today forTruvada 1 PO daily. Discussed safer sex, use of condoms, regular screening for STI, including HIV with unprotected sex. 3. Elevated Cr. Though CrCl recently 72. Will continue to monitor closely. 4. Vision changes. Though recent ophtho exam reassuring and RPR decreased. No evidence to suggest new or relapsed occular syphilis. Would continue to monitor. 5. Syphilis exposure. Treated X 1 07/26. 6. Unprotected sex--OP and penile exposure. Screening negative for GC/chlamydia as well as HIV, though will repeat today. 7. Irreg HR. PCP is evaluating this. Plan: 1. Continue Truvada--1 PO daily--I re-ordered 3 months. 2. Labs today--HIV ab, CMP, phos, urine GC/chlam, OP GC and chlam; RPR. I will call him with results. 3. If all stable, plan for f/u in 3 months. 4. Agree with cardiac eval. Silvana Phelps MD 08/15/2017 11:15 documented in this encounter Plan of Treatment Upcoming Encounters Date Type Specialty Care Team Description 05/30/2022 Nurse Only Infectious Disease Nurse, Elsa, RN 08/10/2022 Office Visit Infectious Disease Silvana Phelps MD [address] [facility], [facility] [address] [place] [address] (Wo rk) documented as of this encounter Procedures Procedure Name Priority Date/Time Associated Comments Diagnosis RPR SCREEN, RESPONSE Routine 08/15/2017 11:30 Routine screenin g Results for this TO THERAPY, S EST for STI (sexually procedure are in transmitted the results infection) section. History of syphilis HIV 1/2 ANTIGEN AND Routine 08/15/2017 11:30 Routine screening Results for this ANTIBODY, 4TH EST for STI (sexually procedure are in GENERATION transmitted the results infection) section. PHOSPHORUS Routine 08/15/2017 11:30 Routine screening Result s for this EST for STI (sexually procedure are in transmitted the results infection) section. High risk medication use COMPREHENSIVE Routine 08/15/2017 11:30 Routine screening Resul ts for this METABOLIC PANEL (CMP) EST for STI (sexually p rocedure are in transmitted the results infection) section. High risk medication use N. GONORRHOEAE AND Routine 08/15/2017 11:12 Routine screening Results for this CHLAMYDIA TRACHOMATIS, EST for STI (sexually procedure are in [facility], AMPLIFIED transmitted the re sults RNA infection) section. CHLAMYDIA/N. Routine 08/15/2017 11:12 Routine screening Result s for this GONORRHOEAE AMPLIFIED EST for STI (sexually p rocedure are in RNA, URINE transmitted the results infection) section. documented in this encounter Results (ABNORMAL) RPR, RESPONSE - ID USE ONLY (08/15/2017 11:30 EST) Pathologist Sig nature RPR, Response Positive (A) Negative [facility] Comment: LABORATORY SERVICES (Note) Specimen reflexed to determine RPR titer value. . ADDITIONAL INFORMATION ------ This test is intended for monitoring response to thera py in patients that have been previously diagnosed with Syph ilis. This test should not be used to screen Syphilis. Performed by: [facility] Labs: [address], [place] [address], Lab Dir: Juan Daniel Tolentino II, M.D., Ph.D. Specimen Blood Performing Organization Address [facility] Phon e Number [facility] [address] [place] [address] SERVICES HIV 1/2 ANTIGEN AND ANTIBODY, 4TH GENERATION (08/15/2017 11:30 EST) HIV 1/2 Antibody Negative Negative [facility] Comment: LABORATORY SERVICES Fourth generation assay performed on the Siemens Yooviaur. If acute HIV-1 infection is suspected in a high risk patient, submit plasma specimen for HIV-1 RNA quantification test. Specimen Blood specimen (specimen) - Blood Performing Organization Address [facility]/ZIP [facility] Phon e Number [facility] [address] [place] [address] SERVICES PHOSPHORUS (08/15/2017 11:30 EST) Pathologist Sig nature Phosphorus 2.9 2.5 - 4.5 mg/dl [facility]ORA TORY SERVICES Specimen Blood specimen (specimen) - Blood Performing Organization Address City/[facility]/ZIP [facility] Phon e Number [facility] [address] [place] [address] SERVICES COMPREHENSIVE METABOLIC PANEL (CMP) (08/15/2017 11:30 EST) Potassium 4.5 3.5 - 5.0 [facility] mEq/L [facility] Sodium 145 136 - 145 [facility] mEq/L [facility] Chloride 106 96 - 110 [facility] mEq/L [facility] CO2 26 22 - 32 mEq/L [facility] SERVICES Total Alkaline 68 38 - 126 U/L [facility] Phosphatase [facility] Bilirubin, Total 0.7 <1.4 mg/dl [facility] SERVICES AST 33 15 - 46 U/L [facility] SERVICES ALT 47 21 - 72 U/L [facility] SERVICES Albumin 4.6 3.4 - 4.9 [facility] g/dl [facility] Total Protein 7.5 6.3 - 8.2 [facility] g/dl [facility] Creatinine 1.08 0.66 - 1.25 [facility] mg/dl [facility] GFR, Calculated 77 >60 [facility] Comment: ml/min/1.73m2 [facility] eGFR calculated using CKD-EPI equation for SERVICES non Americans. Multiply eGFR by 1.16 for Americans. BUN 12 10 - 26 mg/dl [facility] SERVICES Calcium 9.7 8.5 - 10.5 [facility] mg/dl [facility] Calculated Calcium 9.2 8.5 - 10.5 [facility] mg/dl [facility] Glucose, Serum 83 70 - 100 [facility] mg/dl [facility] Fasting? Unknown [facility] Specimen Blood specimen (specimen) - Blood Performing Organization Address City/State/ZIP Code Phon e Number [facility] [address] [place] [address] SERVICES N. GONORRHOEAE AND CHLAMYDIA TRACHOMATIS, [facility] SITES, AMPLIFIED RNA (08/15/2017 11:12 EST) Source ORAL/THROAT [facility] SERVICES C.trachomatis, Negative Negative [facility] Comment: [facility] (Note) SERVICES . ADDITIONAL INFORMATION ------ This report is intended for use in clinical monitoring and management of patients. ??It is not intended for use i n medical-legal applications. . This test has been modified from the furnace room supervisor's instructions. ??Its performance characteristics were determined by [facility] in a manner consistent with CLIA requirements. ??This test has not been cleared or appr reina by the U.S. Food and Drug Administration. Source ORAL/THROAT (PHARYNX OR [facility] PHARYNGEAL) [facility] N.gonorrhoeae, Negative Negative [facility] Comment: [facility] (Note) SERVICES . ADDITIONAL INFORMATION ------ This report is intended for use in clinical monitoring and management of patients. ??It is not intended for use i n medical-legal applications. . This test has been modified from the furnace room supervisor's instructions. ??Its performance characteristics were determined by [facility] in a manner consistent with CLIA requirements. ??This test has not been cleared or appr reina by the U.S. Food and Drug Administration. Performed or Referred by: [facility] Labs [facility], [address] [place] [address], Lab Dir: Juan Daniel kenny II, M.D., Ph.D. Specimen Other (qualifier value) - Other Performing Organization Address City/[facility]/ZIP Code Phon e Number [facility] [address] [place] [address] SERVICES CHLAMYDIA/N. GONORRHOEAE AMPLIFIED RNA, URINE (08/15/2017 11:12 EST) Pathologist Sig nature Chlamydia Result Negative [facility] SERVICES GC Result Negative [facility] SERVICES Specimen Other (qualifier value) - Urine Performing Organization Address City/[facility] Phon e Number [facility] [address] [place] [address] SERVICES documented in this encounter Visit Diagnoses Diagnosis Routine screening for STI (sexually shaikh smitted infection) - Primary Screening examination for venereal disea se High risk medication use Encounter for long-term (current) use of other medications History of syphilis Personal history of other infectious and parasitic disease documented in this encounter Discontinued Medications Medication Sig Discontinue Reason Start Date End Date emtricitabine-tenofovir, Take 1 Tab by mouth Reorder 08/15/2017 TDF, (TRUVADA) 200-300 mg daily. per tablet documented as of this encounter Care Teams Beverage Manager Relationship Specialty Start Date End Date Chele Kessler MD PCP - General 09/07/15 11/21/17 [address] [place], [place] [address] documented as of this encounter
--- OUTSIDE RECORDS SUMMARY | 2022-05-12 00:58 | XMS_ITS | Encounter Summary ---
:1960 Author Organization [facility] Address [address] [place] [address] Care Team Providers Name Role Phone Chele Becker Primary Care Provider Encounter Details Date Type Department Care Team Description 11/25/2018 Hospital Encounter [facility] - Abdoulaye Phelps MD [address] [address] [address], [place] [id number] (Wo rk) Social History Tobacco Use Types Packs/Day Years Used Date Never Smoker Smokeless Tobacco: Never Used Alcohol Use Standard Drinks/Week Comments Yes 14 (1 standard drink = 0.6 oz pure alcoh ol) Sex Assigned at Date Recorded Not on file documented as of this encounter Discharge Diagnoses Diagnosis Z11.3 Encounter for screening for infect ions with a predominantly sexual mode of transmission-Z11.3[ICD-10-CM] Z51.81 Encounter for therapeutic drug le wes monitoring-Z51.81[ICD-10-CM] Z86.19 Personal history of other infecti ous and parasitic diseases-Z86.19[ICD-10-CM] documented in this encounter Medications at Time of Discharge Medication Sig Dispensed Refills Start Date End Date emtricitabine-tenofovir, Take 1 tablet by 30 tablet 2 11/2503/20/2019 TDF, (TRUVADA) 200-300 mg mouth daily. per tablet documented as of this encounter Discharge Disposition Disposition Code Departure Means Destination Auto Discharge Home documented in this encounter Plan of Treatment Upcoming Encounters Date Type Specialty Care Team Description 05/30/2022 Nurse Only Infectious Disease Nurse, Id, RN 08/10/2022 Office Visit Infectious Disease Silvana Phelps MD [address] [facility], [address] [place], [place] [address] (Wo rk) documented as of this encounter Visit Diagnoses Not on filedocumented in this encounter Care Teams Fiber Picker Relationship Specialty Start Date End Date Chele Becker DO PCP - General 11/22/17 04/26/20 documented as of this encounter
--- OUTSIDE RECORDS SUMMARY | 2022-05-12 00:58 | XMS_ITS | Encounter Summary ---
:1960 Author Organization Address [address] [place] [address] Care Team Providers Name Role Phone Chele Becker Primary Care Provider Encounter Details Date Type Department Care Team Description 08/29/2018 Phlebotomy Only [facility] Sulphate TesterKendall screening for STI (sexually transmitted infection); - [facility] Outpatient History of syphilis; [address] [facility] Medication monitoring encoun ter [place], [place] [address] Social History Tobacco Use Types Packs/Day Years [...] Visit Infectious Disease Silvana Phelps MD [address] [facility], [address] [place], [place] [address] (Wo rk) documented as of this encounter Procedures Procedure Name Priority Date/Time Associated Comments Diagnosis RPR SCREEN, RESPONSE Routine 08/29/2018 9:43 Routine screening Results for this TO THERAPY, S EST for STI (sexually procedure are in transmitted the results infection) section. History of syphilis HIV 1/2 ANTIGEN AND Routine 08/29/2018 9:43 Medication Resul ts for this ANTIBODY, 4TH EST monitoring procedure are in GENERATION encounter the results Routine screening section. for STI (sexually transmitted infection) PHOSPHORUS Routine 08/29/2018 9:43 Medication Results for this EST monitoring procedure are i n encounter the results section. COMPREHENSIVE Routine 08/29/2018 9:43 Medication Results for this METABOLIC PANEL (CMP) EST monitoring proced ure are in encounter the results section. documented in this encounter Results HIV 1/2 ANTIGEN AND ANTIBODY, 4TH GENERATION (08/29/2018 9:43 EST) HIV 1/2 Antibody Negative Negative [facility] Comment: LABORATORY SERVICES Fourth generation assay performed on the Siemens Centaur. If acute HIV-1 infection is suspected in a high risk patient, submit plasma specimen for HIV-1 RNA quantification test. Specimen Blood specimen (specimen) - Blood Performing Organization Address [facility] Phon e Number [facility] [address] [place] [address] SERVICES COMPREHENSIVE METABOLIC PANEL (CMP) (08/29/2018 9:43 EST) Pathologist [facility] Potassium 4.5 3.5 - 5.0 [facility] mEq/L [facility] Sodium 142 136 - 145 [facility] mEq/L [facility] Chloride 108 96 - 110 [facility] mEq/L [facility] CO2 24 22 - 32 mEq/L [facility] SERVICES Total Alkaline 58 38 - 126 U/L [facility] Phosphatase [facility] Bilirubin, Total 0.7 <1.4 mg/dl [facility] SERVICES AST 30 15 - 46 U/L [facility] SERVICES ALT 41 21 - 72 U/L [facility] SERVICES Albumin 4.6 3.4 - 4.9 [facility] g/dl [facility] Total Protein 6.8 6.3 - 8.2 [facility] g/dl [facility] Creatinine 1.13 0.66 - 1.25 [facility] mg/dl [facility] GFR, Calculated 73 >60 [facility] Comment: ml/min/1.73m2 [facility] eGFR calculated using CKD-EPI equation for SERVICES non Americans. Multiply eGFR by 1.16 for Americans. BUN 13 10 - 26 mg/dl [facility] SERVICES Calcium 9.5 8.5 - 10.5 [facility] mg/dl [facility] Calculated Calcium 9.0 8.5 - 10.5 [facility] mg/dl [facility] Glucose, Serum 100 70 - 100 [facility] mg/dl [facility] Fasting? No [facility] SERVICES Specimen Blood specimen (specimen) - Blood Performing Organization Address City/[facility]/ZIP Code Phon e Number [facility] [address] [place] [address] SERVICES PHOSPHORUS (08/29/2018 9:43 EST) Pathologist Sig nature Phosphorus 2.6 2.5 - 4.5 mg/dl [facility]ORA TORY SERVICES Specimen Blood specimen (specimen) - Blood Performing Organization Address [facility] Phon e Number [facility] [address] [place] [address] SERVICES RPR, RESPONSE - ID USE ONLY (08/29/2018 9:43 EST) Pathologist Sig nature RPR, Response Negative Negative [facility] Comment: LABORATORY SERVICES (Note) . ADDITIONAL INFORMATION ------ This test is intended for monitoring response to thera py in patients that have been previously diagnosed with Syph ilis. This test should not be used to screen Syphilis. Performed by: [facility] Labs: [address] [facility], [place] [address] Specimen Blood Performing Organization Address [facility] e Number [facility] [address] [place] [address] SERVICES documented in this encounter Visit Diagnoses Diagnosis Routine screening for STI (sexually shaikh smitted infection) Screening examination for venereal disea se History of syphilis Personal history of other infectious and parasitic disease Medication monitoring encounter Encounter for therapeutic drug monitorin g documented in this encounter Care Teams Mail Sorting Supervisor Relationship Specialty Start Date End Date Chele Becker DO PCP - General 11/22/17 04/26/20 documented as of this encounter
--- OUTSIDE RECORDS SUMMARY | 2022-05-12 00:58 | XMS_ITS | Encounter Summary ---
:1960 Author Organization [facility] Address [address] [place] [address] Care Team Providers Name Role Phone Chele Becker Primary Care Provider Encounter Details Date Type Department Care Team Description 03/20/2019 Hospital Encounter [facility] - Abdoulaye Phelps MD [address] [place] [phone] (Wo rk) Social History Tobacco Use Types Packs/Day Years Used Date Never Smoker Smokeless Tobacco: Never Used Alcohol Use Standard Drinks/Week Comments Yes 14 (1 standard drink = 0.6 oz pure alcoh ol) Sex Assigned at Date Recorded Not on file documented as of this encounter Discharge Diagnoses Diagnosis Z86.19 Personal history of other infecti ous and parasitic diseases-Z86.19[ICD-10-CM] Z11.3 Encounter for screening for infect ions with a predominantly sexual mode of transmission-Z11.3[ICD-10-CM] documented in this encounter Medications at Time of Discharge Medication Sig Dispensed Refills Start Date End Date emtricitabine-tenofovir, Take 1 Tab by mouth 30 Tab 2 06/13/2019 TDF, (TRUVADA) 200-300 mg daily. per tablet documented as of this encounter Discharge Disposition Disposition Code Departure Means Destination Auto Discharge Home documented in this encounter Plan of Treatment Upcoming Encounters Date Type Specialty Care Team Description 05/30/2022 Nurse Only Infectious Disease Nurse, Id, RN 08/10/2022 Office Visit Infectious Disease Silvana Phelps MD [address] [place] [address], [address] 5 [place], [place] [phone] (Wo rk) documented as of this encounter Visit Diagnoses Not on filedocumented in this encounter Care Teams Buttermaker Continuous Churn Relationship Specialty Start Date End Date Chele Becker DO PCP - General 11/22/17 04/26/20 documented as of this encounter
--- OUTSIDE RECORDS SUMMARY | 2022-05-12 00:58 | XMS_ITS | Encounter Summary ---
:1960 Author Organization [facility] Address [address] [place] [address] Care Team Providers Name Role Phone Chele Kessler MD Primary Care Provider Reason for Visit Reason Onset Date Comments Other 07/23/2017 Encounter Details Date Type Department Care Team Description 07/23/2017 Telephone [facility] Silvana Phelps MD Other Infectious Disease - [address], [address], [address] [place], [place] [phone] [place] [phone] (Wo rk) Social History Tobacco Use Types Packs/Day Years Used Date Never Smoker Alcohol Use Standard Drinks/Week Comments Yes 14 (1 standard drink = 0.6 oz pure alcoh ol) Sex Assigned at Date Recorded Not on file documented as of this encounter Miscellaneous Notes Telephone Encounter - Alena Sesay RN - 07/23/2017 1249 EST Patient preferred to come to clinic to be tested instead of going to [facility]. Appt forthis at 9:30 am with Ayesha Jeffries NP. Suggested using condoms or abstinence while waiting for appointment. ALENA SESAY RN elephone Encounter - Lindsay Sanchez - 07/23/2017 1055 EST Beth stated a partner of his just tested positive for syphilis. He would like to know if he should be seen to be tested. He would a call back at [phone]. documented in this encounter Plan of Treatment Upcoming Encounters Date Type Specialty Care Team Description 05/30/2022 Nurse Only Infectious Disease Nurse, Elsa, RN 08/10/2022 Office Visit Infectious Disease Silvana Phelps MD [address] [facility], [facility] 5 [place], [place] [phone] (Wo rk) documented as of this encounter Visit Diagnoses Not on filedocumented in this encounter Care Teams Dispatch Manager Relationship Specialty Start Date End Date Chele Kessler MD PCP - General 09/07/15 11/21/17 [address] [place] [address] documented as of this encounter
--- OUTSIDE RECORDS SUMMARY | 2022-05-12 00:58 | XMS_ITS | Encounter Summary ---
:1960 Author Organization [facility] Address [address] [place] [address] Care Team Providers Name Role Phone Chele Kessler MD Primary Care Provider Encounter Details Date Type Department Care Team Description 08/15/2017 Results Only [facility] Silvana Phelps MD Infectious Disease - [phone] [place] [phone] (Wo rk) Social History Tobacco Use Types [...] Office Visit Infectious Disease Silvana Phelps MD [address] [place] [phone] (Wo rk) documented as of this encounter Procedures Procedure Name Priority Date/Time Associated Diagnosis Comme nts RPR TITER, S REFLEX Routine 08/15/2017 11:30 Resu lts for this ORDER ONLY EST procedure are i n the results section. documented in this encounter Results RPR TITER, S REFLEX ORDER ONLY (08/15/2017 11:30 EST) Pathologist Sig nature RPR Titer, S See Comments Negative [facility] Comment: LABORATORY SERVICES (Note) Result: 1:1 Response to therapy is indicated by a > or =4-fold dec rease in titer between pre and post treatment samples. Howev er, a significant decrease in RPR titers may not occur for m onths to years following treatment, some patients may show persistent, low-level titers (e.g. serofast) despite adequate therapy. Performed by: [facility] Labs: [facility] [address], [place] [address], Lab Dir: Juan Daniel Tolentino II, M.D., Ph.D. Specimen Blood Performing Organization Address City/State/ZIP Code Phon e Number [facility]ORY [address] [place] [address] SERVICES documented in this encounter Visit Diagnoses Not on filedocumented in this encounter Care Teams Rock Singer Relationship Specialty Start Date End Date Chele Kessler MD PCP - General 09/07/15 11/21/17 4 [facility] [place], [place] [phone] documented as of this encounter
--- OUTSIDE RECORDS SUMMARY | 2022-05-12 00:58 | XMS_ITS | Encounter Summary ---
:1960 Author Organization [facility] Address [address] [place] [address] Care Team Providers Name Role Phone Chele Becker Primary Care Provider Reason for Visit Reason Comments Follow-up Encounter Details Date Type Department Care Team Description 08/29/2018 Office Visit [facility] Silvana Phelps Med icaeryn monitoring encounter (Primary Dx); Infectious Disease - MD Routine screening for STI (sexually shaikh smitted infection); [address] History of syphilis [address] [place], [place] [phone] [place] [address] [facility] 5 [place] [phone] (Wo rk) Social History Tobacco Use Types Packs/Day Years Used Date Never Smoker Smokeless Tobacco: Never Used Alcohol Use Standard Drinks/Week Comments Yes 14 (1 standard drink = 0.6 oz pure alcoh ol) Sex Assigned at Date Recorded Not on file documented as of this encounter Last Filed Vital Signs Vital Sign Reading Time Taken Comments Blood Pressure 133/87 08/29/2018 0901 EST Pulse 63 08/29/2018 0901 EST Temperature 35.4 ??C (95.7 ??F) 08/29/2018 0901 EST Respiratory Rate - - Oxygen Saturation [...] 1 Tab by mouth 30 Tab 2 11/25/2018 TDF, (TRUVADA) 200-300 mg daily. per tablet documented in this encounter Progress Notes Silvana Phelps MD - 08/29/2018 0900 EST Division of Infectious Disease Follow up/Progress Note Date: 08/29/18 Chief Complaint: Occular syphilis, HIV prevention, unprotected sex History of present illness: 57 y/o male presents today for interval evaluation following episode of occular syphilis and ongoingmonitoring related to use of PrEP. Mr. Hughes is feeling well. Continues to take his Truvada faithfully. He may miss one dose per month, but thinks it's probably less than that. Has occasional cramps, but otherwise no side effects. Vision has been stable. Still sees a smudge or film when looking through his right eye but is not different. No fevers or sweats. Appetite is good. Mild intermittent throat discomfort. No ulcers. Has had unprotected oral and genital intercourse, including in [place] though his throat symptoms preceded that trip. PMHx: 1. Gout. 2. Occular syphilis. Panuveitis, [...] 10 point ROS is negative. Objective: BP 133/87 (BP Cuff Location: Right arm, Patient Position: Sitting, BP Cuff Sizes: Adult, large) Pulse 63 Temp (!) 35.4 ??C (95.7 ??F) (Tympanic) Gen: Alert, oriented. NAD. Looks well. HEENT: Anicteric. PERRL. EOMI and pain-free. Oral mucosa moist. No thrush. No ulcerations. Does havemucous drainage along posterior oropharynx--no erythema. Neck: supple. COR: RRR. No murmer. Lungs: CTA. Mssk: No obvious joint effusions or warmth. ROM appears pain-free. Integ: No rash. No LE edema. LABS: Due for labs today. Labs from 05/21/18 RPR negative (down from 1:256 and stable from 10/2017). HIV ab negative. Oropharyngeal GC and chlamydia negative Urine GC and chlamydia negative. Cr 1.15 (GFR >70) Prior labs: 10/02/16: Syphilis ab positive, RPR [...] f/u in 3 months. Silvana Phelps MD 08/29/2018 9:09 documented in this encounter Miscellaneous Notes Result QuickNote - Silvana Phelps MD - 08/29/2018 0900 EST Called patient to discuss results. All are negative or normal. No change in plan. F/u as scheduled. CNoyes documented in this encounter Plan of Treatment Upcoming Encounters Date Type Specialty Care Team Description 05/30/2022 Nurse Only Infectious Disease Nurse, Elsa, RN 08/10/2022 Office Visit Infectious Disease Silvana Phelps MD [address] [facility], Level 5 [place] [phone] (Wo rk) documented as of this encounter Procedures Procedure Name Priority Date/Time Associated Diagnosis Comme nts N. GONORRHOEAE AND Routine 08/29/2018 9:26 Routine screening R esults for this CHLAMYDIA EST for STI (sexually procedure are in TRACHOMATIS, MISC transmitted the result s SITES, AMPLIFIED RNA infection) section . CHLAMYDIA/N. Routine 08/29/2018 9:26 Routine screening Results for this GONORRHOEAE EST for STI (sexually procedure are in AMPLIFIED RNA, URINE transmitted the res ults infection) section. documented in this encounter Results RPR, RESPONSE - ID USE ONLY (08/29/2018 9:43 EST) Pathologist Sig nature RPR, Response Negative Negative [facility] Comment: LABORATORY SERVICES (Note) . ADDITIONAL INFORMATION ------ This test is intended for monitoring response to thera py in patients that have been previously diagnosed with Syph ilis. This test should not be used to screen Syphilis. Performed by: [facility] Labs: [address], [place] [address] Specimen Blood Performing Organization Address City/[facility]/ZIP Code Phon e Number [facility] [address] [place] [address] SERVICES PHOSPHORUS (08/29/2018 9:43 EST) Pathologist Sig nature Phosphorus 2.6 2.5 - 4.5 mg/dl [facility] LABORA TORY SERVICES Specimen Blood specimen (specimen) - Blood Performing Organization Address [facility] Phon e Number [facility] [address] [place] [address] SERVICES COMPREHENSIVE METABOLIC PANEL (CMP) (08/29/2018 9:43 EST) Potassium 4.5 3.5 - 5.0 [facility] mEq/L [facility] Sodium 142 136 - 145 [facility] mEq/L [facility] Chloride 108 96 - 110 [facility] mEq/L [facility] CO2 24 22 - 32 mEq/L [facility] SERVICES Total Alkaline 58 38 - 126 U/L [facility] Phosphatase [facility] Bilirubin, Total 0.7 <1.4 mg/dl [facility] SERVICES AST 30 15 - 46 U/L [facility] SERVICES ALT 41 21 - 72 U/L [facility] SERVICES Albumin 4.6 3.4 - 4.9 [facility] g/dl [facility] Total Protein 6.8 6.3 - 8.2 [facility] g/dl [facility] Creatinine 1.13 0.66 - 1.25 [facility] mg/dl [facility] GFR, Calculated 73 >60 [facility] Comment: ml/min/1.73m2 [facility] eGFR calculated using CKD-EPI equation for SERVICES non Americans. Multiply eGFR by 1.16 for Americans. BUN 13 10 - 26 mg/dl [facility] SERVICES Calcium 9.5 8.5 - 10.5 [facility] mg/dl [facility] Calculated Calcium 9.0 8.5 - 10.5 [facility] mg/dl [facility] Glucose, Serum 100 70 - 100 [facility] mg/dl [facility] Fasting? No [facility] SERVICES Specimen Blood specimen (specimen) - Blood Performing Organization Address City/[facility] Code Phon e Number [facility] [address] [place] [address] SERVICES HIV 1/2 ANTIGEN AND ANTIBODY, 4TH GENERATION (08/29/2018 9:43 EST) HIV 1/2 Antibody Negative Negative [facility] Comment: LABORATORY SERVICES Fourth generation assay performed on the Siemens Centaur. If acute HIV-1 infection is suspected in a high risk patient, submit plasma specimen for HIV-1 RNA quantification test. Specimen Blood specimen (specimen) - Blood Performing Organization Address City/[facility] Phon e Number [facility] [address] [place] [address] SERVICES N. GONORRHOEAE AND CHLAMYDIA TRACHOMATIS, [facility] SITES, AMPLIFIED RNA (08/29/2018 9:26 EST) Source Oral cavityComment: [facility] Corrected on 09/02 AT [facility] 0755: Previously SERVICES reported as OCAV C.trachomatis, Negative Negative [facility] Site Comment: [facility] (Note) SERVICES . ADDITIONAL INFORMATION ------ This report is intended for use in clinical monitoring and management of patients. ??It is not intended for use i n medical-legal applications. . This test has been modified from the international relations teacher's instructions. ??Its performance characteristics were determined by [facility] in a manner consistent with CLIA requirements. ??This test has not been cleared or appr reina by the U.S. Food and Drug Administration. Source ORAL/THROAT (PHARYNX OR [facility] PHARYNGEAL) [facility] N.gonorrhoeae, Negative Negative [facility] Site Comment: [facility] (Note) SERVICES . ADDITIONAL INFORMATION ------ This report is intended for use in clinical monitoring and management of patients. ??It is not intended for use i n medical-legal applications. . This test has been modified from the international relations teacher's instructions. ??Its performance characteristics were determined by [facility] in a manner consistent with CLIA requirements. ??This test has not been cleared or appr reina by the U.S. Food and Drug Administration. Performed or Referred by: [facility], [address] [place] [address] Specimen Other (qualifier value) - Other Performing Organization Address City/State/ZIP Code Phon e Number [facility] [address] [place] [address] SERVICES CHLAMYDIA/N. GONORRHOEAE AMPLIFIED RNA, URINE (08/29/2018 9:26 EST) Pathologist Sig nature Chlamydia Result Negative [facility] SERVICES GC Result Negative [facility] SERVICES Specimen Other (qualifier value) - Urine Performing Organization Address City/[facility]/ZIP Code Phon e Number [facility] [address] [place] [address] SERVICES documented in this encounter Visit Diagnoses [...] 200-300 mg per take 1 tablet by Reorder 08/22/2018 0 08/29/2018 tablet mouth once daily documented as of this encounter Care Teams Instructor Watch Assembly Relationship Specialty Start Date End Date Chele Becker DO PCP - General 11/22/17 04/26/20 documented as of this encounter
--- OUTSIDE RECORDS SUMMARY | 2022-05-12 00:58 | XMS_ITS | Encounter Summary ---
:1960 Author Organization [facility] Address [address] [place] [address] Care Team Providers Name Role Phone Chele Kessler MD Primary Care Provider Encounter Details Date Type Department Care Team Description 07/26/2017 Results Only [facility] Ayesha Jeffries NP Infectious Disease - [phone] [place] [phone] (Wo rk) Social History Tobacco Use Types [...] Office Visit Infectious Disease Silvana Phelps MD [address] [place] [phone] (Wo rk) documented as of this encounter Procedures Procedure Name Priority Date/Time Associated Diagnosis Comme nts RPR TITER, S REFLEX Routine 07/26/2017 9:50 EST R esults for this ORDER ONLY procedure are i n the results section. RAPID PLASMA REAGIN Routine 07/26/2017 9:50 EST R esults for this (RPR) WITH REFLEX, procedure are in S the results section. SYPHILIS IGG AB Routine 07/26/2017 9:50 EST Resul ts for this WITH REFLEX, SERUM procedure are in the results section. documented in this encounter Results RPR TITER, S REFLEX ORDER ONLY (07/26/2017 9:50 EST) Pathologist Sig nature RPR Titer, S See Comments Negative [facility] Comment: LABORATORY SERVICES (Note) Result: 1:1 Results consistent with untreated or recently treated syphilis. Performed by: [facility] Labs: [facility] [address], [place] [address], Lab Dir: Juan Daniel Tolentino II, M.D., Ph.D. Specimen Blood Performing Organization Address [facility] Phon e Number [facility] [address] [place] [address] SERVICES (ABNORMAL) RAPID PLASMA REAGIN (RPR) WITH REFLEX, S (07/26/2017 9:50 EST) RPR with Reflex, S Positive (A) Negative [facility] Comment: LABORATORY SERVICES (Note) Specimen reflexed to determine RPR titer value. Performed by: [facility] Labs: [facility] [address], [place] [address], Lab Dir: Juan Daniel Tolentino II, M.D., Ph.D. Specimen Blood Performing Organization Address [facility] Phon e Number [facility] [address] [place] [address] SERVICES (ABNORMAL) SYPHILIS IGG AB WITH REFLEX, SERUM (07/26/2017 9:50 EST) Syphilis IgG w Rfx Positive (A) Negative [facility] Comment: LABORATORY (Note) SERVICES Result suggests infection with Treponema pallidum at s ome point in the past, but does not distinguish between tr eated and untreated syphilis as Treponemal-specific IgG may remain elevated despite appropriate therapy. . Rapid Plasma Reagin (RPR) has been ordered to help distinguish between these two scenarios. Performed by: [facility] Labs: [facility] [address], [place] [address], Lab Dir: Juan Daniel Tolentino II, M.D., Ph.D. Specimen Blood Performing Organization Address [facility] Phon e Number [facility] [address] [place] [address] SERVICES documented in this encounter Visit Diagnoses Not on filedocumented in this encounter Care Teams Sign Letterer Relationship Specialty Start Date End Date Chele Kessler MD PCP - General 09/07/15 11/21/17 [address] [place] [address] documented as of this encounter
--- OUTSIDE RECORDS SUMMARY | 2022-05-12 00:58 | XMS_ITS | Encounter Summary ---
:1960 Author Organization [facility] Address [address] [place] [address] Care Team Providers Name Role Phone Chele Kessler MD Primary Care Provider Encounter Details Date Type Department Care Team Description 04/25/2017 Results Only [facility] Silvana Phelps MD Infectious Disease - [phone] [place] [phone] (Wo rk) Social History Tobacco Use Types [...] Office Visit Infectious Disease Silvana Phelps MD [address] [place] [phone] (Wo rk) documented as of this encounter Procedures Procedure Name Priority Date/Time Associated Diagnosis Comme nts RPR TITER, S REFLEX Routine 04/25/2017 11:37 Resu lts for this ORDER ONLY EDT procedure are i n the results section. documented in this encounter Results RPR TITER, S REFLEX ORDER ONLY (04/25/2017 11:37 EDT) Pathologist Sig nature RPR Titer, S 1:2 Negative [facility] Comment: LABORATORY SERVICES (Note) Response to therapy is indicated by a > or =4-fold dec rease in titer between pre and post treatment samples. Howev er, a significant decrease in RPR titers may not occur for m onths to years following treatment, some patients may show persistent, low-level titers (e.g. serofast) despite adequate therapy. Performed by: [facility] Labs: [facility] [address], [place] [address], Lab Dir: Juan Daniel Tolentino II, M.D., Ph.D. Specimen Blood Performing Organization Address City/State/[facility] Code Phon e Number [facility] [address] [place] [address] SERVICES documented in this encounter Visit Diagnoses Not on filedocumented in this encounter Care Teams Appellate Court Clerk Relationship Specialty Start Date End Date Chele Kessler MD PCP - General 09/07/15 11/21/17 [address] [place], [place] [phone] documented as of this encounter
--- OUTSIDE RECORDS SUMMARY | 2022-05-12 00:58 | XMS_ITS | Encounter Summary ---
:1960 Author Organization [facility] Address [address] [place] [address] Care Team Providers Name Role Phone Chele Kessler MD Primary Care Provider Reason for Visit Reason Onset Date Comments Hospital Discharge Follow Up 10/11/2016 Encounter Details Date Type Department Care Team Description 10/11/2016 Telephone [facility] Discharge MEDICINE [address] [facility] Follow Up [address] [place], [place] [phone] [place] [phone] Social History Tobacco Use Types Packs/Day Years Used Date Never Smoker Alcohol Use Standard Drinks/Week Comments Yes 14 (1 standard drink = 0.6 oz pure alcoh ol) Sex Assigned at Date Recorded Not on file documented as of this encounter Miscellaneous Notes Telephone Encounter - [facility] - 10/11/2016 0912 EST Called patient in follow-up from discharge. doing pretty good, wish eye would clear up quicker. VNA in place. He had them look at the port as it is uncomfortable but they advised it looked fine. pcp has called him and made an appt. [facility] Hospitalist Service 10/11/2016 9:12 documented in this encounter Plan of Treatment Upcoming Encounters Date Type Specialty Care Team Description 05/30/2022 Nurse Only Infectious Disease Nurse, Id, RN 08/10/2022 Office Visit Infectious Disease Silvana Phelps MD [address] [facility], [address] [place], [place] [phone] (Wo rk) documented as of this encounter Visit Diagnoses Not on filedocumented in this encounter Care Teams Deputy General Counsel Relationship Specialty Start Date End Date Chele Kessler MD PCP - General 09/07/15 11/21/[address] [place] [address] documented as of this encounter
--- OUTSIDE RECORDS SUMMARY | 2022-05-12 00:58 | XMS_ITS | Encounter Summary ---
:1960 Author Organization [facility] Address [address] [place] [id number] Care Team Providers Name Role Phone Chele Becker DO Primary Care Provider Reason for Visit Reason Onset Date Comments Other 11/22/2017 Encounter Details Date Type Department Care Team Description 11/22/2017 Telephone [facility] Silvana Phelps MD Other Infectious Disease - Main [address] [place] [id number] [place] [phone] (Wo rk) Social History Tobacco Use Types Packs/Day Years Used Date Never Smoker Alcohol Use Standard Drinks/Week Comments Yes 14 (1 standard drink = 0.6 oz pure alcoh ol) Sex Assigned at Date Recorded Not on file documented as of this encounter Miscellaneous Notes Telephone Encounter - Gloria Montejo - 11/22/2017 1002 EDT Patient states that Dr Phelps had asked who his new PCP was. He is calling with this information. It is Dr Chele Becker. Have updated in [employer] database. Patient asked that information be passed on to Dr Phelps. documented in this encounter Plan of Treatment Upcoming Encounters Date Type Specialty Care Team Description 05/30/2022 Nurse Only Infectious Disease Nurse, Id, RN 08/10/2022 Office Visit Infectious Disease Silvana Phelps MD [address] [place] [phone] (Wo rk) documented as of this encounter Visit Diagnoses Not on filedocumented in this encounter Care Teams Chief Deputy Sheriff Relationship Specialty Start Date End Date Chele Becker DO PCP - General 11/22/17 04/26/20 documented as of this encounter
--- OUTSIDE RECORDS SUMMARY | 2022-05-12 00:58 | XMS_ITS | Encounter Summary ---
:[address] [facility] Address [address] [place] [address] Care Team Providers Name Role Phone Chele Kessler MD Primary Care Provider Reason for Visit Reason Comments Follow-up Encounter Details Date Type Department Care Team Description 08/02/2017 Office Visit [facility] Silvana Phelps, His tory of syphilis (Primary Dx); Infectious Disease - [place] High risk sexual behavior; [address] Screen for STD (sexually tra nsmitted disease); [address] [facility] Neurosyphilis in adult [place], [place] [id number] [place] [address] [facility], [address] [place] [phone] (Wo rk) Social History Tobacco Use Types Packs/Day Years Used Date Never Smoker Alcohol Use Standard Drinks/Week Comments Yes 14 (1 standard drink = 0.6 oz pure alcoh ol) Sex Assigned at Date Recorded Not on file documented as of this encounter Last Filed Vital Signs Vital Sign Reading Time Taken Comments Blood Pressure 118/68 08/02/2017 1011 EST Pulse 55 08/02/2017 1011 EST Temperature 35.9 ??C (96.7 ??F) 08/02/2017 1011 EST Respiratory Rate - - Oxygen Saturation - - Inhaled Oxygen Concentration - - Weight - - Height - - Body Mass Index - - documented in this encounter Progress Notes Silvana Phelps MD - 08/02/2017 1000 EST Division of Infectious Disease Follow up/Progress Note Date: 08/02/17 Chief Complaint: Occular syphilis, HIV prevention, unprotected [...] a MSM and was evaluated at the [facility] for consideration of PrEP in Aug [...] noted right eye irritation. 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 Referred to retinal specialist, Dr. [...] had decreasing RPR titers since completing treatment. Last week presented for acute evaluation given vision changes and exposure to partner who had just tested positive for syphilis. He had repeat lab screening that day (07/26) and re-evaluation with Dr. Cutler to reassess retina.He also received a dose of IM PCN. He presents today for re-eval and to discuss lab results. Mr. Hughes reports he's feeling pretty well. Feels relieved that his labs are reassuring. Reports intermittent sore throat for the last month, seems to come and go. Occasional MÁRQUEZ. Vision has changed withmore prominent floater though his retinal eval last week revealed no new inflammation. He denies fevers, sweats and chills. Appetite and weight are stable. He continues to take his Truvada daily without missing doses. PMHx: 1. Gout. 2. Occular syphilis. Panuveitis, [...] 10 point ROS is negative. Objective: BP 118/68 (BP Cuff Location: Left arm, Patient Position: Sitting, BP Cuff Sizes: Adult, regular) Pulse 55 Temp 35.9 ??C (96.7 ??F) (Tympanic) Gen: Alert, oriented. NAD. Looks [...] gluc 69, prot 46; VDRL negative 09/08/15 ([facility]) HIV ab negative Syphilis ab [...] or additional PCN treatment. Plan to repeat labs in 2 weeks. 2. High risk for HIV acquisition. Agree with continuing PrEP to minimize risk for acquisition. Discussed plan to monitor Cr, electrolytes, proteinuria Q3-4 months moving forward--due in two weeks. Recent site specific chlamydia and gonorrhea testing negative. Adherence reviewed and discussed importance of stable drug levels in serum to maximize prevention measures with PrEP. Will plan on prescribing when he needs new refills--Truvada 1 PO daily. Discussed safer sex, use of condoms, regular screeningfor STI, including HIV with unprotected sex. 3. Elevated Cr. Though CrCl recently 72. Will continue to monitor closely. 4. Vision changes. Though recent ophtho exam reassuring and RPR decreased. No evidence to suggest new or relapsed occular syphilis. Would continue to monitor. 5. Syphilis exposure. Treated X 1 07/26. 6. Unprotected sex--OP and penile exposure. Screening negative for GC/chlamydia as well as HIV. Plan: 1. Continue Truvada--1 PO daily. 2. Will plan for repeat labs in 2 weeks at our regularly scheduled f/u--CMP, phos, UA, HIV ab, RPR. Silvana Phelps MD 08/02/2017 10:19 documented in this encounter Plan of Treatment Upcoming Encounters Date Type Specialty Care Team Description 05/30/2022 Nurse Only Infectious Disease Nurse, Elsa, RN 08/10/2022 Office Visit Infectious Disease Silvana Phelps MD [address] [facility], [address] [place] [phone] (Wo rk) documented as of this encounter Visit Diagnoses Diagnosis History of syphilis - Primary Personal history of other infectious and parasitic disease High risk sexual behavior Problems related to high-risk sexual beh avior Screen for STD (sexually transmitted dis ease) Screening examination for venereal disea se Neurosyphilis in adult documented in this encounter Historical Medications This list may reflect changes made after this encounter. Medication Sig Dispensed Refills Start Date End Date emtricitabine-tenofovir, Take 1 Tab by mouth 0 08/15/2017 TDF, (TRUVADA) 200-300 mg daily. per tablet added in this encounter Care Teams Fold Skiver Relationship Specialty Start Date End Date Chele Kessler MD PCP - General 09/07/15 11/21/[address] [place] [address] documented as of this encounter
--- OUTSIDE RECORDS SUMMARY | 2022-05-12 00:58 | XMS_ITS | Encounter Summary ---
:1960 Author Organization [facility] Address [address] [place] [address] Care Team Providers Name Role Phone Chele Kessler MD Primary Care Provider Reason for Visit Reason Comments Follow-up Encounter Details Date Type Department Care Team Description 04/25/2017 Office Visit [facility] Silvana Phelps [facility] care maintenance (Primary Dx); Infectious Disease - High risk sexual behavior; [address] History of syphilis; [address] [place] [address] High risk medication use; [place], [place] [id number] [place] [address] Screen for STD (sexually tra nsmitted disease) [phone] [address], [address] [place] [phone] (Wo rk) Social History Tobacco Use Types Packs/Day Years Used Date Never Smoker Alcohol Use Standard Drinks/Week Comments Yes 14 (1 standard drink = 0.6 oz pure alcoh ol) Sex Assigned at Date Recorded Not on file documented as of this encounter Last Filed Vital Signs Vital Sign Reading Time Taken Comments Blood Pressure 126/69 04/25/2017 1052 EDT Pulse 75 04/25/2017 1052 EDT Temperature 36.4 ??C (97.5 ??F) 04/25/2017 1052 EDT Respiratory Rate - - Oxygen Saturation - - Inhaled Oxygen Concentration - - Weight 92.1 kg (203 lb) 04/25/2017 1052 EDT Height - - Body Mass Index 31.79 10/05/2016 0000 EST documented in this encounter Discharge Diagnoses Diagnosis Z00.00 Encounter for general adult medic al examination without abnormal findings-Z00.00[ICD-10-CM] Z72.51 High risk heterosexual behavior-Z 72.51[ICD-10-CM] Z86.19 Personal history of other infecti ous and parasitic diseases-Z86.19[ICD-10-CM] Z79.899 Other senior living (current) drug t herapy-Z79.899[ICD-10-CM] Z11.3 Encounter for screening for infect ions with a predominantly sexual mode of transmission-Z11.3[ICD-10-CM] documented in this encounter Ordered Prescriptions Prescription Sig Dispensed Refills Start Date End Date emtricitabine-tenofovir, Take 1 Tab by mouth 30 Tab 4 05/25/2017 TDF, (TRUVADA) 200-300 mg daily for 30 days. per tablet documented in this encounter Progress Notes Deyanira Isidro RN - 04/25/2017 1100 EDT Labs drawn from right arm antecubital vein as ordered without incident. Tdap vaccine administered as ordered without incident. I was supervised by Dr. Phelps who was present and immediately available in the office suite. Deyanira Isidro RN 04/25/2017 12:44 Silvana Portillo MD - 04/25/2017 1100 EDT Division of Infectious Disease Follow up/Progress Note Date: 04/25/17 Chief Complaint: Occular syphilis, HIV prevention, unprotected sex History of present illness: 56 y/o male presents today for interval evaluation s/p occular syphilis and ongoing monitoring related to use of PrEP. Patient is generally healthy. Has a history of Thallasemia trait and gout. Is a MSM and was evaluated at the [facility] for consideration of PrEP in [...] noted right eye irritation. Eventually saw his plywood matcher on 09/29. Referred to retinal Dr. He [...] X 14 days. Therapy d/c'd on 10/18. At our last visit in 12/2016, RPR had decreased to 1:8 and vision had improved. Screening for STI and HIV ab at that visit was negative. Returns today for intervalevaluation. Overall, Mr Hughes reports he's feeling well. Vision reportedly good per ophtho re-eval but he still notices a film and floating dots with eye movement. Having said that is able to read without difficulty. Work is stressful and busy and he's noted some episodes of shortness of breath and feeling lightheaded when he's driving. Seems to coincide with having time to think about all of the activities he needs to complete and thinks this is anxiety related. Denies CP. Activity level is good. He is still able to do his yard work without difficulty. Has not noted pain, rash, fever. Given strong family history of CAD he remembers having a stress test about 4 years ago that was normal. In terms of his PreP, he has excellent adherence and may miss one dose per month. He's had multiple new sexual partnersand unprotected sex since our last visit--OP and penile exposures--thus is eager for repeat screening. PMHx: 1. Gout. 2. Occular syphilis. Panuveitis, [...] 10 point ROS is negative. Objective: BP 126/69 (BP Cuff Location: Left arm, Patient Position: Sitting, BP Cuff Sizes: Adult, large) Pulse 75 Temp 36.4 ??C (97.5 ??F) (Tympanic) Wt 92.1 kg (203 lb) BMI 31.79 kg/m2 Gen: Alert, oriented. NAD. Looks well. HEENT: Anicteric. PERRL. EOMI and pain-free. Oral mucosa moist. No thrush. Cryptic tonsils pink though no exudate or ulcers. Neck: supple. COR: Regular though occasional pauses. No murmer noted today. Lungs: CTA. Mssk: No obvious joint effusions or warmth. ROM appears pain-free. Integ: No rash. No LE edema. LABS: Due for labs today Prior labs: 01/18/17: RPR 1:8; HIV ab; Cr 1.13; WBC 5K. Hgb 12; 169. Phos 3.2 Urine GC/chlam negative OP GC/chlam negative 10/02/16: Syphilis ab positive, RPR 1:256. HIV ab negative Lyme ab negative 10/05: CSF WBC 3, RBC 0, gluc 69, prot 46; VDRL negative 09/08/15 ([facility]) HIV ab negative Syphilis ab negative HAV [...] acuity, resolution of eye painand scleral injection. RPR in May also with downward trend in December--will repeat today. Plan to monitor serial RPR in additional to clinical exam/symptoms to monitor response to treatment. Reviewed testing characteristics and need for reliance on RPR to monitor response to treatment as well as for new infections or relapse given the syphilis ab will remain positive for life. If RPR increases 4 fold, will need to reconsider treatment (i.e relapse vs new infection). 2. High risk for HIV acquisition. Agree [...] 72. Will continue to monitor closely. 4. SOB. I suspect related to anxiety. Does not seem provoked with activity. Does have occasional pause though relatively recent cardiac eval unrevealing. Will continue to monitor. Plan: 1. Continue Truvada--1 PO daily. I re-ordered his Rx. 2. Repeat labs today, including CMP, phos, CBC with diff, RPR, HIV Ab, RPR. 3. Urine and OP chlamydia and gonorrhea screen. 4. HCV ab screen--per PCP request. 5. I will call him with labs. 6. Tdap administered today. 7. F/u in 3 months--though he knows to phone sooner should status change, questions arise. Silvana Phelps MD 04/25/2017 11:15 documented in this encounter Plan of Treatment Upcoming Encounters Date Type Specialty Care Team Description 05/30/2022 Nurse Only Infectious Disease Nurse, Id, RN 08/10/2022 Office Visit Infectious Disease Silvana Phelps MD [address] [place] [address], [address] [place], [place] [phone] (Wo rk) documented as of this encounter Procedures Procedure Name Priority Date/Time Associated Comments Diagnosis N. GONORRHOEAE AND Routine 04/25/2017 11:44 High risk sexual R esults for this CHLAMYDIA TRACHOMATIS, EDT behavior procedure are in [facility], AMPLIFIED History of syphilis the results RNA High risk section. medication use Screen for STD (sexually transmitted disease) CHLAMYDIA/N. Routine 04/25/2017 11:44 High risk sexual Results for this GONORRHOEAE AMPLIFIED EDT behavior procedure are in RNA, URINE History of syphi lis the results High risk section. medication use Screen for STD (sexually transmitted disease) RPR SCREEN, RESPONSE Routine 04/25/2017 11:37 High risk sexual Results for this TO THERAPY, S EDT behavior procedure are in History of syphi lis the results High risk section. medication use HEPATITIS C AB W Routine 04/25/2017 11:37 High risk sexual Res ults for this REFLEX TO HCV RNA BY EDT behavior procedure are in PCR History of syphi lis the results High risk section. medication use RAPID HIV 1/2 ANTIGEN Routine 04/25/2017 11:37 High risk sexua l Results for this AND ANTIBODY, 4TH EDT behavior procedure are in GENERATION History of syphi lis the results High risk section. medication use COMPLETE BLOOD COUNT Routine 04/25/2017 11:37 High risk sexual Results for this AND DIFFERENTIAL EDT behavior procedure are in History of syphi lis the results High risk section. medication use PHOSPHORUS Routine 04/25/2017 11:37 High risk sexual Results for this EDT behavior procedure are in History of syphi lis the results High risk section. medication use COMPREHENSIVE Routine 04/25/2017 11:37 High risk sexual Result s for this METABOLIC PANEL (CMP) EDT behavior procedure are in History of syphi lis the results High risk section. medication use documented in this encounter Results CHLAMYDIA/N. GONORRHOEAE AMPLIFIED RNA, URINE (04/25/2017 11:44 EDT) Pathologist Sig nature Chlamydia Result Negative [facility] GC Result Negative [facility] Specimen Other (qualifier value) - Urine Performing Organization Address City/State/ZIP Code Phon e Number [facility] [address] [place] [address] SERVICES [facility], CHLAMYDIA TRACHOMATIS AND NEISSERIA GONORRHA, AMPLIFIED RNA (04/25/2017 11:44 EDT) Source Throat [facility] C.trachomatis, Negative Negative [facility] Comment: [facility] (Note) SERVICES . ADDITIONAL INFORMATION ------ This report is intended for use in clinical monitoring and management of patients. ??It is not intended for use i n medical-legal applications. . This test has been modified from the senior manager asset protection's instructions. ??Its performance characteristics were determined by [facility] in a manner consistent with CLIA requirements. ??This test has not been cleared or appr reina by the U.S. Food and Drug Administration. Source Throat [facility] Comment: [facility] Corrected on 04/25 AT 1222: Previously reported as ORAL/THROAT (PHARYNX OR SERVICES PHARYNGEAL) N.gonorrhoeae, Negative Negative [facility] Comment: [facility] (Note) SERVICES . ADDITIONAL INFORMATION ------ This report is intended for use in clinical monitoring and management of patients. ??It is not intended for use i n medical-legal applications. . This test has been modified from the senior manager asset protection's instructions. ??Its performance characteristics were determined by [facility] in a manner consistent with CLIA requirements. ??This test has not been cleared or appr reina by the U.S. Food and Drug Administration. Performed or Referred by: [facility], [address] [place] [address], Lab Dir: Juan Daniel kenny II, M.D., Ph.D. Specimen Other (qualifier value) - Other Performing Organization Address City/State/[facility] Code Phon e Number [facility] [address] [place] [address] SERVICES (ABNORMAL) RPR, RESPONSE - ID USE ONLY (04/25/2017 11:37 EDT) Pathologist Sig nature RPR, Response Positive (A) Negative [facility] Comment: LABORATORY SERVICES (Note) Specimen reflexed to determine RPR titer value. . ADDITIONAL INFORMATION ------ This test is intended for monitoring response to thera py in patients that have been previously diagnosed with Syph ilis. This test should not be used to screen Syphilis. Performed by: [facility]: [facility], [place] [address], Lab Dir: Juan Daniel Tolentino II, M.D., Ph.D. Specimen Blood Performing Organization Address [facility]/ZIP Code Phon e Number [facility] [address] [place] [address] SERVICES RAPID HIV 1/2 AB (04/25/2017 11:37 EDT) Rapid HIV 1/2 Ab Negative Negative [facility] Comment: LABORATORY SERVICES Fourth generation assay performed on the Siemens PureCarsaur. If acute HIV-1 infection is suspected in a high risk patient, submit plasma specimen for HIV-1 RNA quantification test. Specimen Blood specimen (specimen) - Blood Performing Organization Address City/[facility]/ZIP Code Phon e Number [facility] [address] [place] [address] SERVICES HEPATITIS C AB W REFLEX TO HCV RNA BY PCR (04/25/2017 11:37 EDT) Pathologist Sig nature Hep C Ab w Rfx PCR Negative Negative [facility] HCSCR[facility] LABORATORY SERVICES Specimen Blood specimen (specimen) - Blood Performing Organization Address [facility]/ZIP [facility] Phon e Number [facility] [address] [place] [address] SERVICES PHOSPHORUS (04/25/2017 11:37 EDT) Pathologist Sig nature Phosphorus 3.2 2.5 - 4.5 mg/dl [facility] Specimen Blood specimen (specimen) - Blood Performing Organization Address [facility]/ZIP [facility] Phon e Number [facility] [address] [place] [phone] SERVICES (ABNORMAL) HEMAGRAM AND DIFFERENTIAL (04/25/2017 11:37 EDT) WBC 5.72 4.0 - 10.4 [facility] K/cmm LABORATORY SERVICES RBC 5.87 (H) 4.36 - 5.78 [facility] M/[facility] LABORATORY SERVICES Hemoglobin 12.3 (L) 13.8 - 17.3 [facility] gm/dl LABORATORY SERVICES HCT 38.0 (L) 39.5 - 50.2 % [facility] MCV 65 (L) 81 - 95 fl [facility] MCH 21.0 (L) 27.6 - 33.0 pg [facility] Hypochromia 2+ [facility] MCHC 32.4 (L) 32.8 - 36.4 [facility] gm/dl LABORATORY SERVICES RDW-CV 15.4 (H) <14.2 % [facility] SERVICES RDW-SD 33.9 <46.0 fl [facility] PLT 160 141 - 377 [facility] K/[facility] LABORATORY SERVICES MPV Not Available 9.5 - 12.7 fl [facility] Neutrophils 65.2 % [facility] Lymphocytes 24.8 % [facility] Monocytes 8.0 % [facility] Eosinophils 1.0 % [facility] Basophils 0.7 % [facility] Immature Grans 0.3 % [facility] ABS Neutrophils 3.72 2.20 - 8.85 [facility] K/[facility] LABORATORY SERVICES ABS Lymphs 1.42 1.09 - 3.30 [facility] K/[facility] LABORATORY SERVICES ABS Monocytes 0.46 0.1 - 0.8 [facility] K/[facility] LABORATORY SERVICES ABS Eosinophils 0.06 0.03 - 0.61 [facility] LABORATORY SERVICES ABS Basophils 0.04 0.01 - 0.11 [facility]ORATORY SERVICES ABS Immature Grans 0.02 0 - 0.06 /[facility] LABORATORY SERVICES Type of Diff: Automated [facility] Specimen Blood specimen (specimen) - Blood Performing Organization Address City/State/ZIP Code Phon e Number [facility] [address] [place] [address] SERVICES COMPREHENSIVE METABOLIC PANEL (CMP) (04/25/2017 11:37 EDT) Potassium 4.3 3.5 - 5.0 [facility] mEq/L [facility] Sodium 142 136 - 145 [facility] mEq/L [facility] Chloride 105 96 - 110 [facility] mEq/L [facility] CO2 26 22 - 32 mEq/L [facility] Total Alkaline 58 38 - 126 U/L [facility] Phosphatase [facility] Bilirubin, Total 1.0 <1.4 mg/dl [facility] AST 29 15 - 46 U/L [facility] ALT 35 21 - 72 U/L [facility] Albumin 4.7 3.4 - 4.9 [facility] g/dl [facility] Total Protein 7.2 6.3 - 8.2 [facility] g/dl [facility] Creatinine 1.17 0.66 - 1.25 [facility] mg/dl [facility] GFR, Calculated 70 >60 [facility] Comment: ml/min/1.73m2 [facility] eGFR calculated using CKD-EPI equation for SERVICES non Americans. Multiply eGFR by 1.16 for Americans. BUN 15 10 - 26 mg/dl [facility] Calcium 9.5 8.5 - 10.5 [facility] mg/dl [facility] Calculated Calcium 8.9 8.5 - 10.5 [facility] mg/dl [facility] Glucose, Serum 99 70 - 100 [facility] mg/dl [facility] Fasting? Unknown [facility] Specimen Blood specimen (specimen) - Blood Performing Organization Address City/State/ZIP Code Phon e Number [facility] [address] [place] [address] SERVICES documented in this encounter Visit Diagnoses Diagnosis Health care maintenance - Primary Routine general medical examination at a health care facility High risk sexual behavior Problems related to high-risk sexual beh avior History of syphilis Personal history of other infectious and parasitic disease High risk medication use Encounter for long-term (current) use of other medications Screen for STD (sexually transmitted dis ease) Screening examination for venereal disea se documented in this encounter Discontinued Medications Medication Sig Discontinue Reason Start Date End Date emtricitabine-tenofovir, Take 1 Tab by mouth Reorder 04/25/2017 TDF, (TRUVADA) 200-300 mg daily. per tablet documented as of this encounter Historical Medications This list may reflect changes made after this encounter. Medication Sig Dispensed Refills Start Date End Date emtricitabine-tenofovir, Take 1 Tab by mouth 0 04/25/2017 TDF, (TRUVADA) 200-300 mg daily. per tablet added in this encounter Orders Immunization/Injection Count Last Ordered Date First O rdered Date TDAP VACCINE =>7YO IM 1 04/25/2017 documented in this encounter Care Teams Yard Foreman Relationship Specialty Start Date End Date Chele Kessler MD PCP - General 09/07/15 11/21/[address] [place] [address] documented as of this encounter
--- OUTSIDE RECORDS SUMMARY | 2022-05-12 00:58 | XMS_ITS | Encounter Summary ---
:[address] 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 [address] [place] [address] Pavilion, Level [id number] [place] [address] [phone] Social History Tobacco Use Types Packs/Day Years Used Date Never Smoker Alcohol Use Standard Drinks/Week Comments Yes 14 (1 standard drink = 0.6 oz pure alcoh ol) Sex Assigned at Date Recorded Not on file documented as of this encounter Last Filed Vital Signs Vital Sign Reading Time Taken Comments Blood Pressure 115/70 07/26/2017918 EST Pulse 62 07/26/2017918 EST Temperature 35.8 ??C (96.5 ??F) 07/26/2017918 EST Respiratory Rate - - Oxygen Saturation - - Inhaled Oxygen Concentration - - Weight 93 kg (205 lb) 07/26/2017918 EST pt reported Height - - Body Mass Index 32.11 10/05/2016 0000 EST documented in this encounter Discharge Diagnoses Diagnosis B20 Human immunodeficiency virus [HIV] d isease-B20[ICD-10-CM] 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 The contact had no other contacts besides Beth so he believes he may have infected him. 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 He has a history of having unprotected intercourse with men- he is always the top. His last RPR was completed in March and had decreased to 1:2. Since March he has had multiple encounters of unprotected intercourse with multiple men. Of recent within the past month he has noticed vision changes of his L eye which include darkened floating dots and increased eye irritation. He has noticed some abnormality when driving his car and feels off with his balance. He does endorse that he forgets things at time but thinks this is baseline. He denies any headache or dropping items. ROS: a 10 point ROS is otherwise negative PMH- gout, Occular Syphilis, Thallasemia trait Social History: Single, lives alone in [place] MEDICATIONS: [place] daily PHYSICAL EXAMINATION: BP 115/70 (BP Cuff Location: Left arm, Patient Position: Sitting, BP Cuff Sizes: Adult, large) Pulse 62 Temp 35.8 ??C (96.5 ??F) (Tympanic) Wt 93 kg (205 lb) Comment: pt reported BMI 32.11 kg/m2 Gen a x 3 LABORATORIES: 04/25/17 RPR 1:2 HIV Antibody negative Urine GC/chlam negative OP GC/chalm negative 01/18/17 RPR 1:8, HIV antibody negative Urine GC/Chlam negative OP GC/Chlam negative 10/02/16 RPR 1:256 IMPRESSION: Syphilis- patient with a known contact who was positive for Syphilis (tested in this clinic). Will treat today for early Syphilis. Concerns for possibility neurosyphilis with the occular and balance changes. However lower on the differential list as he was just tested in March with RPR trending down . Contacted Dr. Phelps and Dr. Cutler- he will see Dr. 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 Plan will be to follow up with next for f/u of vision changes and possible LP appropriate. Will treat todayfor early Syphilis with one dose of Penicillin 2.4 units IM. High risk of HIV acquisition- continue on PREP- will test today and test for Chlamydia/Ghon of throat and penis. PLAN: 1. Penicillin 2.4 units IM today 2. STI testing completed today which includes RPR, Chlamydia/Ghon of throat rectum, penis, HIV, Hep C 3. Follow up with Dr. Cutler today 4. Follow up with Dr. Phelps on 08/02/17 5. Will contact patient sooner if needed. Ayesha Jeffries NP Nathalie Morales RN - 07/26/2017929 EST Bicillin L-A 2,400,000 units (4 ml) given in right upper gluteal muscle. Common side effects reviewed. Lot # [id number] Exp 10/26/19 [facility] [id number] I was directly supervised by Ayesha Jeffries NP who was in the suite and immediately available for the entire time the service was provided. dK Gonzalez - 07/26/201730 EST Labs drawn from rt antecubital vein as ordered without incident.I was supervised by Ayesha Jeffries NP who was present and immediately available in the office suite. Kd Taylor 07/26/2017 10:04 documented in this encounter Plan of Treatment Upcoming Encounters Date Type Specialty Care Team Description 05/30/2022 Nurse Only Infectious Disease Nurse, Elsa, RN 08/10/2022 Office Visit Infectious Disease Silvana Phelps MD [address] [facility], Level [address] [place], [place] [address] (Wo rk) documented as of this encounter Procedures Procedure Name Priority Date/Time Associated Diagnosis Comme nts SYPHILIS SEROLOGY Routine 07/26/2017 9:50 HIV (human Results for this EST immunodeficiency virus proce dure are in infection) [place] the res ults ([facility]) section. HEPATITIS C AB W Routine 07/26/2017 9:50 HIV (human Results for this REFLEX TO HCV RNA EST immunodeficiency virus procedure are in BY PCR infection) ([facility] the res ults ([facility]) section. HIV 1/2 ANTIGEN AND Routine 07/26/2017 9:50 HIV (human Resul ts for this ANTIBODY, 4TH EST immunodeficiency virus proc edure are in GENERATION infection) ([facility] the res ults ([facility]) section. N. GONORRHOEAE AND Routine 07/26/2017 9:40 HIV (human Result s for this CHLAMYDIA EST immunodeficiency virus proce dure are in TRACHOMATIS, MISC infection) ([facility]) th e results SITES, AMPLIFIED ([facility]) section. RNA CHLAMYDIA/N. Routine 07/26/2017 9:40 HIV (human Results for this GONORRHOEAE EST immunodeficiency virus proce dure are in AMPLIFIED RNA, infection) ([facility] the r esults URINE ([facility]) section. documented in this encounter Results HIV 1/2 ANTIBODY (07/26/2017 9:50 EST) HIV 1/2 Antibody Negative Negative [facility] Comment: LABORATORY SERVICES Fourth generation assay performed on the Siemens Nexavisaur. If acute HIV-1 infection is suspected in a high risk patient, submit plasma specimen for HIV-1 RNA quantification test. Specimen Blood specimen (specimen) - Blood Performing Organization Address City/State/ZIP Code Phon e Number [facility] [address] [place] [address] SERVICES HEPATITIS C AB W REFLEX TO HCV RNA BY PCR (07/26/2017 9:50 EST) Pathologist Sig nature Hep C Ab w Rfx PCR Negative Negative [facility] HCSCR2 LABORATORY SERVICES Specimen Blood specimen (specimen) - Blood Performing Organization Address City/State/ZIP Code Phon e Number [facility] [address] [place] [address] SERVICES SYPHILIS SEROLOGY (07/26/2017 9:50 EST) Syphilis Serology Positive [facility] Comment: LABORATORY SERVICES Reference Range: Negative Syphilis Ab (IgG) ordered by reflex and sent to [place]. Specimen Blood specimen (specimen) - Blood Performing Organization Address City/State/ZIP Code Phon e Number [facility] [address] [place] [address] SERVICES CHLAMYDIA/N. GONORRHOEAE AMPLIFIED RNA, URINE (07/26/2017 9:40 EST) Pathologist Sig nature Chlamydia Result Negative [facility] SERVICES GC Result Negative [facility] SERVICES Specimen Other (qualifier value) - Urine Performing Organization Address City/[facility]/ZIP Code Phon e Number [facility] [address] [place] [address] SERVICES N. GONORRHOEAE AND CHLAMYDIA TRACHOMATIS, MISC SITES, AMPLIFIED RNA (07/26/2017 9:40 EST) Source ORAL/THROAT [facility] SERVICES C.trachomatis, Negative Negative [facility] MEDICAL Misc Site Comment: [facility] (Note) SERVICES . ADDITIONAL INFORMATION ------ This report is intended for use in clinical monitoring and management of patients. ??It is not intended for use i n medical-legal applications. . This test has been modified from the shearing shed hand's instructions. ??Its performance characteristics were determined by [facility] in a manner consistent with CLIA requirements. ??This test has not been cleared or appr reina by the U.S. Food and Drug Administration. Source ORAL/THROAT ([facility] OR [facility] LAB[facility]ORY SERVICES N.gonorrhoeae, Negative Negative [facility] Misc Site Comment: [facility] (Note) SERVICES . ADDITIONAL INFORMATION ------ This report is intended for use in clinical monitoring and management of patients. ??It is not intended for use i n medical-legal applications. . This test has been modified from the shearing shed hand's instructions. ??Its performance characteristics were determined by [facility] in a manner consistent with CLIA requirements. ??This test has not been cleared or appr reina by the U.S. Food and Drug Administration. Performed or Referred by: [facility], [address] [place] [id number], Lab Dir: Juan Daniel kenny II, M.D., Ph.D. 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
--- OUTSIDE RECORDS SUMMARY | 2022-05-12 00:58 | XMS_ITS | Encounter Summary ---
:1960 Author Organization [facility] Address [address] [place] [address] Care Team Providers Name Role Phone Chele Becker Primary Care Provider Encounter Details Date Type Department Care Team Description 11/25/2018 Phlebotomy Only [facility] Septic Tank Installer, Medic ation monitoring encounter; - [facility] Outpatient Routine screening for STI (s exually transmitted infection); [address] [facility] History of syphilis [id number] Social History Tobacco Use Types Packs/Day Years Used Date Never Smoker Smokeless Tobacco: Never Used Alcohol Use Standard Drinks/Week Comments Yes 14 (1 standard drink = 0.6 oz pure alcoh ol) Sex Assigned at Date Recorded Not on file documented as of this encounter Miscellaneous Notes Result QuickNote - Silvana Phelps MD, MD - 11/25/2018 1011 EDT Phoned patient and left message. Labs are stable. HIV ab negative. Oral GC/chlam outstanding. I willcall him if positive. Asked that he call me with any questions. CNoyes documented in this encounter Plan of Treatment Upcoming Encounters Date Type Specialty Care Team Description 05/30/2022 Nurse Only Infectious Disease Nurse, Id, RN 08/10/2022 Office Visit Infectious Disease Silvana Phelps MD [address] [facility], Level 5 [phone] (Wo rk) documented as of this encounter Procedures Procedure Name Priority Date/Time Associated Diagnosis Comme nts RPR SCREEN, RESPONSE Routine 11/25/2018 10:17 Medication Res ults for this TO THERAPY, S EDT monitoring encou nter procedure are in Routine screening the result s for STI (sexually section. transmitted infection) History of syphilis COMPLETE BLOOD COUNT Routine 11/25/2018 10:17 Medication Res ults for this AND DIFFERENTIAL EDT monitoring enco unter procedure are in Routine screening the result s for STI (sexually section. transmitted infection) HIV 1/2 ANTIGEN AND Routine 11/25/2018 10:17 Medication Resu lts for this ANTIBODY, 4TH EDT monitoring encou nter procedure are in GENERATION Routine screening the result s for STI (sexually section. transmitted infection) PHOSPHORUS Routine 11/25/2018 10:17 Medication Results for this EDT monitoring encou nter procedure are in Routine screening the result s for STI (sexually section. transmitted infection) BASIC METABOLIC PANEL Routine 11/25/2018 10:17 Medication Re sults for this (BMP) EDT monitoring encou nter procedure are in Routine screening the result s for STI (sexually section. transmitted infection) documented in this encounter Results RPR, RESPONSE - ID USE ONLY (11/25/2018 10:17 EDT) Pathologist Sig nature RPR, Response Negative Negative [facility] Comment: LABORATORY SERVICES (Note) . ADDITIONAL INFORMATION ------ This test is intended for monitoring response to thera py in patients that have been previously diagnosed with Syph ilis. This test should not be used to screen Syphilis. Performed by: [facility] Labs: [facility], [place] [address] Specimen Blood Performing Organization Address City/State/ZIP Code Phon e Number [facility] [address] [place] [address] SERVICES (ABNORMAL) COMPLETE BLOOD COUNT AND DIFFERENTIAL (11/25/2018 10:17 EDT) WBC 6.23 4.0 - 10.4 [facility] LABORATORY SERVICES RBC 6.09 (H)Comment: 4.36 - 5.78 [facility] Rev'd by [facility] LABORATORY Pathologist SERVICES Hemoglobin 12.9 (L) 13.8 - 17.3 [facility] gm/dl [place] [facility] SERVICES HCT 41.0 39.5 - 50.2 [facility] LABORATORY SERVICES MCV 67 (L) 81 - 95 fl [facility] LABORATORY SERVICES MCH 21.2 (L) 27.6 - 33.0 [facility] LABORATORY SERVICES Hypochromia 2+ [facility] LABORATORY SERVICES MCHC 31.5 (L) 32.8 - 36.4 [facility] gm/dl [place] LABORATORY SERVICES RDW-CV 15.7 (H) <14.2 % [facility] LABORATORY SERVICES RDW-SD 35.0 <46.0 fl [facility] LABORATORY SERVICES PLT 161 141 - 377 [facility] LABORATORY SERVICES MPV Not Available 9.5 - 12.7 [facility] LABORATORY SERVICES Neutrophils 64.7 % [facility] LABORATORY SERVICES Lymphocytes 24.4 % [facility] LABORATORY SERVICES Monocytes 8.8 % [facility] LABORATORY SERVICES Eosinophils 1.3 % [facility] LABORATORY SERVICES Basophils 0.6 % [facility] LABORATORY SERVICES Immature Grans 0.2 % [facility] LABORATORY SERVICES ABS Neutrophils 4.03 2.20 - 8.85 [facility] LABORATORY SERVICES ABS Lymphs 1.52 1.09 - 3.30 [facility] LABORATORY SERVICES ABS Monocytes 0.55 0.1 - 0.8 [facility] LABORATORY SERVICES ABS Eosinophils 0.08 0.03 - 0.61 [facility] LABORATORY SERVICES ABS Basophils 0.04 0.01 - 0.11 [facility] LABORATORY SERVICES ABS Immature Grans 0.01 0 - 0.06 [facility] LABORATORY SERVICES Type of Diff: Automated [facility] LABORATORY SERVICES Specimen Blood specimen (specimen) - Blood Performing Organization Address City/State/ZIP Code Phon e Number [facility] [address] [place] [address] SERVICES HIV 1/2 ANTIGEN AND ANTIBODY, 4TH GENERATION (11/25/2018 10:17 EDT) HIV 1/2 Antibody Negative Negative [facility] Comment: LABORATORY SERVICES Fourth generation assay performed on the Siemens Pharmworksaur. If acute HIV-1 infection is suspected in a high risk patient, submit plasma specimen for HIV-1 RNA quantification test. Specimen Blood specimen (specimen) - Blood Performing Organization Address City/[facility]/ZIP Code Phon e Number [facility] [address] [place] [address] SERVICES (ABNORMAL) BASIC METABOLIC PANEL (BMP) (11/25/2018 10:17 EDT) Sodium 141 136 - 145 [facility] mEq/L LABORATORY SERVICES Potassium 4.2 3.5 - 5.0 [facility] mEq/L LABORATORY SERVICES Chloride 105 96 - 110 [facility] mEq/L LABORATORY SERVICES CO2 28 22 - 32 mEq/L [facility] LABORATORY SERVICES BUN 17 10 - 26 mg/dl [facility] LABORATORY SERVICES Creatinine 1.30 (H) 0.66 - 1.25 [facility] mg/dl LABORATORY SERVICES GFR, Calculated 61 >60 [facility] Comment: ml/min/1.73m2 LABORATORY eGFR calculated using CKD-EPI equation for SERVICES non Americans. Multiply eGFR by 1.16 for Americans. Calcium 9.8 8.5 - 10.5 [facility] mg/dl LABORATORY SERVICES Calculated Calcium 9.1 8.5 - 10.5 [facility] mg/dl LABORATORY SERVICES Glucose, Serum 98 70 - 100 [facility] mg/dl LABORATORY SERVICES Fasting? No [facility] LABORATORY SERVICES Specimen Blood specimen (specimen) - Blood Performing Organization Address [facility]/ZIP Code Phon e Number [facility] [address] [place] [address] SERVICES PHOSPHORUS (11/25/2018 10:17 EDT) Pathologist Sig nature Phosphorus 2.9 2.5 - 4.5 mg/dl [facility] LABORA TORY SERVICES Specimen Blood specimen (specimen) - Blood Performing Organization Address City/State/ZIP Code Phon e Number [facility] [address] [place] [address] SERVICES documented in this encounter Visit Diagnoses Diagnosis Medication monitoring encounter Encounter for therapeutic drug monitorin g Routine screening for STI (sexually shaikh smitted infection) Screening examination for venereal disea se History of syphilis Personal history of other infectious and parasitic disease documented in this encounter Care Teams Immigration Judge Relationship Specialty Start Date End Date Chele Becker DO PCP - General 11/22/17 04/26/20 documented as of this encounter
--- OUTSIDE RECORDS SUMMARY | 2022-05-12 00:58 | XMS_ITS | Encounter Summary ---
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 Retinitis, right Moshe Stewart Ep5 Infectious C, Disease [address] [place] [address] Phone: Fax: Referral ID Status Reason Start Date Expiration Date Visits V isits Requested Authorized [id number] Closed Specialty 10/06/2016 1 1 Services Required Encounter Details Date Type Department Care Team Description 10/18/2016 Office Visit [facility] Lenin, Silvana Timothy, Ear ly syphilis, syphilitic uveitis (Primary Dx); Infectious Disease - MD STD exposure [address] [phone] [place], [address] [place] [phone] (Wo rk) Social History Tobacco Use Types Packs/Day Years Used Date Never Smoker Alcohol Use Standard Drinks/Week Comments Yes 14 (1 standard drink = 0.6 oz pure alcoh ol) Sex Assigned at Date Recorded Not on file documented as of this encounter Last Filed Vital Signs Vital Sign Reading Time Taken Comments Blood Pressure 123/64 10/18/2016 0943 EST Pulse 57 10/18/2016 0943 EST Temperature 36.1 ??C (97 ??F) 10/18/2016 0943 EST Respiratory Rate - - Oxygen Saturation - - Inhaled Oxygen Concentration - - Weight 86.2 kg (190 lb) 10/18/2016 0943 EST Height - - Body Mass Index 29.76 10/05/2016 0000 EST documented in this encounter Discharge Diagnoses Diagnosis 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 Trim length 40 cm Which is same as insertion date. PICC site care instructions reviewed without learning barriers. I was directly supervised by Dr. Phelps who was in the suite and immediately available for the entire time the service was provided. Silvana Castro MD - 10/18/2016 1000 EST Division of Infectious Disease Follow up/Progress Note Date: 10/18/16 Chief Complaint: Occular syphilis History of present illness: 56 y/o male presents today for interval evaluation s/p recent admission for occular syphilis. Patient is generally healthy. Has a history of Thallasemia trait and gout. Is a MSM and was evaluated at the [facility] for consideration of PrEP in Aug 2015. At that time, syphilis ab was negative. Was started on Truvada for PrEP. Reportedly adherent with daily administration with possibly one missed dose every other month. Has had multiple sexual partners, both HIV positive as well as HIV negative, most times unprotected intercourse. No prior history of STI. Doing generally well until on 09/25 noted right eye irritation. Eventually saw his job hand on 09/29. Referred to retinal specialist, Dr. Cutler. She saw him on 10/02. Concern raised [...] 10/05, his RPR had returned at 1:256. LPperformed which revealed normal chemistries and 3 WBC. VDRL eventually negative. HIV ab negative. A PICC was placed and he was d/c'd home on high dose IV PCN G. Returns today for re-eval, now having completed 14 days of treatment. Overall, Mr Hughes reports he's feeling better. Right eye feels irritated, foreign body type of sensation, though the pain has completely resolved. His visual acuity is not normal, though he's now able to read letters. He's not noted any fevers, sweats or chills. Denies nausea, vomiting, diarrhea. PICC has been functioning well without adverse effects. No rash. Very mild MÁRQUEZ though not unusual for him. No weakness, paresthesias, numbness. Does think he may be developing gout flare right great toe--he treats with NSAIDs. Eager for completion of treatment, PICC removal. PMHx: 1. Gout. 2. Occular syphilis. Panuveitis, [...] Medications: Medications reconciled via PRISM. Current antimicrobials: PCN G 4 million units Q 4 hours--day 14. ROS: Remainder of 10 point ROS is negative. Objective: Visit Vitals ??? BP 123/64 ??? Pulse 57 ??? Temp 36.1 ??C (97 ??F) (Tympanic) ??? Wt 86.2 kg (190 lb) ??? BMI 29.76 kg/m2 Gen: Alert, oriented. NAD. Looks well. HEENT: Anicteric. Scleral injection has resolved. Right pupil dilated with minimal constriction. EOMI and pain-free. Oral mucosa moist. No thrush. Cryptic tonsils pink though no exudate. Neck: supple. COR: RRR nl S1S2. No murmer. Lungs: CTA. Mssk: No obvious joint effusions or warmth. ROM appears pain-free. Neuro: CN 2-12 intact. Strength is 5/5 bilateral UE and LEs. Sensation appears symmetric to LT bilaterally. Integ: No rash. Right UE PICC without erythema, drainage, tenderness. LABS: Most recent: 10/16/16: WBC 6.3K. Hgb 12.6. Plts 198 Cr 1.2 Prior labs: 10/02/16: Syphilis ab positive, RPR 1:256. HIV ab negative Lyme ab negative 10/05: CSF WBC 3, RBC 0, gluc 69, prot 46; VDRL negative 09/08/15 ([facility]) HIV ab negative Syphilis ab negative HAV ab positive. HBV ab indeterminate, surface antigen negative, core ab negative HCV ab negative Radiology: No interval imaging. Impression: 1. Occular syphilis. Uveitis/retinitis in setting of positive ab and significantly elevated RPR are consistent with occular syphilis. No evidence of meningitis via LP though retinal disease requires treatment for neurosyphilis. Clinically improved with increasing visual acuity, resolution of eye pain and scleral injection. Unsure if his vision will return to baseline, though will need to monitor overtime. Will plan to monitor serial RPR in additional to clinical exam/symptoms to monitor response totreatment. Reviewed testing characteristics and need for reliance on RPR to monitor response to treatment as well as for new infections or relapse given the syphilis ab will remain positive for life. 2. High risk for HIV acquisition. Agree with continuing PrEP to minimize risk for acquisition. Discussed plan to monitor Cr, electrolytes, proteinuria Q3-4 months moving forward. Also discussed importance of routine STI screening including site specific GC/chlamydia testing as well as regular RPR. Adherence reviewed and discussed importance of stable drug levels in serum to maximize prevention measures with PrEP. Will plan on prescribing when he needs new refills--Truvada 1 PO daily. Discussed safersex, use of condoms, regular screening for STI, including HIV with unprotected sex. 3. Elevated Cr. Though CrCl today is 72. Will continue to monitor closely. Plan: 1. D/c PCN G and PICC today--patient has completed his 14 days of treatment. 2. Repeat RPR in 3 months. 3. Continue Truvada 1 PO daily. 4. CMP, phos, UA to eval for proteinuria, site specific GC/Chlam screening and HIV ab with our nextvisit. 5. F/u in 3 months--though he knows to phone sooner should status change, questions arise. Silvana Phelps MD 10/18/2016 10:28 documented in this encounter Plan of Treatment Upcoming Encounters Date Type Specialty Care Team Description 05/30/2022 Nurse Only Infectious Disease Nurse, Id, RN 08/10/2022 Office Visit Infectious Disease Silvana Phelps MD [address] [facility], [address] [place], [place] [phone] (Wo rk) documented as of this encounter Visit Diagnoses Diagnosis Early syphilis, syphilitic uveitis - Suyapa tamika Syphilitic uveitis, unspecified STD exposure documented in this encounter Discontinued Medications Medication Sig Discontinue Reason Start Date End Date diphenhydrAMINE Take 1 Cap by mouth as Therapy completed 10/06/2016 10/18/2016 (BENADRYL) 50 mg needed for up to 1 capsuleIndications: dose (hives). Vision loss of right eye, Neurosyphilis, Retinitis, right IV Infusion Pump & Use as directed. Order Therapy completed 017 10/18/2016 SuppliesIndications: includes Vision loss of right administration eye, Neurosyphilis, supplies and pump (if Retinitis, right required), and catheter care supplies for home IV therapy. penicillin G potassium Inject 4 Million Units Therapy completed 05/201710/18/2016 4 Million Units in into the vein every 4 dextrose 5% 150 hours for 13 days. Or mLIndications: Vision continue until loss of right eye, follow-up appointment Neurosyphilis, with ID. Compound in Retinitis, right patient ready to use form. Pharmacy may adjust diluent and/or volume. sodium chloride 0.9 % For valved catheters Patient Stopped 10/06/19 17 10/18/2016 flush (Groshong, Vaxcel, Taking syringeIndications: Solo PICC, Mid-line, Vision loss of right and Groshong Chest eye, Neurosyphilis, Port): Flush all Retinitis, right lumens with 10 mL every week if not in use. Flush 10 mL before and 10 mL after each medication dose (20 mL after vancomycin doses). Flush with 20 mL after blood draws. Dispense quantity sufficient. documented as of this encounter Care Teams Cut Off Saw Operator Relationship Specialty Start Date End Date Chele Kessler MD PCP - General 09/07/15 11/21/[address] [place] [address] documented as of this encounter
--- OUTSIDE RECORDS SUMMARY | 2022-05-12 00:58 | XMS_ITS | Encounter Summary ---
:1960 Author Organization [facility] Address [address] [place] [address] Care Team Providers Name Role Phone Chele Becker Primary Care Provider Reason for Visit Reason Comments Follow-up Encounter Details Date Type Department Care Team Description 03/20/2019 Office Visit [facility] Silvana Phelps Asy mptomatic HIV infection (HCC-CMS) (Primary Dx); Infectious Disease - MD History of syphilis; [address] Routine screening for STI (s exually transmitted infection); [address] [place] [address] High risk medication use [place], [place] [id number] [place] [address] [place], [address] [place] [address] (Wo rk) Social History Tobacco Use Types Packs/Day Years Used Date Never Smoker Smokeless Tobacco: Never Used Alcohol Use Standard Drinks/Week Comments Yes 14 (1 standard drink = 0.6 oz pure alcoh ol) Sex Assigned at Date Recorded Not on file documented as of this encounter Last Filed Vital Signs Vital Sign Reading Time Taken Comments Blood Pressure 139/73 03/20/2019 0903 EDT Pulse 78 03/20/2019 0903 EDT Temperature 36.5 ??C (97.7 ??F) 03/20/2019 0903 EDT Respiratory Rate - - Oxygen Saturation - - Inhaled Oxygen Concentration - - Weight - - Height - - Body Mass Index - - documented in this encounter Discharge Diagnoses Diagnosis Z21 Asymptomatic human immunodeficiency virus infection status-Z21[ICD-10-CM] Z86.19 Personal history of other infecti ous and parasitic diseases-Z86.19[ICD-10-CM] Z11.3 Encounter for screening for infect ions with a predominantly sexual mode of transmission-Z11.3[ICD-10-CM] Z79.899 Other care home (current) drug t herapy-Z79.899[ICD-10-CM] documented in this encounter Ordered Prescriptions Prescription Sig Dispensed Refills Start Date End Date emtricitabine-tenofovir, Take 1 Tab by mouth 30 Tab 2 06/13/2019 TDF, (TRUVADA) 200-300 mg daily. per tablet documented in this encounter Progress Notes Silvana Phelps MD, - 03/20/2019 0900 EDT Division of Infectious Disease Follow up/Progress Note Date: 03/20/19 Chief Complaint: Occular syphilis, HIV prevention, unprotected [...] his right eye but is not different. Is scheduled to see his local switching operator in the near future. No fevers or sweats. Appetite is good. [...] 10 point ROS is negative. Objective: BP 139/73 (BP Cuff Location: Right arm, Patient Position: Sitting, BP Cuff Sizes: Adult, regular) Pulse 78 Temp 36.5 ??C (97.7 ??F) (Tympanic) Gen: Alert, oriented. NAD. Looks well. HEENT: Anicteric. PERRL. EOMI and pain-free. Oral mucosa moist. No thrush. No ulcerations. Neck: supple. COR: RRR. No murmer. Lungs: CTA. Abd soft, NT, ND. No hepatosplenomegaly. Mssk: No obvious joint effusions or warmth. ROM appears pain-free. Integ: No rash. No LE edema. No cervical, supraclavicular adenopathy. LABS: Due for labs today. Labs from 11/25/18 RPR negative (down from 1:256 and stable from 10/2017). HIV ab negative. Oropharyngeal GC and chlamydia negative Urine GC and chlamydia negative. Cr 1.30(GFR >60) Phos 2.9 Prior labs: 10/02/16: Syphilis ab positive, RPR 1:256. HIV ab negative Lyme ab negative 10/05: CSF WBC 3, RBC 0, gluc 69, prot 46; [facility]DRL [facility] HIV ab negative Syphilis ab negative [...] > 60. Will continue to monitor closely. 4. [...] f/u in 3 months. Silvana Phelps MD 03/20/2019 9:08 documented in this encounter Plan of Treatment Upcoming Encounters Date Type Specialty Care Team Description 05/30/2022 Nurse Only Infectious Disease Nurse, Elsa, RN 08/10/2022 Office Visit Infectious Disease Silvana Phelps MD [address] [facility], [address] [place] [phone] (Wo rk) documented as of this encounter Procedures Procedure Name Priority Date/Time Associated Diagnosis Comme nts N. GONORRHOEAE AND Routine 03/20/2019 9:19 History of sy philis Results for this CHLAMYDIA EDT Routine screening procedure are in TRACHOMATIS, MISC for STI (sexually the r esults SITES, AMPLIFIED RNA transmitted section . infection) CHLAMYDIA/N. Routine 03/20/2019 9:18 Routine screening Results for this GONORRHOEAE EDT for STI (sexually procedure are in AMPLIFIED RNA, URINE transmitted the res ults infection) section. documented in this encounter Results HEPATITIS C AB W REFLEX TO HCV RNA BY PCR (03/20/2019 9:53 EDT) Pathologist Sig nature Hep C Ab w Rfx PCR Negative Negative [facility] LABORATORY SERVICES Specimen Blood specimen (specimen) - Blood Performing Organization Address City/State/ZIP Code Phon e Number [facility] [address] [place] [address] SERVICES RPR SCREEN, RESPONSE TO THERAPY, S (03/20/2019 9:53 EDT) RPR Screen, NonreactiveComment Nonreactive [facility] Response to : Performed by: LABORATORY Therapy, S [facility]: SERVICES [address], [place] [address] Specimen Blood Performing Organization Address City/[facility]/ZIP Code Phon e Number [facility] [address] [place] [address] SERVICES RAPID HIV 1/2 ANTIGEN AND ANTIBODY, 4TH GENERATION (03/20/2019 9:53 EDT) Rapid HIV 1/2 Ab Negative Negative [facility] Comment: LABORATORY SERVICES Fourth generation assay performed on the Siemens Centaur. If acute HIV-1 infection is suspected in a high risk patient, submit plasma specimen for HIV-1 RNA quantification test. Specimen Blood specimen (specimen) - Blood Performing Organization Address City/[facility]/ZIP Code Phon e Number [facility] [address] [place] [address] SERVICES (ABNORMAL) COMPLETE BLOOD COUNT AND DIFFERENTIAL (03/20/2019 9:53 EDT) Pathologist Sig nature WBC 5.41 4.0 - 10.4 [facility] K/[facility] LABORATORY SERVICES RBC 5.73 4.36 - 5.78 [facility] LABORATORY SERVICES Hemoglobin 12.3 (L) 13.8 - 17.3 [facility] gm/dl LABORATORY SERVICES HCT 38.9 (L) 39.5 - 50.2 % [facility] SERVICES MCV 68 (L) 81 - 95 fl [facility] SERVICES MCH 21.5 (L) 27.6 - 33.0 pg [facility] SERVICES Hypochromia 2+ [facility] SERVICES MCHC 31.6 (L) 32.8 - 36.4 [facility] gm/dl LABORATORY SERVICES RDW-CV 15.2 (H) <14.2 % [facility]OR[facility] SERVICES RDW-SD 35.3 <46.0 fl [facility]OR[facility] SERVICES PLT 155 141 - 377 K/[facility] LABORATORY SERVICES MPV 11.1 9.5 - 12.7 fl [facility] SERVICES Neutrophils 66.3 % [facility] SERVICES Lymphocytes 24.6 % [facility] SERVICES Monocytes 7.4 % [facility] SERVICES Eosinophils 0.7 % [facility] SERVICES Basophils 0.6 % [facility] SERVICES Immature Grans 0.4 % [facility] SERVICES ABS Neutrophils 3.59 2.20 - 8.85 [facility] K/[facility] LABORATORY SERVICES ABS Lymphs 1.33 1.09 - 3.30 [facility] K/[facility] LABORATORY SERVICES ABS Monocytes 0.40 0.1 - 0.8 K/[facility] LABORATORY SERVICES ABS Eosinophils 0.04 0.03 - 0.61 [facility] K/cm LABORATORY SERVICES ABS Basophils 0.03 0.01 - 0.11 [facility] K/[facility] LABORATORY SERVICES ABS Immature Grans 0.02 0 - 0.06 /[facility] LABORATORY SERVICES Type of Diff: Automated [facility] SERVICES Specimen Blood specimen (specimen) - Blood Performing Organization Address City/State/ZIP Code Phon e Number [facility] [address] [place] [address] SERVICES PHOSPHORUS (03/20/2019 9:53 EDT) Pathologist Sig nature Phosphorus 2.9 2.5 - 4.5 mg/dl [facility] LABORA TORY SERVICES Specimen Blood specimen (specimen) - Blood Performing Organization Address City/State/ZIP Code Phon e Number [facility] [address] [place] [address] SERVICES (ABNORMAL) COMPREHENSIVE METABOLIC PANEL (CMP) (03/20/2019 9:53 EDT) Potassium 4.3 3.5 - 5.0 [facility] mEq/L [facility] Sodium 140 136 - 145 [facility] mEq/L [facility] Chloride 104 96 - 110 [facility] mEq/L [facility] CO2 27 22 - 32 mEq/L [facility] SERVICES Total Alkaline 64 38 - 126 U/L [facility] Phosphatase [facility] Bilirubin, Total 0.8 <1.4 mg/dl [facility] SERVICES AST 31 15 - 46 U/L [facility] SERVICES ALT 32 21 - 72 U/L [facility] SERVICES Albumin 4.6 3.4 - 4.9 [facility] g/dl [facility] Total Protein 6.7 6.3 - 8.2 [facility] g/dl [facility] Creatinine 1.23 0.66 - 1.25 [facility] mg/dl [facility] GFR, Calculated 65 >60 [facility] Comment: ml/min/1.73m2 [facility] LAB[facility]ORY eGFR calculated using CKD-EPI equation for SERVICES non Americans. Multiply eGFR by 1.16 for Americans. BUN 16 10 - 26 mg/dl [facility] SERVICES Calcium 9.5 8.5 - 10.5 [facility] mg/dl [facility] Calculated Calcium 9.0 8.5 - 10.5 [facility] mg/dl [facility] Glucose, Serum 113 (H) 70 - 100 [facility] mg/dl [facility] Fasting? No [facility] SERVICES Specimen Blood specimen (specimen) - Blood Performing Organization Address City/State/ZIP Code Phon e Number [facility] [address] [place] [address] SERVICES N. GONORRHOEAE AND CHLAMYDIA TRACHOMATIS, [facility] SITES, AMPLIFIED RNA (03/20/2019 9:19 EDT) Source ORAL/THROAT (PHARYNX OR [facility] PHARYNGEAL) [facility] C.trachomatis, Negative Negative [facility] Comment: [facility] (Note) SERVICES . ADDITIONAL INFORMATION ------ This report is intended for use in clinical monitoring and management of patients. ??It is not intended for use i n medical-legal applications. . This test has been modified from the supercharger repair supervisor's instructions. ??Its performance characteristics were determined by [facility] in a manner consistent with CLIA requirements. ??This test has not been cleared or appr reina by the U.S. Food and Drug Administration. Source ORAL/THROAT (PHARYNX OR [facility] PHARYNGE[facility]) [facility] N.gonorrhoeae, Negative Negative [facility] Comment: [facility] (Note) SERVICES . ADDITIONAL INFORMATION ------ This report is intended for use in clinical monitoring and management of patients. ??It is not intended for use i n medical-legal applications. . This test has been modified from the supercharger repair supervisor's instructions. ??Its performance characteristics were determined by [facility] in a manner consistent with CLIA requirements. ??This test has not been cleared or appr reina by the U.S. Food and Drug Administration. Performed or Referred by: [facility], [address] [place] [address] Specimen Other (qualifier value) - Other Performing Organization Address City/State/ZIP Code Phon e Number [facility] [address] [place] [address] SERVICES CHLAMYDIA/N. GONORRHOEAE AMPLIFIED RNA, URINE (03/20/2019 9:18 EDT) Pathologist Sig nature Chlamydia Result Negative [facility] SERVICES GC Result Negative [facility] SERVICES Specimen Other (qualifier value) - Urine Performing Organization Address City/State/ZIP Code Phon e Number [facility] [address] [place] [address] SERVICES documented in this encounter Visit Diagnoses Diagnosis Asymptomatic HIV infection (HCC) - Prima ry Asymptomatic human immunodeficiency viru s (HIV) infection status History of syphilis Personal history of other infectious and parasitic disease Routine screening for STI (sexually shaikh smitted infection) Screening examination for venereal disea se High risk medication use Encounter for long-term (current) use of other medications documented in this encounter Discontinued Medications Medication Sig Discontinue Reason Start Date End Date emtricitabine-tenofovir, Take 1 tablet by Reorder 11/25/2018 03/20/2019 TDF, (TRUVADA) 200-300 mouth daily. mg per tablet documented as of this encounter Care Teams Cognos Bi Administrator Relationship Specialty Start Date End Date Chele Becker DO PCP - General 11/22/17 04/26/20 documented as of this encounter
--- OUTSIDE RECORDS SUMMARY | 2022-05-12 00:58 | XMS_ITS | Encounter Summary ---
:1960 Author Organization [facility] Address [address] [place] [address] Care Team Providers Name Role Phone Chele Kessler MD Primary Care Provider Reason for Visit Reason Comments Follow-up Encounter Details Date Type Department Care Team Description 11/21/2017 Office Visit [facility] Silvana Phelps, His tory of syphilis (Primary Dx); Infectious Disease - MD Routine screening for STI (sexually shaikh smitted infection); [address] Medication monitoring encoun ter [address] [place] [id number] [facility] [phone] [place], [address] [place] [address] (Wo rk) Social History Tobacco Use Types Packs/Day Years Used Date Never Smoker Alcohol Use Standard Drinks/Week Comments Yes 14 (1 standard drink = 0.6 oz pure alcoh ol) Sex Assigned at Date Recorded Not on file documented as of this encounter Last Filed Vital Signs Vital Sign Reading Time Taken Comments Blood Pressure 131/72 11/21/2017 1131 EDT Pulse 59 11/21/2017 1131 EDT Temperature 36.1 ??C (97 ??F) 11/21/2017 1131 EDT Respiratory Rate - - Oxygen Saturation - - Inhaled Oxygen Concentration - - Weight 88.5 kg (195 lb) 11/21/2017 1131 EDT pt reported Height - - Body Mass Index 30.54 10/05/2016 0000 EST documented in this encounter Discharge Diagnoses Diagnosis Z86.19 Personal history of other infecti ous and parasitic diseases-Z86.19[ICD-10-CM] Z11.3 Encounter for screening for infect ions with a predominantly sexual mode of transmission-Z11.3[ICD-10-CM] Z51.81 Encounter for therapeutic drug le wes monitoring-Z51.81[ICD-10-CM] documented in this encounter Ordered Prescriptions Prescription Sig Dispensed Refills Start Date End Date emtricitabine-tenofovir, Take 1 Tab by mouth 30 Tab 2 02/18/2018 TDF, (TRUVADA) 200-300 mg daily for 30 days. per tablet documented in this encounter Progress Notes Alena Sesay RN - 11/21/2017 1130 EDT Labs drawn from left anticubital without incident. I was supervised by Dr. Phelps who was present andimmediately available in the office suite. ALENA SESAY RN 11/21/2017 12:22 CATSilvana Phelps MD - 11/21/2017 1130 EDT Division of Infectious Disease Follow up/Progress Note Date: 11/21/17 Chief Complaint: Occular syphilis, HIV prevention, unprotected sex History of present illness: 56 y/o male presents today for interval evaluation following episode of occular syphilis and ongoingmonitoring related to use of PrEP. Mr. Hughes reports he's feeling well. Continues to take his Truvadafaithfully. May have missed one dose. Has not had any side effects. Recently on vacation and did have unprotected sex--insertive and oral exposures. No dysuria, pharyngitis. Vision has been stable. Still sees a smudge or film when looking through his right eye but is not different. No HAs. Has had some episodes of feeling lightheaded if he bends over and underwent MRI of brain at the request of PCP, reportedly unremarkable. Overall feels well. PMHx: 1. Gout. 2. Occular syphilis. [...] 10 point ROS is negative. Objective: BP 131/72 (BP Cuff Location: Left arm, Patient Position: Sitting, BP Cuff Sizes: Adult, large) Pulse 59 Temp 36.1 ??C (97 ??F) (Tympanic) Wt 88.5 kg (195 lb) Comment: pt reported BMI 30.54 kg/m2 Gen: Alert, oriented. NAD. Looks well. HEENT: Anicteric. PERRL. EOMI and pain-free. Oral mucosa moist. No thrush. No ulcerations. Neck: supple. COR: Regular with brief pauses. No murmer noted today. Lungs: CTA. Mssk: No obvious joint effusions or warmth. ROM appears pain-free. Integ: No rash. No LE edema. LABS: Due for labs today. Labs from 08/15/17 RPR 1:1 (down from 1:256 and stable from 07/26/17). HIV ab negative. Oropharyngeal GC and chlamydia negative Urine GC and chlamydia negative. Cr 1.08 AST 33 ALT 47 Alk phos 68 TB 0.7 Prior labs: 10/02/16: Syphilis ab positive, RPR 1:256. HIV ab negative Lyme ab negative 10/05: CSF WBC 3, RBC 0, gluc 69, prot 46; VDRL [place]08/[place] HIV ab negative Syphilis ab negative HAV [...] and received 1 dose of IM PCN. Plan to repeat lab RPR today to assure remains stable. 2. High risk for HIV acquisition. Agree with continuing PrEP to minimize risk for acquisition. Discussed plan to monitor Cr, electrolytes, Q3 months moving forward--due today.. Site specific chlamydia and gonorrhea testing also performed, if positive will treat. Adherence reviewed and discussed importance of stable drug levels in serum to maximize prevention measures with PrEP. Rx renewed today forTruvada 1 PO daily. Discussed safer sex, use of condoms, regular screening for STI, including HIV with unprotected sex. 3. Elevated Cr. Though CrCl recently > 70. Will continue to monitor closely. 4. Vision changes. Stable at this time. Recent ophtho exam reassuring and RPR decreased. No evidenceto suggest new or relapsed occular syphilis. Would [...] f/u in 3 months. Silvana Phelps MD 11/21/2017 11:46 documented in this encounter Plan of Treatment Upcoming Encounters Date Type Specialty Care Team Description 05/30/2022 Nurse Only Infectious Disease Nurse, Id, RN 08/10/2022 Office Visit Infectious Disease Silvana Phelps MD [address] [facility], [address] [place] [address] (Wo rk) documented as of this encounter Procedures Procedure Name Priority Date/Time Associated Comments Diagnosis RPR SCREEN, RESPONSE Routine 11/21/2017 12:06 History of syphi lis Results for this TO THERAPY, S EDT procedure are in the results section. RAPID HIV 1/2 ANTIGEN Routine 11/21/2017 12:06 Routine screeni ng Results for this AND ANTIBODY, 4TH EDT for STI (sexually proce dure are in GENERATION transmitted the results infection) section. PHOSPHORUS Routine 11/21/2017 12:06 Medication Results for this EDT monitoring procedure are i n encounter the results section. COMPREHENSIVE Routine 11/21/2017 12:06 Routine screening Resul ts for this METABOLIC PANEL (CMP) EDT for STI (sexually p rocedure are in transmitted the results infection) section. Medication monitoring encounter N. GONORRHOEAE AND Routine 11/21/2017 12:03 Routine screening Results for this CHLAMYDIA TRACHOMATIS, EDT for STI (sexually procedure are in MISC SITES, AMPLIFIED transmitted the re sults RNA infection) section. CHLAMYDIA/N. Routine 11/21/2017 12:03 Routine screening Result s for this GONORRHOEAE AMPLIFIED EDT for STI (sexually p rocedure are in RNA, URINE transmitted the results infection) section. documented in this encounter Results PHOSPHORUS (11/21/2017 12:06 EDT) Pathologist Sig nature Phosphorus 3.5 2.5 - 4.5 mg/dl [facility] Specimen Blood specimen (specimen) - Blood Performing Organization Address City/State/ZIP Code Phon e Number [facility] [address] [place] [address] SERVICES COMPREHENSIVE METABOLIC PANEL (CMP) (11/21/2017 12:06 EDT) Potassium 4.2 3.5 - 5.0 [facility] mEq/L [facility] Sodium 142 136 - 145 [facility] mEq/L [facility] Chloride 105 96 - 110 [facility] mEq/L [facility] CO2 26 22 - 32 mEq/L [facility] Total Alkaline 59 38 - 126 U/L [facility] Phosphatase [facility] Bilirubin, Total 0.6 <1.4 mg/dl [facility] AST 29 15 - 46 U/L [facility] ALT 37 21 - 72 U/L [facility] Albumin 4.3 3.4 - 4.9 [facility] g/dl [facility] Total Protein 7.0 6.3 - 8.2 [facility] g/dl [facility] Creatinine 1.16 0.66 - 1.25 [facility] mg/dl [facility] GFR, Calculated 71 >60 [facility] Comment: ml/min/1.73m2 [facility] eGFR calculated using CKD-EPI equation for SERVICES non Americans. Multiply eGFR by 1.16 for Americans. BUN 15 10 - 26 mg/dl [facility] SERVICES Calcium 9.9 8.5 - 10.5 [facility] mg/dl [facility] Calculated Calcium 9.7 8.5 - 10.5 [facility] mg/dl [facility] Glucose, Serum 96 70 - 100 [facility] mg/dl [facility] Fasting? Unknown [facility] Specimen Blood specimen (specimen) - Blood Performing Organization Address [facility]/ZIP Code Phon e Number [facility] [address] [place] [address] SERVICES RAPID HIV 1/2 ANTIGEN AND ANTIBODY, 4TH GENERATION (11/21/2017 12:06 EDT) Rapid HIV 1/2 Ab Negative Negative [facility] Comment: LABORATORY SERVICES Fourth generation assay performed on the [employer]. If acute HIV-1 infection is suspected in a high risk patient, submit plasma specimen for HIV-1 RNA quantification test. Specimen Blood specimen (specimen) - Blood Performing Organization Address [facility] Phon e Number [facility] [address] [place] [address] SERVICES RPR, RESPONSE - ID USE ONLY (11/21/2017 12:06 EDT) Pathologist Sig nature RPR, Response Negative Negative [facility] Comment: LABORATORY SERVICES (Note) . ADDITIONAL INFORMATION ------ This test is intended for monitoring response to thera py in patients that have been previously diagnosed with Syph ilis. This test should not be used to screen Syphilis. Performed by: [facility]: [address], [place] [address], Lab Dir: Juan Daniel Tolentino II, M.D., Ph.D. Specimen Blood Performing Organization Address [facility]/ZIP [facility] Phon e Number [facility] [address] [place] [address] SERVICES CHLAMYDIA/N. GONORRHOEAE AMPLIFIED RNA, URINE (11/21/2017 12:03 EDT) Pathologist Sig nature Chlamydia Result Negative [facility] SERVICES GC Result Negative [facility] SERVICES Specimen Other (qualifier value) - Urine Performing Organization Address [facility] Phon e Number [facility] [address] [place] [address] SERVICES N. GONORRHOEAE AND CHLAMYDIA TRACHOMATIS, [facility] SITES, AMPLIFIED RNA (11/21/2017 12:03 EDT) Source ORAL/THROAT (PHARYNX OR [facility] PHARYNGEAL) [facility] C.trachomatis, Negative Negative [facility] Site Comment: [facility] (Note) SERVICES . ADDITIONAL INFORMATION ------ This report is intended for use in clinical monitoring and management of patients. ??It is not intended for use i n medical-legal applications. . This test has been modified from the sausage meat trimmer's instructions. ??Its performance characteristics were determined by [facility] in a manner consistent with CLIA requirements. ??This test has not been cleared or appr reina by the U.S. Food and Drug Administration. Source ORAL/THROAT (PHARYNX OR [facility] PHARYNGEAL) [facility] N.gonorrhoeae, Negative Negative [facility] Site Comment: [facility] (Note) SERVICES . ADDITIONAL INFORMATION ------ This report is intended for use in clinical monitoring and management of patients. ??It is not intended for use i n medical-legal applications. . This test has been modified from the sausage meat trimmer's instructions. ??Its performance characteristics were determined by [facility] in a manner consistent with CLIA requirements. ??This test has not been cleared or appr reina by the U.S. Food and Drug Administration. Performed or Referred by: [facility], [address] [place] [address], Lab Dir: Juan Daniel kenny II, M.D., Ph.D. Specimen Other (qualifier value) - Other Performing Organization Address City/State/ZIP Code Phon e Number [facility] [address] [place] [address] SERVICES documented in this encounter Visit Diagnoses [...] emtricitabine-tenofovir, Take 1 Tab by mouth Reorder 11/21/2017 TDF, (TRUVADA) 200-300 mg daily. per tablet documented as of this encounter Historical Medications This list may reflect changes made after this encounter. Medication Sig Dispensed Refills Start Date End Date emtricitabine-tenofovir, Take 1 Tab by mouth 0 11/21/2017 TDF, (TRUVADA) 200-300 mg daily. per tablet added in this encounter Care Teams Night Supervisor Relationship Specialty Start Date End Date Chele Kessler MD PCP - General 09/07/15 11/21/[address] [place] [address] documented as of this encounter
--- OUTSIDE RECORDS SUMMARY | 2022-05-12 00:59 | XMS_ITS | Encounter Summary ---
:[address] [facility] Address [address] [place] [address] Care Team Providers Name Role Phone Chele Kessler MD Primary Care Provider Encounter Details Date Type Department Care Team Description 09/09/2015 Hospital Encounter [facility] MD [address] [place], [place] [phone] Social History Tobacco Use Types Packs/Day Years Used Date Never Assessed Sex Assigned at Date Recorded Not on file documented as of this encounter Discharge Diagnoses Diagnosis Z20.2 Contact with and (suspected) expos ure to infections with a predominantly sexual mode of transmission-Z20.2[ICD-10-CM] Z11.3 Encounter for screening for infect ions with a predominantly sexual mode of transmission-Z11.3[ICD-10-CM] documented in this encounter Medications at Time of Discharge Medication Sig Dispensed Refills Start Date End Date buPROPion (WELLBUTRIN XL) Take 150 mg by mouth 0 10/04/2016 150 mg XL tablet daily documented as of this encounter Discharge Disposition Disposition Code Departure Means Destination Home or Self Care documented in this encounter Plan of Treatment Upcoming Encounters Date Type Specialty Care Team Description 05/30/2022 Nurse Only Infectious Disease Nurse, Id, RN 08/10/2022 Office Visit Infectious Disease Silvana Phelps MD [address] [facility], [facility] [address] [place], [place] [address] (Wo rk) documented as of this encounter Visit Diagnoses Not on filedocumented in this encounter Care Teams Account Resolution Specialist Relationship Specialty Start Date End Date Chele Kessler MD PCP - General 09/07/15 11/21/[address] [place] [address] documented as of this encounter
--- OUTSIDE RECORDS SUMMARY | 2022-05-12 00:59 | XMS_ITS | Encounter Summary ---
:1960 Author Organization [facility] Address [address] [place] [address] Care Team Providers Name Role Phone Chele Kessler MD Primary Care Provider Reason for Visit Reason Comments New Patient Visit Encounter Details Date Type Department Care Team Description 09/08/2015 Office Visit [facility] Rama Roger, STD e xposure (Primary Dx); Infectious Disease - Screeni ng examination for venereal disease [address] [address] Social History Tobacco Use Types Packs/Day Years Used Date Never Assessed Sex Assigned at Date Recorded Not on file documented as of this encounter Progress Notes Rama Roger MD - 09/08/2015 1212 EST [facility] DOS: 09/08/2015 Subjective: Mr Hughes presents to discuss initiation of PreP He was 2 years ago and he has had multiple sexually partners since that time. He does not practice safer sex. He partners are predominately male. He knows that 2 of his recent partners are HIVpositive. He does practice oral sex and insertive sex. He was last tested for HIV 10/2014. He has never been diagnosed with any STDs. Recently he has had + sore throat x 2 days No fever No adenopathy Only other complaint is some sensitivity of the scrotum He denies penile or rectal DC. No ulcers in the mouth, on the penis or in the anal region. Allergies and meds reviewed and updated in [facility] Good health but does have Thalassemia trait No chronic med problems except for depression No major illnesses Never hospitalized No surgeries except for tympanostomy tubes as a child No h/o infections ROS - 10 point ROS performed and significant for the findings mentioned above and for the following: Weight stable Appetite good No rashes No neuromuscular complaints No MÁRQUEZ No diarrhea No complaints Thinks that he had 2 doses of HAV vaccine SH for the second time 2 years ago (female partners) ETOH - 2 drinks nightly Grows his own MJ but does not smoke it No IVDU 2 surrogate sons. 3 biological children and step children Lives alone FH 2 of 3 of his children have Thalassemia trait Mother in her 80's - has Thal minor Father of ID at age < 50 No FH of renal disease PE + pharyngeal erythema with mild swelling of left tonsil - no other oral lesions No cervical or supraclavicular adenopathy No penile lesions No perianal lesions Faint erythema of scrotum but no testicular tenderness Skin - no rash A/P PreP - he is a potential candidate for PreP. He has a sore throat at present with erythema on exam. No other signs or sx to suggest ARS. Need to r/o HIV. Send to lab today for HIV Ab, HAV AB, HB serologies, syphilis serology. Cr. Obtained rectal swab today for GC and chlamydia testing He will return on Sunday 09/10 to see Kaylene for throat swab for GC and Chlamydia He will also bring in a first void specimen for GC/chlamydia testing. If not immune ot HAV or HBV will need immunization Discussed Prep and fact that efficacy is linked to compliance with daily medication also discussed need to practice safer sex in order to prevent acquisition of other STDs Reviewed potential AEs of medication If HIV negative and renal function acceptable - will plan to start PreP next week documented in this encounter Plan of Treatment Upcoming Encounters Date Type Specialty Care Team Description 05/30/2022 Nurse Only Infectious Disease Nurse, Id, RN 08/10/2022 Office Visit Infectious Disease Silvana Phelps MD [address] [facility], [address] [place], [place] [address] (Wo rk) documented as of this encounter Results [facility] [place], CHLAMYDIA TRACHOMATIS, AMPLIFIED RNA (09/09/2015 10:13 EST) Source RECTAL/ANAL [facility] SERVICES C.trachomatis, Negative Negative [facility] Site Comment: LABORATORY SERVICES (Note) ADDITIONAL INFORMATION ------ This report is intended for use in clinical monitoring and management of patients. It is not intended for use in medical-legal applications. Performed or Referred by: [facility] Labs: [facility], [address] [place] [address], Lab Dir: Gee Santana III, MD Specimen Other (qualifier value) - Other Performing Organization Address [facility] Phon e Number [facility] [address] [place] [address] SERVICES [facility] [place]ES, NEISSERIA GONORRHOEA, AMPLIFIED RNA (09/09/2015 10:12 EST) Source RECTAL/ANAL [facility] SERVICES N.gonorrhoeae, Negative Negative [facility] Site Comment: LABORATORY SERVICES (Note) ADDITIONAL INFORMATION ------ This report is intended for use in clinical monitoring and management of patients. It is not intended for use in medical-legal applications. Performed or Referred by: [facility]: [facility], [address] [place] [id number], Lab Dir: Gee Santana III, MD Specimen Other (qualifier value) - Other Performing Organization Address [facility] Phon e Number [facility] [address] [place] [address] SERVICES documented in this encounter Visit Diagnoses Diagnosis STD exposure - Primary Screening examination for venereal disea se documented in this encounter Historical Medications This list may reflect changes made after this encounter. Medication Sig Dispensed Refills Start Date End Date buPROPion (WELLBUTRIN XL) Take 150 mg by mouth 0 10/04/2016 150 mg XL tablet daily added in this encounter Care Teams Button Spindler Relationship Specialty Start Date End Date Chele Kessler MD PCP - General 09/07/15 11/21/17 [address] [place] [address] documented as of this encounter
--- OUTSIDE RECORDS SUMMARY | 2022-05-12 00:59 | XMS_ITS | Encounter Summary ---
:1960 Author Organization [facility] Address [address] [place] [address] Care Team Providers Name Role Phone Chele Kesselr MD Primary Care Provider Encounter Details Date Type Department Care Team Description 09/09/2015 Orders Only [facility] Rama Sesay, STD exp osure; Infectious Disease - RN Screeni ng examination for venereal disease [address] [id number] Social History Tobacco Use Types Packs/Day Years Used Date Never Assessed Sex Assigned at Date Recorded Not on file documented as of this encounter Plan of Treatment Upcoming Encounters Date Type Specialty Care Team Description 05/30/2022 Nurse Only Infectious Disease Nurse, Id, RN 08/10/2022 Office Visit Infectious Disease Silvana Phelps MD [address] [facility], [address] [place], [place] [address] (Wo rk) documented as of this encounter Procedures Procedure Name Priority Date/Time Associated Diagnosis Comme nts [facility], Routine 09/09/2015 10:13 STD exposure Results for this CHLAMYDIA EST Screening procedure are i n TRACHOMATIS, examination for the results AMPLIFIED RNA venereal disease section. [facility], Routine 09/09/2015 10:12 STD exposure Results for this NEISSERIA EST Screening procedure are i n GONORRHOEA, examination for the results AMPLIFIED RNA venereal disease section. documented in this encounter Results [facility], CHLAMYDIA TRACHOMATIS, AMPLIFIED RNA (09/09/2015 10:13 EST) Source RECTAL/[facility]NAL [facility] C.trachomatis, Negative Negative [facility] Site Comment: LABORATORY SERVICES (Note) ADDITIONAL INFORMATION ------ This report is intended for use in clinical monitoring and management of patients. It is not intended for use in medical-legal applications. Performed or Referred by: [facility]: [facility], [address] [place] [id number], Lab Dir: Gee Santana III, MD Specimen Other (qualifier value) - Other Performing Organization Address [facility] Phon e Number [facility] [address] [place] [address] SERVICES [facility], NE[place]ERIA GONORRHOEA, AMPLIFIED RNA (09/09/2015 10:12 EST) Source [facility] N.gonorrhoeae, Negative Negative [facility] Site Comment: LABORATORY SERVICES (Note) ADDITIONAL INFORMATION ------ This report is intended for use in clinical monitoring and management of patients. It is not intended for use in medical-legal applications. Performed or Referred by: [facility]: [facility], [address] [place] [id number], Lab Dir: Gee Santana III, MD Specimen Other (qualifier value) - Other Performing Organization Address [facility] Phon e Number [facility] [address] [place] [address] SERVICES documented in this encounter Visit Diagnoses Diagnosis STD exposure Screening examination for venereal disea se documented in this encounter Care Teams Front Office Clerk Relationship Specialty Start Date End Date Chele Kessler MD PCP - General 09/07/15 11/21/17 [address] [facility] [place] [place] [address] documented as of this encounter
--- OUTSIDE RECORDS SUMMARY | 2022-05-12 00:59 | XMS_ITS | Encounter Summary ---
:1960 Author Organization [facility] Address [address] [place] [address] Care Team Providers Name Role Phone Chele Kessler MD Primary Care Provider Encounter Details Date Type Department Care Team Description 10/02/2016 Phlebotomy Only [facility] [place] - Daycare Director, [facility] [address] [place], [place] [id number] Social History Tobacco Use Types Packs/Day Years Used Date Never Assessed Sex Assigned at Date Recorded Not on file documented as of this encounter Plan of Treatment Upcoming Encounters Date Type Specialty Care Team Description 05/30/2022 Nurse Only Infectious Disease Nurse, Id, RN 08/10/2022 Office Visit Infectious Disease Silvana Phelps MD [address] [facility], [address] [place], [place] [phone] (Wo rk) documented as of this encounter Visit Diagnoses Not on filedocumented in this encounter Care Teams Silk Screen Painter Relationship Specialty Start Date End Date Chele Kessler MD PCP - General 09/07/15 11/21/[address] [place] [id number] documented as of this encounter
--- OUTSIDE RECORDS SUMMARY | 2022-05-12 00:59 | XMS_ITS | Encounter Summary ---
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, right Moshe Stewart Ep5 French Stanford MD Disease [address] [place] [address] Phone: Fax: Referral ID Status Reason Start Date Expiration Date Visits V isits Requested Authorized [id number] Closed Specialty 10/06/2016 1 1 Services Required Question Answer Reason for Request: neurosyphilis (saw Medina in house) ollow Up (Routine) - Closed Specialty Diagnoses / Procedures Referred By Contact Refer red To Contact Diagnoses Vision loss of right eye Neurosyphilis Moshe Stewart MD [address] [place] [address] Referral ID Status Reason Start Date Expiration Visits Visits Date Requested Authorized [id number] Closed Continuity of 10/06/2016 1 1 Care Question Answer Reason for Request: syphilis Reason for Visit Reason Comments Eye Pain Pt was seen by Dr. He alcantar ple days ago, was told he has syphilis RPR, and needing abx. See TCALL. +jimbo rry vision to R eye. Encounter Details Date Type Department Care Team Description 10/04/2016 - [facility] ChadSalud MD MPH [address] [facility], Level [address] [place] [address] Vision loss of right eye (Primary Dx); 10/06/2016 Encounter Perioperative Sultana Davison MD [address] [address] Neurosyphilis; Services- [facility] Ariane Osman MD MPH [address] [address] Eye inflammation due to secondary syphil is; [place] Retinitis, right [address] [place], [place] [id number] Social History Tobacco Use Types Packs/Day Years Used Date Never Smoker Alcohol Use Standard Drinks/Week Comments Yes 14 (1 standard drink = 0.6 oz pure alcoh ol) Sex Assigned at Date Recorded Not on file documented as of this encounter Last Filed Vital Signs Vital Sign Reading Time Taken Comments Blood Pressure 110/79 10/06/2016 0551 EST Pulse 78 10/06/2016 0551 EST Temperature 36.8 ??C (98.2 ??F) 10/06/2016 0551 EST Respiratory Rate 16 10/06/2016 0551 EST Oxygen Saturation 95% 10/06/2016 1037 EST Inhaled Oxygen Concentration - - Weight 90.7 kg (199 lb 15.3 oz) 10/05/2016 0000 EST Height 170.2 cm (5' 7) 10/05/2016 0000 EST Body Mass Index 31.32 10/05/2016 0000 EST documented in this encounter Discharge Diagnoses Diagnosis A52.19 Other symptomatic neurosyphilis-A 52.19[ICD-10-CM] M10.9 Gout, unspecified-M10.9[ICD-10-CM] D56.3 Thalassemia minor-D56.3[ICD-10-CM] H81.09 Meniere's disease, unspecified ea r-H81.09[ICD-10-CM] Z82.49 Family history of ischemic heart disease and other diseases of the circulatory system-Z82.49[ICD-10-CM] Z20.6 Contact with and (suspected) expos ure to human immunodeficiency virus [HIV]-Z20.6[ICD-10-CM] 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 providers found Admit Date: 10/04/2016 Discharge Date: 10/06/2016 Disposition: Home or self care Reason for Admission: Neurosyphilis Principal/Final Diagnosis: Neurosyphilis Additional Problems Managed in the Hospital Active Hospital Problems Diagnosis Date Noted ??? *Neurosyphilis 10/04/2016 ??? Vision loss of right eye 10/04/2016 ??? 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 Principal Procedure: Lumbar puncture Consults: ID Hospital Course: 55 y/o male with hx of gout, thalassemia trait, pre exposure HIV ppx admitted on 10/04 at the behest of his sales research analyst due to concern for ocular syphilis. Prior to admission endorsed 1.5 weeks of blurred vision in R eye, pain, redness. Saw optho who saw spots on retina, pt was started on valtrex. Patient failed to improve after 48 hours, at which point the sales research analyst became concerned for syphilis of the eye and sent the patient to the emergency room. VDRL came back positive, reflex RPR was strongly positive. Initial LP results were unremarkable (VDRL CSF pending). Pt was started on IV penicillin and quickly had improvements in his eye redness/pain/vision. Pt was discharged with the medicati ons and follow up listed below (with instructions to follow up with optho on Monday 10/09, and to start using the eye drops prescribed to him SENIOR PRINCIPAL ARCHITECT). Pt went immediately to his sales research analyst at discharge Condition at Discharge: Improved Clinical Issues Needing Follow-up: Needs optho, PCP, ID follow up (all of this, in addition to the importance of medication compliance was relayed to the patient) Discharge Medications: START taking these medications Sig diphenhydrAMINE 50 mg capsule Commonly known as: BENADRYL Take 1 Cap by mouth as needed for up to 1 dose (hives). IV Infusion Pump & Supplies Use as directed. Order includes administration supplies and pump (if required), and catheter care supplies for home IV therapy. penicillin G potassium 4 Million Units in dextrose 5% 150 mL Inject 4 Million Units into the vein every 4 hours for 13 days. Or continue until follow-up appointment with ID. Compound in patient ready to use form. Pharmacy may adjust diluent and/or volume. sodium chloride 0.9 % flush syringe For valved catheters (Groshong, Vaxcel, Solo PICC, Mid-line, and Groshong Chest Port): Flush all lumens with 10 mL every week if not in use. Flush 10 mL before and 10 mL after each medication dose (20mL after vancomycin doses). Flush with 20 mL after blood draws. Dispense quantity sufficient. CONTINUE taking these medications Sig prednisoLONE 1 % ophthalmic suspension Commonly known as: PRED FORTE Use as directed by your eye doctor TRUVADA 200-300 mg per tablet Generic drug: emtricitabine-tenofovir (TDF) Take 1 Tab by mouth daily. STOP taking these medications valACYclovir 500 mg tablet Commonly known as: VALTREX No Known Allergies There is no immunization history on file for this patient. Results Pending at Discharge Test results still pending from this admission Procedure Component Value Units Date/Time [facility] Sites, Chlamydia trachomatis and Neisseria gonorrhoea, Amplified RNA [[id number]] Collected: 10/05/16 1115 Lab Status: In process Specimen: Other Updated: 10/05/16 1624 Bacterial Culture/Smear, Fluid [[id number]] Collected: 10/05/16 1421 Lab Status: Preliminary result Specimen: Other from Spinal Fluid Updated: 10/05/16 1612 Gram Smear Result No polys seen No bacteria seen Result PENDING VDRL,CSF [[id number]] Collected: 10/05/16 1409 Lab Status: In process Specimen: Fluid, Spinal Updated: 10/05/16 1446 These [facility] appointments have already been scheduled Oct 18, 2016 10:00 EST Follow Up Return with Silvana Phelps MD [facility] Infectious Disease - [facility] (--) [address] [facility] [place] [address] Follow-up appointments and procedures Amb Consult/Follow Up Adult Infectious Disease Reason for Request: neurosyphilis (saw Duran and Lenin in house) Authorizing Provider: Moshe Stewart MD Amb Consult/Follow Up Primary Care Physician Reason for Request: syphilis Authorizing Provider: Moshe Stewart MD Blood Draw/Admin of Contrast per CVAD Protocol Order for Blood Draw/Admin of Contrast per [facility] Protocol Authorizing Provider: Silvana Phelps MD Follow-up labs and tests BUN Complete by: As directed Comments: Draw lab weekly Authorizing Provider: Silvana Phelps MD CBC & Differential Complete by: As directed Comments: Draw lab weekly Authorizing Provider: Silvana Phelps MD Creatinine Complete by: As directed Comments: Draw lab weekly Authorizing Provider: Silvana Phelps MD Discharge Handoff Communication Signed out to triage nurse rosana at pcp office Discharge Summary Completed By: Moshe Stewart MD 10/06/2016 14:58 ATTENDING ATTESTATION: Date of service: 10/06/2016 I interviewed and examined the patient; reviewed interval labs, events, and notes; and discussed thecase with the medicine house staff team. I agree with and edited the findings and plan of care as documented in the discharge summary above. I reviewed the plan of care and discharge instructions with the patient. Total unit time I spent in the care of the patient today: 35 Minutes Ariane Osman MD [facility] Inpatient Service 10/06/2016 15:20 documented in this encounter Discharge Instructions Discharge Instr - Other OrdersMoshe Stewart MD - 10/06/2016 11:03 EST Take penicillin as directed. Continue your truvada 200/300 daily (if your pills are 100/150, take two pills per day) Please take both eye drops Dr. Cutler gave you and follow up with her office on Sunday (please call her office to schedule an appointment, it is very important that you follow up [phone]) If you experience worsening of your vision, please call Dr. Cutler's office. If this happens after hours, please go to the nearest emergency room as you could be in danger of losing your vision documented in this encounter Medications at Time of Discharge Medication Sig Dispensed Refills Start Date End Date diphenhydrAMINE Take 1 Cap by mouth as 2 Cap 0 10/06/19 17 10/18/2016 (BENADRYL) 50 mg needed for up to 1 capsuleIndications: dose (hives). Vision loss of right eye, Neurosyphilis, Retinitis, right emtricitabine-tenofovir Take 1 Tab by mouth 0 01/18/2017 , TDF, (TRUVADA) daily. 200-300 mg per tablet IV Infusion Pump & Use as directed. Order 1 Each 0 10/0610/18/2016 SuppliesIndications: includes Vision loss of right administration eye, Neurosyphilis, supplies and pump (if Retinitis, right required), and catheter care supplies for home IV therapy. penicillin G potassium Inject 4 Million Units 0 0 10/06/2016 10/18/2016 4 Million Units in into the vein every 4 dextrose 5% 150 hours for 13 days. Or mLIndications: Vision continue until loss of right eye, follow-up appointment Neurosyphilis, with ID. Compound in Retinitis, right patient ready to use form. Pharmacy may adjust diluent and/or volume. prednisoLONE (PRED Reported on 01/18/2017 0 201601/18/2017 FORTE) 1 % ophthalmic suspension sodium chloride 0.9 % For valved catheters 1 Box 09/2710/18/2016 flush (Groshong, Vaxcel, syringeIndications: Solo PICC, Mid-line, Vision loss of right and Groshong Chest eye, Neurosyphilis, Port): Flush all Retinitis, right lumens with 10 mL every week if not in use. Flush 10 mL before and 10 mL after each medication dose (20 mL after vancomycin doses). Flush with 20 mL after blood draws. Dispense quantity sufficient. documented as of this encounter Ordered Prescriptions Prescription Sig Dispensed Refills Start Date End Date penicillin G potassium Inject 4 Million Units 0 0 10/06/2016 10/18/2016 4 Million Units in into the vein every 4 dextrose 5% 150 hours for 13 days. Or mLIndications: Vision continue until loss of right eye, follow-up appointment Neurosyphilis, with ID. Compound in Retinitis, right patient ready to use form. Pharmacy may adjust diluent and/or volume. IV Infusion Pump & Use as directed. Order 1 Each 0 10/0610/18/2016 SuppliesIndications: includes Vision loss of right administration eye, Neurosyphilis, supplies and pump (if Retinitis, right required), and catheter care supplies for home IV therapy. sodium chloride 0.9 % For valved catheters 1 Box 09/2710/18/2016 flush (Groshong, Vaxcel, syringeIndications: Solo PICC, Mid-line, Vision loss of right and Groshong Chest eye, Neurosyphilis, Port): Flush all Retinitis, right lumens with 10 mL every week if not in use. Flush 10 mL before and 10 mL after each medication dose (20 mL after vancomycin doses). Flush with 20 mL after blood draws. Dispense quantity sufficient. diphenhydrAMINE Take 1 Cap by mouth as 2 Cap 0 10/06/19 17 10/18/2016 (BENADRYL) 50 mg needed for up to 1 capsuleIndications: dose (hives). Vision loss of right eye, Neurosyphilis, Retinitis, right documented in this encounter Discharge Disposition Disposition Code Departure Means Destination Home-Health Care Svc documented in this encounter Progress Notes Aaliyah Orona - 10/06/2016 6797 EST CASE MANAGEMENT: CM located Pt in [facility]. Pt signed hh choice and vendor forms. Pt guided to out pt pharmacy. Pt deniedany other needs at this time. Aaliyah Orona, RN, BSN, CM Pager: [phone] Phone: [phone] owersBia - 10/06/2016 0924 EST Medicine Progress Note Service Date: 10/06/2016 Admit Date: 10/04/2016 20:07 Reason for Admission: 55 y.o. male admitted with a chief complaint of vision disturbance and now with a principal diagnosis of ocular syphilis. 24 Hour Events: none Subjective/Objective Subjective Pt reports his vision disturbance has thawed, with the vera sheen a bit less intense, though he isstill seeing floaters. He still is having no constitutional symptoms. He would like to go home LAURA. Review of Systems A ten point review of systems was performed. Pertinent positives are listed below, all others are negative: Eyes: positive for see HPI Integument/breast: positive for rash Objective Vital Signs Temp: [35.5 ??C (95.9 ??F)-36.8 ??C (98.2 ??F)] (), Heart Rate: -- (), Resp: [16] (), BP: (110-125)/(75-79) (), SpO2: [90 %-95 %] () Physical Exam Gen: sitting in bed, alert, oriented, cooperative Eyes: EOMI. Somewhat less red conjunctiva and minimally reactive 5 mm pupil in R eye. Minimally red conjunctiva and reactive 2-3 mm pupil in L eye. Skin: fine, blanchable erythematous rash, nonpalpable over neck, trunk. -- less red today Medications Penicillin G, 4 million units q4h. Has been on PrEP w/ emtricitabine-tenofovir daily. Has not used any diphenhydramine doses. Labs Syphilis Ab confirmation positive RPR positive at 1:256 LP: glu 69 (serum 111), pro 46, cells 3, 85% lymphocytes, VDRL pending, bacterial smear negative, culture pending Urine gc/chlam negative Throat gc/chlam collected, pending LFTs nl Imaging CXR: negative Assessment/Plan Assessment 55yo man with h/o thalassemia trait and gout, who has been admitted for acute retinal necrosis in the setting of positive syphilis Ab. His vision disturbances may be improving. His R eye is still underthe influence of long-acting mydriatics. Plan Acute retinal necrosis: - diagnosed 10/04/2016 as ocular syphilis in the setting of positive initial syphilis serology on top of progressive retinitis and uveitis - ophthalmologic diagnosis updated to acute retinal necrosis - have been working with infectious disease, appreciate recommendations - most common cause of ARN per UpToDate is VZV, though HSV also implicated, as is CMV (per lit search) - most common manifestation of ocular syphilis per UpToDate is uveitis/panuveitis, though optic neuropathy, interstitial keratitis, anterior uveitis, and retinal vasculitis are also seen, and often in setting of syphilitic meningitis - ocular syphilis can rarely involve retina - pt had been started on valacyclovir on 10/02, but stopped this 10/04 after no improvement - received another two doses valacyclovir 10/05 - per discussion between Dr. Silvana Phelps and Dr. Sharmaine Cutler, syphilis is suspected to be the sole pathogen affecting the eye and do not think pt should be continued on valacyclovir - syphilis IgG confirmation positive, and RPR titer high - LP fluid negative thus far, still waiting for CSF VDRL - pt has no other plausible s/sx of syphilis and does not recall a chancre, so it is unclear how long he has had syphilis - pt apparently had previous negative syphilis serology in the last year, but this would have been through [facility], [facility], or elsewhere and is not visible in our records - keep differential broad: vascular, viral, spirochetal, otherwise? - consider immunodeficiency workup beyond neg HIV Ab, as ARN generally reported in the literature inthe setting of HIV/AIDS or immunosuppression * continue penicillin G 4 million units IV q4h * received PICC this morning * arrangements have been made for pt to have infusion pump at home to continue IV penicillin * discontinue valacyclovir per ID and ophtho * begin prednisolone and dilation drops prescribed by Dr. Cutler * pt left and reportedly made it to a [address] Cutler * call Dr. Cutler or return to [facility] if symptoms worsen, as IV acyclovir should be considered at thatpoint * follow up with appropriate STI surveillance while on PrEP Rash: - fine erythematous, not palpable and not bothersome to pt - dry skin vs. drug eruption vs. maculopapular syphilis rash - slightly better than yesterday, favoring dry skin vs. syphilis rash - no specific management needed Thalassemia trait: - known in pt and pt's children - lit search has not found association between thalassemia and retinal necrosis VTE Prophylaxis Pharmacologic Prophylaxis: Enoxaparin (Lovenox) 40 mg SQ daily. Encourage ambulation. Discharge Plan Home or self care. Patient left building before I or the senior resident could discuss the plan with him, though all elements were in the discharge instructions. Pt reportedly did follow up with Dr. Cutler. Consults Infectious Disease and Ophthalmology Bia Rodriguez MS-IV Pager #[phone] 10/06/2016 11:28 Inés Cuevas RN - 10/05/2016 2810 EST Initial Case Management/Social Work Assessment and Discharge Plan/Readmission Risk Assessment REASON FOR ADMISSION: <principal problem not specified> Patient understands reason for admission: Yes (Right eye pain, reddness and blurry vision) PATIENT CONTACT INFO VERIFIED: Yes LIVING ARRANGEMENTS AND ACCESSIBILITY ISSUES: Living Arrangements: Alone Levels: 2 Stairs to enter: 2 Handicap access: Railings into home Bathroom located on bedroom level?: Yes What in home social supports are available to the patient? Friends / neighbors, Family member(s) Is 19/03 care available? ADVANCED DIRECTIVES, POA &/or COLST IN PLACE: Healthcare Directive: No, patient does not have advance directive for healthcare treatment Information Provided on Healthcare Directives: No Information on Healthcare Directives Requested: No DIRECTIVES FOR FINANCES: TRANSPORTATION: Transportation: Family CULTURAL, TAOISM and/or LANGUAGE factors affecting health care/discharge planning: Insurance in Place: Yes Medical Insurance: Yes Type of insurance: Medicaid Medicaid Type: Community Referred to patient financial services: No DISCHARGE RISK ASSESSMENT: Lives at home with limited or no community support Total # selected above: Score of 1 - 2: This patient is at LOW RISK for re-hospitalization Tentative plan to address the risk of re-hospitalization for those at HIGH MODERATE RISK: Refer to skilled home care services RAPT TOOL: Age: 50-65 Gender: Male Ambulation distance: 2 or more blocks (600ft) Gait device: None RAPT Tool Score: 8 Patient expects to be discharged to: Patient will be discharged to home. FUNCTIONAL STATUS: Activities patient requires assistance: None Assistive Device: None COMMUNITY RESOURCES/SUPPORTS: Primary Care Provider: Chele Kessler PCP Verified: Yes Specialists: Other (Optamology) Type of Home Health Services: (Will have at discharge for IV antibiotics) DME Provider: Pharmacy: No Pharmacies Listed Home Health: Other: POST HOSPITAL TRANSITION PLAN: Met with patient who reports decrease in right eye pain and blurry vision. Explained he will require IV antibiotics for discharge; answered his questions. Referrals made to [facility]. He will need PICC line placed. pricing strategist to do teach tomorrow. Inés Cuevas RN 10/05/2016 16:13 Ariane Garcia MD - 10/05/2016 1103 EST Daily Progress Note Admit Date: 10/04/2016 Date of Service: 10/05/2016 Hospital LOS: 0 days Bed: [id number] CC: Eye pain Problems/Diagnosis: Suspected neurosyphilis w/ ocular involvement Events/Subjective: Admitted overnight. No acute events since admission except for interval development of a mild chest rash. Pt states he feels fine, eye feels less grainy. No f/c/cp/sob/abodminal pain/n/v/focal changes to strength or sensaiton ROS As above, otherwise negative Medications All other medications were reviewed by me. acetaminophen 650 mg Q6H emtricitabine-tenofovir (TDF) 1 Tab DAILY penicillin G 4 Million Units Q4H valACYclovir 1,000 mg TID Objective: Physical Exam: VS: Blood pressure 128/84, pulse 83, temperature 36.1 ??C (97 ??F), temperature source Tympanic, resp. rate 16, height 170.2 cm (67), weight 90.7 kg (199 lb 15.3 oz), SpO2 94 %. General: well-appearing, NAD, pleasant Skin: warm, well perfused, non-diaphoretic, very faint diffuse maculopapular blanchable rash on chest, non on palms or soles HENT: NCAT, mmm, neck supple Eyes : left eye unremarkable w/ reactive pupil. R eye with conjunctival injection, no obvious ulceration or lesion, dilated and minimally reactive pupil (in setting of pharmacologic dilation) CV: RRR, S1/S2, no murmurs appreciated Pulm: CTAB Abd: soft, NT, ND : not examined this AM Ext: no edema, palpable pulses Neuro: face symmetric, moving all extremities, gait normal, no abnormalities noted Psych: thoughts/speech linear, mood/affect appropriate Labs: WBC/Hgb/Hct/Plts: 6.70/11.6/35.8/170 (10/05 622) Na/K/Cl/CO2: 143/4.2/107/26 (10/05 622) BUN/Cr/glu/ALT/AST/amyl/lip: 06/27.12/--/--/--/--/-- (10/05 622) PT/INR/PTT: 12.4/1.1/-- (10/05 622); Lyme negative, VDRL positive, HIV negative Radiology Imaging: cxr clear Assessment/Plan Beth Hughes is a 55 y.o. M with a PMH significant for gout, thalassemia trait who presented to the [facility] ED after being referred from an sales research analyst due to concern for syphilis of the eye / acute retinal necrosis of the eye. Stable on penicillin and valtrex but will require further workup/monitoring and dispo planning before dc Retinitis/Uveitis : with concern for acute retinal necrosis per primary sales research analyst. Eye symptoms and +VDRL concerning for neurosyphilis. Herpes/varicella infection causing uveitis/keratitis/retinal necrosis also possible - continue penicillin 4 million units IV q4 x 14 days - assessing for gc/chlamydia - LP today w/ VDRL - monitor for Jarisch-Herxheimer reaction (typically occurs within 24 hours of treatment onset, willplan to keep in house for this period) - picc - valtrex 1g TID to cover for herpes/varicella - follow up with primary sales research analyst at d/c vs in house here tomorrow - appreciate ID recommendations Misc : conitnue prep Ppx: held for LP Code Status: full Dispo: pending (home once LP done, picc placed, IV antibiotics set up - will take some time) Otis Stewart PGY-3 [id number] ATTENDING ATTESTATION: Date of service: 10/05/2016 I have interviewed and examined the patient. I personally reviewed laboratories studies, radiographic studies, ECG, and prior records. I discussed the case with: the medicine house staff team. I agree with and edited (in Blue) the findings and plan of care as documented in the note above. Ariane Osman MD [facility] Inpatient Service 10/05/2016 11:57 Bia Crowley - 10/05/2016 0840 EST Medicine Progress Note Service Date: 10/05/2016 Admit Date: 10/04/2016 20:07 Reason for Admission: 55 y.o. male admitted with a chief complaint of vision disturbance and now with a principal diagnosis of ocular syphilis. 24 Hour Events: none Subjective/Objective Subjective Pt had had cloudy vision a week ago, then woke up one day to see three black orbs in his vision, as well as a rough sensation in the eye. He presented to his eye doctor in [place] on Ginny 09/28, who saw fluid in the back of the eye and referred him. Saw Dr. Cutler on Mon 10/02, was prescribed valacyclovir. Returned 10/04, Dr. Cutler said the infection looked like it was moving more centrally. He was then sent to the hospital to begin parenteral penicillin and to obtain an LP. Today, pt still having the above visual symptoms. He notes that the night team had observed a fine rash on his trunk and arms, though he had thought it was just winter skin, and hasn't been bothered byit. He has not seen any genital lesions or other notable skin rashes in the past weeks to months. Has not noticed LAD. Has not had fever/malaise. His ROS is otherwise negative. PrEP started a year ago (per Dr. Roger's 08/2015 note). Pt has been told that the strong dilation drops he received yesterday could last up to 3 days. Pt is eager not to be stuck in a hospital bed and wishes to have as much of his treatment as possible done as an outpatient. Review of Systems A ten point review of systems was performed. Pertinent positives are listed below, all others are negative: Eyes: positive for see HPI Integument/breast: positive for rash Objective Vital Signs Temp: [36.1 ??C (97 ??F)-36.5 ??C (97.7 ??F)] (), Heart Rate: -- (), Resp: [16- 18] (), BP: (128)/(84) (), SpO2: [94 %-95 %] () Physical Exam Gen: sitting in bed, alert, oriented, cooperative HEENT: no lesions in mouth/throat. Eyes: EOMI. Very red conjunctiva and minimally reactive 5 mm pupil in R eye. Somewhat red conjunctiva and reactive 2-3 mm pupil in L eye. CV: rrr, no mrg Lungs: CTAB Abdo: soft, nontender, no organomegaly : not done. Negative per admitting team and pt denies lesions. Skin: fine, blanchable erythematous rash, nonpalpable over neck, trunk, maybe arms. Possible very shallow papulosquamous eruptions on soles of feet, but this would be a stretch. Medications Penicillin G, 4 million units q4h. Began 8 pm. Has received 4 doses so far. Has been on PrEP w/ emtricitabine-tenofovir daily. 2 doses APAP. Has not used any diphenhydramine doses. Labs 10/02: RBC 6.15, Hgb 12.2, hypochromia 3+, Plt 205, WBC 5.94 Lysozyme: elevated HIV 08/28 Ab: neg Syphilis Ab: pos, pending confirmation at [facility] 10/05: INR 1.1 Cr 1.12 CBC essentially unchanged Imaging CXR: negative Assessment/Plan Assessment 55yo man with h/o thalassemia vs. thal trait and gout, who has been admitted for acute retinal necrosis in the setting of positive preliminary syphilis Ab. His vision disturbances have not been worsening. His R eye is still under the influence of long-acting mydriatics. 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 Cutler, diagnosis is actually acute retinal necrosis -- most common cause of ARN per UpToDate is VZV, though HSV also implicated, as is CMV (per lit search) -- most common manifestation of ocular syphilis per UpToDate is uveitis/panuveitis, though optic neuropathy, interstitial keratitis, anterior uveitis, and retinal vasculitis are also seen, and often insetting of syphilitic meningitis - syphilis IgG confirmation from [facility] reference lab pending - pt has no other plausible s/sx of syphilis - pt apparently had previous negative [facility] or R[facility] in the last year, but [facility] or [facility] and is not visible in our records - pt had been started on valacyclovir on 10/02, but stopped this 10/04 after no improvement - keep differential broad: vascular, viral, spirochetal, otherwise? - consider immunodeficiency workup beyond neg HIV Ab, as ARN generally reported with HIV/AIDS or immunosuppression (per lit search) * continue Pen G 4 million units IV q4h * begin acyclovir 10 mg/kg IV q8h, if approved by ID attending, as oral acyclovir/valacyclovir has not been studied in therapy initiation * LP today to assess for neurosyphilis * recommend inpatient ophthalmology consult Rash: - fine erythematous, not palpable and not bothersome to pt - dry skin vs. drug eruption vs. maculopapular syphilis rash - pt does not recall previously having penicillin - pt has diphenhydramine ordered, but has not needed a dose * continue to monitor Thalassemia/thal trait: - known in pt and pt's children - lit search has not found association between thalassemia and retinal necrosis VTE Prophylaxis Pharmacologic Prophylaxis: Enoxaparin (Lovenox) 40 mg SQ daily. Encourage ambulation. Discharge Plan Home or self care Consults Infectious Disease and Ophthalmology Bia Rodriguez, MS-IV Pager #[phone] 10/05/2016 8:40 documented in this encounter H&P Notes Sultana Davison MD - 10/04/20162035 EST Internal Medicine H&P Admit Date: 10/04/2016 Date of Service: 10/04/2016 PCP: Chele Kessler CC: R eye pain HPI: Beth Hughes is a 55 y.o. M with PMH of gout, thalassemia (trait?) who presented to the ED with 1-2 weeks of right eye pain and redness concerning for syphilis of the eye. Patient states he was in his prior state of health until roughly 1.5 weeks ago. [facility] vision in his right eye as well as pain and redness. He was subsequently referred to a local sales research analyst, Sharmaine Cutler MD. He saw this provider on Sunday who was very concerned about his eye and ordered numerous labs. She performed a dilated eye exam and was very concerned for some spots on the patient's retina. She started him on some Valtrex in case the patient had herpes of the eye. Patient noted no change with this medication. She then had him follow-up in clinic today, both days with a dilated eye exam. She was extremely concerned for possible syphilis of the eye (saw progressive retinitis and uveitis), after consultation with ID the patient was sent to the ED with instructions for IV penicillin therapy. Patient states mostly his eye has been red and feels he will wake up with a tiny bit of crusting butno significant discharge. His vision is blurring in the R eye with patchiness. Says it is somewhat painful to move it but he can move it freely. Reports some sensitivity to light. Also says that it is painful if he touches his outer eyelid. Had a headache around the right orbit today in the ED but hasnot had recent headaches or nausea/vomiting. He has otherwise been eating normally, denies chest pain, shortness of breath, palpitations, abdominal pain, diarrhea, constipation, penile lesions, dysuria, penile discharge, leg swelling, orthopnea, joint pain, muscle pain, fevers, chills, confusion, falls. States his weight has been stable and he denies night sweats. Has had recent sexual partners for which she is now on Truvada. Please see Dr. Roger's note. Has never been diagnosed with an STD, but did have recent HIV-positive partners, male. In the ED the patient was afebrile with stable vital signs. He was started on IV penicillin. His recent VDRL was positive and has been reflexed for confirmation to [facility]. (IgG) Review of Systems: A complete 10 point ROS was performed and pertinent positive and negative findings listed in HPI, otherwise negative. PMH PSH Past Medical History: Diagnosis Date ??? Gout Menniere's disease Thalassemia, unknown type (trait?) No major illnesses, never hospitalized T/A and ear procedure as child Social History Family History Social History Substance Use Topics ??? Smoking status: Never Smoker ??? Smokeless tobacco: Not on file ??? Alcohol use 8.4 oz/week 14 Shots of liquor per week never smoker, on average 2 double shots per night, less recently given feeling poorly, prior marijuana use but not recently Lives alone, recently , sexually active with women and men, sometimes does not practice safesex. No known prior STI. 2 surrogate sons. 3 biological children and step children Lives alone Father and sisters of MIs in their 50s, patient said his PCP is not worried about him Children with thalassemia Medications Current Facility-Administered Medications Medication Route Frequency ??? acetaminophen (TYLENOL) tablet 650 mg oral Q6H ??? diphenhydrAMINE (BENADRYL) injection 25 mg intravenous Q6H PRN Or ??? diphenhydrAMINE (BENADRYL) capsule 25 mg oral Q6H PRN ??? emtricitabine-tenofovir (TDF) (TRUVADA) 200-300 mg per tablet 1 Tab oral DAILY ??? penicillin G potassium 4 Million Units in dextrose 5% (D5W) 150 mL IVPB intravenous Q4H Prescriptions Prior to Admission Medication ??? emtricitabine-tenofovir, TDF, (TRUVADA) 100-150 mg tablet ??? valACYclovir (VALTREX) 500 mg tablet Prescriptions Prior to Admission Medication Sig Dispense Refill Last Dose ??? emtricitabine-tenofovir, TDF, (TRUVADA) 100-150 mg tablet Take by mouth daily. ??? valACYclovir (VALTREX) 500 mg tablet Take 2,000 mg by mouth 3 times daily. Allergies No Known Allergies Objective and Physical Exam: VITALS: Visit Vitals ??? BP 128/84 (BP Cuff Location: Right arm, Patient Position: Semi fowlers) ??? Pulse 83 ??? Temp 36.1 ??C (97 ??F) (Tympanic) ??? Resp 16 ??? Ht 170.2 cm (67) ??? Wt 90.7 kg (199 lb 15.3 oz) ??? SpO2 94% ??? BMI 31.32 kg/m2 Wt Readings from Last 1 Encounters: 10/05/16 90.7 kg (199 lb 15.3 oz) Body mass index is 31.32 kg/(m^2). 24 hr Ranges: Temp: [36.1 ??C (97 ??F)-36.5 ??C (97.7 ??F)] (), Pulse: [76-83] (), Resp: [16- 18] (), BP: (128)/(84) (), SpO2: [94 %-95 %] () EXAM: General: well-appearing, NAD, pleasant Skin: warm, well perfused, non-diaphoretic, diffuse maculopapular blanchable rash on back, chest, upper arms, upper legs - not itchy per patient HEENT: NCAT, no appreciable LAD (neck, cervical, armpit) neck supple, R eye with conjunctival injection throughout, no drainage, still dilated 4 mm, but both eyes seem to react/constrict to light, EOMI CV: RRR, S1/S2, no murmurs appreciated Pulm: CTAB, no wheezes or crackles Abd: soft, NT, ND, +BS : no penile or scrotal skin lesions, no tenderness to palpation of scrotum Ext: no edema, palpable pulses Neuro: CN 2-12 intact, MCNAMARA, strength 5/5 in UE and LE, no focal deficits appreciated Psych: thoughts/speech linear, mood/affect appropriate Pressure ulcer present on admission: no LABS: CBC: Recent Labs 10/02/16 1330 WBC 5.94 RBC 6.15* HGB 12.2* HCT 39.2* MCV 64* MCH 19.8* MCHC 31.1* PLT 205 NEUTROABS 4.26 Syphilis serology - positive, IGG pending EKG/TELE: n/a RADIOLOGY: n/a MICROBIOLOGY: As above ASSESSMENT Beth Hughes is a 55 y.o. M with a PMH significant for gout, thalassemia (trait?) who presented to the [facility] ED after being referred from an sales research analyst due to concern for syphilis of the eye. Per a paper note sent with the ophthalmologists retinitis and pain uveitis were seen in the right eye, progressive despite therapy with Valtrex ??2 days. In the setting of positive serology for syphilis aftera negative test 1 year prior there is a high level of concern for syphilis. Started on IV penicillinper instructions of infectious disease. Will also need lumbar puncture to rule out neurologic involvement. PLAN: Retinitis and pain uveitis of the right eye: Highly concerning for ocular syphilis - Penicillin IV 4 million units every 4 hours - ID consult in a.m. - Will need LP --> holding anticoagulation for DVT prophylaxis in anticipation of this procedure - Benadryl when necessary should patient develop a drug rash - Clinically monitor for possible clinical worsening in the setting of penicillin therapy with spirochete infection - Tylenol when necessary fever - Consider ophthalmology consult if indicated as well Recent exposure to HIV positive sexual male partner: - Continue SENIOR PRINCIPAL ARCHITECT Truvada (may need to confirm dosing with ID) Diet: regular DVT PPx: holding as patient will need LP, very ambulatory Code: FULL Discharge Plan: pending clinical course Consults: ID tomorrow Lottie Mcintyre MD PGY2 10/05/2016 5:02 Attending Attestation Date of service: 10/04/2016 I have interviewed and examined the patient. I personally reviewed laboratories studies, radiographic studies, ECG, and prior records. I discussed the case with: Dr. Bonilla (ED attending physician), Dr. Mcintyre (medicine resident team). I agree with and edited (in green) the findings and plan of care as documented in the note above. Sultana Davison MD [facility] Hospitalist 10/05/2016 6:06 documented in this encounter Procedure Notes Dalia Terry RN - 10/06/2016 1226 ESTAssociated Order(s): INSERT PICC LINE Central Catheter Insertion First Catheter This Session forklift wheel loader: Patient Location: [id number]/01 Preliminary Data: Insertion Date: 10/06/16 Insertion Time: 1212 First Data Warehousing Manager: Dalia Terry RN RN/MA Documenting Procedure: Randee Zacarias RN Pre-procedure: Time Out / Final Moment Performed: Yes Hand Hygiene Immediately Prior To Procedure: Yes Site Disinfected-2% Chlorhex/70% Alcohol: Yes Procedure Site Completely Dry: Yes Entire Patient Draped in Sterile Fashion: Yes Intra-procedure: Sterile Gloves Used: Yes Cap, Mask, and Sterile Gown - Operators: Yes Sterile Field Maintained: Yes Cap and Mask Worn - All Personnel: Yes Post-procedure: Sterile Dressing Applied - Sterile Technique: Yes Dressing Dated And Timed: Yes Needle Passes: VA RN Makes 2 Or Fewer Needle Passes: 2 or fewer passes Physician Documentation Pre-Procedure: Procedure To Be Performed: New central line placement Indication: New indication Conditions Present: Other (Comment) Line Priority: Routine Tip Confirmation: 3CG Consent Obtained: Yes The patient and/or family have been provided education/training to minimize the risk of central line-associated bloodstream infections. Central Line Type: Central Catheter Type: PICC PICC Type: Solo PICC Central Line Details: Line Location: Right;Basilic Line Lumens (#): Single Central Line Size: 4 Fr Line Coating: Non-antimicrobial coated Vessel Size: 7 mm Vein Depth (cm): 0.5 cm Line Trim Length: 40 cm Line Securement Device: Statlock device Responsible Service / IR Details: Responsible Service: VA RN Lidocaine 1% - Route/Dose (cc's): Subcutaneous;Intradermal;1 Central Line Materials and Methods: Number of Attempts: 1 Number of Sites Attempted: 1 Number of Kits Used: 1 Location Device Used: Sherlock;Ultrasound;3CG Central Line Operators: Number Of Operators: 1 First Data Warehousing Manager's Name: Dalia Terry RN First Data Warehousing Manager's Title: Vascular molded goods operator Unless otherwise noted, there were no complications, no blood loss and no cultures obtained. Dalia Terry RN 10/06/2016 12:26 Robin Wallace MD - 10/05/2016 1431 EST ADULT PROCEDURE NOTE Title of Procedure: Lumbar Puncture Date Performed: 10/05/2016 Time Performed: 1:45 PM Performed by: Robin Amaya MD, personally performed this procedure in its entirety. Indications and/or Provisional Diagnosis: Rule out SENIOR COST ANALYST infection Consent: The patient/surrogate has consented after being informed of the risks, benefits and alternatives. Type of Anesthesia/Sedation: Local anesthetic with 1% lidocaine was administered Fluids Given: Not applicable Unless otherwise noted, there was no blood loss, specimens removed, cultures obtained, or drains retained. Time Out: A time-out was completed prior to procedure verifying correct patient, procedure, site, positioning, and special equipment if applicable. Procedure Technique/Description of Procedure: Lyell was prepped and draped in the usual sterile fashion. A 22 gauge, spinal needle was inserted atthe L 4-5 interspace. An opening pressure was not obtained. Clear fluid was obtained after 1 attempt(s). A total of 12 ml of spinal fluid was obtained and sent for pertinent studies. Post Procedure Diagnosis and Findings:Pending fluid analysis Complications: None Robin Guillory MD [facility] Neurology PGY4 Chief Resident Pager # [phone] (# [phone] nights/weekends) 10/05/2016 14:33 documented in this encounter Consult Notes Silvana Phelps MD - 10/05/2016 0906 EST Infectious Disease Consult Note Admit Date: 10/04/2016 Date of Service: 10/05/2016 Requesting Physician: Dr. Emeka Davison Reason for Consult: Occular syphilis HPI: Beth Hughes is a 55 y.o. man with a history of gout and thalassemia trait who presents for eyepain and blurry vision. Mr Hughes reports that he was in his usual state of health until 09/25 when he developed Blurry vision,black orbs traveling in his sight, right eye pain. He thought he burned his eye on his boiler so he did not seek medical care immediately. His problems persisted prompting him to see an wildlife biostation research ecologist on 09/29. He wa referred to Dr Cutler an sales research analyst who was concerned about possible HSV infection and started valacyclovir. She also ordered a serologic work up. When he returned on 10/04 he was no better and had developed retinal changes and was found to have a positive syphilis serology. He was then referred to [facility] for evaluation. Penicillin therapy was initiated last night with some worsening of his symptoms, but now they appear to be improving with less darkening. Mr Hughes reports that there have been no significant changes to his health recently. He had an episode of gout in his left great toe 2 years ago that still bothers him. He has left knee pain from a fracture 05/12. He reports that he has been almost completely compliant with his truvada regimen (december missone dose every other month). He never returned to clinic and does not receive regular STI checks. The last was in 09/11 on initiation of truvada. He reports that he has had multiple male partners some that he knows and some that he does not. He is aware some are HIV positive. He has never been diagnosed with an STI before. Performs insertive rather than receptive intercourse. He reports that he has had some chaffing, but never developed any skin sores/lesions. No LAD, abdominal pain, weakness, abnormal movements, paresthesias, yellowing of the skin, rashes, SOB, chest pain, fevers, chills, sweats. Reports episodes of gout in left foot treated with steroids in 06/2016 and 07/2016. Has chronic leftknee, right knee, right ankle, and right shoulder pain. Discussed with Dr Cutler. Initially seen on 10/02 with diagnosis of panuveitis/retinitis consistent with acute retinal necrosis, but would also be consistent with syphilis. He was re-evaluated on 10/04 withprogression of his retinal disease on therapy. Review of Systems: A ten point review of systems was performed and negative except for the above Past Medical History: has a past medical history of Gout. Thallasemia trait, LE fracture Past Surgical History: adenoid removal, tympanostomy tubes Medications: MAR reviewed. Anti-infectives: Valacyclovir 10/02-10/04 (unknown dose, but was taking 2 pills TID) Pen G 4million U Q4 10/04-present Allergies: Review of patient's allergies indicates no known allergies. Family History: Thalassemia Social History: Lives in [place]. Lives alone. Works as a realtor. Never smoker. Drinks 4 drinks pernight. No recreation or IVDU. Vital Signs: Visit Vitals ??? BP 128/84 (BP Cuff Location: Right arm, Patient Position: Semi fowlers) ??? Pulse 83 ??? Temp 36.1 ??C (97 ??F) (Tympanic) ??? Resp 16 ??? Ht 170.2 cm (67) ??? Wt 90.7 kg (199 lb 15.3 oz) ??? SpO2 94% ??? BMI 31.32 kg/m2 Exam: Head/Neck: Right sclera injected. anisocoria with R>L. Right eye minimally reactive with some movement with accomodation with full EOM. No icterus. Posterior oropharynx erythema, mild though with cryptic enlarged tonsils. Numerous fillings, but no periodontal disease. Neck is supple. Heart: RRR. No r/m/g Lungs: Bibasilar crackles otherwise clear Abdomen: Soft. NT. No hepatosplenomegally : normal male anatomy. no genital lesions or sores. Non-tender. Lymph Nodes: No cervical/inguinal LAD Skin: Some desquamation of feet, but otherwise no rashes Musculoskeletal: Mild tenderness on Left 1st MTP joint. Otherwise unremarkable. No spinous process tenderness Extremities: WWP. No edema Neuro: CN intact except as noted above. Strength 5/5 throughout. Sensation grossly intact. Reflexes1+ throughout and babinski equivocal Catheters: PIV Data Review: Laboratory data reviewed. Pertinent positives include: Labs: Cr 1.12 WBC 6.70 (81%N) Hgb 11.7 Plt 170 LYSOZYME: 10.4 (elevated) BRI level: nml Microbiology: Syphilis serology positive (negative in 08/2015), confirmatory test positive RPR 1:256 Lyme: Negative HIV 1/2 Antibody: Negative Other: Radiological Studies: No imaging Assessment: Panuveitis and retinitis. Positive syphilis serology and elevated RPR with risk for exposure and consistent exam. Disease is site threatening and requires urgent treatment. Treatment is similar to neurosyphilis with parenteral therapy and would prefer IV vs depot therapy with probenecid (especially with nationwide shortage of depot formulation).No signs of other nerve involvement. LP is performed to assess for neurosyphilis and will get rechecked in the future to assess response to therapy. Would check LFTs as can cause some liver disease. After discussion with Dr Cutler favor the diagnosis of syphilis. Would hold on antiviral treatment--given alternate diagnosis. PrEP: Per patient has not had follow up. Would screen aggressively for STIs especially with red oropharynx. HIV negative Renal insufficiency: Per patient not new. Recommendations: -Continue IV penicillin G 4 million units Q4 for plan for 14 days of therapy (today is day 1) -Watch closely for Jarisch-Herxheimer reaction. It is treated symptomatically--with NSAIDs. -Please obtain LP and send for cell count, differential, glucose, protein, and VDRL -Ok to place picc -Needs case management consultation for home IV antibiotics -Continue tenofovir and emtricitabine combo pill -Check urine/creatinine ratio -Throat swab for GC/Chlamydia -Urine for GC/Chlamydia -Check LFTs -Hold on antivirals -We will obtain records from [facility] Discussed with primary care team Trev Garzon MD 10/05/2016 9:07 ID Attending: Patient seen, examined and discussed with Dr. Garzon. Labs, microbiology personally reviewed. Discussed optho exam with Dr. Cutler. Agree with findings, impression and suggestions as noted above, my additions in italics. Silvana Phelps MD Pager [phone] documented in this encounter ED Notes Heather Curtis, RN - 10/04/20162100 EST Warm blankets provided for comfort. Heather Villegas RN - 10/04/20162022 EST [place] and gingerale provided. Pt to be admitted. Lilliana Sorto MD - 10/04/2016 1726 EST DOS: 10/04/2016 Chief Complaint Patient presents with ??? Eye Pain Pt was seen by Dr. Cutler couple days ago, was told he has syphilis RPR, and needing abx. See TCALL.+blurry vision to R eye. HPI HPI Comments: I, Leslie Pearce, am scribing for Lilliana Bonilla MD while he/she is personally performing the service. Leslie Pearce 10/04/2016 17:26 Beth Hughes is a 55 y.o. male who was diagnosed with syphilis in his right eye 3 days ago from RPR with rapid progression of infection towards his retina that was noticed today at Dr. Cutler's office. She was concerned with the progression, so he was told to present to the ED for antibiotics and further treatment. The patient states that he had his eye dilated today while at his doctor's, but his right eye was unable to dilate complete. He endorses eye pain, blurry vision in his right eye in whole visual field and decreased range in his upper vision. He states that it feels like there is an object in his eye, which causes a constant irritation with sporadic sharp pains. He endorses mild headaches.He denies numbness, tingling or loss of coordination in his extremities and anorexia. The patient states that he has an opthomologist appointment for sunday Social history: the patient denies smoking and endorses alcohol consumption. The history is provided by the patient and medical records. Review of Systems Review of Systems Constitutional: Negative for appetite change. Eyes: Positive for pain and visual disturbance. Neurological: Negative for weakness and numbness. All other systems reviewed and are negative. The patient's past medical, family and social history was reviewed and updated as needed. No Known Allergies Vital Signs Temp: 36.5 ??C (97.7 ??F) Temp src: Temporal Pulse: 76 Resp: 18 SpO2: 95 % BP: 128/84 BP Device: BP Machine Patient Position: Sitting Physical Exam Constitutional: He is oriented to person, place, and time. He appears well- developed and well-nourished. No distress. HENT: Head: Normocephalic and atraumatic. Eyes: EOM are normal. Right eye exhibits no discharge. Left eye exhibits no discharge. Right eye injected conjunctiva. Pupil midsize, unreactive, left pupil dilated and also unreactive due to medication. Pupil normal shape. Neck: Normal range of motion. Neck supple. No tracheal deviation present. Cardiovascular: Normal rate, regular rhythm, normal heart sounds and intact distal pulses. No murmur heard. Pulmonary/Chest: Effort normal and breath sounds normal. No respiratory distress. He has no wheezes. Abdominal: Soft. Bowel sounds are normal. He exhibits no distension. There is no tenderness. Musculoskeletal: Normal range of motion. He exhibits no edema. Neurological: He is alert and oriented to person, place, and time. He exhibits normal muscle tone. mental status normal. Normal speech. Skin: Skin is warm and dry. No rash noted. No rash on face. Psychiatric: He has a normal mood and affect. Nursing note and vitals reviewed. RESULTS EKG orders: None Radiology orders: None ED Lab Results Labs Reviewed - No data to display Relevant Data Procedures ED COURSE A medical screening exam was performed. Physical exam was significant for Right eye injected conjunctiva. Pupil midsize, unreactive, left pupil dilated and also unreactive due to medication. Pupil normal shape. EOM intact, normal speech, mental status normal. No rash on face. 10/04/2016 17:46 Infectious disease doctor knowledgeable of the case, Dr. Garzon, was consulted and suggested LP, PICC line insertion for IV antibiotics, and admission overnight. 10/04/2016 18:09 The patient was informed of plan from infectious disease and states that he does not wish to be admitted overnight due to scheduling at home. He was informed of the drug shortage of IM antibiotics and that admission is suggested due to multiple doses of antibiotics needed. He states that [facility] is nearby his house an was wondering whether he could obtain his antibiotics closer to home. 10/04/2016 18:30 Infectious disease was consulted about possible ways for the patient to get home to manage his house before treatment. They state that the patient should go home to manage his affairs, and afterwards return for further treatment, including LP and admission for PICC line and antibiotics.They state that he should be observed for all antibiotics due to common inflammatory responses. 10/04/2016 19:22 On reevaluation, the patient states that he was able to contact a neighbor who is able to take care of everything at his house. He states that he is able to be admitted now. 10/04/2016 19:48 Internal medicine was consulted and agrees to admit the patient. The patient was admitted to Internal medicine under Dr. Davison. ASSESSMENT AND PLAN Final diagnoses: Vision loss of right eye Neurosyphilis DISPOSITION: Admitted The patient's pain was managed to an adequate level weighing risk vs. benefit of further medications. Upon departure from the Emergency Department, the patient's pain was 4 on a zero to ten scale. Condition at departure from the Emergency Department: Stable PCP: Chele Kessler [facility] This documentation is recorded by Leslie Pearce acting as Scribe under the direction and presence ofLilliana Bonilla MD. Lilliana Bonilla MD: I personally performed the services recorded by the scribe in my presence. I confirm the scribe's documentation has been reviewed by me to accurately and completely record my work, treatment, procedures, and medical decision making. 10/04/2016 20:01 No flowsheet data found. Leslie Ornelas - 10/04/2016 1648 EST TCALL: Beth Hughes . 64. Referred to ED by ophthalmology for neurosyphilis. Needs IM penicillinor to be admitted and get IV penicillin per Dr. Rhodes. Contact infectious disease upon arrival. (jcm) documented in this encounter Miscellaneous Notes Plan of Care - Pallavi Marie RN - 10/06/2016 1332 EST Problem: Daily Care Plan Goals Goal: Care Plan Documentation 10/06/16 1327 Care Plan Focus Area of Focus Discharge Plan Nursing Discharge Note D: Patient noted with discharge orders to:home. Patient discharged at 1230 and is to be at 's office after picking up his IV antibiotics, pump, infusion equipment...from [facility] outpatient pharmacy. A: Prescriptions provided to patient. Reviewed discharge instructions and prescriptions with Patient. IV d/c'd. and PICC left in place and flushed per protocol. Belongings collected and sent home with patient. Report called to Dayanara Hughes at [facility] and message left with title specialist. No one available to take report at this time. R: Patient verbalized understanding of discharge instructions and denied further questions. Pallavi Marie RN 10/06/2016 13:27 lan of Care - Pallavi Marie RN - 10/06/2016 0632 EST Problem: Daily Care Plan Goals Goal: Care Plan Documentation 10/06/16 0224 Care Plan Focus Area of Focus Sleep Goal This Shift Cluster care, monitor, promote sleep. Data: Assumed care of patient at 2300. Patient sleeping soundly. Action: Patient assessed, monitored, medications administered as ordered, care clustered, sleep promoted. Response: Patient denies pain, nausea, hopeful for discharge today. Patient understands PICC needs to be placed and discharge needs to be met. 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 Will adjust interventions as needed. Pallavi Marie RN 10/06/2016 6:26 lan of Care - Simón Pena RN - 10/05/2016 0514 EST Problem: Daily Care Plan Goals Goal: Care Plan Documentation Outcome: Met This Shift 10/04/16 4436 Care Plan Focus Area of Focus Pain/ Comfort Goal This Shift pt will have adequate pain management Data:pt is a/o x 3, VSS. Right eye remains red and a sluggish pupil of + 4. Pt c/o mild right eye discomfort. See flow sheet for data. Action:will continue the plan of care and monitor pt for any changes or new complaints. Tylenol given for pain. Response:pt is resting in bed with no new complaints at present. Simón Pena RN 10/05/2016 5:10 documented in this encounter Plan of Treatment Upcoming Encounters Date Type Specialty Care Team Description 05/30/2022 Nurse Only Infectious Disease Nurse, CINDY Hunter 08/10/2022 Office Visit Infectious Disease Silvana Phelps MD [address] [facility], [address] [place] [address] [phone] (Wo rk) Scheduled Referrals Name Type Priority Associated Diagnoses Order S chedule AMB CONS/FOLLOW UP Outpatient Referral Routine Vision loss of right Ordered: PRIMARY CARE eye 10/06/2016 PHYSICIAN Neurosyphilis AMB CONS/FOLLOW UP Outpatient Referral Routine Vision loss of right Ordered: ADULT INFECTIOUS eye 10/06/2016 DISEASE Neurosyphilis 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 BUN Routine 2016 17:02 Vision loss of Results f or this EST right eye procedure are in Neurosyphilis the results Retinitis, right section. CREATININE Routine 2016 17:02 Vision loss of Results f or this EST right eye procedure are in Neurosyphilis the results Retinitis, right section. INSERT PICC LINE Routine 10/06/2016 12:26 Results for this EST procedure are i n the results section. GLUCOSE, SERUM STAT 10/05/2016 14:25 Results f or this EST procedure are i n the results section. BACTERIAL Routine 10/05/2016 14:21 Results for this CULTURE/SMEAR, FLUID EST procedu re are in the results section. VDRL,CSF Routine 10/05/2016 14:09 Results for this EST procedure are i n the results section. CELL COUNT,CSF Routine 10/05/2016 14:09 Results f or this EST procedure are i n the results section. FLUID DIFFERENTIAL Routine 10/05/2016 14:09 Resul ts for this EST procedure are i n the results section. TOTAL PROTEIN, CSF Routine 10/05/2016 14:09 Resul ts for this EST procedure are i n the results section. GLUCOSE CSF Routine 10/05/2016 14:09 Results for this EST procedure are i n the results section. N. GONORRHOEAE AND Routine 10/05/2016 11:15 Resul ts for this CHLAMYDIA EST procedure are i n TRACHOMATIS, MISC the result s SITES, AMPLIFIED RNA section . CHLAMYDIA/N. Routine 10/05/2016 11:11 Results for this GONORRHOEAE AMPLIFIED EST proced ure are in RNA, URINE the results section. INPATIENT ADD-ON Routine 10/05/2016 11:10 Results for this EST procedure are i n the results section. PROTIME Routine 10/05/2016 6:23 Results for this EST procedure are i n the results section. COMPLETE BLOOD COUNT Routine 10/05/2016 6:23 Resu lts for this AND DIFFERENTIAL EST procedure a re in the results section. BUN Routine 10/05/2016 6:23 Results for this EST procedure are i n the results section. ALT Routine 10/05/2016 6:23 Results for this EST procedure are i n the results section. AST Routine 10/05/2016 6:23 Results for this EST procedure are i n the results section. ALKALINE PHOSPHATASE Routine 10/05/2016 6:23 Resu lts for this EST procedure are i n the results section. CREATININE Routine 10/05/2016 6:23 Results for this EST procedure are i n the results section. BILIRUBIN, TOTAL Routine 10/05/2016 6:23 Results for this EST procedure are i n the results section. ELECTROLYTES Routine 10/05/2016 6:23 Results for this EST procedure are i n the results section. INPATIENT ADD-ON Routine 10/05/2016 5:27 Results for this EST procedure are i n the results section. documented in this encounter Results (ABNORMAL) CREATININE (2016 17:02 EST) Creatinine, 1.30 (A)Comment: 0.66 - 1.25 [place] External Previously mg/dL HOSPITAL LAB reported as 1.30 corrected to 1.20 at 2046 on [id number]. GFR, Calculated, Not given [facility] HOSPITAL LAB Specimen Blood specimen (specimen) Performing Organization Address City/State/ZIP Code Phon e Number [facility] BUN (2016 17:02 EST) Pathologist Sig nature BUN, External 11 9 - 20 mg/dL [facility] Specimen Blood specimen (specimen) Performing Organization Address City/State/ZIP Code Phon e Number [facility] (ABNORMAL) HEMAGRAM AND DIFFERENTIAL (2016 17:02 EST) WBC, External 6.3 5.0 - 10.0 [facility] 10*3/uL HOSPITAL LAB RBC, External 6.20 (A) 4.60 - 6.00 [facility] 10*6/uL HOSPITAL LAB Hemoglobin, 12.6 (A) 14.0 - 18.0 [facility] g/dl HOSPITAL LAB HCT, External 39.6 (A) 41.0 - 51.0 % [facility] MCV, External 63.9 (A) 80.0 - 96.0 fl [facility] MCH, External 20.3 (A) 26.0 - 32.0 pg [facility] MCHC, External 31.8 31.0 - 35.0 [facility] g/dl HOSPITAL LAB PLT, External 198 130 - 450 [facility] 10*3/uL HOSPITAL LAB RDW-CV, External 17.9 (A) 11.5 - 14.5 % [facility] Neutrophils, 55.7 40.0 - 75.0 % [facility] Lymphocytes, 35.4 20.0 - 50.0 % [facility] Monocytes, 6.5 2.0 - 10.0 % [facility] Eosinophils, 1.3 1.0 - 6.0 % [facility] Basophils, 0.8 0.0 - 1.0 % [facility] ABS Neutrophils, 3.49 10*3/uL [facility] ABS Lymphs, Not given [facility] ABS Monocytes, Not given [facility] ABS Eosinophils, Not given [facility] ABS Basophils, Not [facility] External givenComment: HOSPITAL LAB Please see the scanned report in PRISM for further interpretation. Specimen Blood specimen (specimen) Performing Organization Address City/State/ZIP Code Phon e Number [facility] INSERT PICC LINE (10/06/2016 12:26 EST) Narrative Dalia Terry RN - 10/06/2016 12:26 EST Dalia Terry RN ? 10/06/2016 12:26 Central Catheter Insertion First Catheter This Session ?forklift wheel loader: Patient Location: [id number] Preliminary Data: Insertion Date: 10/06/16 Insertion Time: 1212 First Data Warehousing Manager: Dalia Terry RN RN/MA Documenting Procedure: Randee Dickerson am, RN Pre-procedure: Time Out / Final Moment Performed: Yes Hand Hygiene Immediately Prior To Proced ure: Yes Site Disinfected-2% Chlorhex/70% Alcohol : Yes Procedure Site Completely Dry: Yes Entire Patient Draped in Sterile Fashion : Yes Intra-procedure: Sterile Gloves Used: Yes Cap, Mask, and Sterile Gown - Operators: Yes Sterile Field Maintained: Yes Cap and Mask Worn - All Personnel: Yes Post-procedure: Sterile Dressing Applied - Sterile Techn ique: Yes Dressing Dated And Timed: Yes Needle Passes: ANIVAL RN Makes 2 Or Fewer Needle Passes: 2 or fewer passes ?Physician Documentation Pre-Procedure: Procedure To Be Performed: New central l ine placement Indication: New indication Conditions Present: Other (Comment) Line Priority: Routine Tip Confirmation: 3CG Consent Obtained: Yes The patient and/or family have been prov ided education/training to minimize the risk of central line-ass ociated bloodstream infections. Central Line Type: Central Catheter Type: PICC PICC Type: Solo PICC Central Line Details: Line Location: Right;Basilic Line Lumens (#): Single Central Line Size: 4 Fr Line Coating: Non-antimicrobial coated Vessel Size: 7 mm Vein Depth (cm): 0.5 cm Line Trim Length: 40 cm Line Securement Device: Statlock device Responsible Service / IR Details: Responsible Service: ANIVAL WHITE Lidocaine 1% - Route/Dose (cc's): Subcut aneous;Intradermal;1 Central Line Materials and Methods: Number of Attempts: 1 Number of Sites Attempted: 1 Number of Kits Used: 1 Location Device Used: Sherlock;Ultrasoun d;3CG Central Line Operators: Number Of Operators: 1 First Data Warehousing Manager's Name: Dalia Terry RN First Data Warehousing Manager's Title: Vascular molded goods operator Unless otherwise noted, there were no co mplications, no blood loss and no cultures obtained. Dalia Terry RN ?? 10/06/2016 ?? 12: 26 (ABNORMAL) GLUCOSE, SERUM (10/05/2016 14:25 EST) Pathologist Sig rigo Glucose, Serum 111 (H) 70 - 100 mg/dl [facility] SERVICES Specimen Blood specimen (specimen) - Blood Performing Organization Address [facility] Phon e Number [facility] [address] [place] [address] SERVICES BACTERIAL CULTURE/SMEAR, FLUID (10/05/2016 14:21 EST) Gram Smear Result No polys seen [facility] Gram Smear Result No bacteria seen [facility] Result No growth [facility] Specimen Other (qualifier value) - Spinal Fluid Performing Organization Address [facility] Phon e Number [facility] [address] [place] [address] SERVICES (ABNORMAL) FLUID DIFFERENTIAL (10/05/2016 14:09 EST) Pathologist Sig [facility] Neutrophils, CSF 3 0 - 6 % [facility] AT[facility] SERVICES Lymphocyte, CSF 85 (H) 40 - 80 % [facility] T[facility] SERVICES [place]/Macro, CSF 12 (L) 15 - 45 % [facility] T[facility] SERVICES Specimen Other Performing Organization Address [facility] Phon e Number [facility] [address] [place] [address] SERVICES VDRL,CSF (10/05/2016 14:09 EST) Pathologist Sig [facility] VDRL, CSF Negative Negative [facility] Comment: LABORATORY SERVICES (Note) . ADDITIONAL INFORMATION ------ Positive results by this test are not confirmed with a treponemal-specific assay. Performed by: [facility] Labs: [facility], [place] [address], Lab Dir: Juan Daniel Tolentino II, M.D., Ph.D. Specimen Cerebrospinal fluid (substance) - Spinal Fluid Performing Organization Address [facility] Phon e Number [facility] [address] [place] [address] SERVICES TOTAL PROTEIN, CSF (10/05/2016 14:09 EST) Pathologist Sig nature Total Protein, CSF 46 15 - 60 mg/dl [facility] Specimen Cerebrospinal fluid (substance) - Spinal Fluid Performing Organization Address [facility] Phon e Number [facility] [address] [place] [address] SERVICES GLUCOSE CSF (10/05/2016 14:09 EST) Pathologist Sig nature Glucose, CSF 69 mg/dl [facility] Comment: LABORATORY SERVICES Ref Range=60-80% of plasma glucose result Specimen Cerebrospinal fluid (substance) - Spinal Fluid Performing Organization Address [facility]/ZIP Code Phon e Number [facility] [address] [place] [address] SERVICES CELL COUNT,CSF (10/05/2016 14:09 EST) RBC, CSF None seen /cmm [facility] Nucleated Cells 3 0 - 5 /cmm [facility] Total Vol. 14.0 ml [facility] SERVICES Tube Cntd. 4 [facility] Tube Vol. 2.5 ml [facility] CSF Comment Clear and Colorless [facility] SERVICES Specimen Cerebrospinal fluid (substance) - Other Performing Organization Address City/[facility] Phon e Number [facility] [address] [place] [address] SERVICES [facility] SITES, CHLAMYDIA TRACHOMATIS AND NEISSERIA GONORRHA, AMPLIFIED RNA (10/05/2016 11:15 EST) Source ORAL/THROAT [facility] SERVICES C.trachomatis, Negative Negative [facility] Site Comment: [facility] (Note) SERVICES . ADDITIONAL INFORMATION ------ This report is intended for use in clinical monitoring and management of patients. ??It is not intended for use i n medical-legal applications. . This test has been modified from the director of special education's instructions. ??Its performance characteristics were determined by [facility] in a manner consistent with CLIA requirements. ??This test has not been cleared or appr reina by the U.S. Food and Drug Administration. Source Throat [facility] Comment: [facility] ORAL/THROAT (PHARYNX OR PHARYNGEAL) SERVI GUSTAVO Corrected on 10/05 AT 1622: Previously reported as ORA L/THROAT (PHARYNX OR PHARYNGEAL) N.gonorrhoeae, Negative Negative [facility] Site Comment: [facility] (Note) SERVICES . ADDITIONAL INFORMATION ------ This report is intended for use in clinical monitoring and management of patients. ??It is not intended for use i n medical-legal applications. . This test has been modified from the director of special education's instructions. ??Its performance characteristics were determined by [facility] in a manner consistent with CLIA requirements. ??This test has not been cleared or appr reina by the U.S. Food and Drug Administration. Performed or Referred by: [facility] Labs [facility], [address] [place] [address], Lab Dir: Juan Daniel kenny II, M.D., Ph.D. Specimen Other (qualifier value) - Other Performing Organization Address City/[facility]/ZIP Code Phon e Number [facility] [address] [place] [address] SERVICES CHLAMYDIA/GC AMPLIFIED, URINE (10/05/2016 11:11 EST) Chlamydia Result No Chlamydia [facility] trachomatis DNA LABORATORY detected by SERVICES canteen manager mediated amplification. GC Result No Neisseria [facility] gonorrhoeae DNA LABORATORY detected by SERVICES canteen manager mediated amplification. Specimen Other (qualifier value) - Urine Performing Organization Address City/[facility]/ZIP Code Phon e Number [facility] [address] [place] [address] SERVICES INPATIENT ADD-ON (10/05/2016 11:10 EST) Pathologist Sig nature Tests to be added ALT,AST,ALK [facility] PHOS,TOTAL BILI LABORATORY SERVICES Number for problems [id number] [facility] SERVICES Accession number [id number] [facility] SERVICES Specimen Other Performing Organization Address [facility]/ZIP Code Phon e Number [facility] [address] [place] [address] SERVICES BILIRUBIN, TOTAL (10/05/2016 6:23 EST) Pathologist Sig nature Bilirubin, Total 0.8Comment: Add <1.4 mg/dl [facility] on order LABORATORY SERVICES Specimen Blood Performing Organization Address City/[facility]/ZIP Code Phon e Number [facility] [address] [place] [address] SERVICES AST (10/05/2016 6:23 EST) Pathologist Sig nature AST 33Comment: Add on 15 - 46 U/L [facility] order LABORATORY SERVICES Specimen Blood Performing Organization Address City/[facility]/ZIP [facility] Phon e Number [facility] [address] [place] [address] SERVICES ALT (10/05/2016 6:23 EST) Pathologist Sig nature ALT 48Comment: Add on 21 - 72 U/L [facility] order LABORATORY SERVICES Specimen Blood Performing Organization Address [facility]/ZIP [facility] Phon e Number [facility] [address] [place] [address] SERVICES ALKALINE PHOSPHATASE (10/05/2016 6:23 EST) Total Alkaline 115Comment: 38 - 126 U/L [facility] Phosphatase Add on order LABORATORY SERVICES Specimen Blood Performing Organization Address City/[facility]/ZIP [facility] Phon e Number [facility] [address] [place] [address] SERVICES (ABNORMAL) HEMAGRAM AND DIFFERENTIAL (10/05/2016 6:23 EST) Pathologist Sig nature WBC 6.70 4.0 - 10.4 [facility] K/m LABORATORY SERVICES RBC 5.76 4.36 - 5.78 [facility] M/[facility] LABORATORY SERVICES Hemoglobin 11.6 (L) 13.8 - 17.3 [facility] gm/dl LABORATORY SERVICES HCT 35.8 (L) 39.5 - 50.2 % [facility] LABORATORY SERVICES MCV 62 (L) 81 - 95 fl [facility] SERVICES MCH 20.1 (L) 27.6 - 33.0 pg [facility]ORY SERVICES Hypochromia 2+ [facility]ORATORY SERVICES MCHC 32.4 (L) 32.8 - 36.4 [facility] gm/dl LABORATORY SERVICES RDW-CV 16.2 (H) 11.8 - 14.1 % [facility] LABORATORY SERVICES RDW-SD 33.9 (L) 36.5 - 45.9 fl [facility] LABORATORY SERVICES PLT 170 141 - 377 [facility] MPV 10.4 9.5 - 12.7 fl [facility] LABORATORY SERVICES Neutrophils 80.8 % [facility]ORATORY SERVICES Lymphocytes 10.7 % [facility]ORY SERVICES Monocytes 7.2 % [facility]ORY SERVICES Eosinophils 0.6 % [facility]ORY SERVICES Basophils 0.3 % [facility] LABORATORY SERVICES Immature Grans 0.4 % [facility] LABORATORY SERVICES ABS Neutrophils 5.41 2.20 - 8.85 [facility] K/[facility] LABORATORY SERVICES ABS Lymphs 0.72 (L) 1.09 - 3.30 [facility] K/[facility] LABORATORY SERVICES ABS Monocytes 0.48 0.1 - 0.8 K/[facility] LABORATORY SERVICES ABS Eosinophils 0.04 0.03 - 0.61 [facility] [facility] LABORATORY SERVICES ABS Basophils 0.02 0.01 - 0.11 [facility] LABORATORY SERVICES ABS Immature Grans 0.03 0 - 0.06 /[facility] LABORATORY SERVICES Type of Diff: Automated [facility] LABORATORY SERVICES Specimen Blood specimen (specimen) - Blood Performing Organization Address City/[facility] Code Phon e Number [facility] LABORATORY [address] [place] [address] SERVICES PROTIME (10/05/2016 6:23 EST) Pro Time 12.4 10.3 - 13.1 [facility] secs LABORATORY SERVICES I.N.R. 1.1 0.9 - 1.1 [facility] Comment: Ratio LABORATORY SERVICES Moderate Intensity Coumadin INR = 2.0-3.0 Adjustments in anticoagulant therapy dose should be based upon the INR and NOT the Pro Time. Specimen Blood specimen (specimen) - Blood Performing Organization Address City/[facility] Phon e Number [facility] LABORATORY [address] [place] [address] SERVICES CREATININE (10/05/2016 6:23 EST) Creatinine 1.12 0.66 - 1.25 [facility] mg/dl LABORATORY SERVICES GFR, Calculated 75 >60 [facility] Comment: ml/min/1.73m2 LABORATORY eGFR calculated using CKD-EPI equation for SERVICES non Americans. Multiply eGFR by 1.16 for Americans. Specimen Blood specimen (specimen) - Blood Performing Organization Address City/State/ZIP Code Phon e Number [facility] LABORATORY [address] [place] [address] SERVICES BUN (10/05/2016 6:23 EST) Pathologist Sig nature BUN 11 10 - 26 mg/dl [facility] LABORATO RY SERVICES Specimen Blood specimen (specimen) - Blood Performing Organization Address City/[facility]/ZIP Code Phon e Number [facility] LABORATORY [address] [place] [address] SERVICES ELECTROLYTES (10/05/2016 6:23 EST) Pathologist Sig nature Sodium 143 136 - 145 mEq/L [facility] LABORATORY SERVICES Potassium 4.2 3.5 - 5.0 mEq/L [facility] LABORATORY SERVICES Chloride 107 96 - 110 mEq/L [facility] LABORATORY SERVICES CO2 26Comment: Note new 22 - 32 mEq/L [facility] reference range LABORATORY SERVICES 06/13/16 Specimen Blood specimen (specimen) - Blood Performing Organization Address City/[facility]/ZIP Code Phon e Number [facility] LABORATORY [address] [place] [address] SERVICES INPATIENT ADD-ON (10/05/2016 5:27 EST) Tests to be added DIFFERENTIAL [facility] LABORATORY SERVICES Number for Not Given [facility] problems LABORATORY SERVICES Accession number No sample received, [facility] floor LABORATORY notifiedComment: SERVICES SPOKE WITH AWA Specimen Other Performing Organization Address City/[facility]/ZIP [facility] Phon e Number [facility] LABORATORY [address] [place] [address] SERVICES documented in this encounter Visit Diagnoses Diagnosis Neurosyphilis - Primary Neurosyphilis, unspecified Vision loss of right eye Unqualified visual loss, one eye 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, other forms of secondary syphilis Retinitis, right Chorioretinitis, unspecified documented in this encounter Admitting Diagnoses Diagnosis 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, other forms of secondary syphilis documented in this encounter Administered Medications Inactive Administered Medications - up to 3 most recent administrations Medication Order MAR Action Action Date Dose Rate Site acetaminophen (TYLENOL) tablet 650 mg Given 10/05/2016 6:02 EST 650 mg 650 mg, oral, EVERY 6 HOURS, First dose on Ginny 10/05/16 at 0015, Until Discontinued, Routine Given 10/05/2016 0:26 EST 650 mg alteplase (CATHFLO ACTIVASE) injection 2 mg 2 mg, intercatheter, PRN, Starting on Sun10/05/16 at 11 10, Until Sun10/06/16 at 1637, Line Care, Routine diphenhydrAMINE (BENADRYL) capsule 25 mg 25 mg, oral, EVERY 6 HOURS PRN, Starting on Sun10/05/16 at 0241, Until Sun10/06/16 at 1637, Itching, Routine diphenhydrAMINE (BENADRYL) injection 25 mg 25 mg, intravenous, EVERY 6 HOURS PRN, S tarting on Sun10/05/16 at 0241, Until Sun10/06/16 at 1637, Itching, rash, Routine emtricitabine-tenofovir (TDF) (TRUVADA) Given 10/06/2016 8:24 ES T 1 Tablet 200-300 mg per tablet 1 Tab 1 Tablet, oral, DAILY, 14 doses, First dose on Sun10/05/16 at 0900, Last dose on Sun10/18/16 at 0900, Routine Given 10/05/2016 10:28 EST 1 Tablet penicillin G potassium 4 Million Units Given 7 19:59 EST 4 Million Units in dextrose 5% (D5W) 150 mL IVPB 4 Million Units, intravenous, Administer over 30 Minutes, EVERY 4 HOURS, 1 dose, First dose on Sun10/04/16 at 1945, STAT penicillin G potassium 4 Million Units Given 7 10:37 EST 4 Million Units in dextrose 5% (D5W) 150 mL IVPB 4 Million Units, intravenous, Administer over 30 Minutes, EVERY 4 HOURS, 34 doses, First dose on Sun10/05/16 at 0000, Last dose on Sun10/10/16 at 1400, Routine Given 10/06/2016 5:47 EST 4 Million Units Given 10/06/2016 2:25 EST 4 Million Units sodium chloride 0.9 % flush 10 mL 10 mL, intercatheter, PRN, Starting on F ri 10/06/16 at 1218, Until Sun10/06/16 at 1637, Line Care, Flush all lumens before and after eac h dose, Routine sodium chloride 0.9 % flush 10 mL 10 mL, intercatheter, EVERY 7 DAYS PRN, Starting on 10/06/16 at 1218, Until 10/06/16 at 1637, Line Care, Flush all amanda mens every 7 days if not in use, Routine sodium chloride 0.9 % flush 20 mL 20 mL, intercatheter, PRN, Starting on F ri 10/06/16 at 1218, Until 10/06/16 at 1637, Line Care, Flush all lumens after blood draw or vancomycin, Routine valACYclovir (VALTREX) tablet 1,000 mg Given 10/05/2016 21:10 EST 1,000 mg 1,000 mg, oral, 3 TIMES DAILY, 12 doses, First dose on Ginny 10/05/16 at 1400, Last dose on 10/09/16 at 0900, Routine Given 10/05/2016 15:08 EST 1,000 mg documented in this encounter Discontinued Medications Medication Sig Discontinue Reason Start Date End Date buPROPion (WELLBUTRIN XL) Take 150 mg by 10/04/2016 150 mg XL tablet mouth daily emtricitabine-tenofovir, Take 200-300 mg by 10/06/2016 TDF, (TRUVADA) 100-150 mg mouth daily. tablet valACYclovir (VALTREX) 500 Take 2,000 mg by 10/06/2016 mg tablet mouth 3 times daily. documented as of this encounter Historical Medications This list may reflect changes made after this encounter. Medication Sig Dispensed Refills Start Date End Date prednisoLONE (PRED FORTE) Reported on 0 7 01/18/2017 1 % ophthalmic suspension 01/18/2017 emtricitabine-tenofovir, Take 1 Tab by mouth 0 01/18/2017 TDF, (TRUVADA) 200-300 mg daily. per tablet valACYclovir (VALTREX) Take 2,000 mg by 0 10/06/2016 500 mg tablet mouth 3 times daily. emtricitabine-tenofovir, Take 200-300 mg by 0 10/06/2016 TDF, (TRUVADA) 100-150 mg mouth daily. tablet added in this encounter Active and Recently Administered Medications Times are shown in EST. Scheduled Medication Order 10/04/2016 10/05/2016 10/06/2016 acetaminophen (TYLENOL) tablet 650 mg 00 26 (Given - Provider: Simón Pena RN)0602 (Given - Provider: Simón Pena RN)1233 (Not Given - Provider: Darline Whitt RN - Reason: Patient/family refused)1821 (Not Given - Provider: Darline Whitt RN - Reason: Patient/family refused) 0224 (Not Given - Provider: Pallavi Marie RN - Reason: Patient/family refused)0503 (Not Given - Provider: Pallavi Marie RN - Reason: Patient/family refused)1128 (Not Given - Provider: Palalvi Marie RN - Reason: Patient/family refused) 650 mg, oral, EVERY 6 HOURS, First dose on Sun10/05/16 at 0015, Until Discontinued, Routine emtricitabine-tenofovir (TDF) (TRUVADA) 200-300 mg per table t 1 Tab 1028 (Given - Provider: Darline Whitt RN) 0824 (Given - Provider: Pallavi massey RN) 1 Tab, oral, DAILY, 14 doses, First dose on Sun10/05/16 at 0900, Last dose on Sun10/18/16 at 0900, Routine penicillin G potassium 4 Million Units i n dextrose 5% (D5W) 150 mL IVPB (COMPLETED) 195 (Given - Provider: Mike Call)2046 (Completed - Provider: Heather Curtis RN) 4 Million Units, intravenous, Administer over 30 Minutes, EVERY 4 HOURS, 1 dose, First dose on Sun10/04/16 at 1945, STAT penicillin G potassium 4 Million Units in dextrose 5% (D5W) 150 mL IVPB 0026 (Given - Provider: Simón Pena RN)0408 (Given - Provider: Simón Pena RN)0747 (Given - Provider: Darline Whitt RN)1233 (Given - Provider: Darline Whitt RN)1813 (Given - Provider: Darline Whitt RN) 0225 (Given - Provider: Pallavi Marie RN)0547 (Given - Provider: Pallavi Marie RN)1037 (Given - Provider: Pallavi Marie RN)1400 (Canceled Entry - Provider: Batch Job User Admin - Comment: Automatically canceled at discontinu 4 Million Units, intravenous, Administer over 30 Minutes, EVERY 4 HOURS, 34 doses, First dose on Sun10/05/16 at 0000, Last dose on Sun10/10/16 at 1400, Routine 2221 (Given - Provider: Alberta Barron, RN) e of medication order) valACYclovir (VALTREX) tablet 1,000 mg (CANCELED) 1508 (Given - Provider: Darline Whitt, RN)2110 (Given - Provider: Alberta Barron, RN) 1,000 mg, oral, 3 TIMES DAILY, 12 doses, First dose on Sun10/05/16 at 1400, Last dose on Sun10/09/16 at 0900, Routine PRN Medication Order 10/04/2016 10/05/2016 10/06/2016 alteplase (CATHFLO ACTIVASE) injection 2 mg 2 mg, intercatheter, PRN, Starting Sun at 1110, Until Sun10/06/16 at 1637, Line Care, Routine diphenhydrAMINE (BENADRYL) capsule 25 mg(Linked Group 1) 25 mg, oral, EVERY 6 HOURS PRN, Starting Sun10/05/16 at 0241, Until Sun10/06/16 at 1637, Itching, Routine diphenhydrAMINE (BENADRYL) injection 25 mg(Linked Group 1) 25 mg, intravenous, EVERY 6 HOURS PRN, S tarting Sun10/05/16 at 0241, Until Sun10/06/16 at 1637, Itching, rash, Routine sodium chloride 0.9 % flush 10 mL 10 mL, intercatheter, PRN, Starting Sun10/06/16 at 1218, Until Sun10/06/16 at 1637, Line Care, Flush all lumens before and after each dose, Routine sodium chloride 0.9 % flush 10 mL 10 mL, intercatheter, EVERY 7 DAYS PRN, Starting Sun10/06/16 at 1218, Until Sun10/06/16 at 1637, Line Care, Flush all lumens every 7 days if not in use, Routine sodium chloride 0.9 % flush 20 mL 20 mL, intercatheter, PRN, Starting Sun10/06/16 at 1218, Until Sun10/06/16 at 1637, Line Care, Flush all lumens after blood draw or vancomycin, Routine Linked Groups Order Group 1: diphenhydrAMINE (BENADRYL) injection 25 mgJump to med 25 mg, intravenous, EVERY 6 HOURS PRN, S tarting Ginny 10/05/16 at 0241, Until Sun10/06/16 at 1637, Itching, rash, Routine Or diphenhydrAMINE (BENADRYL) capsule 25 mgJump to med 25 mg, oral, EVERY 6 HOURS PRN, Starting Ginny 10/05/16 at 0241, Until Sun10/06/16 at 1637, Itching, Routine documented in this encounter Orders Medications Ordered That Might Not Have Count Last Ord ered Date First Ordered Date Been Administered sodium chloride 0.9 % flush 10 mL 2 10/06/2016 sodium chloride 0.9 % flush 20 mL 1 10/06/2016 alteplase (CATHFLO ACTIVASE) injection 2 1 017 mg diphenhydrAMINE (BENADRYL) 25 mg in sodium 1 10/05 chloride (NS) 0.9 % 50 mL IVPB diphenhydrAMINE (BENADRYL) capsule 25 mg 2 017 diphenhydrAMINE (BENADRYL) injection 25 mg 1 10/05 Procedures Count Last Ordered Date First Ordered Date ECG REPORT - SCANNED 1 10/27/2016 Diet Count Last Ordered Date First Ordered Date DISCHARGE DIET 1 10/06/2016 Nursing Count Last Ordered Date First Ordered Date ACCESS CENTRAL LINE CATHETER 2 10/06/2016 ACTIVITY INSTRUCTIONS 10/06/2016 CHANGE DRESSING 10/06/2016 CHECK CENTRAL LINE 10/06/2016 INFECTIOUS DISEASE CLINIC COMMUNICATION 10/06/19 17 ORDER LAB INSTRUCTIONS 10/06/2016 NURSING IV THERAPY - MISCELLANEOUS 10/06/2016 WOUND CARE INSTRUCTIONS 10/06/2016 CONTRAINDICATION TO ANTICOAGULATION 10/04/2016 THERAPY INSERT PERIPHERAL IV 10/04/2016 IV Count Last Ordered Date First Ordered Date BLOOD DRAW/ADMIN OF CONTRAST PER CVAD 10/06/2016 PROTOCOL Admission Count Last Ordered Date First Ordered Date ED BED REQUEST 10/04/2016 STATUS: INPATIENT ACUTE ADMISSION 10/04/2016 Transfer Count Last Ordered Date First Ordered Date NOTIFY PPS OF DISCHARGE COMPLETE 10/06/2016 CHANGE ATTENDING TO: 10/05/2016 UR PATIENT STATUS CHANGE 10/05/2016 PPS NOTIFICATION OF PATIENT ARRIVAL ON 7 UNIT Discharge Count Last Ordered Date First Ordered Date DISCHARGE PATIENT 1 10/06/2016 Legal Count Last Ordered Date First Ordered Date MISCELLANEOUS DISCHARGE INSTRUCTIONS 10/06/2016 documented in this encounter Care Teams Senior Mainframe Developer Relationship Specialty Start Date End Date Chele Kessler MD PCP - General 09/07/15 11/21/[address] [place] [address] documented as of this encounter
--- OUTSIDE RECORDS SUMMARY | 2022-05-12 00:59 | XMS_ITS | Encounter Summary ---
:[address] 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, Level [address] [place], [place] [address] (Wo rk) documented as of this encounter Procedures Procedure Name Priority Date/Time Associated Comments Diagnosis CHEST PA AND LATERAL 10/02/2016 13:45 Res ults for this EST procedure are i n the results section. RAPID PLASMA REAGIN Routine 10/02/2016 13:30 Resu lts for this (RPR) WITH REFLEX, S EST procedu re are in the results section. SYPHILIS SEROLOGY Routine 10/02/2016 13:30 Result s for this EST procedure are i n the results section. LYME AB Routine 10/02/2016 13:30 Results for this EST procedure are i n the results section. SYPHILIS IGG AB WITH Routine 10/02/2016 13:30 Res ults for this REFLEX, SERUM EST procedure are in the results section. SYPHILIS IGG AB WITH Routine 10/02/2016 13:30 Res ults for this REFLEX, SERUM EST procedure are in the results section. LYSOZYME Routine 10/02/2016 13:30 Results for this EST procedure are i n the results section. COMPLETE BLOOD COUNT Routine 10/02/2016 13:30 Res ults for this AND DIFFERENTIAL EST procedure a re in the results section. ANGIOTENSIN Routine 10/02/2016 13:30 Results for this CONVERTING ENZYME EST procedure are in (BRI) the results section. HIV 1/2 ANTIGEN AND Routine 10/02/2016 13:30 Resu lts for this ANTIBODY, 4TH EST procedure are in GENERATION the results section. documented in this encounter Results CHEST PA AND LATERAL (10/02/2016 13:45 EST) Anatomical Region Laterality Modality Other Specimen Narrative [facility] RADIOLOGY [facility] - 10/02/2016 15:09 EST CHEST PA AND LATERAL 10/02/2016 1:45 PM Signs and Symptoms: r/o sarcoid see clarence r. viral retinitis Comparison: None Technique: Dual-energy technique with reconstructio ns in normal, soft tissue and bone windows was used. Findings: The lungs are clear and there is no evid ence of pleural disease or pneumothorax. Nodular shadows overlie th e lung bases are nipple shadows. The cardiac silhouette and pulm onary vascularity are normal. The skeleton is unremarkable for age. Impression: No significant abnormality. I have personally reviewed the images an d the above interpretation and agree with the findings. Procedure Note Steven Tamayo MD - 10/02/2016 CHEST PA AND LATERAL 10/02/2016 1:45 PM Signs and Symptoms: r/o sarcoid see clarence caldwell viral retinitis Comparison: None Technique: Dual-energy technique with reconstructio ns in normal, soft tissue and bone windows was used. Findings: The lungs are clear and there is no evid ence of pleural disease or pneumothorax. Nodular shadows overlie th e lung bases are nipple shadows. The cardiac silhouette and pulm onary vascularity are normal. The skeleton is unremarkable for age. Impression: No significant abnormality. I have personally reviewed the images an d the above interpretation and agree with the findings. Performing Organization Address [facility] e Number [facility] RADIOLOGY [facility] RAPID PLASMA REAGIN (RPR) WITH REFLEX, S (10/02/2016 13:30 EST) RPR with Reflex, S Positive 1:256 Negative [facility] Comment: LABORATORY SERVICES (Note) Results consistent with untreated or recently treated syphilis. Performed by: [facility] Labs: [facility] [address], [place] [address], Lab Dir: Juan Daniel Tolentino II, M.D., Ph.D. Specimen Blood Performing Organization Address [facility] LABORATORY [address] [place] [address] SERVICES (ABNORMAL) SYPHILIS IGG AB WITH REFLEX, SERUM (10/02/2016 13:30 EST) Pathologist [facility] Syphilis IgG w Rfx Positive (A) Negative [facility] Comment: LABORATORY (Note) SERVICES Result suggests infection with Treponema pallidum at s ome point in the past, but does not distinguish between tr eated and untreated syphilis as Treponemal-specific IgG may remain elevated despite appropriate therapy. . Rapid Plasma Reagin (RPR) has been ordered to help distinguish between these two scenarios. Performed by: [facility] Labs: [facility] [address], [place] [address], Lab Dir: Juan Daniel Tolentino II, M.D., Ph.D. Specimen Blood Performing Organization Address [facility] e [facility] LABORATORY [address] [place] [address] SERVICES SYPHILIS IGG AB WITH REFLEX, SERUM (10/02/2016 13:30 EST) Syphilis IgG w Rfx LAB ORDER [facility] CORRECTION LABORATORY SERVICES Specimen Blood Performing Organization Address [facility]/ZIP Code Phon e Number [facility] LABORATORY [address] [place] [address] SERVICES SYPHILIS SEROLOGY (10/02/2016 13:30 EST) Syphilis Serology Positive [facility] Comment: LABORATORY SERVICES Reference Range: Negative Syphilis Ab (IgG) ordered by reflex and sent to [place]. Specimen Blood Performing Organization Address [facility]/ZIP [facility] Phon e Number [facility] LABORATORY [address] [place] [address] SERVICES (ABNORMAL) LYSOZYME (10/02/2016 13:30 EST) Pathologist Sig nature Lysozyme 10.8 (H) 2.7 - 9.4 [facility] Comment: mcg/mL LABORATORY SERVICES Performed or Referred by: [facility] Natasha Cobre [facility], [address] [place] [address], Lab Dir: Juan Daniel Tolentino I I, M.D., Ph.D. Specimen Blood Performing Organization Address [facility] Phon e Number [facility] LABORATORY [address] [place] [phone] SERVICES LYME AB (10/02/2016 13:30 EST) Pathologist Sig nature Lyme AB NegativeComment: [facility] Reference Range: LABORATORY SERVICES Negative Specimen Blood Performing Organization Address [facility] Phon e Number [facility] LABORATORY [address] [place] [address] SERVICES HIV 1/2 ANTIBODY (10/02/2016 13:30 EST) HIV 1/2 Antibody Negative [facility] Comment: CENTER LABORATORY If acute HIV-1 infection is suspected in a SERVICES high risk patient, submit plasma specimen for HIV-1 RNA quantification test. Reference Range: ??Negative Assayed utilizing [employer] chemiluminescent technology. Specimen Blood Performing Organization Address City/[facility]/ZIP Code Phon e Number [facility] LABORATORY [address] [place] [address] SERVICES (ABNORMAL) HEMAGRAM AND DIFFERENTIAL (10/02/2016 13:30 EST) WBC 5.94 4.0 - 10.4 [facility] K/cmm LABORATORY SERVICES RBC 6.15 (H)Comment: 4.36 - 5.78 [facility] Reviewed by Dr. Hendrickson/cm LABORATORY Michael SERVICES Hemoglobin 12.2 (L) 13.8 - 17.3 [facility] gm/dl LABORATORY SERVICES HCT 39.2 (L) 39.5 - 50.2 % [facility] LABORATORY SERVICES MCV 64 (L)Comment: 81 - 95 [facility] Reviewed by Dr. BUCK Rodriguez SERVICES MCH 19.8 (L) 27.6 - 33.0 [facility] pg LABORATORY SERVICES Hypochromia 3+ [facility] LABORATORY SERVICES MCHC 31.1 (L) 32.8 - 36.4 [facility] gm/dl LABORATORY SERVICES RDW-CV 17.6 (H) 11.8 - 14.1 % [facility] LABORATORY SERVICES RDW-SD 35.8 (L) 36.5 - 45.9 [facility] fl LABORATORY SERVICES Anisocytosis 1+ [facility] LABORATORY SERVICES PLT 205 141 - 377 [facility] K[facility] LABORATORY SERVICES MPV Not Available 9.5 - 12.7 fl [facility] LABORATORY SERVICES Neutrophils 71.8 % [facility] LABORATORY SERVICES Lymphocytes 21.0 % [facility] LABORATORY SERVICES Monocytes 5.9 % [facility] LABORATORY SERVICES Eosinophils 0.7 % [facility] LABORATORY SERVICES Basophils 0.3 % [facility] LABORATORY SERVICES Immature Grans 0.3 % [facility] LABORATORY SERVICES ABS Neutrophils 4.26 2.20 - 8.85 [facility] LABORATORY SERVICES ABS Lymphs 1.25 1.09 - 3.30 [facility] LABORATORY SERVICES ABS Monocytes 0.35 0.1 - 0.8 [facility] K[facility] LABORATORY SERVICES ABS Eosinophils 0.04 0.03 - 0.61 [facility] K[facility] LABORATORY SERVICES ABS Basophils 0.02 0.01 - 0.11 [facility] LABORATORY SERVICES ABS Immature Grans 0.02 0 - 0.06 [facility] LABORATORY SERVICES Type of Diff: Automated [facility] LABORATORY SERVICES Specimen Blood Performing Organization Address City/State/ZIP Code Phon e Number [facility] LABORATORY [address] [place] [address] SERVICES ANGIOTENSIN CONVERTING ENZYME (BRI) (10/02/2016 13:30 EST) Angiotensin 29 8 - 53 U/L [facility] Converting Enzyme Comment: LABORATORY Performed or Referred by: [facility] Natasha Cobre [facility], [address] [place] [address], Lab Dir: Juan Daniel Tolentino I I, M.D., Ph.D. Specimen Blood Performing Organization Address City/State/ZIP Code Phon e Number [facility] LABORATORY [address] [place] [address] SERVICES documented in this encounter Visit Diagnoses Not on filedocumented in this encounter Care Teams Probation And Parole Officer Relationship Specialty Start Date End Date Chele Kessler MD PCP - General 09/07/15 11/21/[address] [place] [address] documented as of this encounter
--- NOTE | 2022-05-12 06:45 | DI.RAD_ITS ---
Exam(s) XR CHEST 2V PA LATERAL EXAM: XR CHEST 2V PA LATERAL CLINICAL HISTORY: shortness of breath since COVID,dyspnea,U09.9,R06.00. TECHNIQUE: 2D digital imaging was performed. COMPARISON: No exams were available for comparison FINDINGS: 2 views: Heart size is normal. The mediastinum is not widened. Lungs are clear. No infiltrates nor pleural effusions. There is symmetrical bilateral lung base ???nodules??? which are most probably just the bilateral carrie ast nipples. IMPRESSION: No acute pulmonary findings. DATA REPOSITORY: RADIATION DOSE DELIVERED:
== END ==
PROVIDERS: PCP Family Medicine; Visit Provider Student in an Organized Health Care Education/Training Program
DX: R06.02 Shortness of breath (principal); U09.9 Post COVID-19 condition, unspecified
CPT/HCPCS: 71046

== ENCOUNTER 2022-05-12 02:07 | Outpatient (CLI) | payer MEDICAID, SELFPAY ==
[2022-05-12 09:09] LABS: BE 3 mmol/L (-2-3); HCO3 29 mmol/L (22-26); pCO2 49 mmHg (35-45); pH 7.38 (7.35-7.45); sO2 54 % (95-98); tCO2 26 mmol/L (23-27)
[2022-05-12 09:11] LABS: Site Right Brachial
[2022-05-12 09:15] LABS: pO2 33 mmHg (80-105)
[2022-05-12] MEDS: Albuterol HFA 18 GM 200 PUFF INH IH (09:37)
[2022-05-12] MEDS: Inhaler, Assist Device 1 EACH MC (09:38)
--- NOTE | 2022-05-19 16:27 | PFT_ITS ---
Date of service: 05/12/22 Time of Service: 08:09 Pulmonary Function Test Result Requesting Provider Duchene Indications: [facility] Interpretation Spirometry: There is no airflow limitation. There is no significant bronchodilator response. Lung Volumes: Normal lung volumes Diffusion Capacity: Diffusion is normal. Airway Pressure: Normal airways resistance. Impression Normal pulmonary function testing Clinical Correlation therefore is recommended.
== END 2022-05-12 02:08 | disposition home or self-care (01) ==
LOC: RT 02:07
PROVIDERS: PCP Family Medicine; Visit Provider Student in an Organized Health Care Education/Training Program
DX: U09.9 Post COVID-19 condition, unspecified (principal); R06.09 Other forms of dyspnea
CPT/HCPCS: 82805; 94060; 94726; 94729

== ENCOUNTER 2022-08-02 09:44 | Outpatient (CLI) | payer MEDICAID, SELFPAY ==
[2022-08-02 09:58] LABS: BE 2 mmol/L (-2-3); HCO3 27 mmol/L (22-26); pCO2 43 mmHg (35-45)
[2022-08-02 09:59] LABS: Site Left Radial; TCO2 28 mmol/L (23-27); sO2 66 % (95-98)
[2022-08-02 10:03] LABS: pO2 34 mmHg (80-105)
== END 2022-08-02 09:45 | disposition home or self-care (01) ==
LOC: LBN 09:45
PROVIDERS: Physician Assistant Surgical; PCP Family Medicine; Visit Provider Student in an Organized Health Care Education/Training Program
DX: U09.9 Post COVID-19 condition, unspecified (principal); R09.02 Hypoxemia
CPT/HCPCS: 82803; 82805